=== PATIENT | female | born 1970 | race Caucasian/White ===

== ENCOUNTER 2017-10-23 16:30 | Observation (INO) | payer OTHER ==
[2017-10-23] MEDS ORDERED: IOHEXOL 350 MG/ML 10 ML VIAL (for RAD DIAG) IVCONTRAST ONE (16:31)
[2017-10-23 16:33] VITALS: BP 152/84; PULSE 75; RESP 16; TEMP 98.7; O2SAT 98
[2017-10-23 17:18] LABS: AUTOMATED NEUTROPHIL # 6.3 TH/MM3 (1.8-7.7); BASOPHIL # 0.1 TH/MM3 (0-0.2); BASOPHIL % 0.9 % (0.0-2.0); EOSINOPHIL # 0.2 TH/MM3 (0-0.4); EOSINOPHIL % 2.5 % (0.0-4.0); HEMATOCRIT 41.3 % (35.0-46.0); HEMOGLOBIN 14.5 GM/DL (11.6-15.3); LYMPH % 27.5 % (9.0-44.0); LYMPHOCYTE # 2.8 TH/MM3 (1.0-4.8); MEAN CELL VOLUME 90.4 FL (80.0-100.0); MEAN CORPUSCULAR HEMOGLOBIN 31.8 PG (27.0-34.0); MEAN CORPUSCULAR HGB CONC 35.2 % (32.0-36.0); MEAN PLATELET VOLUME 7.9 FL (7.0-11.0); MONO % 6.4 % (0.0-8.0); MONOCYTE # 0.6 TH/MM3 (0-0.9); NEUT % 62.7 % (16.0-70.0); PLATELET COUNT 308 TH/MM3 (150-450); RED BLOOD COUNT 4.57 MIL/MM3 (4.00-5.30); RED CELL DISTRIBUTION WIDTH 12.8 % (11.6-17.2); WHITE BLOOD COUNT 10.1 TH/MM3 (4.0-11.0)
[2017-10-23 17:25] LABS: PROTHROMBIN TIME - PATIENT 9.7 SEC (9.8-11.6)
[2017-10-23 17:30] LABS: ALBUMIN 4.2 GM/DL (3.4-5.0); ALT (GPT) 62 U/L (10-53); AST (GOT) 26 U/L (15-37); BICARBONATE 26.6 MEQ/L (21.0-32.0); BLOOD UREA NITROGEN 12 MG/DL (7-18); CALCIUM 9.7 MG/DL (8.5-10.1); CHLORIDE 105 MEQ/L (98-107); CREATININE 0.95 MG/DL (0.50-1.00); GLOMERULAR FILTRATION RATE 63 ML/MIN (>89); GLUCOSE,RANDOM 99 MG/DL (74-106); SODIUM (NA) 139 MEQ/L (136-145)
[2017-10-23 17:32] LABS: ALKALINE PHOSPHATASE 112 U/L (45-117); TOTAL BILIRUBIN ADULT 0.4 MG/DL (0.2-1.0); TOTAL PROTEIN 8.4 GM/DL (6.4-8.2)
[2017-10-23] MEDS ORDERED: IBUP200C PO (17:52)
[2017-10-23] MEDS ORDERED: VENTAER INH (17:52)
[2017-10-23] MEDS ORDERED: ALBU0.63 NEB (17:52)
[2017-10-23] MEDS ORDERED: ONDANSETRON HCL 4 MG/2 ML VIAL IV PUSH ONE (18:00)
[2017-10-23] MEDS ORDERED: SODIUM CHLOR 0.9% 1000 ML INJ 1,000 ML IV SCH (18:00)
[2017-10-23] MEDS ORDERED: MORPHINE SULFATE 2 MG/ML INJ IV PUSH ONE ×2 (18:00→19:30)
--- NOTE | 2017-10-23 18:02 | PD ---
HPI Chief Complaint: Bleeding Time Seen by Provider: 17:40 Travel History International Travel<30 days: No Contact w/Intl Traveler<30days: No Traveled to known affect area: No History of Present Illness HPI 46-year-old female complains of rectal pain and rectal bleeding. Patient states her symptoms started a month ago. Patient stated the pain is sharp pain and severe pressure pain localized rectal area. Patient denies any pain radiation. Patient denies any nausea vomiting diarrhea. Patient states that she noticed blood per stool for the past 2 weeks. Patient denies any dysuria frequency. Patient denies any vaginal discharge or bleeding. Patient has history of COPD. Patient denies any previous pneumonia abdominal surgery. Patient was seen by local physician this morning and advised to go to the ED for evaluation. Patient states that she never had colonoscopy done. On a scale of 1-10 the pain is a 10. PFSH Past Medical History Cancer: Yes (BREAST CANCER) COPD: Yes Respiratory: Yes (COPD) Tetanus Vaccination: Unknown Influenza Vaccination: No ?: Not Past Surgical History Other Surgery: Yes (IMGUINAL HERNIA REPAIR AND LEFT LUMPECTOMY) Social History Alcohol Use: No Tobacco Use: No Substance Use: No Allergies-Medications (Allergen,Severity, Reaction): Coded Allergies: No Known Allergies (Unverified , 10/23/17) Reported Meds & Prescriptions Reported Meds & Active Scripts Active Reported Albuterol Neb (Albuterol Sulfate) 0.63 Mg/3 Ml Neb 0.63 Mg NEB Q6HR NEB PRN Ventolin Hfa 18 GM Inh (Albuterol Sulfate) 90 Mcg/Act Aer 2 Puff INH Q4-6H PRN Ibuprofen 200 Mg Cap 200 Mg PO Q2HR Review of Systems General / Constitutional: No: Fever Eyes: No: Visual changes HENT: No: Headaches Cardiovascular: No: Chest Pain or Discomfort Respiratory: No: Shortness of Breath Gastrointestinal: Positive: Abdominal Pain, Hematochezia Genitourinary: No: Dysuria Musculoskeletal: No: Pain Skin: No Rash Neurologic: No: Weakness Psychiatric: No: Depression Endocrine: No: Polydipsia Hematologic/Lymphatic: No: Easy Bruising Physical Exam Narrative GENERAL: Well-nourished, well-developed patient. SKIN: Focused skin assessment warm/dry. HEAD: Normocephalic. EYES: No scleral icterus. No injection or drainage. NECK: Supple, trachea midline. No JVD or lymphadenopathy. CARDIOVASCULAR: Regular rate and rhythm without murmurs, gallops, or rubs. RESPIRATORY: Breath sounds equal bilaterally. No accessory muscle use. GASTROINTESTINAL: Abdomen soft, non-tender, nondistended. Unable to perform full rectal exam on the patient because of pain per rectum. Hemoccult at the entrance of the anus is trace positive for Hemoccult. MUSCULOSKELETAL: No cyanosis, or edema. BACK: Nontender without obvious deformity. No CVA tenderness. Neurologic exam normal. Data Data Last Documented VS Vital Signs Date Time Temp Pulse Resp B/P (MAP) Pulse Ox O2 Delivery O2 Flow Rate FiO2 10/23/17 19:13 77 18 138/70 (92) 97 Room Air 10/23/17 16:33 98.7 Orders Orders Complete Blood Count With Diff (10/23/17 16:35) Comprehensive Metabolic Panel (10/23/17 16:35) Coag Profile (10/23/17 16:35) Ct Abd/Pel W Iv Contrast(Rout) (10/23/17 17:48) Sodium Chlor 0.9% 1000 Ml Inj (Ns 1000 M (10/23/17 18:00) Morphine Inj (Morphine Inj) (10/23/17 18:00) Ondansetron Inj (Zofran Inj) (10/23/17 18:00) Iohexol 350 Inj (Omnipaque 350 Inj) (10/23/17 16:31) Morphine Inj (Morphine Inj) (10/23/17 19:30) Admit Order (Ed Use Only) (10/23/17 19:32) Labs Laboratory Tests Test 10/23/17 16:58 White Blood Count 10.1 TH/MM3 Red Blood Count 4.57 MIL/MM3 Hemoglobin 14.5 GM/DL Hematocrit 41.3 % Mean Corpuscular Volume 90.4 FL Mean Corpuscular Hemoglobin 31.8 PG Mean Corpuscular Hemoglobin Concent 35.2 % Red Cell Distribution Width 12.8 % Platelet Count 308 TH/MM3 Mean Platelet Volume 7.9 FL Neutrophils (%) (Auto) 62.7 % Lymphocytes (%) (Auto) 27.5 % Monocytes (%) (Auto) 6.4 % Eosinophils (%) (Auto) 2.5 % Basophils (%) (Auto) 0.9 % Neutrophils # (Auto) 6.3 TH/MM3 Lymphocytes # (Auto) 2.8 TH/MM3 Monocytes # (Auto) 0.6 TH/MM3 Eosinophils # (Auto) 0.2 TH/MM3 Basophils # (Auto) 0.1 TH/MM3 CBC Comment DIFF FINAL Differential Comment Prothrombin Time 9.7 SEC Prothromb Time International Ratio 1.0 RATIO Activated Partial Thromboplast Time 25.2 SEC Blood Urea Nitrogen 12 MG/DL Creatinine 0.95 MG/DL Random Glucose 99 MG/DL Total Protein 8.4 GM/DL Albumin 4.2 GM/DL Calcium Level 9.7 MG/DL Alkaline Phosphatase 112 U/L Aspartate Amino Transf (AST/SGOT) 26 U/L Alanine Aminotransferase (ALT/SGPT) 62 U/L Total Bilirubin 0.4 MG/DL Sodium Level 139 MEQ/L Potassium Level 4.0 MEQ/L Chloride Level 105 MEQ/L Carbon Dioxide Level 26.6 MEQ/L Anion Gap 7 MEQ/L Estimat Glomerular Filtration Rate 63 ML/MIN MDM Medical Decision Making Medical Screen Exam Complete: Yes Emergency Medical Condition: Yes Interpretation(s) 1816 p.m. CBC within normal limits. CMP within normal limits. ALT 62. 1924 PM. Last Impressions Abdomen/Pelvis CT 10/23/17 1748 Signed Impressions: Service Date/Time: Monday, October 23, 2017 18:31 - CONCLUSION: Abnormal appearance of the anorectal junction. Prieto Weeks MD Differential Diagnosis Differential diagnosis including rectal abscess, rectal mass, proctitis, GI bleed. Narrative Course 46-year-old female with severe rectal pain and blood per stool. Normal saline solution 1 25 cc an hour. Morphine 2 mg IV. Zofran 4 mg IV. Pepcid 20 mg IV. Spoke with colorectal surgeon Dr. Newberry. Advised medical admission and he will see her in consultation. Diagnosis Primary Impression: GI bleed Qualified Codes: K92.2 - Gastrointestinal hemorrhage, unspecified Additional Impression: Rectal mass Admitting Information Admitting Physician Requests: Admit Slim Trejo MD Oct 23, 2017 18:02
--- NOTE | 2017-10-23 19:10 | RADRPT ---
EXAM DATE/TIME: 10/23/2017 18:31 [facility] COMPARISON: No previous studies available for comparison. INDICATIONS : Rectal pain and blood in stool. IV CONTRAST: 97 cc Omnipaque 350 (iohexol) IV ORAL CONTRAST: No oral contrast ingested. RADIATION DOSE: 8.02 CTDIvol (mGy) MEDICAL HISTORY : Chronic obstructive pulmonary disease. Carcinoma, breast. SURGICAL HISTORY : Inguinal hernia repair. ENCOUNTER: Initial ACUITY: 1 month PAIN SCALE: 10/10 LOCATION: rectal pain TECHNIQUE: Volumetric scanning of the abdomen and pelvis was performed. Using automated exposure control and ad justment of the mA and/or kV according to patient size, radiation dose was kept as low as reasonably achievable to obtain optimal diagnostic quality images. DICOM format image data is available electro nically for review and comparison. FINDINGS: LOWER LUNGS: The visualized lower lungs are clear. LIVER: Diffusely diminished attenuation suggesting steatosis. No focal mass or biliary ductal dilatation. SPLEEN: Normal size without lesion. PANCREAS: Within normal limits. KIDNEYS: Normal in size and shape. There is no mass, stone or hydronephrosis. ADRENAL GLANDS: Within normal limits. VASCULAR: There is no aortic aneurysm. BOWEL/MESENTERY: The region of the anal rectal junction is abnormal with suggestion of wall thickening and a slightly greater than 1 cm low density focus which may be a small neural abscess or mass. Mild induration in t his region. The bowel is elsewhere are unremarkable with no abnormal dilatation. ABDOMINAL WALL: Within normal limits. RETROPERITONEUM: There is no lymphadenopathy. BLADDER: No wall thickening or mass. REPRODUCTIVE: Within normal limits. INGUINAL: There is no lymphadenopathy or hernia. MUSCULOSKELETAL: Within normal limits for patient age. CONCLUSION: Abnormal appearance of the anorectal junction. Prieto Weeks MD on October 23, 2017 at 19:05 Board Certified Radiologist. This report was verified electronically.
[2017-10-23 19:13] VITALS: BP 138/70; PULSE 77; RESP 18; O2SAT 97
[2017-10-23] MEDS ORDERED: MAGNESIUM HYDROXIDE SUSP 30 ML CUP PO PRN (21:45)
[2017-10-23] MEDS ORDERED: NALOXONE HCL 0.4 MG/ML AMP IV PUSH PRN (21:45)
[2017-10-23] MEDS ORDERED: LACTULOSE SYRUP 20 GM/30 ML CUP PO PRN (21:45)
[2017-10-23] MEDS ORDERED: SENNOSIDES 8.6 MG TAB PO PRN (21:45)
[2017-10-23] MEDS ORDERED: SODIUM CHLORIDE 0.9% FLUSH 10 ML FLUSH IV FLUSH PRN (21:45)
[2017-10-23] MEDS ORDERED: BISACODYL 10 MG SUPP RECTAL PRN (21:45)
[2017-10-23 22:22] VITALS: BP 124/61; PULSE 82; RESP 20; O2SAT 97
[2017-10-23] MEDS: HYDROmorphone HCL PF 2 MG/ML VIAL IV PUSH PRN (22:24)
[2017-10-23] MEDS: SODIUM CHLOR 0.9% 1000 ML INJ 1,000 ML IV SCH (22:24)
[2017-10-23 23:10] VITALS: BP 122/73; PULSE 67; RESP 16; TEMP 98.4; O2SAT 98
--- NOTE | 2017-10-24 00:21 | HHI.HP ---
HPI Service [facility] Primary Care Physician Edwina Jaimes MD Admission Diagnosis GI bleed. Rectal mass. Diagnoses: Travel History International Travel<30 Days: No Contact w/Intl Traveler <30 Da: No Traveled to Known Affected Are: No History of Present Illness 46-year-old female with a past medical history significant for COPD presents to the emergency for evaluation of rectal pain. The patient reports that her "butthole hurts" and has been doing so for approximately one month. She reports that initially she only had pain with defecation which was then relieved between episodes. She reports that she has had increasing pain/ pressure in her rectum and that now it is constant and very painful. She states she has bright red blood per rectum with her stool on a regular basis. She denies any weight loss. Denies fever/chills. No nausea/vomiting. No chest pain or shortness of breath. Review of Systems Except as stated in HPI: all other systems reviewed are Neg Past Family Social History Past Medical History COPD Past Surgical History Left breast lumpectomy 2 Hernia repair Reported Medications Reported Meds & Active Scripts Active Reported Albuterol Neb (Albuterol Sulfate) 0.63 Mg/3 Ml Neb 0.63 Mg NEB Q6HR NEB PRN Ventolin Hfa 18 GM Inh (Albuterol Sulfate) 90 Mcg/Act Aer 2 Puff INH Q4-6H PRN Ibuprofen 200 Mg Cap 200 Mg PO Q2HR Allergies: Coded Allergies: No Known Allergies (Unverified , 10/23/17) Family History Both parents with diabetes mellitus and coronary artery disease. Social History Quit tobacco in February 19502016. Now smokes an electronic cigarette. Denies alcohol and illicit drugs. Physical Exam Vital Signs Vital Signs Date Time Temp Pulse Resp B/P (MAP) Pulse Ox O2 Delivery O2 Flow Rate FiO2 10/23/17 23:10 98.4 67 16 122/73 (89) 98 10/23/17 22:45 10/23/17 22:22 82 20 124/61 (82) 97 Room Air 10/23/17 19:13 77 18 138/70 (92) 97 Room Air 10/23/17 16:33 98.7 75 16 152/84 (131) 98 Physical Exam GENERAL: female lying in bed SKIN: No rashes, ecchymoses or lesions. Cool and dry. HEAD: Atraumatic. Normocephalic. No temporal or scalp tenderness. EYES: Pupils equal round and reactive. Extraocular motions intact. No scleral icterus. No injection or drainage. ENT: Nose without bleeding, purulent drainage or septal hematoma. Throat without erythema, tonsillar hypertrophy or exudate. Uvula midline. Airway patent. NECK: Trachea midline. No JVD or lymphadenopathy. Supple, nontender, no meningeal signs. CARDIOVASCULAR: Regular rate and rhythm without murmurs, gallops, or rubs. RESPIRATORY: Clear to auscultation. Breath sounds equal bilaterally. No wheezes , rales, or rhonchi. GASTROINTESTINAL: Abdomen soft, non-tender, nondistended. No hepato-splenomegaly , or palpable masses. No guarding. : Rectal exam was not performed secondary to patient's pain. No obvious masses or malformations of the anus. MUSCULOSKELETAL: Extremities without clubbing, cyanosis, or edema. No joint tenderness, effusion, or edema noted. No calf tenderness. NEUROLOGICAL: Awake and alert. Cranial nerves II through XII intact. Motor and sensory grossly within normal limits. Normal speech. Laboratory Laboratory Tests Test 10/23/17 16:58 White Blood Count 10.1 Red Blood Count 4.57 Hemoglobin 14.5 Hematocrit 41.3 Mean Corpuscular Volume 90.4 Mean Corpuscular Hemoglobin 31.8 Mean Corpuscular Hemoglobin Concent 35.2 Red Cell Distribution Width 12.8 Platelet Count 308 Mean Platelet Volume 7.9 Neutrophils (%) (Auto) 62.7 Lymphocytes (%) (Auto) 27.5 Monocytes (%) (Auto) 6.4 Eosinophils (%) (Auto) 2.5 Basophils (%) (Auto) 0.9 Neutrophils # (Auto) 6.3 Lymphocytes # (Auto) 2.8 Monocytes # (Auto) 0.6 Eosinophils # (Auto) 0.2 Basophils # (Auto) 0.1 CBC Comment DIFF FINAL Differential Comment Prothrombin Time 9.7 Prothromb Time International Ratio 1.0 Activated Partial Thromboplast Time 25.2 Blood Urea Nitrogen 12 Creatinine 0.95 Random Glucose 99 Total Protein 8.4 Albumin 4.2 Calcium Level 9.7 Alkaline Phosphatase 112 Aspartate Amino Transf (AST/SGOT) 26 Alanine Aminotransferase (ALT/SGPT) 62 Total Bilirubin 0.4 Sodium Level 139 Potassium Level 4.0 Chloride Level 105 Carbon Dioxide Level 26.6 Anion Gap 7 Estimat Glomerular Filtration Rate 63 Result Diagram: 10/23/17165710/23/171657 Caprini VTE Risk Assessment Caprini VTE Risk Assessment: No/Low Risk (score <= 1) Caprini Risk Assessment Model Point Value = 1 Point Value = 2 Point Value = 3 Point Value = 5 Age 41-60 Minor surgery BMI > 25 kg/m2 Swollen legs Varicose veins or History of unexplained or recurrent spontaneous Oral contraceptives or hormone replacement Sepsis (< 1 month) Serious lung disease, including pneumonia (< 1 month) Abnormal pulmonary function Acute myocardial infarction Congestive heart failure (< 1 month) History of inflammatory bowel disease Medical patient at bed rest Age 61-74 Arthroscopic surgery Major open surgery (> 45 min) Laparoscopic surgery (> 45 min) Malignancy Confined to bed (> 72 hours) Immobilizing plaster cast Central venous access Age >= 75 History of VTE Family history of VTE Factor V Leiden Prothrombin [id number] Lupus anticoagulant Anticardiolipin antibodies Elevated serum homocysteine Heparin-induced thrombocytopenia Other congenital or acquired thrombophilia Stroke (< 1 month) Elective arthroplasty Hip, pelvis, or leg fracture Acute spinal cord injury (< 1 month) Prophylaxis Regimen Total Risk Factor Score Risk Level Prophylaxis Regimen 0-1 Low Early ambulation 2 Moderate Order ONE of the following: *Sequential Compression Device (SCD) *Heparin 5000 units SQ BID 3-4 Higher Order ONE of the following medications: *Heparin 5000 units SQ TID *Enoxaparin/Lovenox 40 mg SQ daily (WT < 150 kg, CrCl > 30 mL/min) *Enoxaparin/Lovenox 30 mg SQ daily (WT < 150 kg, CrCl > 10-29 mL/min) *Enoxaparin/Lovenox 30 mg SQ BID (WT < 150 kg, CrCl > 30 mL/min) AND/OR *Sequential Compression Device (SCD) 5 or more Highest Order ONE of the following medications: *Heparin 5000 units SQ TID (Preferred with Epidurals) *Enoxaparin/Lovenox 40 mg SQ daily (WT < 150 kg, CrCl > 30 mL/min) *Enoxaparin/Lovenox 30 mg SQ daily (WT < 150 kg, CrCl > 10-29 mL/min) *Enoxaparin/Lovenox 30 mg SQ BID (WT < 150 kg, CrCl > 30 mL/min) AND *Sequential Compression Device (SCD) Assessment and Plan Assessment and Plan Assessment/plan: 1. Rectal mass CT of the abdomen/pelvis significant for abnormal appearance of the anorectal junction Colorectal surgery consulted, appreciate recommendations. Patient will likely have rectal exam under anesthesia later today. Dilaudid for pain 2. COPD Duonebs prn FEN NPO NS at 100 cc/hr Electrolytes: Monitor and replete when necessary Ambulation Jackie Marcelino MD Oct 24, 2017 00:21
[2017-10-24 02:35] VITALS: BP 101/60; PULSE 72; RESP 18; TEMP 98; O2SAT 98
[2017-10-24] MEDS: ONDANSETRON HCL 4 MG/2 ML VIAL IVP PRN ×2 (04:24→16:30)
[2017-10-24] MEDS: HYDROmorphone HCL PF 2 MG/ML VIAL IV PUSH PRN ×4 (04:27→21:52)
[2017-10-24 06:36] LABS: AUTOMATED NEUTROPHIL # 5.6 TH/MM3 (1.8-7.7); BASOPHIL # 0.1 TH/MM3 (0-0.2); BASOPHIL % 1.2 % (0.0-2.0); EOSINOPHIL # 0.2 TH/MM3 (0-0.4); EOSINOPHIL % 2.6 % (0.0-4.0); HEMATOCRIT 36.2 % (35.0-46.0); HEMOGLOBIN 12.4 GM/DL (11.6-15.3); LYMPH % 23.1 % (9.0-44.0); LYMPHOCYTE # 1.9 TH/MM3 (1.0-4.8); MEAN CELL VOLUME 89.6 FL (80.0-100.0); MEAN CORPUSCULAR HEMOGLOBIN 30.8 PG (27.0-34.0); MEAN CORPUSCULAR HGB CONC 34.4 % (32.0-36.0); MEAN PLATELET VOLUME 7.9 FL (7.0-11.0); MONO % 7.1 % (0.0-8.0); MONOCYTE # 0.6 TH/MM3 (0-0.9); PLATELET COUNT 266 TH/MM3 (150-450); RED BLOOD COUNT 4.04 MIL/MM3 (4.00-5.30); RED CELL DISTRIBUTION WIDTH 12.7 % (11.6-17.2); WHITE BLOOD COUNT 8.4 TH/MM3 (4.0-11.0)
[2017-10-24 06:43] VITALS: BP 118/71; PULSE 66; RESP 18; TEMP 98; O2SAT 92
[2017-10-24 07:22] LABS: BICARBONATE 27.4 MEQ/L (21.0-32.0); CALCIUM 8.9 MG/DL (8.5-10.1); CREATININE 0.79 MG/DL (0.50-1.00)
[2017-10-24] MEDS: SODIUM CHLOR 0.9% 1000 ML INJ 1,000 ML IV SCH ×2 (07:33→17:33)
[2017-10-24] MEDS: DOCUSATE SODIUM 50 MG/SENNA 8.6 MG TAB PO SCH ×2 (07:40→21:00)
[2017-10-24] MEDS: ACETAMINOPHEN 325 MG TAB PO PRN (07:40)
[2017-10-24] MEDS: SODIUM CHLORIDE 0.9% FLUSH 10 ML FLUSH IV FLUSH SCH ×2 (07:41→21:49)
[2017-10-24 08:41] VITALS: BP 108/64; PULSE 71; RESP 18; TEMP 98.1; O2SAT 95
[2017-10-24] MEDS: PANTOPRAZOLE SODIUM 40 MG VIAL IV PUSH SCH (09:42)
[2017-10-24 12:02] VITALS: BP 129/75; PULSE 64; RESP 18; TEMP 98.3; O2SAT 94
--- NOTE | 2017-10-24 13:51 | HHI.PR ---
Subjective Remarks Follow up rectal mass. Patient reporting significant pain in the anorectal region. She feels lightheaded with ambulation. Objective Vitals Vital Signs Date Time Temp Pulse Resp B/P (MAP) Pulse Ox O2 Delivery O2 Flow Rate FiO2 10/24/17 12:02 98.3 64 18 129/75 (93) 94 10/24/17 08:41 98.1 71 18 108/64 (79) 95 10/24/17 06:43 98.0 66 18 118/71 (87) 92 10/24/17 02:35 98.0 72 18 101/60 (74) 98 10/23/17 23:10 98.4 67 16 122/73 (89) 98 10/23/17 22:45 10/23/17 22:22 82 20 124/61 (82) 97 Room Air 10/23/17 19:13 77 18 138/70 (92) 97 Room Air 10/23/17 16:33 98.7 75 16 152/84 (106) 98 I/O 10/23/17 10/23/17 10/23/17 10/24/17 10/24/17 10/24/17 07:00 15:00 23:00 07:00 15:00 23:00 Intake Total 1000 ml Balance 1000 ml Intake IV Total 1000 ml # Voids 1 Result Diagram: 10/24/17 0608 10/24/17 0608 Imaging Last Impressions Abdomen/Pelvis CT 10/23/17 1748 Signed Impressions: Service Date/Time: Monday, October 23, 2017 18:31 - CONCLUSION: Abnormal appearance of the anorectal junction. Prieto Weeks MD Objective Remarks Examined in presence of PA. General: No acute distress. Heart: Regular rate and rhythm. No murmur. Lungs: Clear to auscultation bilaterally. No wheezes, rales, or rhonchi. Breathing is nonlabored. Abdomen: Soft, nontender, nondistended. Extremities: No lower extremity edema. Psych: Alert and oriented. Procedures None Urinary Catheter: No Vascular Central Line Catheter: No A/P Assessment and Plan 1. Rectal mass: Colorectal surgery consult is pending. Patient will likely need exam under anesthesia. Continue pain control. 2. COPD: Duoneb, oxygen as needed. 3. DVT prophylaxis: Bernard Murray MD Oct 24, 2017 13:51
[2017-10-24 15:53] VITALS: BP 131/61; PULSE 71; RESP 18; TEMP 98.1; O2SAT 94
[2017-10-24] MEDS ORDERED: IBUPROFEN 600 MG TAB PO ONE (16:15)
[2017-10-24 20:15] VITALS: BP 107/59; PULSE 82; RESP 16; TEMP 98; O2SAT 90
[2017-10-24] MEDS ORDERED: SODIUM CHLORID 0.9% 500 ML IV PRN (21:00)
[2017-10-24] MEDS ORDERED: LACTATED RINGER'S 1000 ML IV PRN (21:00)
[2017-10-24] MEDS ORDERED: CHLORHEXIDINE GLUCONATE 2 % 1 PACK (2 CLOTHS) TOPICAL PRN (21:00)
[2017-10-24] MEDS ORDERED: POVIDONE IODINE 5% (ANTISEPSIS KIT) 4 APPLICATIONS EACH NARE PRN (21:00)
--- NOTE | 2017-10-24 21:08 | MB ---
cc: FRANCOIS TAVERAS M.D. DATE OF CONSULTATION 10/24/17 REASON FOR CONSULTATION Severe rectal pain and bleeding, abnormal CAT scan. HISTORY OF PRESENT ILLNESS Ms. Hatch is a 46-year-old female who complains of increasing rectal pain now over approximately 3-4 weeks. She initially had pain with bowel movements and some relief in-between stools. Lately, the pain has become more and more intense with some pressure and pain in the rectum all a time. She has also had some mucus discharge and bright red blood with bowel movements mostly on the paper and the stool but some of the toilet bowel. She denies any significant diarrhea. Control is good. She does strain quite a bit. She denies any prolapse, no nausea or vomiting, denies any fever. No abdominal distension or melena. Appetite has remained fairly good and she denies any significant weight loss. PAST MEDICAL AND SURGICAL HISTORY Reviewed and updated in the history and physical and the ER reports. No family history of colorectal cancer. PERTINENT PHYSICAL EXAMINATION GENERAL: A very pleasant female in some discomfort. HEENT: Remarkable for dry but pink membranes, nonicteric sclerae. NECK: Supple without gross adenopathy. CHEST: Relatively clear, symmetrical expanding. CARDIAC: Heart had a regular rhythm. ABDOMEN: Soft and benign, very minimal distension. No rebound or guarding or any masses. RECTAL: Anal inspection reveals good symmetry, no obvious cellulitis. No induration. No obvious fissures or fistula. Digital exam reveals quite a bit of tenderness and swollen internal hemorrhoids, possibly a mass or an abscess. EXTREMITIES: No cyanosis or clubbing and minimal pedal edema. LABORATORY FINDINGS All reviewed. IMAGING STUDIES CAT scan showing asymmetrical swelling of the rectum consistent with either a mass or possibly induration and abscess formation. IMPRESSION A 46-year-old female with increasing rectal pain and tenderness. CT scan does suggest either an abscess or possibly a mass. A rectal exam at the bedside was pretty indeterminate due to patient discomfort. Discussed at length with the patient. Recommended exam under anesthesia with sigmoidoscopy and possible biopsy of the mass. If one is found or drainage of an abscess if indeed she does have an internal submucosal abscess or possibly thrombosis. Risk, benefits and alternatives were discussed at great length with the patient. We will try to set up for first thing in the morning. MD ELYSSA Zamora /8:29 PM /8:50 PM
[2017-10-25] MEDS: HYDROmorphone HCL PF 2 MG/ML VIAL IV PUSH PRN ×4 (02:04→21:55)
[2017-10-25] MEDS: SODIUM CHLOR 0.9% 1000 ML INJ 1,000 ML IV SCH ×3 (02:44→23:33)
[2017-10-25 05:17] VITALS: BP 113/65; PULSE 82; RESP 16; TEMP 97.2; O2SAT 98
[2017-10-25 07:25] VITALS: BP 135/74; PULSE 75; RESP 18; TEMP 99.3; O2SAT 94
--- NOTE | 2017-10-25 07:43 | HHI.PR ---
Subjective Remarks Follow up rectal pain. Going for sigmoidoscopy this morning. Reports "migraine" headache. Objective Vitals Vital Signs Date Time Temp Pulse Resp B/P (MAP) Pulse Ox O2 Delivery O2 Flow Rate FiO2 10/25/17 07:25 99.3 75 18 135/74 (94) 94 10/25/17 05:17 97.2 82 16 113/65 (81) 98 10/24/17 20:15 98.0 82 16 107/59 (75) 90 10/24/17 15:53 98.1 71 18 131/61 (84) 94 10/24/17 12:02 98.3 64 18 129/75 (93) 94 10/24/17 08:41 98.1 71 18 108/64 (79) 95 I/O 10/24/17 10/24/17 10/24/17 10/25/17 10/25/17 10/25/17 07:00 15:00 23:00 07:00 15:00 23:00 Intake Total 480 ml Balance 480 ml Intake Oral 480 ml # Voids 1 3 Result Diagram: 10/24/17 0608 10/24/17 0608 Imaging Last Impressions Abdomen/Pelvis CT 10/23/17 1748 Signed Impressions: Service Date/Time: Monday, October 23, 2017 18:31 - CONCLUSION: Abnormal appearance of the anorectal junction. Prieto Weeks MD Objective Remarks Examined in presence of PA. General: No acute distress. Heart: Regular rate and rhythm. No murmur. Lungs: Clear to auscultation bilaterally. No wheezes, rales, or rhonchi. Breathing is nonlabored. Abdomen: Soft, nontender, nondistended. Extremities: No lower extremity edema. Psych: Alert and oriented. Procedures None Urinary Catheter: No Vascular Central Line Catheter: No A/P Assessment and Plan 1. Rectal mass: Appreciate colorectal surgery recommendations. Going for exam under anesthesia and sigmoidoscopy today. Continue pain control. 2. COPD: Duoneb, oxygen as needed. 3. DVT prophylaxis: SCDs. Discharge Planning Pending colorectal surgery recommendations post-procedure. Bernard Hester MD Oct 25, 2017 07:43
[2017-10-25] MEDS ORDERED: ACETAMINOPHEN 1000 MG/100 ML 100 ML IV ONE (08:04)
[2017-10-25] MEDS ORDERED: FAMOTIDINE 20 MG/2 ML VIAL ONE (08:04)
[2017-10-25] MEDS: DOCUSATE SODIUM 50 MG/SENNA 8.6 MG TAB PO SCH ×2 (09:00→20:34)
[2017-10-25] MEDS ORDERED: IOHEXOL 350 MG/ML 10 ML VIAL (for RAD DIAG) IVCONTRAST ONE (09:52)
--- NOTE | 2017-10-25 10:07 | RADRPT ---
EXAM DATE/TIME: 10/25/2017 09:44 [facility] COMPARISON: No previous studies available for comparison. INDICATIONS : Anal cancer IV CONTRAST: 70 cc Omnipaque 350 (iohexol) IV RADIATION DOSE: 9.70 CTDIvol (mGy) MEDICAL HISTORY : Carcinoma, anal. Metastatic, breast. SURGICAL HISTORY : None. ENCOUNTER: Initial ACUITY: 1 day PAIN SCALE: 0/10 LOCATION: chest TECHNIQUE: Volumetric scanning of the chest was performed. Using automated exposure control and adjustment of t he mA and/or kV according to patient size, radiation dose was kept as low as reasonably achievable to obtain optimal diagnostic quality images. DICOM format image data is available electronically for review and comparison. Follow-up recommendations for detected pulmonary nodules are based at a minimum on nodule size and pa tient risk factors according to Fleischner Society Guidelines. FINDINGS: LUNGS: Multiple tiny bilateral pulmonary parenchymal nodules are identified, none exceeding 4-5 mm in size. These are all labeled on lung window series 3, seen on images 22, 34, 35, 37, 40. There is no evidenc e of infiltrate. PLEURA: There is no pleural thickening or pleural effusion. MEDIASTINUM: The heart and great vessels demonstrate no acute abnormality. There is no mediastinal or hilar lymph adenopathy. AXILLAE: Within normal limits. No lymphadenopathy. SKELETAL: Within normal limits for patient age. MISCELLANEOUS: Hepatic steatosis noted in the upper abdomen. Adrenals appear benign. CONCLUSION: Multiple tiny bilateral pulmonary nodules which can be followed. Prieto Weeks MD on October 25, 2017 at 9:58 Board Certified Radiologist. This report was verified electronically.
[2017-10-25] MEDS: SODIUM CHLORIDE 0.9% FLUSH 10 ML FLUSH IV FLUSH SCH ×2 (10:40→20:34)
[2017-10-25] MEDS: PANTOPRAZOLE SODIUM 40 MG VIAL IV PUSH SCH (10:42)
[2017-10-25] MEDS ORDERED: LIDOCAINE HCL 1% PF 5 ML SYRINGE OTHER ONE (12:00)
[2017-10-25] MEDS ORDERED: PROPOFOL 200 MG/20 ML AMP IV ONE (12:00)
[2017-10-25 12:23] VITALS: BP 100/54; PULSE 72; RESP 18; TEMP 98; O2SAT 94
--- NOTE | 2017-10-25 13:08 | MB ---
cc: DOC KANG M.D. DATE OF CONSULTATION 10/25/[address] Newberry REASON FOR CONSULTATION Oncology consulted to render an opinion regarding patient with anorectal cancer. HISTORY OF PRESENT ILLNESS Patient is a 46-year-old female who presented to the emergency room with a complaint of rectal pain that started more than a month ago. Initially, she has pain with bowel movement. She also noted occasional bright red blood per rectum, however over last few weeks, the pain has progressively become constant and she has had bright red blood per rectum with every bowel movement over the last one to two weeks. She described the pain as very sharp pain. 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 She came into the emergency room. She had an examination under anesthesia by Dr. Newberry this morning. Biopsy was done. She has a firm mass in the anorectal area that looked more like anal cancer. She denies any fever, chills, night sweats or weight loss. She has no chest pains. She denies any shortness of breath or cough. Denies nausea, vomiting, diarrhea, or abdominal pain. No dysuria or hematuria. Denies any fecal material in the urine. PAST MEDICAL HISTORY 1. Chronic obstructive pulmonary disease. 2. Left breast cancer. PAST SURGICAL HISTORY 1. Left breast lumpectomy twice one about 12 years ago reportedly benign and another one in [address] Garrison reportedly showed cancer. 2. Umbilical hernia repair. She stated she had a ruptured hernia resulting in abscess requiring drainage. SOCIAL HISTORY She smokes at least a pack a day for 30 years and quit in February of 2017. She is now smoking E-cigarette. Denies alcohol use. 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 She lives with her . FAMILY HISTORY Positive for coronary artery disease and diabetes and one brother . One sisters alive. One daughter 31 years old. ALLERGIES No known drug allergy. CURRENT MEDICATIONS 1. Protonix 2. Henrietta-Colace REVIEW OF SYSTEMS CONSTITUTION: As above. EYES: Negative. ENT: Negative. CARDIOVASCULAR: Denies chest pressure, or palpitation. RESPIRATORY: Denies shortness of breath or cough. GI: As above. : Negative. MUSCULOSKELETAL: Negative. HEMATOLOGY: Negative. DERMATOLOGY: Negative. ENDOCRINE: Negative. PSYCHIATRIC: Negative. NEUROLOGIC: Negative. PHYSICAL EXAMINATION VITAL SIGNS: Temperature 99.3, blood pressure 120/79, O2 saturation 97% on room air. GENERAL: She is alert and oriented x3 in no acute distress. HEENT: Atraumatic, normocephalic. Pupils equal, round and reactive to light. Extraocular muscles are intact. No sclerae icterus. Oropharynx dry mucosa. No lesion or thrush. No mucositis. NECK: No thyromegaly. No palpable masses. LYMPHATICS: No palpable cervical, clavicular, axillary or inguinal lymph nodes. CARDIOVASCULAR: Regular S1, S2. No murmurs. LUNGS: Clear to auscultation bilaterally. No wheezing or rhonchi. ABDOMEN: Soft, nontender. I could not palpate the liver or spleen. EXTREMITIES: No cyanosis, clubbing or edema. No calf tenderness. BACK: No paravertebral tenderness. SKIN: No rash or petechiae. NEUROLOGIC: Exam nonfocal. BREASTS: Exam not done, I could not find a showplace manager. RECTAL: Deferred. LABORATORY DATA Dated October 24, 2017 was reviewed ASSESSMENT 1. Anorectal mass suspicious for anal cancer. She presented with rectal pain for more than a month which has progressively worsened. CT abdomen and pelvis showed abnormal soft tissue density in the anorectal junction with mild induration. CT of the chest showed multiple tiny pulmonology nodules which are nonspecific. She had an examination under anesthesia this morning which revealed a firm mass in the anorectal area suspicious for anal cancer. A biopsy was done. I have discussed the case with Dr. Newberry. I had an extensive discussion with the patient and her over the phone. I told her she likely has anal cancer, but cannot totally rule out rectal cancer at this time and we have to wait for the final pathology. Her disease appeared to be localized, I would suggest getting a PET scan as an outpatient. We discussed the treatment of anal cancer which would be concurrent radiation with mitomycin and 5-FU. This can be done as an outpatient. Dr. Mejia has been consulted to see the patient. I suggest getting a port placement for chemotherapy. If this turned out to be a rectal cancer, treatment will also be radiation, but with Xeloda and the patient would not need a port if that is the case. She and her would like to put off getting the port placed at this time. She wants to be discharged home once she is seen by Dr. Mejia. I told her to follow up at the oncology clinic after discharge. I also told her we will check her blood work including HIV screen and she agrees. They have some questions today which were answered. 2. Chronic obstructive pulmonary disease. She has more than a 30 pack-year smoking history. She quit February 2017. 3. Pulmonology nodules. She was noted to have tiny sub-centimeter nodules in the bilateral lungs. The largest was around 4-5 mm. These are nonspecific, but need to be monitored. 4. History of breast cancer. She had left breast surgery about 12 years ago reportedly was benign. In 2014, she had another lumpectomy by Dr. Garrison and it reportedly was cancer. She was seen by radiation oncologist, but was told she does not need radiation. She was offered tamoxifen which she declined. She has not had followup since then. Her last mammogram was more than two years ago. She stated she does self exam and has not felt any mass. We will need to get records and she will need further workup as and outpatient. RECOMMENDATIONS 1. Extensive discussion with the patient and her . Await evaluation with Dr. Mejia. 2. The patient can be discharged home from oncology standpoint after seen by Dr. Mejia and I told her to follow at oncology clinic in one week. 3. Check blood work as above. 4. She will need outpatient PET scan and likely a port placement if she indeed has anal canal cancer. 5. Discussed the case with Dr. Newberry. Thank you, Dr. Newberry, for asking me to see this patient. MD MARTHA Loera/GUSTAVO /12:25 PM /12:45 PM GILBERTO
[2017-10-25] MEDS: ACETAMINOPHEN 325 MG TAB PO PRN (13:19)
[2017-10-25] MEDS ORDERED: oxyCODONE/ACETAMINOPHEN 5 MG/325 MG TAB PO PRN (14:00)
[2017-10-25] MEDS ORDERED: PERC7.5T13 PO (14:01)
--- NOTE | 2017-10-25 14:03 | HHI.DCPOC ---
Discharge Care Plan Diagnosis: (1) Rectal or anal pain (2) Pulmonary nodules (3) Rectal mass Goals to Promote Your Health * To prevent worsening of your condition and complications * To maintain your health at the optimal level Directions to Meet Your Goals Take your medications as prescribed Follow your dietary instruction Follow activity as directed Keep your appointments as scheduled Take your immunizations and boosters as scheduled If your symptoms worsen call your PCP, if no PCP go to Urgent Care Center or Emergency Room Smoking is Dangerous to Your Health. Avoid second hand smoke Call the 24-hour hour crisis hotline for domestic abuse at Bernard Hester MD Oct 25, 2017 14:02
[2017-10-25] MEDS: oxyCODONE/ACETAMINOPHEN 10 MG/325 MG TAB PO PRN ×2 (14:56→20:37)
[2017-10-25 15:55] VITALS: BP 145/65; PULSE 63; RESP 18; TEMP 97.7; O2SAT 96
[2017-10-25 20:09] VITALS: BP 147/84; PULSE 71; RESP 16; TEMP 98; O2SAT 98
[2017-10-26 01:13] VITALS: BP 131/76; PULSE 59; RESP 16; TEMP 98; O2SAT 98
[2017-10-26] MEDS: oxyCODONE/ACETAMINOPHEN 10 MG/325 MG TAB PO PRN ×2 (02:08→08:08)
[2017-10-26] MEDS: PANTOPRAZOLE SODIUM 40 MG VIAL IV PUSH SCH (08:08)
[2017-10-26] MEDS: SODIUM CHLOR 0.9% 1000 ML INJ 1,000 ML IV SCH (08:09)
[2017-10-26] MEDS: SODIUM CHLORIDE 0.9% FLUSH 10 ML FLUSH IV FLUSH SCH (08:09)
[2017-10-26] MEDS: DOCUSATE SODIUM 50 MG/SENNA 8.6 MG TAB PO SCH (08:09)
--- NOTE | 2017-10-26 08:09 | PD.ONC.PN ---
Subjective Subjective Remarks Rectal pain controlled. Eager to go home. No CP/SOB. Objective Data Date Time Temp Pulse Resp B/P (MAP) Pulse Ox O2 Delivery O2 Flow Rate FiO2 10/26/17 01:13 98.0 59 16 131/76 (94) 98 10/25/17 20:09 98.0 71 16 147/84 (105) 98 10/25/17 17:20 20 10/25/17 16:02 20 10/25/17 15:55 97.7 63 18 145/65 (91) 96 10/25/17 14:34 22 10/25/17 12:23 98.0 72 18 100/54 (69) 94 10/25/17 11:14 20 10/25/17 08:50 79 18 120/79 (93) 97 Room Air 10/26/17 10/26/17 10/26/17 07:00 15:00 23:00 Intake Total 720 ml Balance 720 ml Result Diagram: 10/24/17 0608 10/24/17 06 Laboratory Results Laboratory Tests Test 10/25/17 13:52 Carcinoembryonic Antigen 3.0 NG/ML Administered Medications Medications (Trade) Dose Ordered Sig/David Route PRN Reason Start Time Stop Time Status Last Admin Dose Admin Sodium Chloride 1,000 ml @ 100 mls/hr Q10H IV 10/23/17 21:33 10/23/17 22:24 Sodium Chloride (NS Flush) 2 ml BID IV FLUSH 10/24/17 09:00 10/25/17 20:34 Acetaminophen (Tylenol) 650 mg Q4H PRN PO TEMP > 100.4 10/23/17 21:45 10/25/17 13:19 Ondansetron HCl (Zofran Inj) 4 mg Q6H PRN IVP NAUSEA OR VOMITING 10/23/17 21:45 10/24/17 16:30 Senna/Docusate Sodium (Henrietta-Colace) 1 tab BID PO 10/24/17 09:00 10/25/17 20:34 Pantoprazole Sodium (Protonix Inj) 40 mg Q24H IV PUSH 10/24/17 10:00 10/25/17 10:42 Lactated Ringer's 1,000 ml @ 30 mls/hr Q24H PRN IV SEE LABEL COMMENTS 10/24/17 21:00 10/27/17 20:59 10/25/17 08:01 Oxycodone/ Acetaminophen (Percocet 10-325 Mg) 1 tab Q4H PRN PO PAIN SCALE 6 TO 10 10/25/17 14:00 10/26/17 02:08 Hydromorphone HCl (Dilaudid Pf Inj) 1 mg Q4H PRN IV PUSH SEVERE BREAKTHRU PAIN 10/25/17 16:30 10/25/17 21:55 Objective Remarks GENERAL: Well-nourished, well-developed patient. Overweight. SKIN: Warm and dry. HEAD: Normocephalic. EYES: No scleral icterus. No injection or drainage. NECK: Supple, trachea midline. No JVD or lymphadenopathy. LYMPHATIC: No adenopathy. CARDIOVASCULAR: Regular rate and rhythm without murmurs. RESPIRATORY: Breath sounds equal bilaterally. No accessory muscle use. GASTROINTESTINAL: Abdomen soft, non-tender, nondistended. EXTREMITIES: No cyanosis, or edema. MUSCULOSKELETAL: Adequate muscle tone. NEUROLOGICAL: No obvious focal deficit. Awake, alert, and oriented x3. PSYCHIATRIC: Appropriate mood and affect; insight and judgment normal. Assessment/Plan Assessment 1. Anorectal mass suspicious for anal cancer. She presented with rectal pain for more than a month which has progressively worsened. CT abdomen and pelvis showed abnormal soft tissue density in the anorectal junction with mild induration. CT of the chest showed multiple tiny pulmonology nodules which are nonspecific. She had an examination under anesthesia this morning which revealed a firm mass in the anorectal area suspicious for anal cancer. A biopsy was done. I have discussed the case with Dr. Newberry. I had an extensive discussion with the patient and her over the phone. I told her she likely has anal cancer, but cannot totally rule out rectal cancer at this time and we have to wait for the final pathology. Her disease appeared to be localized, I would suggest getting a PET scan as an outpatient. We discussed the treatment of anal cancer which would be concurrent radiation with mitomycin and 5-FU. This can be done as an outpatient. 10/26 Dr. Mejia has been seen the patient. HIV pending. 2. Chronic obstructive pulmonary disease. She has more than a 30 pack-year smoking history. She quit February 2017. 3. Pulmonology nodules. She was noted to have tiny sub-centimeter nodules in the bilateral lungs. The largest was around 4-5 mm. These are nonspecific, but need to be monitored. 4. History of breast cancer. She had left breast surgery about 12 years ago reportedly was benign. In 2014, she had another lumpectomy by Dr. Garriosn and it reportedly was cancer. She was seen by radiation oncologist, but was told she does not need radiation. She was offered tamoxifen which she declined. She has not had followup since then. Her last mammogram was more than two years ago. She stated she does self exam and has not felt any mass. We will need to get records and she will need further workup as and outpatient. Plan RECOMMENDATIONS 1. F/u oncology clinic next for path result and treatment recommendation. 2. She has f/u with next Monday. 3. The patient can be discharged home from oncology standpoint. 4. Out pt PET Maicol Ordaz MD Oct 26, 2017 08:09
[2017-10-26] MEDS ORDERED: oxyCODONE/ACETAMINOPHEN 10 MG/325 MG TAB PO PRN ×2 (08:30)
[2017-10-26 10:02] VITALS: BP 94/67; PULSE 67; RESP 18; TEMP 97.9; O2SAT 95
[2017-10-26] MEDS ORDERED: OXYC1TAB36 PO (11:36)
--- NOTE | 2017-10-26 11:40 | HHI.DS ---
Discharge Summary Admission Date Oct 23, 2017 at 21:34 Discharge Date: Oct 26, 2017 Admitting Diagnosis GI bleed. Rectal mass. (1) GI bleed ICD Code: K92.2 - Gastrointestinal hemorrhage, unspecified Status: Acute (2) Rectal mass ICD Code: K62.9 - Disease of anus and rectum, unspecified Status: Acute (3) Pulmonary nodules ICD Code: R91.8 - Other nonspecific abnormal finding of lung field (4) Rectal or anal pain ICD Code: K62.89 - Other specified diseases of anus and rectum Procedures None Brief History - From Admission 46-year-old female with a past medical history significant for COPD presents to the emergency for evaluation of rectal pain. The patient reports that her "butthole hurts" and has been doing so for approximately one month. She reports that initially she only had pain with defecation which was then relieved between episodes. She reports that she has had increasing pain/ pressure in her rectum and that now it is constant and very painful. She states she has bright red blood per rectum with her stool on a regular basis. She denies any weight loss. Denies fever/chills. No nausea/vomiting. No chest pain or shortness of breath. CBC/BMP: 10/24/17 0608 10/24/17 0608 Significant Findings Laboratory Tests Test 10/23/17 16:58 10/24/17 06:08 10/25/17 13:52 Prothrombin Time 9.7 SEC (9.8-11.6) Total Protein 8.4 GM/DL (6.4-8.2) Alanine Aminotransferase (ALT/SGPT) 62 U/L (10-53) Estimat Glomerular Filtration Rate 63 ML/MIN (>89) 78 ML/MIN (>89) Random Glucose 124 MG/DL (74-106) Imaging Last Impressions Chest CT 10/25/17 0000 Signed Impressions: Service Date/Time: Wednesday, October 25, 2017 09:44 - CONCLUSION: Multiple tiny bilateral pulmonary nodules which can be followed. Prieto Weeks MD Abdomen/Pelvis CT 10/23/17 8258 Signed Impressions: Service Date/Time: Monday, October 23, 2017 18:31 - CONCLUSION: Abnormal appearance of the anorectal junction. Prieto Weeks MD PE at Discharge General: No acute distress. Heart: Regular rate and rhythm. No murmur. Lungs: Clear to auscultation bilaterally. No wheezes, rales, or rhonchi. Breathing is nonlabored. Abdomen: Soft, nontender, nondistended. Extremities: No lower extremity edema. Psych: Alert and oriented. Pt update on day of discharge The patient continued to have significant pain overnight. I spoke with Dr. Newberry, who recommended increasing pain medication to Percocet 10/325, 2 tablets q6 hours. After this increase, the patient reported better pain control. She felt that she could go home today with oral pain medication. Hospital Course Patient was admitted for further evaluation of rectal mass and pain. Colorectal surgery was consulted. Patient underwent sigmoidoscopy. She was found to have an anorectal mass concerning for malignancy. Biopsy was obtained. Medical oncology and radiation oncology were consulted. Pain medications were adjusted. Once adequate pain control was achieved, patient was felt to be stable for discharge home. Recommendations were made for follow- up as outpatient with radiation oncology on Monday. The patient was cautioned regarding proper use of pain medications, avoiding alcohol, and avoiding driving while taking pain medication. Pt Condition on Discharge: Stable Discharge Disposition: Discharge Home Discharge Time: > 30 minutes Discharge Instructions DIET: Follow Instructions for: As Tolerated, No Restrictions, Soft Diet Activities you can perform: Regular-No Restrictions Follow up Referrals: Appointment for Follow Up - 10/30/17 with Anatoliy Mejia MD Colorectal Surgery - 1 Week with Ashish Newberry MD Oncology - 1 Week with Maicol Ordaz MD New Medications: Oxycodone HCl/Acetaminophen (Oxycodone-Acetaminophen 10-325) 10 Mg-325 Mg Tablet 1-2 TAB PO Q6HR PRN for PAIN SCALE 7 TO 10, #40 TAB 0 Refills Continued Medications: Albuterol 18 GM Inh (Ventolin Hfa 18 GM Inh) 90 Mcg/Act Aer 2 PUFF INH Q4-6H PRN for SHORTNESS OF BREATH, #1 INHALER 0 Refills Albuterol Neb (Albuterol Neb) 0.63 Mg/3 Ml Neb 0.63 MG NEB Q6HR NEB PRN for SHORTNESS OF BREATH, #25 NEBULE 0 Refills Ibuprofen (Ibuprofen) 200 Mg Cap 200 MG PO Q2HR, CAP 0 Refills Bernard Hester MD Oct 26, 2017 11:40
[2017-10-26 11:46] VITALS: BP 120/69; PULSE 64; RESP 18; TEMP 98.2; O2SAT 93
[2017-10-26 12:10] VITALS: RESP 18
--- NOTE | 2017-10-28 20:55 | RC ---
cc: ANATOLIY MEJIA MD, ANDREW H. M.D. DATE OF SERVICE: 10/28/2017. Ms. Hatch is a 46-year-old female with a likely anal cancer. I was asked to see her by Dr. Newberry. I saw her in the emergency room at this time. We discussed treatment considerations. Will schedule outpatient visit within the next week pending final pathology. We discussed the potential role of chemotherapy and radiation. We spoke with her significant other on the telephone as well. We discussed potential diverting colostomy temporarily as well. She expressed interest in following up. She is seen by medical oncology as well. PLAN: Reevaluation early next week. Review final pathology at that time. Anatoliy Mejia MD Radiation Oncologist [facility] /6:38 PM /8:49 PM
--- NOTE | 2017-11-21 07:58 | MR ---
cc: Ashish Newberry MD DATE: 10/25/2017 PREOPERATIVE DIAGNOSIS: Severe rectal pain and bleeding. PROCEDURE: Flexible sigmoidoscopy to left colon, EUA and biopsy anal mass. POSTOPERATIVE DIAGNOSIS: Large anorectal mass of the rectovaginal septum. SURGEON: Ashish Newberry MD PROCEDURE: The patient was placed in the left lateral decubitus position. After adequate anesthesia sedation, rectal exam confirmed a very large, firm, fixed mass along the anterior part of the anal canal extending up along the rectovaginal septum. The vaginal mucosa appeared to be intact, although it was bulging. Quite a bit of bleeding was noted. The Olympus colonoscope was introduced into the rectum and advanced easily under direct vision through the partial colon until the left colon was reached. At this point, the prep appeared to be somewhat suboptimal, and quite a bit of stool was present. Scope was therefore gradually withdrawn visualizing mucosal surface of the distal colon. No inflammatory changes were seen. No polyps were noted in the rectal vault. There was a large hard irregular mass extending from the dentate line into the rectal vault. This also extended distal to the dentate line, as well. Several biopsies were obtained, although it was difficult due to the distal nature of the mass. Hemostasis appeared adequate. The patient tolerated the procedure quite well and was brought to the recovery room in stable condition. Ashish Newberry MD AHR/DL , 10:10 PM , 07:56 AM [facility]
== END 2017-10-26 14:00 | disposition home or self-care (01) ==
LOC: NEPD 16:30 → UNDOADMIN 19:34 → NEDA 19:34 → INTOOBSV 21:34 → NEPGCP 22:39
PROVIDERS: ADMIT Family Medicine; ATTEND Family Medicine
DX: C21.8 Malignant neoplasm of overlapping sites of rectum, anus and anal canal (principal); R42 Dizziness and giddiness; K92.2 Gastrointestinal hemorrhage, unspecified; G43.909 Migraine, unspecified, not intractable, without status migrainosus; J44.9 Chronic obstructive pulmonary disease, unspecified; K76.0 Fatty (change of) liver, not elsewhere classified; F17.290 Nicotine dependence, other tobacco product, uncomplicated; Z85.3 Personal history of malignant neoplasm of breast; K62.89 Other specified diseases of anus and rectum; Z79.899 Other long term (current) drug therapy
CPT/HCPCS: 00811; 45331; 71260; 74177; 80048; 80053; 82378; 82948; 85025; 85610; 85730; 86703; 88304; 96361; 96374; 96375; 96376; 99285; C9113; G0378; J0131; J1170; J2270; J2405; J7030; J7120; Q9967

== ENCOUNTER 2018-01-01 09:37 | Inpatient (IN) | payer OTHER ==
[~2018-01-01] VITALS: Ht 167.6 cm; Wt 76.6 kg
[~2018-01-01 09:37] MED LIST: ALBU0.63 NEB; IBUP200C PO; OXYC1TAB36 PO; VENTAER INH
[2018-01-01 09:43] VITALS: BP 113/67; PULSE 90; RESP 22; TEMP 99; O2SAT 97
[2018-01-01] MEDS ORDERED: METOCLOPRAMIDE HCL 10 MG/2 ML VIAL IV PUSH ONE (10:15)
[2018-01-01] MEDS ORDERED: HYDROmorphone HCL PF 2 MG/ML VIAL IVS ONE (10:15)
[2018-01-01 10:48] LABS: AUTOMATED NEUTROPHIL # 2.5 TH/MM3 (1.8-7.7); BASOPHIL % 0.8 % (0.0-2.0); EOSINOPHIL % 0.8 % (0.0-4.0); HEMATOCRIT 38.7 % (35.0-46.0); HEMOGLOBIN 13.3 GM/DL (11.6-15.3); LYMPH % 11.3 % (9.0-44.0); LYMPHOCYTE # 0.3 TH/MM3 (1.0-4.8); MEAN CELL VOLUME 92.8 FL (80.0-100.0); MEAN CORPUSCULAR HEMOGLOBIN 31.9 PG (27.0-34.0); MEAN CORPUSCULAR HGB CONC 34.4 % (32.0-36.0); MEAN PLATELET VOLUME 6.8 FL (7.0-11.0); MONO % 1.5 % (0.0-8.0); NEUT % 85.6 % (16.0-70.0); PLATELET COUNT 211 TH/MM3 (150-450); RED BLOOD COUNT 4.17 MIL/MM3 (4.00-5.30); RED CELL DISTRIBUTION WIDTH 16.2 % (11.6-17.2); WHITE BLOOD COUNT 2.9 TH/MM3 (4.0-11.0)
[2018-01-01 10:55] LABS: INTERNATIONAL NORMALIZED RATIO 0.9 RATIO
[2018-01-01 11:03] LABS: ALBUMIN 2.7 GM/DL (3.4-5.0); ALT (GPT) 108 U/L (10-53); AST (GOT) 38 U/L (15-37); BICARBONATE 27.3 MEQ/L (21.0-32.0); BLOOD UREA NITROGEN 17 MG/DL (7-18); CALCIUM 8.6 MG/DL (8.5-10.1); CHLORIDE 99 MEQ/L (98-107); CREATININE 0.91 MG/DL (0.50-1.00); GLOMERULAR FILTRATION RATE 66 ML/MIN (>89); GLUCOSE,RANDOM 120 MG/DL (74-106); SODIUM (NA) 135 MEQ/L (136-145)
--- NOTE | 2018-01-01 11:04 | PD ---
HPI Chief Complaint: Pain: Acute or Chronic Time Seen by Provider: 10:05 Travel History International Travel<30 days: No Contact w/Intl Traveler<30days: No Traveled to known affect area: No History of Present Illness HPI This is a 47-year-old female with a history of rectal cancer who is undergoing radiation and chemo treatment, who presented today with complaints of severe right buttock pain. Patient states that she noted a red area that started draining serosanguineous drainage. She denies any fevers, chills. She states that they just took her chemo pump off today as she is completed her treatment. She also states that she feels something under her left arm pit as well. She is unsure of her last white blood cell count. PFSH Past Medical History Cancer: Yes (BREAST CANCER) Cardiovascular Problems: No Chemotherapy: Yes COPD: Yes Endocrine: No Immune Disorder: No Psychiatric: No Respiratory: Yes (COPD) ?: Not Past Surgical History Other Surgery: Yes (IMGUINAL HERNIA REPAIR AND LEFT LUMPECTOMY) Social History Alcohol Use: No Tobacco Use: No Substance Use: No Allergies-Medications (Allergen,Severity, Reaction): Coded Allergies: No Known Allergies (Unverified , 01/01/18) Reported Meds & Prescriptions Reported Meds & Active Scripts Active Oxycodone-Acetaminophen 10-325 (Oxycodone HCl/Acetaminophen) 10 Mg-325 Mg Tablet 1-2 Tab PO Q6HR PRN Reported Oxycontin (Oxycodone HCl) 30 Mg Tab 30 Mg PO Q8HR Zofran (Ondansetron HCl) 4 Mg Tab 4 Mg PO Q6HR PRN Albuterol Neb (Albuterol Sulfate) 0.63 Mg/3 Ml Neb 0.63 Mg NEB Q6HR NEB PRN Ventolin Hfa 18 GM Inh (Albuterol Sulfate) 90 Mcg/Act Aer 2 Puff INH Q4-6H PRN Ibuprofen 200 Mg Cap 200 Mg PO Q2HR Review of Systems Except as stated in HPI: all other systems reviewed are Neg General / Constitutional: No: Fever, Chills HENT: No: Headaches, Neck Pain Cardiovascular: No: Chest Pain or Discomfort, Palpitations Respiratory: No: Cough Gastrointestinal: No: Nausea, Vomiting, Abdominal Pain Genitourinary: No: Frequency, Dysuria Musculoskeletal: Positive: Pain (Right buttocks), Other Skin: Positive Lesions, Positive Other (Patient has radiation lazo to her pelvis and buttock area bilaterally.) Neurologic: Positive: Weakness, No: Dizziness, Headache Physical Exam Narrative GENERAL: Well nourished female in obvious discomfort. SKIN: Focused skin assessment warm/dry. HEAD: Atraumatic. Normocephalic. EYES: Pupils equal and round. No scleral icterus. No injection or drainage. ENT: No nasal bleeding or discharge. Mucous membranes pink and moist. NECK: Trachea midline. Supple. CARDIOVASCULAR: Regular rate and rhythm. No murmur appreciated. RESPIRATORY: No accessory muscle use. Clear to auscultation. Breath sounds equal bilaterally. GASTROINTESTINAL: Abdomen soft, non-tender, nondistended. Patient has radiation lazo to her lower pelvic and buttock area. On examination patient's right buttock cheek, there is a 3 cm indurated fluctuant area that appears to track deep down. There was serous drainage noted. MUSCULOSKELETAL: No obvious deformities. No clubbing. No cyanosis. No edema. NEUROLOGICAL: Awake and alert. No obvious cranial nerve deficits. Motor grossly within normal limits. Normal speech. Data Data Last Documented VS Vital Signs Date Time Temp Pulse Resp B/P (MAP) Pulse Ox O2 Delivery O2 Flow Rate FiO2 01/01/18 12:48 74 18 113/61 (78) 99 Room Air 01/01/18 09:43 99.0 Orders Orders Complete Blood Count With Diff (01/01/18 10:05) Comprehensive Metabolic Panel (01/01/18 10:05) Prothrombin Time / Inr (Pt) (01/01/18 10:05) Act Partial Throm Time (Ptt) (01/01/18 10:05) Blood Culture (01/01/18 10:05) Wound Culture And Gram Stain (01/01/18 10:05) Iv Access Insert/Monitor (01/01/18 10:05) Ecg Monitoring (01/01/18 10:05) Oximetry (01/01/18 10:05) Hydromorphone Pf Inj (Dilaudid Pf Inj) (01/01/18 10:15) Metoclopramide Inj (Reglan Inj) (01/01/18 10:15) Ct Abd/Pel W Iv Contrast(Rout) (01/01/18 10:37) Iohexol 350 Inj (Omnipaque 350 Inj) (01/01/18 11:30) Vancomycin Inj (Vancomycin Inj) (01/01/18 12:30) Piperacil-Tazo 4.5 Gm Premix (Zosyn 4.5 (01/01/18 12:30) Admit Order (Ed Use Only) (01/01/18 13:15) Labs Laboratory Tests Test 01/01/18 10:30 White Blood Count 2.9 TH/MM3 Red Blood Count 4.17 MIL/MM3 Hemoglobin 13.3 GM/DL Hematocrit 38.7 % Mean Corpuscular Volume 92.8 FL Mean Corpuscular Hemoglobin 31.9 PG Mean Corpuscular Hemoglobin Concent 34.4 % Red Cell Distribution Width 16.2 % Platelet Count 211 TH/MM3 Mean Platelet Volume 6.8 FL Neutrophils (%) (Auto) 85.6 % Lymphocytes (%) (Auto) 11.3 % Monocytes (%) (Auto) 1.5 % Eosinophils (%) (Auto) 0.8 % Basophils (%) (Auto) 0.8 % Neutrophils # (Auto) 2.5 TH/MM3 Lymphocytes # (Auto) 0.3 TH/MM3 Monocytes # (Auto) 0.0 TH/MM3 Eosinophils # (Auto) 0.0 TH/MM3 Basophils # (Auto) 0.0 TH/MM3 CBC Comment DIFF FINAL Differential Comment Prothrombin Time 8.8 SEC Prothromb Time International Ratio 0.9 RATIO Activated Partial Thromboplast Time 22.2 SEC Blood Urea Nitrogen 17 MG/DL Creatinine 0.91 MG/DL Random Glucose 120 MG/DL Total Protein 6.4 GM/DL Albumin 2.7 GM/DL Calcium Level 8.6 MG/DL Alkaline Phosphatase 102 U/L Aspartate Amino Transf (AST/SGOT) 38 U/L Alanine Aminotransferase (ALT/SGPT) 108 U/L Total Bilirubin 0.3 MG/DL Sodium Level 135 MEQ/L Potassium Level 3.6 MEQ/L Chloride Level 99 MEQ/L Carbon Dioxide Level 27.3 MEQ/L Anion Gap 9 MEQ/L Estimat Glomerular Filtration Rate 66 ML/MIN [facility] Medical Decision Making Medical Screen Exam Complete: Yes Emergency Medical Condition: Yes Differential Diagnosis Abscess versus fistula versus cellulitis Narrative Course 39-year-old female with history of rectal cancer, presents today with complaints of pain redness and drainage from her right buttock cheek. Patient has an indurated fluctuant area on her right buttock cheek. White blood cell count is 2.9. Given her immunocompromised state secondary to chemotherapy, she will be admitted for IV antibiotics. She has been started on vancomycin and Zosyn. Blood cultures and wound cultures have been ordered. CT scan of the abdomen pelvis showed no evidence of deep abscess just a large amount of induration and inflammatory changes. She will be admitted to the medicine service. Diagnosis Primary Impression: Cellulitis of right buttock Additional Impressions: Immunocompromised secondary to chemotherapy Rectal cancer Admitting Information Admitting Physician Requests: Admit Alok Goss MD Jan 01, 2018 11:04
[2018-01-01 11:08] LABS: ALKALINE PHOSPHATASE 102 U/L (45-117); TOTAL BILIRUBIN ADULT 0.3 MG/DL (0.2-1.0); TOTAL PROTEIN 6.4 GM/DL (6.4-8.2)
[2018-01-01 11:23] LABS: PROTHROMBIN TIME - PATIENT 8.8 SEC (9.8-11.6)
[2018-01-01] MEDS ORDERED: IOHEXOL 350 MG/ML 10 ML VIAL (for RAD DIAG) IVCONTRAST ONE (11:30)
--- NOTE | 2018-01-01 12:02 | RADRPT ---
EXAM DATE/TIME: 01/01/2018 11:30 [place] COMPARISON: CT ABDOMEN & PELVIS W CONTRAST, October 23, 2017, 18:31. INDICATIONS : Right buttock pain. Evaluate for abscess. IV CONTRAST: 71 cc Omnipaque 350 (iohexol) IV ORAL CONTRAST: No oral contrast ingested. RADIATION DOSE: 6.91 CTDIvol (mGy) MEDICAL HISTORY : Carcinoma, breast. Chronic obstructive pulmonary disease. SURGICAL HISTORY : Inguinal hernia repair. ENCOUNTER: Initial ACUITY: 1 day PAIN SCALE: 6/10 LOCATION: Right buttock TECHNIQUE: Volumetric scanning of the abdomen and pelvis was performed. Using automated exposure control and ad justment of the mA and/or kV according to patient size, radiation dose was kept as low as reasonably achievable to obtain optimal diagnostic quality images. DICOM format image data is available electro nically for review and comparison. FINDINGS: LOWER LUNGS: Lung bases demonstrate no acute finding. LIVER: Liver density indicates steatosis. No focal liver lesion is seen. There is no dilation of the biliar y tree. No calcified gallstones. SPLEEN: Normal size without lesion. PANCREAS: Within normal limits. KIDNEYS: Normal in size and shape. There is no mass, stone or hydronephrosis. ADRENAL GLANDS: Within normal limits. VASCULAR: There is no aortic aneurysm. There is mild atherosclerotic disease. BOWEL/MESENTERY: The stomach, small bowel, and colon demonstrate no acute abnormality. No definite mass is appreciate d within the rectum or anal region. There is no free intraperitoneal air or fluid. No pelvis abscess is present. ABDOMINAL WALL: Within normal limits. RETROPERITONEUM: There is no lymphadenopathy. BLADDER: No wall thickening or mass. REPRODUCTIVE: Within normal limits. INGUINAL: There is no lymphadenopathy or hernia. MUSCULOSKELETAL: The bones demonstrate no acute finding. At the right posterior superior thigh there is focal skin thi ckening and subcutaneous edema which presumably represents the area of suspected abscess. However, no organized fluid collection is seen. CONCLUSION: 1. No drainable abscess is present. At the proximal right posterior thigh and inferior buttock region there is focal skin thickening and subcutaneous inflammatory change. However, no organized abscess o r fluid collection is present. 2. Within the abdomen and pelvis no acute abnormality is seen. Nonacute findings include hepatic stea tosis and mild atherosclerotic disease. Prieto Pina MD on January 01, 2018 at 11:53 Board Certified Radiologist. This report was verified electronically.
[2018-01-01] MEDS ORDERED: VANCOMYCIN INJ 1,000 MG in SODIUM CHLOR 0.9% 250 ML INJ 250 ML IV ONE (12:30)
[2018-01-01] MEDS ORDERED: PIPERACIL-TAZO 4.5 GM PREMIX 100 ML IV ONE (12:30)
[2018-01-01 12:48] VITALS: BP 113/61; PULSE 74; RESP 18; O2SAT 99
[2018-01-01] MEDS ORDERED: SODIUM CHLORIDE 0.9% FLUSH 10 ML FLUSH IV FLUSH PRN (13:30)
[2018-01-01 13:34] VITALS: O2SAT 99
[2018-01-01] MEDS ORDERED: Vancomycin Consult Pharmacy 1 EA OTHER SCH (13:45)
[2018-01-01] MEDS ORDERED: NALOXONE HCL 0.4 MG/ML AMP IV PUSH PRN (13:45)
--- NOTE | 2018-01-01 13:46 | HHI.HP ---
[facility]ician Edwina Jaimes MD Admission Diagnosis right buttock cellulitis, immunocompromised, rectal caner, Diagnoses: Chief Complaint: Right posterior thigh pain Travel History International Travel<30 Days: No Contact w/Intl Traveler <30 Da: No Traveled to Known Affected Are: No Sepsis Criteria SIRS Criteria (2 or more): Heart rate over 90, RR > 20 or PaCO2 < 32 Sepsis Criteria (SIRS+source): Infect source susp/known Criteria Outcome: Meets sepsis criteria History of Present Illness This is a 47-year-old female who presents to the emergency department complaining of right posterior thigh/buttock pain and swelling which started over the weekend. She noted muco-purulent/serosanguineous discharge. Pain is constant worse with activity. No fever, chills, nausea and vomiting. She has history of rectal cancer status post chemotherapy and finishing up radiation therapy this week. She also complains of left armpit tender swelling which on examination is small lymph node. Abdominal CTshowed no abscess but has skin thickening and inflammation of the subcutaneous tissue. She received IV vancomycin and Zosyn in the emergency room. All other systems reviewed negative Past Family Social History Past Medical History Patient also has breast cancer status post lumpectomy and COPD not on home oxygen Past Surgical History As previously mentioned. Inguinal hernia repair Reported Medications Reported Meds & Active Scripts Active Oxycodone-Acetaminophen 10-325 (Oxycodone HCl/Acetaminophen) 10 Mg-325 Mg Tablet 1-2 Tab PO Q6HR PRN Reported Albuterol Neb (Albuterol Sulfate) 0.63 Mg/3 Ml Neb 0.63 Mg NEB Q6HR NEB PRN Ventolin Hfa 18 GM Inh (Albuterol Sulfate) 90 Mcg/Act Aer 2 Puff INH Q4-6H PRN Ibuprofen 200 Mg Cap 200 Mg PO Q2HR Allergies: Coded Allergies: No Known Allergies (Unverified , 01/01/18) Family History Heart disease Social History Ex-smoker. Does not drink Physical Exam Vital Signs Vital Signs Date Time Temp Pulse Resp B/P (MAP) Pulse Ox O2 Delivery O2 Flow Rate FiO2 01/01/18 13:34 99 21 01/01/18 12:48 74 18 113/61 (78) 99 Room Air 01/01/18 10:50 82 18 01/01/18 09:43 99.0 90 22 113/67 (82) 97 Physical Exam GENERAL: This is a well-nourished, well-developed patient, in no apparent distress. SKIN: No rashes, ecchymoses or lesions. Cool and dry. Radiation lazo lower back HEAD: Atraumatic. Normocephalic. No temporal or scalp tenderness. EYES: Pupils equal round and reactive. Extraocular motions intact. No scleral icterus. No injection or drainage. ENT: Nose without bleeding, purulent drainage or septal hematoma. Throat without erythema, tonsillar hypertrophy or exudate. Uvula midline. Airway patent. NECK: Trachea midline. No JVD or lymphadenopathy. Supple, nontender, no meningeal signs. CARDIOVASCULAR: Regular rate and rhythm without murmurs, gallops, or rubs. RESPIRATORY: Clear to auscultation. Breath sounds equal bilaterally. No wheezes , rales, or rhonchi. GASTROINTESTINAL: Abdomen soft, non-tender, nondistended. No guarding. MUSCULOSKELETAL: Extremities without clubbing, cyanosis, or edema. No joint tenderness, effusion, or edema noted. No calf tenderness. Negative Homans sign bilaterally. 5 cm x 5 cm indurated fluctuant area with serosanguineous drainage in the right posterior upper thigh. NEUROLOGICAL: Awake and alert. Cranial nerves II through XII intact. Motor and sensory grossly within normal limits. Five out of 5 muscle strength in all muscle groups. Normal speech. Laboratory Laboratory Tests Test 01/01/18 10:30 White Blood Count 2.9 Red Blood Count 4.17 Hemoglobin 13.3 Hematocrit 38.7 Mean Corpuscular Volume 92.8 Mean Corpuscular Hemoglobin 31.9 Mean Corpuscular Hemoglobin Concent 34.4 Red Cell Distribution Width 16.2 Platelet Count 211 Mean Platelet Volume 6.8 Neutrophils (%) (Auto) 85.6 Lymphocytes (%) (Auto) 11.3 Monocytes (%) (Auto) 1.5 Eosinophils (%) (Auto) 0.8 Basophils (%) (Auto) 0.8 Neutrophils # (Auto) 2.5 Lymphocytes # (Auto) 0.3 Monocytes # (Auto) 0.0 Eosinophils # (Auto) 0.0 Basophils # (Auto) 0.0 CBC Comment DIFF FINAL Differential Comment Prothrombin Time 8.8 Prothromb Time International Ratio 0.9 Activated Partial Thromboplast Time 22.2 Blood Urea Nitrogen 17 Creatinine 0.91 Random Glucose 120 Total Protein 6.4 Albumin 2.7 Calcium Level 8.6 Alkaline Phosphatase 102 Aspartate Amino Transf (AST/SGOT) 38 Alanine Aminotransferase (ALT/SGPT) 108 Total Bilirubin 0.3 Sodium Level 135 Potassium Level 3.6 Chloride Level 99 Carbon Dioxide Level 27.3 Anion Gap 9 Estimat Glomerular Filtration Rate 66 Date/Time Source Procedure Growth Status 01/01/18 10:35 Blood Peripheral Aerobic Blood Culture Pending Received 01/01/18 10:35 Blood Peripheral Anaerobic Blood Culture Pending Received Result Diagram: 01/01/18 1030 01/01/18 1030 Imaging Last Impressions Abdomen/Pelvis CT 01/01/18 1037 Signed Impressions: Service Date/Time: Monday, January 01, 2018 11:30 - CONCLUSION: 1. No drainable abscess is present. At the proximal right posterior thigh and inferior buttock region there is focal skin thickening and subcutaneous inflammatory change. However, no organized abscess or fluid collection is present. 2. Within the abdomen and pelvis no acute abnormality is seen. Nonacute findings include hepatic steatosis and mild atherosclerotic disease. MD Liz Cancino VTE Risk Assessment Caprini VTE Risk Assessment: Mod/High Risk (score >= 2) Caprini Risk Assessment Model Point Value = 1 Point Value = 2 Point Value = 3 Point Value = 5 Age 41-60 Minor surgery BMI > 25 kg/m2 Swollen legs Varicose veins or History of unexplained or recurrent spontaneous Oral contraceptives or hormone replacement Sepsis (< 1 month) Serious lung disease, including pneumonia (< 1 month) Abnormal pulmonary function Acute myocardial infarction Congestive heart failure (< 1 month) History of inflammatory bowel disease Medical patient at bed rest Age 61-74 Arthroscopic surgery Major open surgery (> 45 min) Laparoscopic surgery (> 45 min) Malignancy Confined to bed (> 72 hours) Immobilizing plaster cast Central venous access Age >= 75 History of VTE Family history of VTE Factor V Leiden Prothrombin [id number] Lupus anticoagulant Anticardiolipin antibodies Elevated serum homocysteine Heparin-induced thrombocytopenia Other congenital or acquired thrombophilia Stroke (< 1 month) Elective arthroplasty Hip, pelvis, or leg fracture Acute spinal cord injury (< 1 month) Prophylaxis Regimen Total Risk Factor Score Risk Level Prophylaxis Regimen 0-1 Low Early ambulation 2 Moderate Order ONE of the following: *Sequential Compression Device (SCD) *Heparin 5000 units SQ BID 3-4 Higher Order ONE of the following medications: *Heparin 5000 units SQ TID *Enoxaparin/Lovenox 40 mg SQ daily (WT < 150 kg, CrCl > 30 mL/min) *Enoxaparin/Lovenox 30 mg SQ daily (WT < 150 kg, CrCl > 10-29 mL/min) *Enoxaparin/Lovenox 30 mg SQ BID (WT < 150 kg, CrCl > 30 mL/min) AND/OR *Sequential Compression Device (SCD) 5 or more Highest Order ONE of the following medications: *Heparin 5000 units SQ TID (Preferred with Epidurals) *Enoxaparin/Lovenox 40 mg SQ daily (WT < 150 kg, CrCl > 30 mL/min) *Enoxaparin/Lovenox 30 mg SQ daily (WT < 150 kg, CrCl > 10-29 mL/min) *Enoxaparin/Lovenox 30 mg SQ BID (WT < 150 kg, CrCl > 30 mL/min) AND *Sequential Compression Device (SCD) Assessment and Plan Problem List: (1) Rectal or anal pain ICD Code: K62.89 - Other specified diseases of anus and rectum Assessment and Plan This is a 47-year-old female who presents to the emergency department complaining of right posterior thigh/buttock pain and swelling x 2 days. Exam shows 5 cm x 5 cm indurated fluctuant area with serosanguineous drainage in the right posterior upper thigh. Abdominal CT showed no abscess but has skin thickening and inflammation of the subcutaneous tissue. Patient has cellulitis and sepsis. She is also immunocompromised just completed chemotherapy for rectal cancer. She received IV vancomycin and Zosyn in the emergency room which will be continued. Check lactic acid. Start IV hydration. Pain management with oxycodone and IV morphine. Patient counseled regarding narcotics. Wound care Hyperglycemia. Check fasting glucose in the morning Transaminitis. CT scan shows hepato-steatosis. Avoid hepatotoxins. Monitor COPD. Stable continue medications as needed. Oxygen as needed. DVT prophylaxis with SCD and subcu heparin. Discussed Condition With Dmitry Shultz MD Jan 01, 2018 13:46
[2018-01-01] MEDS ORDERED: ZOFR4TAB PO (14:56)
[2018-01-01] MEDS ORDERED: OXYC30TA62 PO (14:57)
[2018-01-01] MEDS ORDERED: SENNOSIDES 8.6 MG TAB PO PRN (15:00)
[2018-01-01] MEDS ORDERED: MAGNESIUM HYDROXIDE SUSP 30 ML CUP PO PRN (15:00)
[2018-01-01] MEDS ORDERED: BISACODYL 10 MG SUPP RECTAL PRN (15:00)
[2018-01-01] MEDS ORDERED: MORPHINE SULFATE 4 MG/ML INJ IV PUSH PRN (15:00)
[2018-01-01] MEDS ORDERED: LACTULOSE SYRUP 20 GM/30 ML CUP PO PRN (15:00)
[2018-01-01] MEDS ORDERED: RESP: ALBUTEROL 2.5 MG/3 ML NEB (PRN) NEB (15:00)
[2018-01-01] MEDS: NS + KCL 20 MEQ INJ 1,000 ML IV SCH (15:08)
[2018-01-01] MEDS ORDERED: MAGICADU2 SWISH-SWAL (15:17)
[2018-01-01 16:00] VITALS: BP 123/69; PULSE 79; RESP 20; TEMP 99.7; O2SAT 98
[2018-01-01] MEDS ORDERED: HYDROmorphone HCL PF 1 MG/ML VIAL IV PUSH PRN (17:00)
[2018-01-01] MEDS: HYDROmorphone HCL PF 2 MG/ML VIAL IV PRN ×2 (18:04→22:30)
[2018-01-01] MEDS: ONDANSETRON HCL 4 MG/2 ML VIAL IVP PRN ×2 (18:04→20:36)
[2018-01-01] MEDS: PIPERACIL-TAZO 3.375 GM PREMIX 50 ML IV SCH ×2 (18:04→23:11)
[2018-01-01 20:00] VITALS: BP 118/64; PULSE 68; RESP 19; TEMP 98.8; O2SAT 98
[2018-01-01] MEDS: SODIUM CHLORIDE 0.9% FLUSH 10 ML FLUSH IV FLUSH SCH (20:36)
[2018-01-01] MEDS: DOCUSATE SODIUM 50 MG/SENNA 8.6 MG TAB PO SCH (20:36)
[2018-01-01] MEDS ORDERED: ACETAMINOPHEN 650 MG SUPP RECTAL PRN (22:00)
[2018-01-01] MEDS ORDERED: PROCHLORPERAZINE INJ 10 MG/2 ML VIAL IV PUSH ONE (22:00)
[2018-01-01] MEDS ORDERED: diphenhydrAMINE HCL 50 MG/ML VIAL IV PUSH ONE (22:00)
[2018-01-02] VITALS (7 sets, daily range): BP systolic 110–140; BP diastolic 55–80; PULSE 67–100; RESP 18–20; TEMP 97.6–98.7; O2SAT 94–98
[2018-01-02] MEDS: VANCOMYCIN INJ 1,250 MG in SODIUM CHLOR 0.9% 250 ML INJ 250 ML IV SCH ×2 (02:55→13:57)
[2018-01-02] MEDS: HYDROmorphone HCL PF 2 MG/ML VIAL IV PRN ×6 (03:04→23:40)
[2018-01-02] MEDS ORDERED: PROCHLORPERAZINE INJ 10 MG/2 ML VIAL IV PUSH ONE (06:00)
[2018-01-02] MEDS ORDERED: ACETAMINOPHEN 325 MG TAB PO ONE (06:00)
[2018-01-02] MEDS: NS + KCL 20 MEQ INJ 1,000 ML IV SCH (06:21)
[2018-01-02] MEDS: PIPERACIL-TAZO 3.375 GM PREMIX 50 ML IV SCH ×4 (07:12→23:51)
[2018-01-02] MEDS: ONDANSETRON HCL 4 MG/2 ML VIAL IVP PRN ×2 (07:32→15:33)
[2018-01-02] MEDS: DOCUSATE SODIUM 50 MG/SENNA 8.6 MG TAB PO SCH ×2 (07:33→21:00)
[2018-01-02] MEDS: SODIUM CHLORIDE 0.9% FLUSH 10 ML FLUSH IV FLUSH SCH ×2 (07:37→21:19)
[2018-01-02 07:53] LABS: AUTOMATED NEUTROPHIL # 2.4 TH/MM3 (1.8-7.7); BASOPHIL % 0.6 % (0.0-2.0); EOSINOPHIL % 0.3 % (0.0-4.0); HEMATOCRIT 38.3 % (35.0-46.0); HEMOGLOBIN 13.2 GM/DL (11.6-15.3); LYMPH % 6.6 % (9.0-44.0); LYMPHOCYTE # 0.2 TH/MM3 (1.0-4.8); MEAN CELL VOLUME 92.7 FL (80.0-100.0); MEAN CORPUSCULAR HGB CONC 34.5 % (32.0-36.0); MEAN PLATELET VOLUME 6.8 FL (7.0-11.0); MONO % 2.6 % (0.0-8.0); MONOCYTE # 0.1 TH/MM3 (0-0.9); NEUT % 89.9 % (16.0-70.0); PLATELET COUNT 206 TH/MM3 (150-450); RED BLOOD COUNT 4.13 MIL/MM3 (4.00-5.30); RED CELL DISTRIBUTION WIDTH 16.1 % (11.6-17.2); WHITE BLOOD COUNT 2.7 TH/MM3 (4.0-11.0)
[2018-01-02 08:15] LABS: BICARBONATE 28.6 MEQ/L (21.0-32.0); CALCIUM 8.7 MG/DL (8.5-10.1); CREATININE 0.85 MG/DL (0.50-1.00)
[2018-01-02] MEDS: methylPREDNISolone SOD SUCC 40 MG/1 ML VIAL IV PUSH SCH ×3 (09:28→23:40)
[2018-01-02] MEDS: NYSTAT/DIPHENHY/LIDO MOUTHWASH (Adult) 120ML SWISH-SWAL SCH ×4 (10:06→21:19)
[2018-01-02] MEDS: NEOMYCIN/POLYMYXIN/BACITRACIN OINT 15 GM TUBE TOPICAL SCH (11:34)
--- NOTE | 2018-01-02 13:37 | HHI.PR ---
Subjective Remarks Patient is in a great deal of discomfort today. She has been undergoing radiation treatments for annual rectal cancer and just finished a course of p.o. chemotherapy which has caused denudation of mucous membranes, particularly in her mouth. In addition to this she has a painful cellulitis of her right buttock Objective Vitals Vital Signs Date Time Temp Pulse Resp B/P (MAP) Pulse Ox O2 Delivery O2 Flow Rate FiO2 01/02/18 11:52 97.6 71 18 111/70 (84) 98 01/02/18 09:00 95 21 01/02/18 07:55 95 18 112/55 (74) 94 01/02/18 05:30 98.0 100 20 140/67 (91) 96 01/02/18 00:30 97.6 67 19 120/67 (84) 98 01/01/18 20:00 98.8 68 19 118/64 (82) 98 01/01/18 16:20 01/01/18 16:00 99.7 79 20 123/69 (87) 98 01/01/18 13:34 99 21 I/O 01/01/18 01/01/18 01/01/18 01/02/18 01/02/18 01/02/18 07:00 15:00 23:00 07:00 15:00 23:00 Intake Total 350 ml 790 ml 725 ml 100 ml Balance 350 ml 790 ml 725 ml 100 ml Intake Oral 740 ml 725 ml IV Total 350 ml 50 ml 100 ml # Voids 0 2 # Bowel Movements 0 0 Result Diagram: 01/02/18 0715 01/02/18 0715 Objective Remarks GENERAL: Well-nourished, well-developed patient. SKIN: Erythematous and tender radiation lazo over her posterior and anterior groin and upper thigh HEAD: Normocephalic. EYES: No scleral icterus. No injection or drainage. NECK: Supple, trachea midline. No JVD or lymphadenopathy. CARDIOVASCULAR: Regular rate and rhythm without murmurs, gallops, or rubs. RESPIRATORY: Breath sounds equal bilaterally. No accessory muscle use. GASTROINTESTINAL: Abdomen soft, non-tender, nondistended. EXTREMITIES: No cyanosis, or edema. NEUROLOGICAL: Awake, alert, and oriented x 3. Non-focal. A/P Problem List: (1) Rectal or anal pain ICD Code: K62.89 - Other specified diseases of anus and rectum Assessment and Plan Cellulitis of right buttock CT showed no abscess, but was positive for soft tissue swelling Patient is immunocompromised due to chemotherapy and radiation for anorectal cancer Continue IV vancomycin and Zosyn Lactic acid within normal limits Leukopenia due to chemotherapy We will follow clinically, watch for fevers Continue oxycodone with IV morphine for pain management Appreciate wound care consult Stomatitis Tender lips and tongue, dry mouth She states Magic mouthwash helps her as an outpatient Continue home dose of Magic mouthwash Radiation lazo of groin and upper thigh Ongoing radiation treatments for rectal cancer Patient takes p.o. prednisone at home to help with inflammation Solu-Medrol added to help catch up on her level of inflammation and pain Hepatic steatosis Visible on CT. Combined with transaminitis. Consider patient just finished a round of p.o. chemotherapy We will monitor with periodic labs h/o COPD Currently stable, add treatment as necessary DVT prophylaxis Heparin, SCDs Reji Lara MD January 02, 2018 13:37
[2018-01-02] MEDS ORDERED: ACETAMINOPHEN 500 MG CPLT PO PRN (14:30)
[2018-01-02] MEDS ORDERED: PETROLEUM/SHARK LIVER OIL/PHENYLEPHRINE 60 GM TUBE TOPICAL PRN (23:00)
[2018-01-03 00:15] VITALS: BP 126/71; PULSE 71; RESP 17; TEMP 98; O2SAT 95
[2018-01-03] MEDS ORDERED: PHARMACY ORDERED LAB ONE ×2 (01:45→13:45)
[2018-01-03] MEDS: VANCOMYCIN INJ 1,250 MG in SODIUM CHLOR 0.9% 250 ML INJ 250 ML IV SCH (03:37)
[2018-01-03 04:00] VITALS: BP 130/64; PULSE 89; RESP 19; TEMP 98; O2SAT 97
[2018-01-03] MEDS: PIPERACIL-TAZO 3.375 GM PREMIX 50 ML IV SCH ×3 (05:19→20:11)
[2018-01-03] MEDS: HYDROmorphone HCL PF 2 MG/ML VIAL IV PRN ×3 (05:19→18:51)
[2018-01-03] MEDS: ONDANSETRON HCL 4 MG/2 ML VIAL IVP PRN (07:21)
[2018-01-03 07:34] VITALS: BP 126/82; PULSE 67; RESP 20; TEMP 97.7; O2SAT 96
[2018-01-03] MEDS: NYSTAT/DIPHENHY/LIDO MOUTHWASH (Adult) 120ML SWISH-SWAL SCH ×4 (08:11→20:13)
[2018-01-03] MEDS: methylPREDNISolone SOD SUCC 40 MG/1 ML VIAL IV PUSH SCH ×2 (08:18→17:10)
[2018-01-03] MEDS: DOCUSATE SODIUM 50 MG/SENNA 8.6 MG TAB PO SCH ×2 (08:48→20:13)
[2018-01-03] MEDS: NEOMYCIN/POLYMYXIN/BACITRACIN OINT 15 GM TUBE TOPICAL SCH (09:00)
[2018-01-03] MEDS: ACETAMIN 325 MG/BUTALBITAL 50 MG/CAFFEINE 40 MG TAB PO PRN ×3 (09:36→21:58)
[2018-01-03] MEDS: SODIUM CHLORIDE 0.9% FLUSH 10 ML FLUSH IV FLUSH SCH ×2 (09:39→20:13)
[2018-01-03 10:23] LABS: CREATININE 0.72 MG/DL (0.50-1.00)
[2018-01-03 11:46] VITALS: BP 128/73; PULSE 72; RESP 20; TEMP 97.4; O2SAT 98
--- NOTE | 2018-01-03 14:07 | HHI.PR ---
Subjective Remarks Patient states that the areas of radiation burn in her groin and thighs have improved following Solu-Medrol doses. Her chief complaint today is a headache located on bilateral temples. She admits she drinks 1 or 2 cups of coffee in the morning followed by at least 2 large glasses of iced tea throughout the day every day. Objective Vitals Vital Signs Date Time Temp Pulse Resp B/P (MAP) Pulse Ox O2 Delivery O2 Flow Rate FiO2 01/03/18 11:46 97.4 72 20 128/73 (91) 98 01/03/18 07:34 97.7 67 20 126/82 (97) 96 01/03/18 04:00 98.0 89 19 130/64 (86) 97 01/03/18 00:15 98.0 71 17 126/71 (89) 95 01/02/18 21:00 98.7 80 18 128/80 (96) 98 01/02/18 15:59 97.9 68 18 110/63 (79) 95 I/O 01/02/18 01/02/18 01/02/18 01/03/18 01/03/18 01/03/18 07:00 15:00 23:00 07:00 15:00 23:00 Intake Total 725 ml 100 ml 1100 ml 975 ml 100 ml Balance 725 ml 100 ml 1100 ml 975 ml 100 ml Intake Oral 725 ml 500 ml 975 ml IV Total 100 ml 600 ml 100 ml # Voids 2 0 2 # Bowel Movements 0 0 0 Result Diagram: 01/02/18 0715 01/03/18 0955 Objective Remarks GENERAL: Well-nourished, well-developed patient. SKIN: Erythematous and tender radiation lazo over her posterior and anterior groin and upper thigh HEAD: Normocephalic. EYES: No scleral icterus. No injection or drainage. NECK: Supple, trachea midline. No JVD or lymphadenopathy. CARDIOVASCULAR: Regular rate and rhythm without murmurs, gallops, or rubs. RESPIRATORY: Breath sounds equal bilaterally. No accessory muscle use. GASTROINTESTINAL: Abdomen soft, non-tender, nondistended. EXTREMITIES: No cyanosis, or edema. NEUROLOGICAL: Awake, alert, and oriented x 3. Non-focal. A/P Problem List: (1) Rectal or anal pain ICD Code: K62.89 - Other specified diseases of anus and rectum Assessment and Plan Cellulitis of right buttock CT showed no abscess, but was positive for soft tissue swelling Patient is immunocompromised due to chemotherapy and radiation for anorectal cancer Leukopenia due to chemotherapy Continue IV vancomycin and Zosyn Continue oxycodone with IV morphine for pain management Appreciate wound care consult Headache, recurrent Possibly caffeine withdrawal headache Begin Fioricet as needed Obtain CT of the brain given history of cancer and chemo with radiation Will follow clinically Stomatitis Tender lips and tongue, dry mouth She states Magic mouthwash helps her as an outpatient Continue home dose of Magic mouthwash Ensure added for dietary supplementation Radiation lazo of groin and upper thigh Ongoing radiation treatments for rectal cancer Patient takes p.o. prednisone at home to help with inflammation Solu-Medrol added to help catch up on her level of inflammation and pain Vaginal discharge Patient describes mild itching, nurse noted discharge on the pad Lots of radiation to the area for treatment of rectal cancer, recent chemotherapy, immunocompromised Unable to undergo a speculum exam at this time due to radiation lazo Low likelihood of STD, consider yeast source versus bacterial vaginosis We will treat empirically with Diflucan and monitor for change If no improvement consider single dose of Flagyl to cover for BV Hepatic steatosis Visible on CT. Combined with transaminitis. Consider patient just finished a round of p.o. chemotherapy We will monitor with periodic labs h/o COPD Currently stable, add treatment as necessary DVT prophylaxis Heparin, SCDs Reji Lara MD January 03, 2018 14:07
[2018-01-03] MEDS ORDERED: FLUCONAZOLE 100 MG TAB PO ONE (14:15)
--- NOTE | 2018-01-03 15:53 | RADRPT ---
EXAM DATE/TIME: 01/03/2018 15:22 [facility] COMPARISON: CT ABDOMEN & PELVIS W CONTRAST, January 01, 2018, 11:30. INDICATIONS : Severe headache RADIATION DOSE: 36.21 CTDIvol (mGy) MEDICAL HISTORY : Chronic obstructive pulmonary disease. Carcinoma, breast. Carcinoma, rectal. SURGICAL HISTORY : Inguinal hernia repair. Lumpectomy ENCOUNTER: Initial ACUITY: 1 day PAIN SCALE: 8/10 LOCATION: cranial TECHNIQUE: Multiple contiguous axial images were obtained of the head. Using automated exposure control and adj ustment of the mA and/or kV according to patient size, radiation dose was kept as low as reasonably a chievable to obtain optimal diagnostic quality images. DICOM format image data is available electro nically for review and comparison. FINDINGS: CEREBRUM: The ventricles are normal for age. No evidence of midline shift, mass lesion, hemorrhage or acute in farction. No extra-axial fluid collections are seen. POSTERIOR FOSSA: The cerebellum and brainstem are intact. The 4th ventricle is midline. The cerebellopontine angle i s unremarkable. EXTRACRANIAL: The visualized portion of the orbits is intact. SKULL: The calvaria is intact. No evidence of skull fracture. CONCLUSION: 1. No acute intracranial abnormality identified. Ventura Jaramillo MD on January 03, 2018 at 15:50 Board Certified Radiologist. This report was verified electronically.
[2018-01-03 15:56] VITALS: BP 107/66; PULSE 67; RESP 20; TEMP 97.8; O2SAT 95
[2018-01-03] MEDS: VANCOMYCIN INJ 1,500 MG in SODIUM CHLORID 0.9% 500 ML INJ 500 ML IV SCH (17:23)
[2018-01-03 20:17] VITALS: BP 113/62; PULSE 70; RESP 18; TEMP 97.8; O2SAT 97
[2018-01-03] MEDS: HYDROCORTISONE 2.5% CREAM 30 GM TOPICAL SCH (21:58)
[2018-01-04] VITALS: BP 101/61; PULSE 67; RESP 18; TEMP 97.6; O2SAT 97
[2018-01-04] MEDS: PIPERACIL-TAZO 3.375 GM PREMIX 50 ML IV SCH ×4 (01:23→18:21)
[2018-01-04] MEDS: methylPREDNISolone SOD SUCC 40 MG/1 ML VIAL IV PUSH SCH ×3 (01:23→15:38)
[2018-01-04] MEDS: HYDROmorphone HCL PF 2 MG/ML VIAL IV PRN ×6 (03:16→23:30)
[2018-01-04 05:39] VITALS: BP 108/56; PULSE 69; RESP 18; TEMP 98; O2SAT 94
[2018-01-04] MEDS: VANCOMYCIN INJ 1,500 MG in SODIUM CHLORID 0.9% 500 ML INJ 500 ML IV SCH ×2 (05:42→15:36)
[2018-01-04 07:27] VITALS: BP 123/77; PULSE 64; RESP 20; TEMP 97.4; O2SAT 98
[2018-01-04] MEDS: SODIUM CHLORIDE 0.9% FLUSH 10 ML FLUSH IV FLUSH SCH ×2 (08:01→21:00)
[2018-01-04] MEDS: NYSTAT/DIPHENHY/LIDO MOUTHWASH (Adult) 120ML SWISH-SWAL SCH ×4 (08:04→21:00)
[2018-01-04] MEDS: NEOMYCIN/POLYMYXIN/BACITRACIN OINT 15 GM TUBE TOPICAL SCH (08:04)
[2018-01-04] MEDS: DOCUSATE SODIUM 50 MG/SENNA 8.6 MG TAB PO SCH ×2 (08:04→21:00)
[2018-01-04] MEDS: HYDROCORTISONE 2.5% CREAM 30 GM TOPICAL SCH ×2 (08:04→21:00)
[2018-01-04 10:12] LABS: CREATININE 0.7 MG/DL (0.50-1.00)
[2018-01-04] MEDS: ONDANSETRON HCL 4 MG/2 ML VIAL IVP PRN ×2 (11:30→19:22)
[2018-01-04 11:31] VITALS: BP 120/73; PULSE 68; RESP 20; TEMP 98; O2SAT 97
[2018-01-04 15:29] VITALS: BP 111/65; PULSE 67; RESP 20; TEMP 97.5; O2SAT 98
--- NOTE | 2018-01-04 16:03 | HHI.PR ---
Subjective Remarks 47-year-old female with rectal cancer undergoing radiation status post chemotherapy. She is pleased with how her cellulitis of her right buttock has improved on the IV antibiotics, she asked me today when she might be going home. She is hoping to go home tomorrow. Objective Vitals Vital Signs Date Time Temp Pulse Resp B/P (MAP) Pulse Ox O2 Delivery O2 Flow Rate FiO2 01/04/18 15:29 97.5 67 20 111/65 (80) 98 01/04/18 11:31 98.0 68 20 120/73 (89) 97 01/04/18 07:27 97.4 64 20 123/77 (92) 98 01/04/18 05:39 98.0 69 18 108/56 (73) 94 01/04/18 00:00 97.6 67 18 101/61 (74) 97 01/03/18 20:17 97.8 70 18 113/62 (79) 97 01/03/18 15:56 97.8 67 20 107/66 (80) 95 I/O 01/03/18 01/03/18 01/03/18 01/04/18 01/04/18 01/04/18 07:00 15:00 23:00 07:00 15:00 23:00 Intake Total 975 ml 100 ml 100 ml 600 ml 565 ml Balance 975 ml 100 ml 100 ml 600 ml 565 ml Intake Oral 975 ml IV Total 100 ml 100 ml 600 ml 565 ml # Voids 2 2 # Bowel Movements 0 1 Result Diagram: 01/02/18 0715 01/04/18 0615 Objective Remarks GENERAL: Well-nourished, well-developed patient. SKIN: Erythematous and tender radiation lazo over her posterior and anterior groin and upper thigh, 1 x 2 cm area of shallow induration at lateral aspect of right gluteal cleft HEAD: Normocephalic. EYES: No scleral icterus. No injection or drainage. NECK: Supple, trachea midline. No JVD or lymphadenopathy. CARDIOVASCULAR: Regular rate and rhythm without murmurs, gallops, or rubs. RESPIRATORY: Breath sounds equal bilaterally. No accessory muscle use. GASTROINTESTINAL: Abdomen soft, non-tender, nondistended. EXTREMITIES: No cyanosis, or edema. NEUROLOGICAL: Awake, alert, and oriented x 3. Non-focal. A/P Problem List: (1) Rectal or anal pain ICD Code: K62.89 - Other specified diseases of anus and rectum Assessment and Plan Cellulitis of right buttock CT showed no abscess, but was positive for soft tissue swelling Patient is immunocompromised due to chemotherapy and radiation for anorectal cancer Leukopenia due to chemotherapy Continue IV vancomycin and Zosyn Continue oxycodone with IV morphine for pain management We will plan for discharge on IV vancomycin Appreciate wound care consult Rectal cancer Ongoing therapy with radiation, Dr. lind Chemotherapy finished recently, Dr. stuaffer Patient inquires about using her port access for IV antibiotics at home Oncology consult to assist with these questions Headache, recurrent Possibly caffeine withdrawal headache CT of brain was negative for any mass or acute events Fioricet eliminated headache Stomatitis Tender lips and tongue, dry mouth Continue home dose of Magic mouthwash Ensure added for dietary supplementation Her p.o. intake is improving Radiation lazo of groin and upper thigh Ongoing radiation treatments for rectal cancer Patient takes p.o. prednisone at home to help with inflammation Solu-Medrol added to help catch up on her level of inflammation and pain Vaginal discharge Patient describes mild itching, nurse noted discharge on the pad Lots of radiation to the area for treatment of rectal cancer, recent chemotherapy, immunocompromised Unable to undergo a speculum exam at this time due to radiation lazo, raw vaginal tissue Low likelihood of STD, consider yeast source versus bacterial vaginosis We will treat empirically with Diflucan and monitor for change If no improvement consider single dose of Flagyl to cover for BV Hepatic steatosis Visible on CT. Combined with transaminitis. Consider patient just finished a round of p.o. chemotherapy We will monitor with periodic labs h/o COPD Currently stable, add treatment as necessary DVT prophylaxis Heparin, SCDs Discharge planning Patient is beginning to feel better, stronger, antibiotic therapy can be switched to home IV dosing for the next week. Reji Lara MD January 04, 2018 16:03
[2018-01-04 21:23] VITALS: BP 118/71; PULSE 70; RESP 20; TEMP 97.8; O2SAT 97
[2018-01-05] MEDS: methylPREDNISolone SOD SUCC 40 MG/1 ML VIAL IV PUSH SCH ×2 (00:06→07:50)
[2018-01-05] MEDS: PIPERACIL-TAZO 3.375 GM PREMIX 50 ML IV SCH ×2 (00:06→05:36)
[2018-01-05 00:50] VITALS: BP 134/68; PULSE 65; RESP 20; TEMP 97.2; O2SAT 97
[2018-01-05] MEDS: HYDROmorphone HCL PF 2 MG/ML VIAL IV PRN ×2 (03:50→07:50)
[2018-01-05] MEDS ORDERED: PHARMACY ORDERED LAB ONE (04:45)
[2018-01-05 04:47] VITALS: BP 120/64; PULSE 55; RESP 20; TEMP 98.4; O2SAT 97
[2018-01-05] MEDS: DOCUSATE SODIUM 50 MG/SENNA 8.6 MG TAB PO SCH (07:45)
[2018-01-05] MEDS: NYSTAT/DIPHENHY/LIDO MOUTHWASH (Adult) 120ML SWISH-SWAL SCH (07:46)
[2018-01-05] MEDS: SODIUM CHLORIDE 0.9% FLUSH 10 ML FLUSH IV FLUSH SCH (07:46)
[2018-01-05] MEDS: ONDANSETRON HCL 4 MG/2 ML VIAL IVP PRN (07:48)
[2018-01-05] MEDS: NEOMYCIN/POLYMYXIN/BACITRACIN OINT 15 GM TUBE TOPICAL SCH (07:53)
[2018-01-05] MEDS: HYDROCORTISONE 2.5% CREAM 30 GM TOPICAL SCH (07:53)
[2018-01-05 08:17] VITALS: BP 111/68; PULSE 55; RESP 20; TEMP 97.9; O2SAT 95
[2018-01-05] MEDS ORDERED: OXYC-392 PO (09:01)
[2018-01-05] MEDS ORDERED: Acet-Butal-Caff 325-50-40 Mg PO (09:01)
[2018-01-05] MEDS ORDERED: MUPI2%T TOPICAL (09:01)
[2018-01-05] MEDS ORDERED: MEDR4PAK PO (09:01)
[2018-01-05] MEDS ORDERED: DIFL150T PO (09:03)
[2018-01-05] MEDS ORDERED: LEVA500T33 PO (09:06)
--- NOTE | 2018-01-05 09:06 | HHI.DS ---
Discharge Summary Admission Date January 02, 2018 at 10:31 Discharge Date: January 05, 2018 Admitting Diagnosis right buttock cellulitis, immunocompromised, rectal caner, (1) Rectal or anal pain ICD Code: K62.89 - Other specified diseases of anus and rectum Procedures none Brief History - From Admission This is a 47-year-old female who presents to the emergency department complaining of right posterior thigh/buttock pain and swelling which started over the weekend. She noted muco-purulent/serosanguineous discharge. Pain is constant worse with activity. No fever, chills, nausea and vomiting. She has history of rectal cancer status post chemotherapy and finishing up radiation therapy this week. She also complains of left armpit tender swelling which on examination is small lymph node. Abdominal CTshowed no abscess but has skin thickening and inflammation of the subcutaneous tissue. She received IV vancomycin and Zosyn in the emergency room. All other systems reviewed negative CBC/BMP: 01/02/18 0715 01/04/18 0615 Significant Findings Laboratory Tests Test 01/03/18 03:36 01/03/18 09:55 01/03/18 14:21 01/04/18 06:15 Estimat Glomerular Filtration Rate 86 ML/MIN (>89) PE at Discharge GENERAL: Well-nourished, well-developed patient. SKIN: Erythematous and tender radiation lazo over her posterior and anterior groin and upper thigh, 1 x 2 cm area of shallow induration at lateral aspect of right gluteal cleft HEAD: Normocephalic. EYES: No scleral icterus. No injection or drainage. NECK: Supple, trachea midline. No JVD or lymphadenopathy. CARDIOVASCULAR: Regular rate and rhythm without murmurs, gallops, or rubs. RESPIRATORY: Breath sounds equal bilaterally. No accessory muscle use. GASTROINTESTINAL: Abdomen soft, non-tender, nondistended. EXTREMITIES: No cyanosis, or edema. NEUROLOGICAL: Awake, alert, and oriented x 3. Non-focal. Hospital Course 47-year-old female with history of rectal cancer undergoing radiation treatments status post chemotherapy. She presented to the ER on May 1 with a right posterior upper thigh cellulitis. She was placed on a combination of vancomycin and Zosyn empirically. Cultures grew out MSSA which was sensitive to most treatment options including Levaquin. She has been asking when she might go home and I feel at this point the erythema, induration, drainage is much less reduced and safe to switch to p.o. antibiotics. She has placed her radiation treatment on hold but I suggested that she follow-up with oncology within the week to resume treatments at their discretion in her own tolerance. She is stable for discharge today. Pt Condition on Discharge: Fair Discharge Disposition: Discharge Home Discharge Time: <= 30 minutes Discharge Instructions DIET: Follow Instructions for: As Tolerated, No Restrictions Activities you can perform: Weight Bearing as Reji Chapman MD January 05, 2018 09:06
== END 2018-01-05 10:47 | disposition home or self-care (01) | DRG 603 ==
LOC: NEPC 09:37 → NEDA 13:18 → N05A 16:29 → OBSVTOIN 01-02 10:31
PROVIDERS: ADMIT Family Medicine; ATTEND Family Medicine
DX: L03.317 Cellulitis of buttock (principal); C20 Malignant neoplasm of rectum; K76.0 Fatty (change of) liver, not elsewhere classified; J44.9 Chronic obstructive pulmonary disease, unspecified; B95.61 Methicillin susceptible Staphylococcus aureus infection as the cause of diseases classified elsewhere; R51 Headache; N89.8 Other specified noninflammatory disorders of vagina; R73.9 Hyperglycemia, unspecified; K12.1 Other forms of stomatitis; T24.019A Burn of unspecified degree of unspecified thigh, initial encounter; Z92.3 Personal history of irradiation; Z92.21 Personal history of antineoplastic chemotherapy; Z85.3 Personal history of malignant neoplasm of breast
CPT/HCPCS: 70450; 74177; 80048; 80053; 80202; 82565; 83605; 84702; 85025; 85610; 85730; 86403; 87040; 87070; 87147; 87186; 87205; 96361; 96365; 96367; 96375; 96376; G0378; J0780; J1170; J1200; J2405; J2543; J2765; J2920; J3370; J3480; J7040; J7050; Q9967

== ENCOUNTER 2018-01-06 10:41 | Inpatient (IN) | payer OTHER ==
[~2018-01-06] VITALS: Ht 167.6 cm; Wt 75.5 kg
[~2018-01-06 10:41] MED LIST changes: +Acet-Butal-Caff 325-50-40 Mg PO; +DIFL150T PO; +LEVA500T33 PO; +MAGICADU2 SWISH-SWAL; +MEDR4PAK PO; +MUPI2%T TOPICAL; +OXYC-392 PO; -OXYC1TAB36 PO; +OXYC30TA62 PO; +ZOFR4TAB PO
[2018-01-06 10:56] VITALS: BP 105/70; PULSE 80; RESP 22; TEMP 97.8; O2SAT 99
[2018-01-06] MEDS ORDERED: SODIUM CHLOR 0.9% 1000 ML INJ 1,000 ML IV SCH (11:26)
[2018-01-06] MEDS ORDERED: SODIUM CHLORIDE 0.9% FLUSH 10 ML FLUSH IV FLUSH PRN (11:30)
[2018-01-06] MEDS ORDERED: HYDROmorphone HCL PF 1 MG/ML VIAL IVS ONE (11:30)
[2018-01-06] MEDS ORDERED: ONDANSETRON HCL 4 MG/2 ML VIAL IVP ONE (11:30)
--- NOTE | 2018-01-06 11:31 | PD ---
HPI Chief Complaint: GI Complaint Time Seen by Provider: 11:21 Travel History International Travel<30 days: No Contact w/Intl Traveler<30days: No Traveled to known affect area: No History of Present Illness HPI 47-year-old female with history of COPD and stage II anal mass, presents emergency department today for evaluation of stool coming out of her vagina. Patient states she had her second chemo treatment and the pump removed Monday. She is still undergoing radiation treatment. Her oncologist is Dr. Ordaz. Patient states that she has not been able to eat or drink anything for the last 5 days. She has stomatitis from her chemo and she feels weak and tired. She denies any fever but has felt chilled. She tells me when she got up this morning to have a bowel movement, she stood up and stool came out of her vagina. This is not happened before. She tells me that her vagina is burning and it hurts to urinate. She has no other symptoms to report at this time. PFSH Past Medical History Cancer: Yes (breast and rectal mass) Cardiovascular Problems: No Chemotherapy: Yes (01/01/18) COPD: Yes Diabetes: No Endocrine: No Genitourinary: No Immune Disorder: No Implanted Vascular Access Dvce: Yes Musculoskeletal: No Neurologic: No Psychiatric: No Reproductive: No Respiratory: Yes Radiation Therapy: Yes (12/29/17) ?: Not Past Surgical History Abdominal Surgery: Yes (INGUINAL HERNIA REPAIR) Cardiac Surgery: No Ear Surgery: No Endocrine Surgery: No Eye Surgery: No Gynecologic Surgery: No Oral Surgery: No Thoracic Surgery: No Other Surgery: Yes (IMGUINAL HERNIA REPAIR AND LEFT LUMPECTOMY) Social History Alcohol Use: No Tobacco Use: No Substance Use: No Allergies-Medications (Allergen,Severity, Reaction): Coded Allergies: No Known Allergies (Unverified , 01/06/18) Reported Meds & Prescriptions Reported Meds & Active Scripts Active Levaquin (Levofloxacin) 500 Mg Tablet 500 Mg PO DAILY 10 Days Diflucan (Fluconazole) 150 Mg Tab 150 Mg PO ONCE PRN Bactroban Topical (Mupirocin) 22 Gm Cream 1 Applic TOPICAL BID 7 Days Medrol Dosepak (Methylprednisolone) 4 Mg Dspk 4 Mg PO DIRECTED Per Pharmacist direction [Dcte-Iprcw-Gwgg 325-50-40 Mg] 1 TAB Tab 1 Tab PO Q6H PRN 5 Days Oxycodone (Oxycodone HCl) 5 Mg Tab 10 Mg PO Q6HR PRN 7 Days Reported Magic Mouthwash Adult Liq (Multi-Ingredient Mouthwash/Gargle) 120 Ml Susp 10 Ml SWISH-SWAL ACHS Each 5mL contains: Nystatin 200,000units, Diphenhydramine 4.25mg, Viscous Lidocaine 10mg, Bello syrup 0.8 mL Oxycontin (Oxycodone HCl) 30 Mg Tab 30 Mg PO Q8HR Zofran (Ondansetron HCl) 4 Mg Tab 4 Mg PO Q6HR PRN Albuterol Neb (Albuterol Sulfate) 0.63 Mg/3 Ml Neb 0.63 Mg NEB Q6HR NEB PRN Ventolin Hfa 18 GM Inh (Albuterol Sulfate) 90 Mcg/Act Aer 2 Puff INH Q4-6H PRN Ibuprofen 200 Mg Cap 200 Mg PO Q2HR Review of Systems Except as stated in HPI: all other systems reviewed are Neg Physical Exam Narrative GENERAL: Well-nourished but ill-appearing female patient, lying in bed in no acute distress SKIN: Focused skin assessment warm/dry. Right ulcerative lesions on the lips and within the mucosa. Blanchable erythema, partial thickness lazo from radiation into the vaginal area and buttocks. HEAD: Atraumatic. Normocephalic. EYES: Pupils equal and round. No scleral icterus. No injection or drainage. ENT: No nasal bleeding or discharge. Mucous membranes pink and moist. NECK: Trachea midline. No JVD. CARDIOVASCULAR: Regular rate and rhythm. No murmur appreciated. RESPIRATORY: No accessory muscle use. Clear to auscultation. Breath sounds equal bilaterally. GASTROINTESTINAL: Abdomen soft, non-tender, nondistended. Hepatic and splenic margins not palpable. GENITOURINARY: The entire external genitalia, buttocks are erythematous with partial thickness lazo. There is stool noted coming out of the vagina. Speculum exam is not done at this time. MUSCULOSKELETAL: No obvious deformities. No clubbing. No cyanosis. No edema. NEUROLOGICAL: Awake and alert. No obvious cranial nerve deficits. Motor grossly within normal limits. Normal speech. Data Data Last Documented VS Vital Signs Date Time Temp Pulse Resp B/P (MAP) Pulse Ox O2 Delivery O2 Flow Rate FiO2 01/06/18 10:56 97.8 80 22 105/70 (82) 99 Orders Orders Complete Blood Count With Diff (01/06/18 11:26) Comprehensive Metabolic Panel (01/06/18 11:) Lipase (01/06/18 11:) Prothrombin Time / Inr (Pt) (01/06/18 11:) Act Partial Throm Time (Ptt) (01/06/18 11:) Urinalysis - C+S If Indicated (01/06/18 11:) Ct Abd/Pel W Iv Contrast(Rout) (01/06/18 11:26) Iv Access Insert/Monitor (01/06/18 11:) Ecg Monitoring (01/06/18 11:) Oximetry (01/06/18 11:) Ondansetron Inj (Zofran Inj) (01/06/18 11:30) Sodium Chlor 0.9% 1000 Ml Inj (Ns 1000 M (01/06/18 11:26) Sodium Chloride 0.9% Flush (Ns Flush) (01/06/18 11:30) Electrocardiogram (01/06/18 11:26) Chest, Single Ap (01/06/18 11:26) Hydromorphone Pf Inj (Dilaudid Pf Inj) (01/06/18 11:30) Lactic Acid Sepsis Protocol (01/06/18 11:) Blood Culture (01/06/18 11:26) Hydromorphone Pf Inj (Dilaudid Pf Inj) (01/06/18 11:45) Iohexol 350 Inj (Omnipaque 350 Inj) (01/06/18 14:00) Labs Laboratory Tests Test 01/06/18 11:43 01/06/18 15:44 White Blood Count 2.4 TH/MM3 Red Blood Count 4.26 MIL/MM3 Hemoglobin 13.6 GM/DL Hematocrit 38.7 % Mean Corpuscular Volume 90.9 FL Mean Corpuscular Hemoglobin 31.9 PG Mean Corpuscular Hemoglobin Concent 35.1 % Red Cell Distribution Width 16.2 % Platelet Count 281 TH/MM3 Mean Platelet Volume 6.8 FL Neutrophils (%) (Auto) 80.4 % Lymphocytes (%) (Auto) 7.8 % Monocytes (%) (Auto) 11.1 % Eosinophils (%) (Auto) 0.5 % Basophils (%) (Auto) 0.2 % Neutrophils # (Auto) 1.9 TH/MM3 Lymphocytes # (Auto) 0.2 TH/MM3 Monocytes # (Auto) 0.3 TH/MM3 Eosinophils # (Auto) 0.0 TH/MM3 Basophils # (Auto) 0.0 TH/MM3 CBC Comment AUTO DIFF Differential Total Cells Counted 100 Neutrophils % (Manual) 79 % Band Neutrophils % 4 % Lymphocytes % 10 % Monocytes % 5 % Neutrophils # (Manual) 2.0 TH/MM3 Myelocytes 2 % Differential Comment FINAL DIFF MANUAL Toxic Granulation 2+ Platelet Estimate NORMAL Platelet Morphology Comment NORMAL Prothrombin Time 9.7 SEC Prothromb Time International Ratio 1.0 RATIO Activated Partial Thromboplast Time 21.2 SEC Blood Urea Nitrogen 20 MG/DL Creatinine 0.92 MG/DL Random Glucose 150 MG/DL Total Protein 6.7 GM/DL Albumin 3.0 GM/DL Calcium Level 8.8 MG/DL Alkaline Phosphatase 92 U/L Aspartate Amino Transf (AST/SGOT) 31 U/L Alanine Aminotransferase (ALT/SGPT) 78 U/L Total Bilirubin 0.4 MG/DL Sodium Level 138 MEQ/L Potassium Level 3.4 MEQ/L Chloride Level 99 MEQ/L Carbon Dioxide Level 27.6 MEQ/L Anion Gap 11 MEQ/L Estimat Glomerular Filtration Rate 65 ML/MIN Lactic Acid Level 1.8 mmol/L Lipase 145 U/L Urine Color LIGHT-YELLOW Urine Turbidity CLEAR Urine pH 6.0 Urine Specific [place] 1.046 Urine Protein NEG mg/dL Urine Glucose (UA) NEG mg/dL Urine Ketones NEG mg/dL Urine Occult Blood NEG Urine Nitrite NEG Urine Bilirubin NEG Urine Urobilinogen LESS THAN 2.0 MG/DL Urine Leukocyte Esterase SMALL Urine RBC 1 /hpf Urine WBC 8 /hpf Urine Mucus FEW /lpf Microscopic Urinalysis Comment CULT NOT INDICATED MDM Medical Decision Making Medical Screen Exam Complete: Yes Emergency Medical Condition: Yes Medical Record Reviewed: Yes Differential Diagnosis Fistula versus metastatic disease versus UTI Narrative Course 47-year-old female presents emergency department for evaluation of stool coming out of her vagina. Patient has stage II anal cancer and has recently finished chemotherapy. She is currently undergoing radiation. Patient appears ill but nontoxic. She does have stool coming out of her vagina. Speculum exam is not complete. I discussed the patient my attending physician, lab work is started and the patient is treated for pain. Laboratory Tests Test 01/06/18 11:43 01/06/18 15:44 White Blood Count 2.4 TH/MM3 Red Blood Count 4.26 MIL/MM3 Hemoglobin 13.6 GM/DL Hematocrit 38.7 % Mean Corpuscular Volume 90.9 FL Mean Corpuscular Hemoglobin 31.9 PG Mean Corpuscular Hemoglobin Concent 35.1 % Red Cell Distribution Width 16.2 % Platelet Count 281 TH/MM3 Mean Platelet Volume 6.8 FL Neutrophils (%) (Auto) 80.4 % Lymphocytes (%) (Auto) 7.8 % Monocytes (%) (Auto) 11.1 % Eosinophils (%) (Auto) 0.5 % Basophils (%) (Auto) 0.2 % Neutrophils # (Auto) 1.9 TH/MM3 Lymphocytes # (Auto) 0.2 TH/MM3 Monocytes # (Auto) 0.3 TH/MM3 Eosinophils # (Auto) 0.0 TH/MM3 Basophils # (Auto) 0.0 TH/MM3 CBC Comment AUTO DIFF Differential Total Cells Counted 100 Neutrophils % (Manual) 79 % Band Neutrophils % 4 % Lymphocytes % 10 % Monocytes % 5 % Neutrophils # (Manual) 2.0 TH/MM3 Myelocytes 2 % Differential Comment FINAL DIFF MANUAL Toxic Granulation 2+ Platelet Estimate NORMAL Platelet Morphology Comment NORMAL Prothrombin Time 9.7 SEC Prothromb Time International Ratio 1.0 RATIO Activated Partial Thromboplast Time 21.2 SEC Blood Urea Nitrogen 20 MG/DL Creatinine 0.92 MG/DL Random Glucose 150 MG/DL Total Protein 6.7 GM/DL Albumin 3.0 GM/DL Calcium Level 8.8 MG/DL Alkaline Phosphatase 92 U/L Aspartate Amino Transf (AST/SGOT) 31 U/L Alanine Aminotransferase (ALT/SGPT) 78 U/L Total Bilirubin 0.4 MG/DL Sodium Level 138 MEQ/L Potassium Level 3.4 MEQ/L Chloride Level 99 MEQ/L Carbon Dioxide Level 27.6 MEQ/L Anion Gap 11 MEQ/L Estimat Glomerular Filtration Rate 65 ML/MIN Lactic Acid Level 1.8 mmol/L Lipase 145 U/L Urine Color LIGHT-YELLOW Urine Turbidity CLEAR Urine pH 6.0 Urine Specific [place] 1.046 Urine Protein NEG mg/dL Urine Glucose (UA) NEG mg/dL Urine Ketones NEG mg/dL Urine Occult Blood NEG Urine Nitrite NEG Urine Bilirubin NEG Urine Urobilinogen LESS THAN 2.0 MG/DL Urine Leukocyte Esterase SMALL Urine RBC 1 /hpf Urine WBC 8 /hpf Urine Mucus FEW /lpf Microscopic Urinalysis Comment CULT NOT INDICATED Last Impressions Chest X-Ray 01/06/18 1126 Signed Impressions: Service Date/Time: Saturday, January 06, 2018 11:41 - CONCLUSION: No acute cardiopulmonary abnormality is identified. Prieto Pina MD Abdomen/Pelvis CT 01/06/18 1126 Signed Impressions: Service Date/Time: Saturday, January 06, 2018 13:54 - CONCLUSION: Hepatic steatosis. No acute findings in the abdomen and pelvis. Tomas Ross MD My attending has discussed the patient with Dr. Ordaz, patient's oncologist. Please refer to her documentation. Patient will be admitted observation Diagnosis Primary Impression: Fistula of vagina Additional Impressions: Weakness Rectal or anal pain Admitting Information Admitting Physician Requests: Observation Condition: Stable SinghFelisa saunders HERO January 06, 2018 11:31
[2018-01-06] MEDS ORDERED: HYDROmorphone HCL PF 0.5 MG/0.5 ML SYRINGE IV ONE (11:45)
[2018-01-06 11:55] LABS: AUTOMATED NEUTROPHIL # 1.9 TH/MM3 (1.8-7.7); BASOPHIL % 0.2 % (0.0-2.0); EOSINOPHIL % 0.5 % (0.0-4.0); HEMATOCRIT 38.7 % (35.0-46.0); HEMOGLOBIN 13.6 GM/DL (11.6-15.3); LYMPH % 7.8 % (9.0-44.0); LYMPHOCYTE # 0.2 TH/MM3 (1.0-4.8); MEAN CELL VOLUME 90.9 FL (80.0-100.0); MEAN CORPUSCULAR HEMOGLOBIN 31.9 PG (27.0-34.0); MEAN CORPUSCULAR HGB CONC 35.1 % (32.0-36.0); MEAN PLATELET VOLUME 6.8 FL (7.0-11.0); MONO % 11.1 % (0.0-8.0); MONOCYTE # 0.3 TH/MM3 (0-0.9); NEUT % 80.4 % (16.0-70.0); PLATELET COUNT 281 TH/MM3 (150-450); RED BLOOD COUNT 4.26 MIL/MM3 (4.00-5.30); RED CELL DISTRIBUTION WIDTH 16.2 % (11.6-17.2); WHITE BLOOD COUNT 2.4 TH/MM3 (4.0-11.0)
[2018-01-06 12:04] LABS: PROTHROMBIN TIME - PATIENT 9.7 SEC (9.8-11.6)
[2018-01-06 12:23] LABS: ALT (GPT) 78 U/L (10-53); AST (GOT) 31 U/L (15-37); BICARBONATE 27.6 MEQ/L (21.0-32.0); BLOOD UREA NITROGEN 20 MG/DL (7-18); CALCIUM 8.8 MG/DL (8.5-10.1); CHLORIDE 99 MEQ/L (98-107); CREATININE 0.92 MG/DL (0.50-1.00); GLOMERULAR FILTRATION RATE 65 ML/MIN (>89); GLUCOSE,RANDOM 150 MG/DL (74-106); SODIUM (NA) 138 MEQ/L (136-145)
[2018-01-06 12:25] LABS: ALKALINE PHOSPHATASE 92 U/L (45-117); TOTAL BILIRUBIN ADULT 0.4 MG/DL (0.2-1.0); TOTAL PROTEIN 6.7 GM/DL (6.4-8.2)
--- NOTE | 2018-01-06 12:29 | RADRPT ---
EXAM DATE/TIME: 01/06/2018 11:41 [facility] COMPARISON: CT THORAX W CONTRAST, October 25, 2017, 9:44. INDICATIONS : Shortness of breath. MEDICAL HISTORY : Carcinoma, rectum. SURGICAL HISTORY : Port placement. Lumpectomy, left breast. ENCOUNTER: Initial ACUITY: 1 day PAIN SCORE: 0/10 LOCATION: Bilateral chest FINDINGS: Portable AP views of the chest demonstrate a normal-sized cardiac silhouette. Right chest wall Infuse -a-Port is present with distal tip in the SVC. No pneumothorax, effusion, or consolidation is visuali zed. No pulmonary nodule is seen. The bones demonstrate no acute finding. Clips overlie the left demetria st. CONCLUSION: No acute cardiopulmonary abnormality is identified. Prieto Pina MD on January 06, 2018 at 12:26 Board Certified Radiologist. This report was verified electronically.
[2018-01-06 12:41] LABS: BANDS 4 % (0-6); LYMPHOCYTES 10 % (9-44); MONOCYTES 5 % (0-8); MYELOCYTES 2 % (0-0); POLYS (SEG NEUTROPHILS) 79 % (16-70); TOXIC GRANULATION 2+ (NORMAL)
[2018-01-06 13:00] VITALS: BP 121/74; PULSE 69; RESP 17; O2SAT 98
[2018-01-06] MEDS ORDERED: IOHEXOL 350 MG/ML 10 ML VIAL (for RAD DIAG) IVCONTRAST ONE (14:00)
--- NOTE | 2018-01-06 14:32 | RADRPT ---
EXAM DATE/TIME: 01/06/2018 13:54 [facility] COMPARISON: CT ABDOMEN & PELVIS W CONTRAST, January 01, 2018, 11:30. INDICATIONS : Diffuse abdomen pain. IV CONTRAST: 71 cc Omnipaque 350 (iohexol) IV ORAL CONTRAST: No oral contrast ingested. RADIATION DOSE: 7.44 CTDIvol (mGy) MEDICAL HISTORY : Carcinoma, rectal. SURGICAL HISTORY : Inguinal hernia repair. ENCOUNTER: Initial ACUITY: 1 day PAIN SCALE: 6/10 LOCATION: Bilateral abdomen TECHNIQUE: Volumetric scanning of the abdomen and pelvis was performed. Using automated exposure control and ad justment of the mA and/or kV according to patient size, radiation dose was kept as low as reasonably achievable to obtain optimal diagnostic quality images. DICOM format image data is available electro nically for review and comparison. FINDINGS: LOWER LUNGS: The visualized lower lungs are clear. LIVER: Diffuse hypodensity of the liver indicating hepatic steatosis. No focal mass identified. Gallbladder within normal limits. SPLEEN: Normal size without lesion. PANCREAS: Within normal limits. KIDNEYS: Normal in size and shape. There is no mass, stone or hydronephrosis. ADRENAL GLANDS: Within normal limits. VASCULAR: There is no aortic aneurysm. BOWEL/MESENTERY: Scattered colonic diverticula. No evidence of bowel dilatation. No free air or free fluid. Appendix w ithin normal limits. ABDOMINAL WALL: Within normal limits. RETROPERITONEUM: There is no lymphadenopathy. BLADDER: No wall thickening or mass. REPRODUCTIVE: Within normal limits. INGUINAL: There is no lymphadenopathy or hernia. MUSCULOSKELETAL: Within normal limits for patient age. CONCLUSION: Hepatic steatosis. No acute findings in the abdomen and pelvis. Tomas Ross MD on January 06, 2018 at 14:25 Board Certified Radiologist. This report was verified electronically.
[2018-01-06 16:01] LABS: BILIRUBIN, URINE NEG (NEG); BLOOD, URINE NEG (NEG); GLUCOSE,URINE NEG (NEG); KETONE, URINE NEG (NEG); MUCUS URINE FEW /lpf (OCC); NITRITE,URINE NEG (NEG); URINE COLOR LIGHT-YELLOW (YELLW/STRAW); URINE LEUKOCYTE ESTERASE SMALL (NEG)
--- NOTE | 2018-01-06 16:54 | PD ---
Physical Exam Narrative GENERAL: 47 y/o female who appears ill appearing SKIN: Focused skin assessment warm/dry. HEAD: Atraumatic. EYES: Pupils equal and round. ENT: No nasal bleeding or discharge. Mucous membranes pink and moist. NECK: Trachea midline. CARDIOVASCULAR: Regular rate and rhythm. RESPIRATORY: No accessory muscle use. no increased effort MUSCULOSKELETAL: No obvious deformities. No clubbing. No cyanosis NEUROLOGICAL: Awake and alert. moves all extremities. Normal speech. Data Data Last Documented VS Vital Signs Date Time Temp Pulse Resp B/P (MAP) Pulse Ox O2 Delivery O2 Flow Rate FiO2 01/06/18 13:00 69 17 121/74 (90) 98 Room Air 01/06/18 10:56 97.8 Orders Orders Complete Blood Count With Diff (01/06/18 11:) Comprehensive Metabolic Panel (01/06/18 11:26) Lipase (01/06/18 11:26) Prothrombin Time / Inr (Pt) (01/06/18 11:) Act Partial Throm Time (Ptt) (01/06/18 11:26) Urinalysis - C+S If Indicated (01/06/18 11:26) Ct Abd/Pel W Iv Contrast(Rout) (01/06/18 11:26) Iv Access Insert/Monitor (01/06/18 11:26) Ecg Monitoring (01/06/18 11:26) Oximetry (01/06/18 11:26) Ondansetron Inj (Zofran Inj) (01/06/18 11:30) Sodium Chlor 0.9% 1000 Ml Inj (Ns 1000 M (01/06/18 11:26) Sodium Chloride 0.9% Flush (Ns Flush) (01/06/18 11:30) Electrocardiogram (01/06/18 11:26) Chest, Single Ap (01/06/18 11:26) Hydromorphone Pf Inj (Dilaudid Pf Inj) (01/06/18 11:30) Lactic Acid Sepsis Protocol (01/06/18 11:26) Blood Culture (01/06/18 11:26) Hydromorphone Pf Inj (Dilaudid Pf Inj) (01/06/18 11:45) Iohexol 350 Inj (Omnipaque 350 Inj) (01/06/18 14:00) Admit Order (Ed Use Only) (01/06/18 16:59) Labs Laboratory Tests Test 01/06/18 11:43 01/06/18 15:44 White Blood Count 2.4 TH/MM3 Red Blood Count 4.26 MIL/MM3 Hemoglobin 13.6 GM/DL Hematocrit 38.7 % Mean Corpuscular Volume 90.9 FL Mean Corpuscular Hemoglobin 31.9 PG Mean Corpuscular Hemoglobin Concent 35.1 % Red Cell Distribution Width 16.2 % Platelet Count 281 TH/MM3 Mean Platelet Volume 6.8 FL Neutrophils (%) (Auto) 80.4 % Lymphocytes (%) (Auto) 7.8 % Monocytes (%) (Auto) 11.1 % Eosinophils (%) (Auto) 0.5 % Basophils (%) (Auto) 0.2 % Neutrophils # (Auto) 1.9 TH/MM3 Lymphocytes # (Auto) 0.2 TH/MM3 Monocytes # (Auto) 0.3 TH/MM3 Eosinophils # (Auto) 0.0 TH/MM3 Basophils # (Auto) 0.0 TH/MM3 CBC Comment AUTO DIFF Differential Total Cells Counted 100 Neutrophils % (Manual) 79 % Band Neutrophils % 4 % Lymphocytes % 10 % Monocytes % 5 % Neutrophils # (Manual) 2.0 TH/MM3 Myelocytes 2 % Differential Comment FINAL DIFF MANUAL Toxic Granulation 2+ Platelet Estimate NORMAL Platelet Morphology Comment NORMAL Prothrombin Time 9.7 SEC Prothromb Time International Ratio 1.0 RATIO Activated Partial Thromboplast Time 21.2 SEC Blood Urea Nitrogen 20 MG/DL Creatinine 0.92 MG/DL Random Glucose 150 MG/DL Total Protein 6.7 GM/DL Albumin 3.0 GM/DL Calcium Level 8.8 MG/DL Alkaline Phosphatase 92 U/L Aspartate Amino Transf (AST/SGOT) 31 U/L Alanine Aminotransferase (ALT/SGPT) 78 U/L Total Bilirubin 0.4 MG/DL Sodium Level 138 MEQ/L Potassium Level 3.4 MEQ/L Chloride Level 99 MEQ/L Carbon Dioxide Level 27.6 MEQ/L Anion Gap 11 MEQ/L Estimat Glomerular Filtration Rate 65 ML/MIN Lactic Acid Level 1.8 mmol/L Lipase 145 U/L Urine Color LIGHT-YELLOW Urine Turbidity CLEAR Urine pH 6.0 Urine Specific [place] 1.046 Urine Protein NEG mg/dL Urine Glucose (UA) NEG mg/dL Urine Ketones NEG mg/dL Urine Occult Blood NEG Urine Nitrite NEG Urine Bilirubin NEG Urine Urobilinogen LESS THAN 2.0 MG/DL Urine Leukocyte Esterase SMALL Urine RBC 1 /hpf Urine WBC 8 /hpf Urine Mucus FEW /lpf Microscopic Urinalysis Comment CULT NOT INDICATED MDM Supervised Visit with JOSÉ MIGUEL: Yes Interpretation(s) CBC & BMP Diagram 01/06/18 11:43 Total Protein 6.7, Albumin 3.0 L, Calcium Level 8.8, Alkaline Phosphatase 92, Aspartate Amino Transf (AST/SGOT) 31, Alanine Aminotransferase (ALT/SGPT) 78 H, Total Bilirubin 0.4 Last 24 hours Impressions Chest X-Ray 01/06/18 1126 Signed Impressions: Service Date/Time: Saturday, January 06, 2018 11:41 - CONCLUSION: No acute cardiopulmonary abnormality is identified. Prieto Pina MD Abdomen/Pelvis CT 01/06/18 1126 Signed Impressions: Service Date/Time: Saturday, January 06, 2018 13:54 - CONCLUSION: Hepatic steatosis. No acute findings in the abdomen and pelvis. Tomas Ross MD Narrative Course I, Dr. anderson, have reviewed the advance practice practitioner's documentation and am in agreement, met with the patient face to face, made the diagnosis, and the medical decision making was done by me. *My assessment and Findings: 47 y/o female with history of anal cancer getting chemo and radiation presents with colovaginal fistula, discussed with her oncologist and colorectal surgeon. She will be admitted for further care. Physician Communication Physician Communication dr bautista states to discuss with dr lai likely needs diverting colostomy dr lai states keep npo after midnight and admit to medicine dr leal agrees to admit Diagnosis Primary Impression: Fistula of vagina Additional Impressions: Weakness Rectal or anal pain Admitting Information Admitting Physician Requests: Admit Condition: Stable Zuleika Anderson MD January 06, 2018 16:54
[2018-01-06 17:03] VITALS: BP 143/77; PULSE 78; RESP 19; O2SAT 97
--- NOTE | 2018-01-06 17:04 | HHI.HP ---
HPI Service [facility] Primary Care Physician Edwina Jaimes MD Admission Diagnosis Colovaginal fistula, anal cancer Diagnoses: (1) Rectal or anal pain (2) Fistula of vagina (3) Anal cancer Chief Complaint: Stool coming out of my vagina Travel History International Travel<30 Days: No Contact w/Intl Traveler <30 Da: No Traveled to Known Affected Are: No History of Present Illness 47-year-old female with past medical history significant for COPD, breast cancer , and rectal cancer who presents to the emergency department with complaints of stool coming out of her vagina. 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 Ordaz for medical oncology and Dr. Mejia for radiation oncology. Patient states that she has recently finished chemotherapy but has several more sessions left of radiation. She tells me that she was just discharged yesterday after she came in with complaints of a spot on her right buttocks. She reports that today she got up to use the bathroom and noticed that there was stool coming out of her vagina. She denies any fevers, chills, nausea, vomiting, abdominal pain, dysuria, hematuria, shortness of breath, cough, dizziness, lightheadedness, or chest pain. She states that she has been unable to eat due to the fact that her mouth is extremely sore, has been eating pudding as well as drinking ensure shakes. She tells me that she is scared that she may get a urinary tract infection as she knows that the chemotherapy decreases her immune system. Patient was recently admitted on 01/01 with complaints of right posterior thigh/ buttocks pain and swelling as well as drainage. Initially patient was treated with IV antibiotics, culture of wound was positive for Staphylococcus aureus with campa sensitivity. Patient was discharged on 01/05 with 10 day course of oral Levaquin, Medrol Dosepak, and mupirocin ointment. Review of Systems Except as stated in HPI: all other systems reviewed are Neg Past Family Social History Past Medical History Breast cancer Rectal cancer COPD Past Surgical History Breast cancer status post lumpectomy Inguinal hernia repair Right upper chest port placement Reported Medications Reported Meds & Active Scripts Active Levaquin (Levofloxacin) 500 Mg Tablet 500 Mg PO DAILY 10 Days Diflucan (Fluconazole) 150 Mg Tab 150 Mg PO ONCE PRN Bactroban Topical (Mupirocin) 22 Gm Cream 1 Applic TOPICAL BID 7 Days Medrol Dosepak (Methylprednisolone) 4 Mg Dspk 4 Mg PO DIRECTED Per Pharmacist direction [Hcqc-Xinvb-Hsgy 325-50-40 Mg] 1 TAB Tab 1 Tab PO Q6H PRN 5 Days Oxycodone (Oxycodone HCl) 5 Mg Tab 10 Mg PO Q6HR PRN 7 Days Reported Magic Mouthwash Adult Liq (Multi-Ingredient Mouthwash/Gargle) 120 Ml Susp 10 Ml SWISH-SWAL ACHS Each 5mL contains: Nystatin 200,000units, Diphenhydramine 4.25mg, Viscous Lidocaine 10mg, Bello syrup 0.8 mL Oxycontin (Oxycodone HCl) 30 Mg Tab 30 Mg PO Q8HR Zofran (Ondansetron HCl) 4 Mg Tab 4 Mg PO Q6HR PRN Albuterol Neb (Albuterol Sulfate) 0.63 Mg/3 Ml Neb 0.63 Mg NEB Q6HR NEB PRN Ventolin Hfa 18 GM Inh (Albuterol Sulfate) 90 Mcg/Act Aer 2 Puff INH Q4-6H PRN Ibuprofen 200 Mg Cap 200 Mg PO Q2HR Allergies: Coded Allergies: No Known Allergies (Unverified , 01/06/18) Family History Cardiac history Social History Tobacco: Reports that she has quit Denies any alcohol use Used to smoke marijuana, none recently Physical Exam Vital Signs Vital Signs Date Time Temp Pulse Resp B/P (MAP) Pulse Ox O2 Delivery O2 Flow Rate FiO2 01/06/18 10:56 97.8 80 22 105/70 (82) 99 Physical Exam GENERAL: This is a well-nourished, well-developed patient, in visible discomfort due to pain. SKIN: Cool and dry. Right buttocks area with erythema, no warmth, or central head. HEAD: Atraumatic. Normocephalic. EYES: Pupils equal round and reactive. No scleral icterus. No injection or drainage. ENT: Nose without bleeding, purulent drainage. Dry cracked lips. Uvula midline. Airway patent. NECK: Trachea midline. No JVD. Supple, nontender. CARDIOVASCULAR: Regular rate and rhythm without murmurs, gallops, or rubs. RESPIRATORY: Clear to auscultation. Breath sounds equal bilaterally. No wheezes , rales, or rhonchi. GASTROINTESTINAL: Abdomen soft, non-tender, nondistended. No palpable masses. No guarding. Normal active bowel sounds MUSCULOSKELETAL: Extremities without clubbing, cyanosis, or edema. No joint tenderness, effusion, or edema noted. No calf tenderness. NEUROLOGICAL: Awake and alert. Cranial nerves II through XII grossly intact. Motor and sensory grossly within normal limits. 5/5 muscle strength in all muscle groups. Normal speech. Laboratory Laboratory Tests Test 01/06/18 11:43 01/06/18 15:44 White Blood Count 2.4 Red Blood Count 4.26 Hemoglobin 13.6 Hematocrit 38.7 Mean Corpuscular Volume 90.9 Mean Corpuscular Hemoglobin 31.9 Mean Corpuscular Hemoglobin Concent 35.1 Red Cell Distribution Width 16.2 Platelet Count 281 Mean Platelet Volume 6.8 Neutrophils (%) (Auto) 80.4 Lymphocytes (%) (Auto) 7.8 Monocytes (%) (Auto) 11.1 Eosinophils (%) (Auto) 0.5 Basophils (%) (Auto) 0.2 Neutrophils # (Auto) 1.9 Lymphocytes # (Auto) 0.2 Monocytes # (Auto) 0.3 Eosinophils # (Auto) 0.0 Basophils # (Auto) 0.0 CBC Comment AUTO DIFF Differential Total Cells Counted 100 Neutrophils % (Manual) 79 Band Neutrophils % 4 Lymphocytes % 10 Monocytes % 5 Neutrophils # (Manual) 2.0 Myelocytes 2 Differential Comment FINAL DIFF MANUAL Toxic Granulation 2+ Platelet Estimate NORMAL Platelet Morphology Comment NORMAL Prothrombin Time 9.7 Prothromb Time International Ratio 1.0 Activated Partial Thromboplast Time 21.2 Blood Urea Nitrogen 20 Creatinine 0.92 Random Glucose 150 Total Protein 6.7 Albumin 3.0 Calcium Level 8.8 Alkaline Phosphatase 92 Aspartate Amino Transf (AST/SGOT) 31 Alanine Aminotransferase (ALT/SGPT) 78 Total Bilirubin 0.4 Sodium Level 138 Potassium Level 3.4 Chloride Level 99 Carbon Dioxide Level 27.6 Anion Gap 11 Estimat Glomerular Filtration Rate 65 Lactic Acid Level 1.8 Lipase 145 Urine Color LIGHT-YELLOW Urine Turbidity CLEAR Urine pH 6.0 Urine Specific [place] 1.046 Urine Protein NEG Urine Glucose (UA) NEG Urine Ketones NEG Urine Occult Blood NEG Urine Nitrite NEG Urine Bilirubin NEG Urine Urobilinogen LESS THAN 2.0 Urine Leukocyte Esterase SMALL Urine RBC 1 Urine WBC 8 Urine Mucus FEW Microscopic Urinalysis Comment CULT NOT INDICATED Date/Time Source Procedure Growth Status 01/06/18 11:48 Blood Peripheral Aerobic Blood Culture Pending Received 01/06/18 11:48 Blood Peripheral Anaerobic Blood Culture Pending Received Result Diagram: 01/06/18 1143 01/06/18 1143 Imaging Last Impressions Chest X-Ray 01/06/18 1126 Signed Impressions: Service Date/Time: Saturday, January 06, 2018 11:41 - CONCLUSION: No acute cardiopulmonary abnormality is identified. Prieto Pina MD Abdomen/Pelvis CT 01/06/18 1126 Signed Impressions: Service Date/Time: Saturday, January 06, 2018 13:54 - CONCLUSION: Hepatic steatosis. No acute findings in the abdomen and pelvis. MD Reinaldo Sharmai VTE Risk Assessment Caprini VTE Risk Assessment: No/Low Risk (score <= 1) Caprini Risk Assessment Model Point Value = 1 Point Value = 2 Point Value = 3 Point Value = 5 Age 41-60 Minor surgery BMI > 25 kg/m2 Swollen legs Varicose veins or History of unexplained or recurrent spontaneous Oral contraceptives or hormone replacement Sepsis (< 1 month) Serious lung disease, including pneumonia (< 1 month) Abnormal pulmonary function Acute myocardial infarction Congestive heart failure (< 1 month) History of inflammatory bowel disease Medical patient at bed rest Age 61-74 Arthroscopic surgery Major open surgery (> 45 min) Laparoscopic surgery (> 45 min) Malignancy Confined to bed (> 72 hours) Immobilizing plaster cast Central venous access Age >= 75 History of VTE Family history of VTE Factor V Leiden Prothrombin [id number] Lupus anticoagulant Anticardiolipin antibodies Elevated serum homocysteine Heparin-induced thrombocytopenia Other congenital or acquired thrombophilia Stroke (< 1 month) Elective arthroplasty Hip, pelvis, or leg fracture Acute spinal cord injury (< 1 month) Prophylaxis Regimen Total Risk Factor Score Risk Level Prophylaxis Regimen 0-1 Low Early ambulation 2 Moderate Order ONE of the following: *Sequential Compression Device (SCD) *Heparin 5000 units SQ BID 3-4 Higher Order ONE of the following medications: *Heparin 5000 units SQ TID *Enoxaparin/Lovenox 40 mg SQ daily (WT < 150 kg, CrCl > 30 mL/min) *Enoxaparin/Lovenox 30 mg SQ daily (WT < 150 kg, CrCl > 10-29 mL/min) *Enoxaparin/Lovenox 30 mg SQ BID (WT < 150 kg, CrCl > 30 mL/min) AND/OR *Sequential Compression Device (SCD) 5 or more Highest Order ONE of the following medications: *Heparin 5000 units SQ TID (Preferred with Epidurals) *Enoxaparin/Lovenox 40 mg SQ daily (WT < 150 kg, CrCl > 30 mL/min) *Enoxaparin/Lovenox 30 mg SQ daily (WT < 150 kg, CrCl > 10-29 mL/min) *Enoxaparin/Lovenox 30 mg SQ BID (WT < 150 kg, CrCl > 30 mL/min) AND *Sequential Compression Device (SCD) Assessment and Plan Assessment and Plan 47-year-old female with past medical history significant for COPD, breast cancer , and rectal cancer who presents to the emergency department with complaints of stool coming out of her vagina. 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 Ordaz for medical oncology and Dr. Mejia for radiation oncology. 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 - + Stool from the vagina while evaluated in the ER -Patient afebrile, no tachycardia, stable blood pressure and O2 saturation. -Leukopenia, WBCs 2.4, neutrophil count 80.4. BC x2 pending, lactic acid 1.8 , UA with small amount of leukocyte esterase, culture not indicated. -Consult colorectal surgery, patient known to Dr. Newberry, greatly appreciate assistance and recommendations. -Briefly discussed the possibility of diverting colostomy with patient in partner at bedside, she is reluctant to this. Reiterated that specialist will need to further evaluate her for definitive options, voiced understanding. Stage II anal cancer Rectal pain -Patient recently finished chemotherapy, still pending several treatments of radiation. -Consult medical oncology, Dr. Ordaz for followup while patient is here, appreciate further recommendations. -P.o. Roxicodone for pain, IV Dilaudid for breakthrough -As needed medications for constipation, currently having loose stools. Cellulitis right posterior thigh -Patient was recently discharged on 01/05 after being treated for cellulitis. Initially treated with IV antibiotics and then transitioned to p.o. -Culture at that time was positive for MSSA with campa sensitivity -Continue Levaquin 500 mg daily 10 days -Prednisone taper, for the moment continue prednisone 20mg daily, mupirocin ointment application to site Hypokalemia-K3.4, replaced with 20 meq's p.o. DVT prophylaxis-SCDs Discussed with patient and partner at bedside. Discussed Condition With Patient, partner, and Physician Certification 2 Midnight Certification Type: Admission for Inpatient Services Order for Inpatient Services The services are ordered in accordance with Medicare regulations or non- Medicare payer requirements, as applicable. In the case of services not specified as inpatient-only, they are appropriately provided as inpatient services in accordance with the 2-midnight benchmark. Estimated LOS (days): 4 days is the estimated time the patient will need to remain in the hospital, assuming treatment plan goals are met and no additional complications. Post-Hospital Plan: Kimberton Antionette Godinez January 06, 2018 17:04
[2018-01-06] MEDS ORDERED: SENNOSIDES 8.6 MG TAB PO PRN (17:30)
[2018-01-06] MEDS ORDERED: ONDANSETRON HCL 4 MG/2 ML VIAL IVP PRN (17:30)
[2018-01-06] MEDS ORDERED: NALOXONE HCL 0.4 MG/ML AMP IV PUSH PRN (17:30)
[2018-01-06] MEDS ORDERED: ACETAMINOPHEN 325 MG TAB PO PRN ×2 (17:30)
[2018-01-06] MEDS ORDERED: MAGNESIUM HYDROXIDE SUSP 30 ML CUP PO PRN (17:30)
[2018-01-06] MEDS ORDERED: LACTULOSE SYRUP 20 GM/30 ML CUP PO PRN (17:30)
[2018-01-06] MEDS ORDERED: BISACODYL 10 MG SUPP RECTAL PRN (17:30)
[2018-01-06] MEDS ORDERED: HYDROmorphone HCL PF 1 MG/ML VIAL IV PUSH PRN (17:30)
[2018-01-06] MEDS ORDERED: RESP: ALBUTEROL 2.5 MG/3 ML NEB (PRN) NEB (17:45)
[2018-01-06] MEDS ORDERED: POTASSIUM CHLORIDE 20 MEQ CONTROLLED RELEASE TAB PO ONE (17:45)
[2018-01-06] MEDS ORDERED: HYDROmorphone HCL PF 2 MG/ML VIAL IV PRN (18:00)
[2018-01-06] MEDS: HYDROmorphone HCL PF 2 MG/ML VIAL IV PRN ×2 (18:40→21:28)
[2018-01-06] MEDS: NYSTAT/DIPHENHY/LIDO MOUTHWASH (Adult) 120ML SWISH-SWAL SCH ×2 (18:40→21:28)
[2018-01-06 20:15] VITALS: BP 119/74; PULSE 76; RESP 18; TEMP 98.2; O2SAT 97
[2018-01-06] MEDS ORDERED: metroNIDAZOLE 500 MG INJ 100 ML IV ONE (21:15)
[2018-01-06] MEDS: SODIUM CHLORIDE 0.9% FLUSH 10 ML FLUSH IV FLUSH SCH (21:27)
[2018-01-06] MEDS ORDERED: PANTOPRAZOLE SODIUM 40 MG VIAL IV PUSH SCH (22:00)
--- NOTE | 2018-01-06 22:06 | MB ---
cc: Ashish Newberry MD, Andrew H MD Chew,Maicol Bautista MD DATE: 01/06/2018 REASON FOR CONSULTATION: History of anal cancer with new colovaginal fistula. HISTORY OF PRESENT ILLNESS: Ms. Hatch is a 47-year-old female with a history of breast cancer, most recently found to have an anal cancer undergoing radiation and chemotherapy treatment. Patient was admitted about a week ago for some cellulitis of the buttock area, which was treated with IV antibiotics and apparently responded. She has been having a fair amount of mouth sores and ulcerations preventing her from eating well. After discharge yesterday, she noted onset of flatus and quite a bit of vaginal stool. She has had no control over the discharge. No significant bleeding. Bowel movements have been very painful during treatment, but she has continued to pass rectal stool as well. Denies any shaking chills or fever. No rectal bleeding. The patient was evaluated in the emergency department and, after confirming a rectovaginal fistula, was admitted for additional workup and probably diverting colostomy. PAST MEDICAL/SURGICAL HISTORY: Please see her history and physical for more complete past medical and surgical history. PERTINENT PHYSICAL EXAMINATION: GENERAL: A very pleasant, anxious female in no acute distress. HEENT: Remarkable for dry, pink membranes. Nonicteric sclerae. NECK: Supple without gross adenopathy. CHEST: Diminished in the bases, clear anteriorly. HEART: Had a slight tachycardia. ABDOMEN: Very soft and doughy, nondistended. No rebound or guarding and no masses noted. Anal inspection revealed quite a bit of redness and irritation to the perianal tissues. Stool coming through the vaginal introitus. EXTREMITIES: Show no cyanosis or clubbing and minimal trace pedal edema. LABORATORY DATA: White count was 2.1, hemoglobin 13.6, platelet count 281,000. Coagulation studies were normal. Chemistries were pretty unremarkable. Urinalysis was pretty clear, except for concentration of the urine. ASSESSMENT AND PLAN: This is a 47-year-old female being treated for a cancer of the anal canal with radiation and chemotherapy who has developed a rectovaginal fistula, probably along the distal rectovaginal septum due to tumor destruction. The patient is very uncomfortable and passing large amounts of stool. We recommended that we proceed with laparoscopic diverting colostomy and distal washout to stop the fecal incontinence and allow the area to heal after finishing her radiation and chemotherapy treatments and then will need to be reevaluated for possible reconstructive possibilities. MD MATTIE Aguirre/SA , 09:22 PM , 10:05 PM
[2018-01-06] MEDS: MUPIROCIN 2% OINT 22 GM TUBE TOPICAL SCH (23:16)
[2018-01-07] VITALS (11 sets, daily range): BP systolic 103–133; BP diastolic 54–91; PULSE 68–96; RESP 16–20; TEMP 97.5–99; O2SAT 92–99
[2018-01-07] MEDS ORDERED: CHLORHEXIDINE GLUCONATE 2 % 1 PACK (2 CLOTHS) TOPICAL PRN (01:45)
[2018-01-07] MEDS ORDERED: LACTATED RINGER'S 1000 ML IV PRN (01:45)
[2018-01-07] MEDS ORDERED: POVIDONE IODINE 5% (ANTISEPSIS KIT) 4 APPLICATIONS EACH NARE PRN (01:45)
[2018-01-07] MEDS: HYDROmorphone HCL PF 2 MG/ML VIAL IV PRN ×2 (01:58→06:23)
[2018-01-07 06:25] LABS: AUTOMATED NEUTROPHIL # 1.3 TH/MM3 (1.8-7.7); BASOPHIL % 0.2 % (0.0-2.0); EOSINOPHIL % 1.2 % (0.0-4.0); HEMATOCRIT 36.3 % (35.0-46.0); HEMOGLOBIN 12.5 GM/DL (11.6-15.3); LYMPH % 16.6 % (9.0-44.0); LYMPHOCYTE # 0.3 TH/MM3 (1.0-4.8); MEAN CELL VOLUME 92.2 FL (80.0-100.0); MEAN CORPUSCULAR HEMOGLOBIN 31.9 PG (27.0-34.0); MEAN CORPUSCULAR HGB CONC 34.6 % (32.0-36.0); MEAN PLATELET VOLUME 6.7 FL (7.0-11.0); MONO % 11.5 % (0.0-8.0); MONOCYTE # 0.2 TH/MM3 (0-0.9); NEUT % 70.5 % (16.0-70.0); PLATELET COUNT 239 TH/MM3 (150-450); RED BLOOD COUNT 3.93 MIL/MM3 (4.00-5.30); RED CELL DISTRIBUTION WIDTH 16.2 % (11.6-17.2); WHITE BLOOD COUNT 1.8 TH/MM3 (4.0-11.0)
[2018-01-07 06:42] LABS: BICARBONATE 30.3 MEQ/L (21.0-32.0); CALCIUM 8.4 MG/DL (8.5-10.1); CREATININE 0.75 MG/DL (0.50-1.00)
--- NOTE | 2018-01-07 08:23 | HHI.PR ---
Subjective Remarks Patient went for a cardiac stress test and also plan to do 2D echo. Seen thereafter. Says he feels much better no chest pain or shortness of breath. No palpitations. Denies fever or chills. No nausea or vomiting. Objective Vitals Vital Signs Date Time Temp Pulse Resp B/P (MAP) Pulse Ox O2 Delivery O2 Flow Rate FiO2 01/07/18 07:37 98.7 84 18 113/55 (74) 96 01/07/18 06:53 20 01/07/18 05:49 20 01/07/18 04:00 Room Air 01/07/18 04:00 98.1 72 18 111/62 (78) 94 01/07/18 04:00 76 01/07/18 00:00 68 01/07/18 00:00 98.0 72 18 103/54 (70) 95 01/07/18 00:00 Room Air 01/06/18 20:15 98.2 76 18 119/74 (89) 97 01/06/18 20:15 Room Air 01/06/18 20:12 01/06/18 17:03 78 19 143/77 (99) 97 Room Air 01/06/18 13:00 69 17 121/74 (90) 98 Room Air 01/06/18 10:56 97.8 80 22 105/70 (82) 99 I/O 01/06/18 01/06/18 01/06/18 01/07/18 01/07/18 01/07/18 07:00 15:00 23:00 07:00 15:00 23:00 # Voids 1 Result Diagram: 01/07/18 0455 01/07/18 0455 Imaging Last Impressions Chest X-Ray 01/06/181125 Signed Impressions: Service Date/Time: Saturday, January 06, 2018 11:41 - CONCLUSION: No acute cardiopulmonary abnormality is identified. Prieto Pina MD Abdomen/Pelvis CT 01/06/181125 Signed Impressions: Service Date/Time: Saturday, January 06, 2018 13:54 - CONCLUSION: Hepatic steatosis. No acute findings in the abdomen and pelvis. Tomas Ross MD Objective Remarks GENERAL: This is a well-nourished, well-developed patient, in visible discomfort due to pain. CARDIOVASCULAR: Regular rate and rhythm without murmurs, gallops, or rubs. RESPIRATORY: Clear to auscultation. Breath sounds equal bilaterally. No wheezes , rales, or rhonchi. GASTROINTESTINAL: Abdomen soft, non-tender, nondistended. No palpable masses. No guarding. Normal active bowel sounds MUSCULOSKELETAL: Extremities without clubbing, cyanosis, or edema. No joint tenderness, effusion, or edema noted. No calf tenderness. NEUROLOGICAL: Awake and alert. Cranial nerves II through XII grossly intact. Motor and sensory grossly within normal limits. 5/5 muscle strength in all muscle groups. Normal speech. A/P Problem List: (1) Rectal or anal pain ICD Code: K62.89 - Other specified diseases of anus and rectum (2) Fistula of vagina ICD Code: N82.8 - Other female genital tract fistulae Status: Acute (3) Anal cancer ICD Code: C21.0 - Malignant neoplasm of anus, unspecified Assessment and Plan 47-year-old female with past medical history significant for COPD, breast cancer , and rectal cancer who presents to the emergency department with complaints of stool coming out of her vagina. 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 Ordaz for medical oncology and Dr. Mejia for radiation oncology. Rectovaginal fistula Fecal incontinence CT of the abdomen and pelvis reviewed, hepatic stenosis with no acute findings in the abdomen or pelvis. + Stool from the vagina Patient afebrile, no tachycardia, stable blood pressure and O2 saturation. Leukopenia, WBCs 2.4, neutrophil count 80.4. BC x2 pending, lactic acid 1.8, UA with small amount of leukocyte esterase, culture not indicated. Consult colorectal surgery, patient known to Dr. Newberry, greatly appreciate assistance and recommendations. Plan for diverting colostomy. Stage II anal cancer Rectal pain Patient recently finished chemotherapy, still pending several treatments of radiation. Consult medical oncology, Dr. Ordaz for followup while patient is here, appreciate further recommendations. P.o. Roxicodone for pain, IV Dilaudid for breakthrough As needed medications for constipation, currently having loose stools. Cellulitis right posterior thigh Patient was recently discharged on 01/05 after being treated for cellulitis. Initially treated with IV antibiotics and then transitioned to p.o. Culture at that time was positive for MSSA with campa sensitivity Continue Levaquin 500 mg daily 10 days Prednisone taper, for the moment continue prednisone 20mg daily, mupirocin ointment application to site Hypokalemia-K3.4, replaced with 20 meq's p.o. Monitor and replace as need. DVT prophylaxis-SCDs Discussed Condition With Patient, nurse Indiana Harrington MD January 07, 2018 08:23
[2018-01-07 08:40] LABS: BANDS 9 % (0-6); LYMPHOCYTES 10 % (9-44); METAMYELOCYTES 1 % (0-1); MONOCYTES 8 % (0-8); NEUTROPHIL # MANUAL DIFF 1.5 TH/MM3 (1.8-7.7); POLYS (SEG NEUTROPHILS) 70 % (16-70); PROMYELOCYTES 1 % (0-0)
[2018-01-07] MEDS: predniSONE 20 MG TAB PO SCH (09:00)
[2018-01-07] MEDS: SODIUM CHLORIDE 0.9% FLUSH 10 ML FLUSH IV FLUSH SCH ×2 (09:00→22:26)
[2018-01-07] MEDS ORDERED: LEVOFLOXACIN 500 MG TAB PO SCH (09:00)
[2018-01-07] MEDS: NYSTAT/DIPHENHY/LIDO MOUTHWASH (Adult) 120ML SWISH-SWAL SCH ×4 (09:00→22:14)
[2018-01-07] MEDS ORDERED: ACETAMINOPHEN 1000 MG/100 ML 100 ML IV ONE (10:23)
[2018-01-07] MEDS ORDERED: metroNIDAZOLE 500 MG INJ 100 ML IV ONE (10:32)
[2018-01-07] MEDS ORDERED: ARTIFICIAL TEARS OPTH OINT 3.5 APPLIC/3.5 GM TUBO ONE (10:39)
[2018-01-07] MEDS ORDERED: SUGAMMADEX SODIUM 200 MG/2 ML VIAL IV PUSH ONE (11:27)
[2018-01-07] MEDS ORDERED: GLYCOPYRROLATE 1 MG/5 ML SYRINGE IV PUSH ONE (11:54)
[2018-01-07] MEDS ORDERED: DEXAMETHASONE SOD PHOS 4 MG/ML VIAL IV ONE (11:54)
[2018-01-07] MEDS ORDERED: ONDANSETRON HCL 4 MG/2 ML VIAL IV ONE (11:54)
[2018-01-07] MEDS ORDERED: ROCURONIUM INJ 50 MG/5 ML SYRINGE IV PUSH ONE (11:54)
[2018-01-07] MEDS ORDERED: LIDOCAINE HCL 1% PF 5 ML SYRINGE OTHER ONE (11:54)
[2018-01-07] MEDS ORDERED: PROPOFOL 200 MG/20 ML AMP IV ONE (11:54)
[2018-01-07] MEDS ORDERED: NEOSTIGMINE 5 MG/5 ML SYRINGE IV PUSH ONE (11:54)
[2018-01-07] MEDS ORDERED: ACETAMINOPHEN/HYDROcodone 325 MG/5 MG TAB PO PRN ×2 (12:00)
[2018-01-07] MEDS ORDERED: BENZOCAINE 6 MG/MENTHOL 10 MG LOZENGE BUCCAL PRN (12:00)
[2018-01-07] MEDS ORDERED: NALOXONE HCL 0.4 MG/ML AMP IV PUSH PRN ×3 (12:00→18:45)
[2018-01-07] MEDS ORDERED: POTASSIUM CHLOR 20 MEQ PREMIX 100 ML IV PRN (12:00)
[2018-01-07] MEDS ORDERED: POTASSIUM CHLOR 40 MEQ PREMIX 100 ML IV PRN (12:00)
[2018-01-07] MEDS ORDERED: ENALAPRILAT 2.5 MG/2 ML VIAL IV PUSH PRN (12:00)
[2018-01-07] MEDS ORDERED: KETOROLAC TROMETHAMINE 30 MG/ML (IVP) VIAL IVP PRN (12:00)
[2018-01-07] MEDS ORDERED: ENALAPRILAT 1.25 MG/ML VIAL IV PUSH PRN (12:00)
[2018-01-07] MEDS ORDERED: MORPHINE SULFATE 30 MG/30 ML PCA IV SCH (12:00)
[2018-01-07] MEDS ORDERED: Post-op Orders (for Pharmacy) XX ONE (12:00)
[2018-01-07] MEDS ORDERED: MIDAZOLAM HCL 2 MG/2 ML VIAL ONE (12:01)
--- NOTE | 2018-01-07 12:06 | EKG ---
Date Performed: 01/06/2018 Time Performed: 11:35:17 PTAGE: 47 years EKG: Sinus rhythm WITH SHORT IN INTERVAL BORDERLINE ECG NO PREVIOUS TRACING DOCTOR: Eugene Knox Interpretating Date/Time 01/07/2018 12:04:59
[2018-01-07] MEDS ORDERED: *HYDROmorphone PF 0.5 MG/0.5 ML PERIprocedure ONLY ONE ×2 (12:11→12:57)
[2018-01-07] MEDS: D5-NS + KCL 20 MEQ INJ 1,000 ML IV SCH ×2 (12:15→22:15)
[2018-01-07] MEDS ORDERED: *morphine SULFATE 4 MG/ML PERIprocedure ONLY ONE ×2 (12:18→12:33)
[2018-01-07] MEDS ORDERED: DO NOT ADM ANY ANTICOAGULANT DRUGS PRN (12:45)
[2018-01-07] MEDS ORDERED: *ONDANSETRON 4 MG VIAL PERIprocedural Use ONLY ONE (13:23)
[2018-01-07] MEDS ORDERED: PCA - TOTAL MG MORPHINE DELIVERED PER SHIFT SCH (14:00)
[2018-01-07] MEDS: MUPIROCIN 2% OINT 22 GM TUBE TOPICAL SCH ×2 (16:24→22:27)
[2018-01-07] MEDS: metroNIDAZOLE 500 MG INJ 100 ML IV SCH (16:47)
[2018-01-07] MEDS ORDERED: NS IV SCH ×2 (18:00)
[2018-01-07] MEDS ORDERED: [UNRECOGNIZED DRUG - REMARK] PRN (18:00)
[2018-01-07] MEDS ORDERED: HYDROMORPHONE IV SCH ×2 (18:00)
[2018-01-07] MEDS: HYDROmorphone HCL PCA 6 MG/30 ML IV SCH (19:08)
--- NOTE | 2018-01-07 19:52 | MB ---
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 PATIENT PROFILE: The patient is a 47-year-old female. She is . She has a child age 31. She was born in [facility]. She has lived in [place] for 5 years. 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 She stopped smoking in 02/2017. She does not drink alcohol. HISTORY OF PRESENT ILLNESS: The patient is a 47-year-old female whose history dates back to early 2017 when she developed rectal pain and blood per rectum. She was found to have a large squamous cell carcinoma of the anorectal area. She has been undergoing standard treatment. She has completed all but 3 radiation treatments. She received her last chemotherapy with mitomycin and 5-FU approximately a week ago. During the past 2 days, she has developed severe mucositis. Yesterday, she noted stool per vagina. She went to the emergency room and was found to have a rectovaginal fistula. CAT scan of the abdomen and pelvis on 01/01/2018, showed hepatic steatosis and no acute findings. This afternoon, she underwent a diverting colostomy performed by Dr. Newberry because of the rectovaginal fistula. She is now being seen postop. She had no complications from the procedure. LABORATORY STUDIES: Hemoglobin 12.5, white count 1800, and platelets of 239,000. Electrolytes, BUN and creatinine are unremarkable, except for a slightly low potassium of 3.4. PAST SURGICAL HISTORY: 1. Approximately 12 years ago, had a left breast lumpectomy for a benign process and then in 2014, again had a lumpectomy. She indicates that this contained cancer. 2. Umbilical hernia repair. 3. Recent diagnosis of anal cell cancer requiring biopsy performed on 10/25/2017. 4. Right Infusaport placement. PAST MEDICAL HISTORY: 1. Localized squamous cell carcinoma of the anal canal. 2. COPD. MEDICATIONS PRIOR TO ADMISSION: 1. Albuterol. 2. Fluconazole. 3. Levaquin. 4. Oxycodone. ALLERGIES: NO KNOWN ALLERGIES. FAMILY HISTORY: Unremarkable. REVIEW OF SYSTEMS: HEENT: No change in vision or hearing. CARDIOVASCULAR: No chest pain, palpitations. No shortness of breath. GASTROINTESTINAL: The patient has abdominal pain, primarily lower abdomen, and discomfort following the surgery. GENITOURINARY: With some discomfort with urination. MUSCULOSKELETAL: No bone pain. NEUROLOGIC: No focal weakness. PHYSICAL EXAMINATION: GENERAL: Reveals an anxious female. VITAL SIGNS: Blood pressure 130/90, respiratory rate 20, pulse 70, afebrile, 99% saturation. HEENT: Head is normocephalic. Sclerae and conjunctivae are normal. Oropharynx significant mucositis. No adenopathy. HEART: Regular rhythm. LUNGS: Clear. ABDOMEN: The patient is an ostomy in place. Mild tenderness around ostomy site and slight tenderness suprapubic area. EXTREMITIES: No edema. MUSCULOSKELETAL: No bone pain. NEUROLOGIC: No focal weakness. ASSESSMENT: 1. Squamous cell cancer of the anal canal. The patient has completed all therapy except 3 remaining radiations, which should be due this Monday, Monday and Monday. I am not sure that she will be able to proceed. Plan: I left a message with her radiation oncologist, Dr. Mejia. 2. The white count is falling. This would be a bad that time to have an infection given recent surgery. Plan: Neupogen. CBC, platelet count daily. 3. Mucositis. This should resolve quickly. She had the mucositis before. The patient will be seen by Dr. Ordaz, her medical oncologist, tomorrow. I have spoken with Dr. Newberry twice today. Pain has been an issue for her, and she will be switched from morphine to Dilaudid. I told her that I was hopeful that the squamous cell cancer would resolve and the ostomy would be reversed a number of months from now. MD CANDELARIO Laboy/JENNIFER , 05:53 PM , 07:51 PM GILBERTO
[2018-01-07] MEDS ORDERED: PCA - TOTAL MG DILAUDID DELIVERED PER SHIFT IV SCH (22:00)
[2018-01-07] MEDS: PCA - TOTAL MG DILAUDID DELIVERED PER SHIFT SCH (22:00)
[2018-01-07] MEDS: METOCLOPRAMIDE HCL 10 MG/2 ML VIAL IVS SCH (22:26)
[2018-01-08] VITALS (12 sets, daily range): BP systolic 100–138; BP diastolic 67–86; PULSE 74–92; RESP 16–21; TEMP 98.2–99.5; O2SAT 94–97
[2018-01-08] MEDS: metroNIDAZOLE 500 MG INJ 100 ML IV SCH ×2 (00:29→08:49)
[2018-01-08] MEDS: D5-NS + KCL 20 MEQ INJ 1,000 ML IV SCH ×3 (04:54→17:25)
[2018-01-08] MEDS: HYDROmorphone HCL PCA 6 MG/30 ML IV SCH ×3 (05:07→22:45)
[2018-01-08] MEDS: PCA - TOTAL MG DILAUDID DELIVERED PER SHIFT SCH ×3 (06:00→22:00)
[2018-01-08 06:13] LABS: AUTOMATED NEUTROPHIL # 1.5 TH/MM3 (1.8-7.7); BASOPHIL % 0.2 % (0.0-2.0); EOSINOPHIL % 0.5 % (0.0-4.0); HEMATOCRIT 35.1 % (35.0-46.0); HEMOGLOBIN 12.3 GM/DL (11.6-15.3); LYMPHOCYTE # 0.2 TH/MM3 (1.0-4.8); MEAN CORPUSCULAR HEMOGLOBIN 32.1 PG (27.0-34.0); MEAN CORPUSCULAR HGB CONC 34.9 % (32.0-36.0); MEAN PLATELET VOLUME 6.7 FL (7.0-11.0); MONOCYTE # 0.1 TH/MM3 (0-0.9); NEUT % 80.3 % (16.0-70.0); PLATELET COUNT 236 TH/MM3 (150-450); RED BLOOD COUNT 3.82 MIL/MM3 (4.00-5.30); WHITE BLOOD COUNT 1.8 TH/MM3 (4.0-11.0)
[2018-01-08 06:30] LABS: BICARBONATE 26.3 MEQ/L (21.0-32.0); CALCIUM 8.3 MG/DL (8.5-10.1); CREATININE 0.66 MG/DL (0.50-1.00)
[2018-01-08 07:26] LABS: BANDS 9 % (0-6); LYMPHOCYTES 10 % (9-44); MONOCYTES 4 % (0-8); NEUTROPHIL # MANUAL DIFF 1.5 TH/MM3 (1.8-7.7); POLYS (SEG NEUTROPHILS) 77 % (16-70); TOXIC GRANULATION 1+ (NORMAL)
--- NOTE | 2018-01-08 08:34 | HHI.PR ---
Subjective Remarks The patient is in bed. Says she still has significant pain at the colostomy site. There is no nausea or vomiting. 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 No fever or chills. Objective Vitals Vital Signs Date Time Temp Pulse Resp B/P (MAP) Pulse Ox O2 Delivery O2 Flow Rate FiO2 01/08/18 06:00 17 01/08/18 05:07 18 01/08/18 04:54 98.2 84 16 138/77 (97) 97 01/08/18 04:15 77 01/08/18 00:26 98.3 82 16 119/78 (92) 94 01/08/18 00:00 77 01/07/18 22:11 99.0 72 16 123/79 (94) 98 01/07/18 22:11 68 01/07/18 22:11 98 Nasal Cannula 2.00 01/07/18 22:00 16 01/07/18 19:14 71 18 133/87 (102) 99 01/07/18 19:08 16 01/07/18 18:28 74 01/07/18 16:51 20 01/07/18 16:26 97.5 73 20 132/91 (105) 99 01/07/18 15:05 97 Nasal Cannula 1.00 01/07/18 14:06 Nasal Cannula 2.00 01/07/18 13:43 98.6 69 20 132/77 (95) 97 01/07/18 13:29 14 01/07/18 13:00 97.6 68 16 113/72 (86) 100 Nasal Cannula 2 01/07/18 12:45 67 16 122/73 (89) 100 Nasal Cannula 2 01/07/18 12:30 70 16 115/69 (84) 100 Nasal Cannula 2 01/07/18 12:15 65 16 111/67 (82) 100 Nasal Cannula 2 01/07/18 12:00 66 16 107/65 (79) 100 Nasal Cannula 2 01/07/18 11:54 97.7 67 16 106/64 (78) 97 Nasal Cannula 2 01/07/18 08:59 92 21 I/O 01/07/18 01/07/18 01/07/18 01/08/18 01/08/18 01/08/18 07:00 15:00 23:00 07:00 15:00 23:00 Intake Total 400 ml 200 ml 1510 ml Output Total 255 ml 650 ml 1800 ml Balance 145 ml -450 ml -290 ml Intake Oral 420 ml IV Total 200 ml 1090 ml Other 400 ml Output Urine Total 650 ml 1800 ml Estimated Blood Loss 5 ml Other 250 ml # Voids 1 Result Diagram: 01/08/18 0500 01/08/18 0500 Imaging Last Impressions Chest X-Ray 01/06/18 1126 Signed Impressions: Service Date/Time: Saturday, January 06, 2018 11:41 - CONCLUSION: No acute cardiopulmonary abnormality is identified. Prieto Pina MD Abdomen/Pelvis CT 01/06/18 1126 Signed Impressions: Service Date/Time: Saturday, January 06, 2018 13:54 - CONCLUSION: Hepatic steatosis. No acute findings in the abdomen and pelvis. Tomas Ross MD Objective Remarks GENERAL: This is a well-nourished, well-developed patient, in visible discomfort due to pain. CARDIOVASCULAR: Regular rate and rhythm without murmurs, gallops, or rubs. RESPIRATORY: Clear to auscultation. Breath sounds equal bilaterally. No wheezes , rales, or rhonchi. GASTROINTESTINAL: Abdomen soft,severe tenderness at the surgical site, colostomy in place, no signs of infection. No palpable masses. No guarding. Normal active bowel sounds MUSCULOSKELETAL: Extremities without clubbing, cyanosis, or edema. No joint tenderness, effusion, or edema noted. No calf tenderness. NEUROLOGICAL: Awake and alert. Cranial nerves II through XII grossly intact. Motor and sensory grossly within normal limits. 5/5 muscle strength in all muscle groups. Normal speech. A/P Problem List: (1) Rectal or anal pain ICD Code: K62.89 - Other specified diseases of anus and rectum (2) Fistula of vagina ICD Code: N82.8 - Other female genital tract fistulae Status: Acute (3) Anal cancer ICD Code: C21.0 - Malignant neoplasm of anus, unspecified Assessment and Plan 47-year-old female with past medical history significant for COPD, breast cancer , and rectal cancer who presents to the emergency department with complaints of stool coming out of her vagina. 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 Ordaz for medical oncology and Dr. Mejia for radiation oncology. Rectovaginal fistula Fecal incontinence CT of the abdomen and pelvis reviewed, hepatic stenosis with no acute findings in the abdomen or pelvis. + Stool from the vagina Patient afebrile, no tachycardia, stable blood pressure and O2 saturation. Leukopenia, WBCs 2.4, neutrophil count 80.4. BC x2 pending, lactic acid 1.8, UA with small amount of leukocyte esterase, culture not indicated. Consult colorectal surgery, patient known to Dr. Newberry, greatly appreciate assistance and recommendations. S/P diverting colostomy by Dr Newberry on 01/07/18 On SUPERVISING [employer]OR TRAILER pump patient says she is still with significant pain. Stage II anal cancer Rectal pain Patient recently finished chemotherapy, still pending several treatments of radiation. Consult medical oncology, Dr. Ordaz for followup while patient is here, appreciate further recommendations. P.o. Roxicodone for pain, IV Dilaudid for breakthrough. Now on SUPER[employer]ING [employer]OR TRAILER pump wean off per surgeon As needed medications for constipation, currently having loose stools. Cellulitis right posterior thigh Patient was recently discharged on 01/05 after being treated for cellulitis. Initially treated with IV antibiotics and then transitioned to p.o. Culture at that time was positive for MSSA with campa sensitivity Continue Levaquin 500 mg daily 10 days Prednisone taper, for the moment continue prednisone 20mg daily, mupirocin ointment application to site Hypokalemia- replaced. Monitor and replace as need. DVT prophylaxis-SCDs Discussed Condition With Patient, nurse Indiana Harrington MD January 08, 2018 08:34
[2018-01-08] MEDS ORDERED: GLUCAGON 1 MG/ML VIAL OTHER PRN (08:45)
[2018-01-08] MEDS ORDERED: DEXTROSE 50% IN WATER 50 ML VIAL(D50) IV PUSH PRN (08:45)
[2018-01-08] MEDS: NYSTAT/DIPHENHY/LIDO MOUTHWASH (Adult) 120ML SWISH-SWAL SCH ×4 (08:49→21:00)
[2018-01-08] MEDS: SODIUM CHLORIDE 0.9% FLUSH 10 ML FLUSH IV FLUSH SCH ×2 (08:50→21:56)
[2018-01-08] MEDS: predniSONE 20 MG TAB PO SCH (08:50)
[2018-01-08] MEDS: PANTOPRAZOLE SOD 40 MG DELAYED RELEASE TAB PO SCH (08:50)
[2018-01-08] MEDS: PANTOPRAZOLE SODIUM 40 MG VIAL IVP SCH (08:50)
[2018-01-08] MEDS: METOCLOPRAMIDE HCL 10 MG/2 ML VIAL IVS SCH ×2 (08:50→21:55)
[2018-01-08] MEDS: MUPIROCIN 2% OINT 22 GM TUBE TOPICAL SCH ×2 (08:51→21:00)
--- NOTE | 2018-01-08 10:17 | PD.ONC.PN ---
Subjective Subjective Remarks Afebrile overnight. Patient resting in bed, complaining of pain at her ostomy site. she wants me to increase her pain medications. Objective Data Date Time Temp Pulse Resp B/P (MAP) Pulse Ox O2 Delivery O2 Flow Rate FiO2 01/08/18 09:05 98 Room Air 01/08/18 09:01 99.0 74 18 121/86 (98) 97 01/08/18 08:43 74 01/08/18 06:00 17 01/08/18 05:07 18 01/08/18 04:54 98.2 84 16 138/77 (97) 97 01/08/18 04:15 77 01/08/18 00:26 98.3 82 16 119/78 (92) 94 01/08/18 00:00 77 01/07/18 22:11 99.0 72 16 123/79 (94) 98 01/07/18 22:11 68 01/07/18 22:11 98 Nasal Cannula 2.00 01/07/18 22:00 16 01/07/18 19:14 71 18 133/87 (102) 99 01/07/18 19:08 16 01/07/18 18:28 74 01/07/18 16:51 20 01/07/18 16:26 97.5 73 20 132/91 (105) 99 01/07/18 15:05 97 Nasal Cannula 1.00 01/07/18 14:06 Nasal Cannula 2.00 01/07/18 13:43 98.6 69 20 132/77 (95) 97 01/07/18 13:29 14 01/07/18 13:00 97.6 68 16 113/72 (86) 100 Nasal Cannula 2 01/07/18 12:45 67 16 122/73 (89) 100 Nasal Cannula 2 01/07/18 12:30 70 16 115/69 (84) 100 Nasal Cannula 2 01/07/18 12:15 65 16 111/67 (82) 100 Nasal Cannula 2 01/07/18 12:00 66 16 107/65 (79) 100 Nasal Cannula 2 01/07/18 11:54 97.7 67 16 106/64 (78) 97 Nasal Cannula 2 01/08/18 01/08/18 01/08/18 07:00 15:00 23:00 Intake Total 1510 ml Output Total 1800 ml Balance -290 ml Result Diagram: 01/08/18 0500 01/08/18 0500 Laboratory Results Laboratory Tests Test 01/08/18 05:00 White Blood Count 1.8 TH/MM3 Red Blood Count 3.82 MIL/MM3 Hemoglobin 12.3 GM/DL Hematocrit 35.1 % Mean Corpuscular Volume 92.0 FL Mean Corpuscular Hemoglobin 32.1 PG Mean Corpuscular Hemoglobin Concent 34.9 % Red Cell Distribution Width 16.0 % Platelet Count 236 TH/MM3 Mean Platelet Volume 6.7 FL Neutrophils (%) (Auto) 80.3 % Lymphocytes (%) (Auto) 11.0 % Monocytes (%) (Auto) 8.0 % Eosinophils (%) (Auto) 0.5 % Basophils (%) (Auto) 0.2 % Neutrophils # (Auto) 1.5 TH/MM3 Lymphocytes # (Auto) 0.2 TH/MM3 Monocytes # (Auto) 0.1 TH/MM3 Eosinophils # (Auto) 0.0 TH/MM3 Basophils # (Auto) 0.0 TH/MM3 CBC Comment AUTO DIFF Differential Total Cells Counted 100 Neutrophils % (Manual) 77 % Band Neutrophils % 9 % Lymphocytes % 10 % Monocytes % 4 % Neutrophils # (Manual) 1.5 TH/MM3 Differential Comment FINAL DIFF MANUAL Toxic Granulation 1+ Platelet Estimate NORMAL Platelet Morphology Comment NORMAL Blood Urea Nitrogen 5 MG/DL Creatinine 0.66 MG/DL Random Glucose 207 MG/DL Calcium Level 8.3 MG/DL Sodium Level 138 MEQ/L Potassium Level 3.8 MEQ/L Chloride Level 102 MEQ/L Carbon Dioxide Level 26.3 MEQ/L Anion Gap 10 MEQ/L Estimat Glomerular Filtration Rate 96 ML/MIN Culture Results Microbiology Date/Time Source Procedure Growth Status 01/06/18 11:48 Blood Peripheral Aerobic Blood Culture - Preliminary NO GROWTH IN 1 DAY Resulted 01/06/18 11:48 Blood Peripheral Anaerobic Blood Culture - Preliminary NO GROWTH IN 1 DAY Resulted 01/06/18 11:43 Blood Peripheral Aerobic Blood Culture - Preliminary NO GROWTH IN 1 DAY Resulted 01/06/18 11:43 Blood Peripheral Anaerobic Blood Culture - Preliminary NO GROWTH IN 1 DAY Resulted Administered Medications Medications (Trade) Dose Ordered Sig/David Route PRN Reason Start Time Stop Time Status Last Admin Dose Admin Sodium Chloride (NS Flush) 2 ml UNSCH PRN IV FLUSH FLUSH AFTER USING IV ACCESS 01/06/18 11:30 01/06/18 12:10 Sodium Chloride (NS Flush) 2 ml BID IV FLUSH 01/06/18 21:00 01/07/18 22:26 Mupirocin (Bactroban 2% Oint) 1 applic Q12HR TOPICAL 01/06/18 21:00 01/07/18 22:27 Multi-Ingredient Mouthwash/Gargle (Magic Mouthwash Adult Liq) 10 ml QID SWISH-SWAL 01/06/18 18:00 01/08/18 08:49 Cefazolin Sodium 1000 mg/Sodium Chloride 100 ml @ 200 mls/hr CLOTH FRAMER IV 01/06/18 21:15 01/09/18 21:14 01/07/18 10:36 Potassium Chloride/Dextrose/ Sod Cl 1,000 ml @ 125 mls/hr Q8H IV 01/07/18 11:48 01/08/18 04:54 Pantoprazole Sodium (Protonix Inj) 40 mg DAILY IVP 01/08/18 09:00 01/08/18 08:50 Metoclopramide HCl (Reglan Inj) 10 mg Q12HR IVS 01/07/18 21:00 01/08/18 08:50 Hydromorphone HCl (Dilaudid PRODUCTION STAGE MANAGER Inj) 6 mg UNSCH IV 01/07/18 19:00 01/08/18 05:07 PRODUCTION STAGE MANAGER Dosage Infused (Pha) 1 Q8HR .XX 01/07/18 22:00 01/08/18 06:00 Objective Remarks GENERAL: Middle aged female, lying supine in bed, complaining of abdominal pain. SKIN: Warm and dry. HEAD: Normocephalic. EYES: No injection or drainage. NECK: Supple, trachea midline. CARDIOVASCULAR: Regular rate and rhythm RESPIRATORY: Breath sounds equal bilaterally. No accessory muscle use. GASTROINTESTINAL: Abdomen soft, tender around surgical site; ostomy bag in place. EXTREMITIES: No cyanosis MUSCULOSKELETAL: Adequate muscle tone. NEUROLOGICAL: No obvious focal deficit. 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 Plan 1. Squamous cell cancer of the anal canal. hold remaining radiation while recovering from colostomy. 2. Pain: continue pain pump. will change settings to increase interval amounts of pain medication. 3. Leukopenia: continue Neupogen. Attending Statement The exam, history, and the medical decision-making described in the above note were completed with the assistance of the mid-level provider. I reviewed and agree with the findings presented. I attest that I had a [id number] encounter with the patient on the same day, and personally performed and documented my assessment and findings in the medical record. S/p diverting colostomy for rectovaginal fistula. Tender around the surgical site. On PRODUCTION STAGE MANAGER dilaudid. + mucositis. +leukopenia. Continue neupogen. XRT on hold at this time. Continue supportive care. Chela Greer January 08, 2018 10:17 Maicol Ordaz MD January 08, 2018 15:00
[2018-01-08] MEDS ORDERED: HYDROmorphone HCL PCA 6 MG/30 ML IV SCH ×2 (10:30)
--- NOTE | 2018-01-08 11:44 | PD.WCN.NOT ---
Wound Consult Description: Consult for NEW OSTOMY TEACHING of stoma per Dr Newberry Communicated with: CHAZ Sheikh Patient Recommendation: Monitor stoma for red color and moisture. Monitor stoma for output and empty pouch as needed. Additional Information: Patient seen on [facility] for ostomy assessment and teaching. Ostomy Type: Colostomy Surgeon: Ashish Newberry MD Date of Surgery: January 07, 2018 Educated patient on: Color of stoma Appliance changes once a week Emptying pouch when needed Plan for teaching session with tomorrow Additional information Patient seen on [facility] for ostomy assessment and teaching. Patient became tearful and expressed many concerns in the beginning stating that she had not yet looked at "it". After speaking with patient at great length, patient looked at her stoma and agreed that it was red and moist which was good. Patient had many questions that were answered at this time, taking care not to overwhelm patient, it was explained that she would be seen every day she was here Monday through Monday and prior to discharge with educational materials for reinforcement of teaching in preparation for when she goes home. Stoma is located on her left mid abdomen. Jose R is present with red, round, moist with condensation noted on inside of pouch and mucus noted on the stoma itself. Stoma is moderately protruding. There is no evidence of output at this time. There is a scant amount of sanguinous drainage noted in pouch that was not emptied by conventional underwriter. Betty Rodriguez [facility] January 08, 2018 11:44
[2018-01-08] MEDS: ONDANSETRON HCL 4 MG/2 ML VIAL IV PUSH PRN ×2 (12:50→17:50)
[2018-01-08] MEDS: FILGRASTIM 300 MCG/ML VIAL SQ SCH (12:56)
[2018-01-08] MEDS: INSULIN ASPART SUPPLEMENTAL SCALE SQ SCH ×3 (13:10→22:23)
[2018-01-08] MEDS ORDERED: ALVIMOPAN 12 MG CAPSULE PO SCH (21:00)
--- NOTE | 2018-01-08 22:30 | HHI.PR ---
Subjective Remarks C/R Surg POD #1 afebrile, VSS UO good darryl PO Objective - Vital Signs Date Time Temp Pulse Resp B/P (MAP) Pulse Ox O2 Delivery O2 Flow Rate FiO2 01/08/18 22:00 20 01/08/18 21:52 99.2 92 100/75 (83) 95 01/08/18 13:11 Nasal Cannula 1.00 01/07/18 08:59 21 Result Diagram: 01/08/18 0500 01/08/18 0500 Objective Remarks PE alert Abd - soft, min tympany, stoma dark red, pouched well, min output A/P Assessment and Plan Imp: stable post-op liq diet stoma dark but appears viable, cont to monitor, may need revision Ashish Newberry MD January 08, 2018 22:30
--- NOTE | 2018-01-08 23:24 | MP ---
cc: Ashish Newberry MD DATE OF OPERATION: 01/07/2018 PREOPERATIVE DIAGNOSIS: History of anal cancer with new rectovaginal fistula. PROCEDURE PERFORMED: 1. EUA. 2. Laparoscopic assisted loop sigmoid colostomy. POSTOPERATIVE DIAGNOSIS: History of anal cancer with new rectovaginal fistula. SURGEON: Ashish Newberry MD DESCRIPTION OF PROCEDURE: The patient was placed in the supine position. After adequate general anesthesia, her legs were placed in universal stirrups and supported appropriately. Initially anal inspection was performed, identifying a residual tumor and quite a bit of radiation proctitis. Anteriorly, the tumor did appear to penetrate through to the vaginal opening with a rectovaginal fistula fairly obvious. It did appear to be in the base of the cancer. No active bleeding was seen. No obvious inflammatory change except from the radiation was noted. Next, the abdomen was prepped with Betadine solution and draped in the usual sterile fashion. Initially, a Veress needle was inserted through an infraumbilical incision, establishing a pneumoperitoneum. A second trocar was then placed in the midline in the suprapubic area. Laparoscopic inspection revealed abdomen to be pretty unremarkable, without signs of any metastatic disease. The sigmoid and colon were tethered to the left pelvic sidewall. A third trocar was placed in the left mid abdomen under direct vision and the rectosigmoid and left colon were mobilized medially by dividing along the line of Toldt. The left ureter was identified and carefully preserved. After adequate mobilization, there appeared to be sufficient mobilization to permit a diverting loop colostomy. Therefore, the apex of the loop was marked with a locking grasper. The previous trocar site was enlarged with a transverse incision, dividing some of the rectus muscle entering the peritoneal cavity and releasing the pneumoperitoneum. With additional mobilization, the sigmoid colon was able to be mobilized up to the wound, at which point, avascular plane in the mesentery was created and a colostomy bar placed. Next, the trocars were removed and the 2 other trocar sites closed with interrupted subcutaneous Vicryl sutures. A colotomy was then made, suturing the distal end of the bowel to the skin with interrupted chromic catgut sutures. The proximal limb was able to be everted in the usual [place] fashion and sutured in place with a row of interrupted chromic catgut sutures around the circumference. At completion, both limbs of the colostomy were patent through the fascia level and the stoma did appear to be viable. Sterile colostomy appliance fitted over the stoma. The patient tolerated the procedure quite well and was brought to the recovery room in stable condition. Sponge and needle counts were correct at the end of the procedure. Ashish Newberry MD [facility]/ , 10:48 PM , 11:23 PM
[2018-01-09] VITALS (10 sets, daily range): BP systolic 118–149; BP diastolic 75–89; PULSE 69–90; RESP 16–18; TEMP 98.4–99.9; O2SAT 93–97
[2018-01-09] MEDS: D5-NS + KCL 20 MEQ INJ 1,000 ML IV SCH ×2 (01:04→13:19)
[2018-01-09] MEDS: ONDANSETRON HCL 4 MG/2 ML VIAL IV PUSH PRN (01:04)
[2018-01-09] MEDS: PCA - TOTAL MG DILAUDID DELIVERED PER SHIFT SCH ×3 (05:40→22:17)
[2018-01-09] MEDS: HYDROmorphone HCL PCA 6 MG/30 ML IV SCH ×4 (06:04→17:21)
[2018-01-09 06:14] LABS: AUTOMATED NEUTROPHIL # 3.8 TH/MM3 (1.8-7.7); BASOPHIL % 0.4 % (0.0-2.0); EOSINOPHIL % 0.6 % (0.0-4.0); HEMOGLOBIN 12.4 GM/DL (11.6-15.3); LYMPH % 7.1 % (9.0-44.0); LYMPHOCYTE # 0.3 TH/MM3 (1.0-4.8); MEAN CELL VOLUME 92.6 FL (80.0-100.0); MEAN CORPUSCULAR HEMOGLOBIN 31.8 PG (27.0-34.0); MEAN CORPUSCULAR HGB CONC 34.3 % (32.0-36.0); MEAN PLATELET VOLUME 6.7 FL (7.0-11.0); MONO % 4.5 % (0.0-8.0); MONOCYTE # 0.2 TH/MM3 (0-0.9); NEUT % 87.4 % (16.0-70.0); PLATELET COUNT 224 TH/MM3 (150-450); RED BLOOD COUNT 3.89 MIL/MM3 (4.00-5.30); RED CELL DISTRIBUTION WIDTH 16.6 % (11.6-17.2); WHITE BLOOD COUNT 4.4 TH/MM3 (4.0-11.0)
[2018-01-09 06:36] LABS: CALCIUM 8.3 MG/DL (8.5-10.1); CREATININE 0.65 MG/DL (0.50-1.00)
--- NOTE | 2018-01-09 07:42 | HHI.PR ---
Subjective Remarks Follow-up abdominal pain/rectovaginal history of status post colostomy by Dr. 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 Reports gas. Will give simethicone. KUB ordered possible ileus. Patient also with elevated blood sugar n.p.o. at this time and she is not able to take anything by mouth. Only insulin. Discussed with the nurse. Objective Vitals Vital Signs Date Time Temp Pulse Resp B/P (MAP) Pulse Ox O2 Delivery O2 Flow Rate FiO2 01/09/18 06:50 97 Room Air 01/09/18 06:04 18 01/09/18 05:40 16 01/09/18 05:25 99.0 89 18 126/75 (92) 93 01/09/18 04:02 86 01/09/18 00:55 99.9 90 18 149/89 (109) 97 01/09/18 00:02 90 01/08/18 22:45 16 01/08/18 22:00 20 01/08/18 21:52 99.2 92 20 100/75 (83) 95 01/08/18 20:08 87 01/08/18 18:58 18 01/08/18 16:35 99.4 84 21 126/80 (95) 96 01/08/18 16:00 81 01/08/18 13:12 99.5 82 18 118/67 (84) 96 01/08/18 13:11 Nasal Cannula 1.00 01/08/18 12:51 16 01/08/18 12:41 20 01/08/18 12:00 81 01/08/18 09:05 98 Room Air 01/08/18 09:01 99.0 74 18 121/86 (98) 97 01/08/18 08:43 74 I/O 01/08/18 01/08/18 01/08/18 01/09/18 01/09/18 01/09/18 07:00 15:00 23:00 07:00 15:00 23:00 Intake Total 1510 ml 100 ml 1000 ml Output Total 1800 ml 950 ml 950 ml Balance -290 ml 100 ml 50 ml -950 ml Intake Oral 420 ml IV Total 1090 ml 100 ml 1000 ml Output Urine Total 1800 ml 950 ml 950 ml Result Diagram: 5/8/18 0524 5/8/18 0524 Imaging Last Impressions Abdomen X-Ray 01/09/18 0000 Signed Impressions: Service Date/Time: Tuesday, January 09, 2018 15:09 - CONCLUSION: 1. Gaseous distention of bowel, probable ileus. Right colon distended up to 11 cm. Asad Mccann MD Chest X-Ray 01/06/18 1126 Signed Impressions: Service Date/Time: Saturday, January 06, 2018 11:41 - CONCLUSION: No acute cardiopulmonary abnormality is identified. Prieto Pina MD Abdomen/Pelvis CT 01/06/18 1126 Signed Impressions: Service Date/Time: Saturday, January 06, 2018 13:54 - CONCLUSION: Hepatic steatosis. No acute findings in the abdomen and pelvis. Tomas Ross MD Objective Remarks GENERAL: This is a well-nourished, well-developed patient, in visible discomfort due to pain. CARDIOVASCULAR: Regular rate and rhythm without murmurs, gallops, or rubs. RESPIRATORY: Clear to auscultation. Breath sounds equal bilaterally. No wheezes , rales, or rhonchi. GASTROINTESTINAL: Abdomen soft,severe tenderness at the surgical site, colostomy in place, no signs of infection. No palpable masses. No guarding. Normal active bowel sounds MUSCULOSKELETAL: Extremities without clubbing, cyanosis, or edema. No joint tenderness, effusion, or edema noted. No calf tenderness. NEUROLOGICAL: Awake and alert. Cranial nerves II through XII grossly intact. Motor and sensory grossly within normal limits. 5/5 muscle strength in all muscle groups. Normal speech. A/P Problem List: (1) Rectal or anal pain ICD Code: K62.89 - Other specified diseases of anus and rectum (2) Fistula of vagina ICD Code: N82.8 - Other female genital tract fistulae Status: Acute (3) Anal cancer ICD Code: C21.0 - Malignant neoplasm of anus, unspecified Assessment and Plan 47-year-old female with past medical history significant for COPD, breast cancer , and rectal cancer who presents to the emergency department with complaints of stool coming out of her vagina. 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 Ordaz for medical oncology and Dr. Mejia for radiation oncology. Rectovaginal fistula Fecal incontinence Ileus postsurgical CT of the abdomen and pelvis reviewed, hepatic stenosis with no acute findings in the abdomen or pelvis. + Stool from the vagina Patient afebrile, no tachycardia, stable blood pressure and O2 saturation. Leukopenia, WBCs 2.4, neutrophil count 80.4. BC x2 pending, lactic acid 1.8, UA with small amount of leukocyte esterase, culture not indicated. Consult colorectal surgery, patient known to Dr. Newberry, greatly appreciate assistance and recommendations. S/P diverting colostomy by Dr Newberry on 01/07/18 On ASSOCIATE DOCTOR pump patient says she is still with significant pain. KUB reviewed with poss ileus postsurgical Simethicone Stage II anal cancer Rectal pain Patient recently finished chemotherapy, still pending several treatments of radiation. Consult medical oncology, Dr. Ordaz for followup while patient is here, appreciate further recommendations. P.o. Roxicodone for pain, IV Dilaudid for breakthrough. Now on ASSOCIATE DOCTOR pump wean off per surgeon As needed medications for constipation, currently having loose stools. Cellulitis right posterior thigh Patient was recently discharged on 01/05 after being treated for cellulitis. Initially treated with IV antibiotics and then transitioned to p.o. Culture at that time was positive for MSSA with campa sensitivity Continue Levaquin 500 mg daily 10 days Prednisone taper, DC steroids Hypokalemia- replaced. Monitor and replace as need. Hyperglycemia related to stress and prednisone use. No history of diabetes A1c. Patient with elevated blood sugar hold he is feeling this time as patient is not able to have p.o. DVT prophylaxis-SCDs Discussed Condition With Patient, nurse Discharge when improved and cleared by consultants. Indiana Harrington MD January 09, 2018 07:42
[2018-01-09] MEDS: INSULIN ASPART SUPPLEMENTAL SCALE SQ SCH ×4 (08:00→21:00)
[2018-01-09 08:37] LABS: BANDS 51 % (0-6); LYMPHOCYTES 7 % (9-44); MONOCYTES 6 % (0-8); NEUTROPHIL # MANUAL DIFF 3.8 TH/MM3 (1.8-7.7); POLYS (SEG NEUTROPHILS) 35 % (16-70)
[2018-01-09] MEDS: PANTOPRAZOLE SOD 40 MG DELAYED RELEASE TAB PO SCH (09:00)
[2018-01-09] MEDS: MUPIROCIN 2% OINT 22 GM TUBE TOPICAL SCH (09:00)
[2018-01-09] MEDS: predniSONE 20 MG TAB PO SCH (09:00)
[2018-01-09] MEDS: AQUAPHOR OINT 50 GM TUBE TOPICAL SCH ×2 (09:00→21:00)
[2018-01-09] MEDS: SODIUM CHLORIDE 0.9% FLUSH 10 ML FLUSH IV FLUSH SCH ×2 (09:00→20:54)
[2018-01-09] MEDS: PANTOPRAZOLE SODIUM 40 MG VIAL IVP SCH (09:20)
[2018-01-09] MEDS: NYSTAT/DIPHENHY/LIDO MOUTHWASH (Adult) 120ML SWISH-SWAL SCH ×4 (09:21→20:59)
[2018-01-09] MEDS: METOCLOPRAMIDE HCL 10 MG/2 ML VIAL IVS SCH ×2 (09:21→20:59)
--- NOTE | 2018-01-09 10:43 | PD.ONC.PN ---
Subjective Subjective Remarks Afebrile overnight. patient resting in bed in nad. Has pain in abdomen intermittently when she gets a gas bubble. Otherwise she is okay. She feels very bloated today. Objective Data Date Time Temp Pulse Resp B/P (MAP) Pulse Ox O2 Delivery O2 Flow Rate FiO2 01/09/18 09:40 18 01/09/18 06:50 97 Room Air 01/09/18 06:04 18 01/09/18 05:40 16 01/09/18 05:25 99.0 89 18 126/75 (92) 93 01/09/18 04:02 86 01/09/18 00:55 99.9 90 18 149/89 (109) 97 01/09/18 00:02 90 01/08/18 22:45 16 01/08/18 22:00 20 01/08/18 21:52 99.2 92 20 100/75 (83) 95 01/08/18 20:08 87 01/08/18 18:58 18 01/08/18 16:35 99.4 84 21 126/80 (95) 96 01/08/18 16:00 81 01/08/18 13:12 99.5 82 18 118/67 (84) 96 01/08/18 13:11 Nasal Cannula 1.00 01/08/18 12:51 16 01/08/18 12:41 20 01/08/18 12:00 81 01/09/18 01/09/18 01/09/18 07:00 15:00 23:00 Output Total 950 ml Balance -950 ml Result Diagram: 01/09/1852301/09/1824 Laboratory Results Laboratory Tests Test 01/09/18 05:24 White Blood Count 4.4 TH/MM3 Red Blood Count 3.89 MIL/MM3 Hemoglobin 12.4 GM/DL Hematocrit 36.0 % Mean Corpuscular Volume 92.6 FL Mean Corpuscular Hemoglobin 31.8 PG Mean Corpuscular Hemoglobin Concent 34.3 % Red Cell Distribution Width 16.6 % Platelet Count 224 TH/MM3 Mean Platelet Volume 6.7 FL Neutrophils (%) (Auto) 87.4 % Lymphocytes (%) (Auto) 7.1 % Monocytes (%) (Auto) 4.5 % Eosinophils (%) (Auto) 0.6 % Basophils (%) (Auto) 0.4 % Neutrophils # (Auto) 3.8 TH/MM3 Lymphocytes # (Auto) 0.3 TH/MM3 Monocytes # (Auto) 0.2 TH/MM3 Eosinophils # (Auto) 0.0 TH/MM3 Basophils # (Auto) 0.0 TH/MM3 CBC Comment AUTO DIFF Differential Total Cells Counted 100 Neutrophils % (Manual) 35 % Band Neutrophils % 51 % Lymphocytes % 7 % Monocytes % 6 % Eosinophils % 1 % Neutrophils # (Manual) 3.8 TH/MM3 Differential Comment FINAL DIFF MANUAL Platelet Estimate NORMAL Platelet Morphology Comment NORMAL Red Cell Morphology Comment NORMAL Blood Urea Nitrogen 3 MG/DL Creatinine 0.65 MG/DL Random Glucose 142 MG/DL Calcium Level 8.3 MG/DL Sodium Level 137 MEQ/L Potassium Level 3.6 MEQ/L Chloride Level 103 MEQ/L Carbon Dioxide Level 26.0 MEQ/L Anion Gap 8 MEQ/L Estimat Glomerular Filtration Rate 97 ML/MIN Culture Results Microbiology Date/Time Source Procedure Growth Status 01/06/18 11:48 Blood Peripheral Aerobic Blood Culture - Preliminary NO GROWTH IN 2 DAYS Resulted 01/06/18 11:48 Blood Peripheral Anaerobic Blood Culture - Preliminary NO GROWTH IN 2 DAYS Resulted 01/06/18 11:43 Blood Peripheral Aerobic Blood Culture - Preliminary NO GROWTH IN 2 DAYS Resulted 01/06/18 11:43 Blood Peripheral Anaerobic Blood Culture - Preliminary NO GROWTH IN 2 DAYS Resulted Administered Medications Medications (Trade) Dose Ordered Sig/David Route PRN Reason Start Time Stop Time Status Last Admin Dose Admin Sodium Chloride (NS Flush) 2 ml UNSCH PRN IV FLUSH FLUSH AFTER USING IV ACCESS 01/06/18 11:30 01/06/18 12:10 Sodium Chloride (NS Flush) 2 ml BID IV FLUSH 01/06/18 21:00 01/08/18 21:56 Mupirocin (Bactroban 2% Oint) 1 applic Q12HR TOPICAL 01/06/18 21:00 01/07/18 22:27 Multi-Ingredient Mouthwash/Gargle (Magic Mouthwash Adult Liq) 10 ml QID SWISH-SWAL 01/06/18 18:00 01/09/18 09:21 Cefazolin Sodium 1000 mg/Sodium Chloride 100 ml @ 200 mls/hr EMERGENCY SERVICES DIRECTOR IV 01/06/18 21:15 01/09/18 21:14 01/07/18 10:36 Potassium Chloride/Dextrose/ Sod Cl 1,000 ml @ 80 mls/hr [id number] IV 01/07/18 11:48 01/09/18 01:04 Pantoprazole Sodium (Protonix Inj) 40 mg DAILY IVP 01/08/18 09:00 01/09/18 09:20 Metoclopramide HCl (Reglan Inj) 10 mg Q12HR IVS 01/07/18 21:00 01/09/18 09:21 Ondansetron HCl (Zofran Inj) 4 mg Q6H PRN IV PUSH NAUSEA 01/07/18 12:00 01/09/18 01:04 Filgrastim (Neupogen Inj) 300 mcg DAILY@14 SQ 01/08/18 14:00 01/08/18 12:56 BIOINFORMATICS SPECIALIST Dosage Infused (Pha) 1 Q8HR .XX 01/07/18 22:00 01/09/18 05:40 Insulin Aspart (NovoLOG SUPPLEMENTAL SCALE) 1 ACHS SLIDING SCALE SQ 01/08/18 12:00 01/08/18 22:23 Hydromorphone HCl (Dilaudid BIOINFORMATICS SPECIALIST Inj) 6 mg UNSCH IV 01/08/18 14:30 01/09/18 09:40 Objective Remarks GENERAL: Middle aged female, supine in bed, resting. SKIN: Warm and dry. HEAD: Normocephalic. EYES: No injection or drainage. NECK: Supple, trachea midline. CARDIOVASCULAR: Regular rate and rhythm RESPIRATORY: Breath sounds equal bilaterally. No accessory muscle use. GASTROINTESTINAL: Abdomen distended, + BS. Ostomy bag in place EXTREMITIES: No cyanosis NEUROLOGICAL: No obvious focal deficit. 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 Plan 1. continue pain management with pain pump per Dr. Newberry 2. give one more day of Neupogen 3. continue supportive care. Attending Statement The exam, history, and the medical decision-making described in the above note were completed with the assistance of the mid-level provider. I reviewed and agree with the findings presented. I attest that I had a [id number] encounter with the patient on the same day, and personally performed and documented my assessment and findings in the medical record. Abdominal pain slightly better. +bloating. Mucositis improved. Neutropenia resolved. Will give one more neupogen today. Continue supportive care. Chela Greer January 09, 2018 10:43 Maicol Ordaz MD January 09, 2018 11:47
[2018-01-09] MEDS: SIMETHICONE 125 MG CHEWABLE TAB PO PRN (12:32)
[2018-01-09] MEDS: FILGRASTIM 300 MCG/ML VIAL SQ SCH (14:45)
--- NOTE | 2018-01-09 15:46 | RADRPT ---
EXAM DATE/TIME: 01/09/2018 15:09 [place] COMPARISON: No previous studies available for comparison. INDICATIONS : Ileus. MEDICAL HISTORY : Carcinoma, rectal. SURGICAL HISTORY : Inguinal hernia repair. ENCOUNTER: Subsequent ACUITY: 3 days PAIN SCORE: 0/10 LOCATION: Bilateral abdomen FINDINGS: There is a diffuse ileus with right colon distended up to 11 cm in diameter. Left-sided ostomy presen t. No free air identified. No acute bony abnormality. CONCLUSION: 1. Gaseous distention of bowel, probable ileus. Right colon distended up to 11 cm. Asad Mccann MD on January 09, 2018 at 15:40 Board Certified Radiologist. This report was verified electronically.
--- NOTE | 2018-01-09 17:57 | PD.WCN.NOT ---
Wound Consult Description: Consult for NEW OSTOMY TEACHING of stoma per Dr Newberry Communicated with: Patient Patient Dr Ritter Manuel, RN Recommendation: Monitor stoma for red color and moisture. Monitor stoma for output and empty pouch as needed. Additional Information: Patient seen on [facility] for teaching session @1600 with patient and at bedside with stoma assessment. Ostomy Type: Colostomy Surgeon: Ashish Newberry MD Date of Surgery: January 07, 2018 Complete: Starter kit (Verbal consent obtained), Education materials Educated patient on: Stoma appearance Appliances How to empty pouch How to burp pouch Showering Sleeping Changing appliance Where to obtain supplies Peristomal skin care Foods and drinks that may cause gas Additional information Stoma located on the left mid abdomen is dark red and harder than when assessed previously. Dr Newberry notified. Patient states pain with a distended abdomen. Dr Newberry came to bedside and decompressed the abdomen slightly by inserting a lubricated 16in leong catheter. Stoma is not functioning at this time. There is ~100ml of serosang post surgical drainage noted in pouch that was not emptied by writer technical publications at this time. 2 piece pouching system is intact and noted without leaks. Jose R is present through stoma. Stoma is moderately protruding, mildly moist, edematous, dark red/maroon, round, measuring ~1 1/2". [facility] January 09, 2018 17:57
[2018-01-09] MEDS: ACETAMIN 325 MG/BUTALBITAL 50 MG/CAFFEINE 40 MG TAB PO PRN (19:47)
--- NOTE | 2018-01-09 21:57 | HHI.PR ---
Subjective Remarks C/R Surg POD #2 afebrile, VSS UO good darryl PO Objective - Vital Signs Date Time Temp Pulse Resp B/P (MAP) Pulse Ox O2 Delivery O2 Flow Rate FiO2 01/09/18 21:09 98.4 73 16 118/77 (91) 95 01/09/18 07:30 Room Air 01/08/18 13:11 1.00 01/07/18 08:59 21 Result Diagram: 01/09/18 0524 01/09/18 05 Objective Remarks PE alert Abd - soft, min tympany, stoma dark red, pouched well, min output -+flatus A/P Assessment and Plan Imp: stable post-op liq diet stoma dark but appears viable, cont to monitor, may need revision KUB reviewed Ashish Newberry MD January 09, 2018 21:57
[2018-01-10] VITALS (10 sets, daily range): BP systolic 118–149; BP diastolic 70–87; PULSE 65–90; RESP 15–20; TEMP 97.3–99.8; O2SAT 93–95
[2018-01-10] MEDS: SIMETHICONE 125 MG CHEWABLE TAB PO PRN ×3 (01:37→20:48)
[2018-01-10] MEDS: D5-NS + KCL 20 MEQ INJ 1,000 ML IV SCH ×2 (02:55→16:04)
[2018-01-10] MEDS: HYDROmorphone HCL PCA 6 MG/30 ML IV SCH ×5 (03:02→22:52)
[2018-01-10 05:19] LABS: AUTOMATED NEUTROPHIL # 4.1 TH/MM3 (1.8-7.7); BASOPHIL % 0.4 % (0.0-2.0); EOSINOPHIL % 0.5 % (0.0-4.0); HEMATOCRIT 34.7 % (35.0-46.0); LYMPH % 5.1 % (9.0-44.0); LYMPHOCYTE # 0.2 TH/MM3 (1.0-4.8); MEAN CELL VOLUME 91.6 FL (80.0-100.0); MEAN CORPUSCULAR HEMOGLOBIN 31.7 PG (27.0-34.0); MEAN CORPUSCULAR HGB CONC 34.6 % (32.0-36.0); MEAN PLATELET VOLUME 6.6 FL (7.0-11.0); MONO % 5.4 % (0.0-8.0); MONOCYTE # 0.3 TH/MM3 (0-0.9); NEUT % 88.6 % (16.0-70.0); PLATELET COUNT 208 TH/MM3 (150-450); RED BLOOD COUNT 3.79 MIL/MM3 (4.00-5.30); RED CELL DISTRIBUTION WIDTH 16.3 % (11.6-17.2); WHITE BLOOD COUNT 4.7 TH/MM3 (4.0-11.0)
[2018-01-10] MEDS: PCA - TOTAL MG DILAUDID DELIVERED PER SHIFT SCH ×3 (05:44→22:21)
[2018-01-10 06:58] LABS: BANDS 34 % (0-6); LYMPHOCYTES 2 % (9-44); METAMYELOCYTES 2 % (0-1); MONOCYTES 1 % (0-8); MYELOCYTES 1 % (0-0); NEUTROPHIL # MANUAL DIFF 4.5 TH/MM3 (1.8-7.7); POLYS (SEG NEUTROPHILS) 59 % (16-70)
--- NOTE | 2018-01-10 07:33 | HHI.PR ---
Subjective Remarks Follow-up abdominal pain/rectovaginal history of status post colostomy by Dr. Newberry colorectal surgeon. Poss Ileus Abdominal pain improved, still complaints of gas. Add tums Says she was able to ambulate today. + Flatus Objective Vitals Vital Signs Date Time Temp Pulse Resp B/P (MAP) Pulse Ox O2 Delivery O2 Flow Rate FiO2 01/10/18 05:44 16 01/10/18 04:36 98.4 89 16 149/87 (107) 93 01/10/18 03:30 16 01/10/18 03:02 18 01/10/18 00:25 98.7 90 16 141/84 (103) 93 01/09/18 23:07 81 01/09/18 22:17 16 01/09/18 21:10 Room Air 01/09/18 21:09 98.4 73 16 118/77 (91) 95 01/09/18 20:45 16 01/09/18 20:06 75 01/09/18 17:21 18 01/09/18 16:00 69 01/09/18 14:00 18 01/09/18 13:30 18 01/09/18 12:00 79 01/09/18 09:40 18 I/O 01/09/18 01/09/18 01/09/18 01/10/18 01/10/18 01/10/18 07:00 15:00 23:00 07:00 15:00 23:00 Intake Total 1000 ml 0 ml Output Total 950 ml 900 ml 1550 ml Balance -950 ml 1000 ml -900 ml -1550 ml Intake Oral 0 ml IV Total 1000 ml Output Urine Total 950 ml 900 ml 1450 ml Stool Total 100 ml Result Diagram: 01/10/18 0443 01/09/18 0524 Imaging Last Impressions Abdomen X-Ray 01/09/18 0000 Signed Impressions: Service Date/Time: Tuesday, January 09, 2018 15:09 - CONCLUSION: 1. Gaseous distention of bowel, probable ileus. Right colon distended up to 11 cm. Asad Mccann MD Chest X-Ray 01/06/18 1126 Signed Impressions: Service Date/Time: Saturday, January 06, 2018 11:41 - CONCLUSION: No acute cardiopulmonary abnormality is identified. Prieto Pina MD Abdomen/Pelvis CT 01/06/18 1126 Signed Impressions: Service Date/Time: Saturday, January 06, 2018 13:54 - CONCLUSION: Hepatic steatosis. No acute findings in the abdomen and pelvis. Tomas Ross MD Objective Remarks GENERAL: This is a well-nourished, well-developed patient, in visible discomfort due to pain. CARDIOVASCULAR: Regular rate and rhythm without murmurs, gallops, or rubs. RESPIRATORY: Clear to auscultation. Breath sounds equal bilaterally. No wheezes , rales, or rhonchi. GASTROINTESTINAL: Abdomen soft,severe tenderness at the surgical site, colostomy in place, stoma dark no signs of infection. No palpable masses. No guarding. Normal active bowel sounds MUSCULOSKELETAL: Extremities without clubbing, cyanosis, or edema. No joint tenderness, effusion, or edema noted. No calf tenderness. NEUROLOGICAL: Awake and alert. Cranial nerves II through XII grossly intact. Motor and sensory grossly within normal limits. 5/5 muscle strength in all muscle groups. Normal speech. A/P Problem List: (1) Rectal or anal pain ICD Code: K62.89 - Other specified diseases of anus and rectum (2) Fistula of vagina ICD Code: N82.8 - Other female genital tract fistulae Status: Acute (3) Anal cancer ICD Code: C21.0 - Malignant neoplasm of anus, unspecified Assessment and Plan 47-year-old female with past medical history significant for COPD, breast cancer , and rectal cancer who presents to the emergency department with complaints of stool coming out of her vagina. 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 Ordaz for medical oncology and Dr. Mejia for radiation oncology. Rectovaginal fistula Fecal incontinence Ileus postsurgical CT of the abdomen and pelvis reviewed, hepatic stenosis with no acute findings in the abdomen or pelvis. + Stool from the vagina Patient afebrile, no tachycardia, stable blood pressure and O2 saturation. Leukopenia, WBCs 2.4, neutrophil count 80.4. BC x2 pending, lactic acid 1.8, UA with small amount of leukocyte esterase, culture not indicated. Consult colorectal surgery, patient known to Dr. Newberry, greatly appreciate assistance and recommendations. S/P diverting colostomy by Dr Newberry on 01/07/18. On HAND TIER pump patient says she is still with significant pain. KUB reviewed with poss ileus postsurgical Simethicone Add tums Stoma might need revision per Dr Newberry. Stage II anal cancer Rectal pain Patient recently finished chemotherapy, still pending several treatments of radiation. Consult medical oncology, Dr. Ordaz for followup while patient is here, appreciate further recommendations. P.o. Roxicodone for pain, IV Dilaudid for breakthrough. Now on HAND TIER pump wean off per surgeon As needed medications for constipation, currently having loose stools. Cellulitis right posterior thigh Patient was recently discharged on 01/05 after being treated for cellulitis. Initially treated with IV antibiotics and then transitioned to p.o. Culture at that time was positive for MSSA with campa sensitivity Continue Levaquin 500 mg daily 10 days Prednisone taper, DC steroids Hypokalemia- replaced. Monitor and replace as need. Hyperglycemia related to stress and prednisone use. No history of diabetes A1c. Patient with elevated blood sugar hold he is feeling this time as patient is not able to have p.o. DVT prophylaxis-SCDs Discussed Condition With Patient, nurse Discharge when improved and cleared by consultants. Indiana Harrington MD January 10, 2018 07:33
[2018-01-10] MEDS: INSULIN ASPART SUPPLEMENTAL SCALE SQ SCH ×4 (08:00→20:39)
[2018-01-10] MEDS: AQUAPHOR OINT 50 GM TUBE TOPICAL SCH ×2 (08:27→20:40)
[2018-01-10] MEDS: METOCLOPRAMIDE HCL 10 MG/2 ML VIAL IVS SCH ×2 (08:27→20:39)
[2018-01-10] MEDS: predniSONE 20 MG TAB PO SCH (08:27)
[2018-01-10] MEDS: PANTOPRAZOLE SOD 40 MG DELAYED RELEASE TAB PO SCH (08:27)
[2018-01-10] MEDS: SODIUM CHLORIDE 0.9% FLUSH 10 ML FLUSH IV FLUSH SCH ×2 (08:28→20:35)
[2018-01-10] MEDS: PANTOPRAZOLE SODIUM 40 MG VIAL IVP SCH (08:34)
[2018-01-10] MEDS: NYSTAT/DIPHENHY/LIDO MOUTHWASH (Adult) 120ML SWISH-SWAL SCH ×4 (08:35→20:40)
--- NOTE | 2018-01-10 11:32 | PD.ONC.PN ---
Subjective Subjective Remarks Afebrile overnight She reports she has gas type pain States her pain is now gone from her rectovaginal area where she was receiving radiation Objective Data Date Time Temp Pulse Resp B/P (MAP) Pulse Ox O2 Delivery O2 Flow Rate FiO2 01/10/18 08:15 97.3 65 18 121/77 (92) 93 01/10/18 08:15 75 01/10/18 08:15 Room Air 01/10/18 07:58 20 01/10/18 07:56 20 01/10/18 05:44 16 01/10/18 04:36 98.4 89 16 149/87 (107) 93 01/10/18 03:30 16 01/10/18 03:02 18 01/10/18 00:25 98.7 90 16 141/84 (103) 93 01/09/18 23:07 81 01/09/18 22:17 16 01/09/18 21:10 Room Air 01/09/18 21:09 98.4 73 16 118/77 (91) 95 01/09/18 20:45 16 01/09/18 20:06 75 01/09/18 17:21 18 01/09/18 16:00 69 01/09/18 14:00 18 01/09/18 13:30 18 01/09/18 12:00 79 01/10/18 01/10/18 01/10/18 07:00 15:00 23:00 Output Total 1550 ml Balance -1550 ml Result Diagram: 01/10/18 0443 01/09/18 0524 Laboratory Results Laboratory Tests Test 01/10/18 04:43 White Blood Count 4.7 TH/MM3 Red Blood Count 3.79 MIL/MM3 Hemoglobin 12.0 GM/DL Hematocrit 34.7 % Mean Corpuscular Volume 91.6 FL Mean Corpuscular Hemoglobin 31.7 PG Mean Corpuscular Hemoglobin Concent 34.6 % Red Cell Distribution Width 16.3 % Platelet Count 208 TH/MM3 Mean Platelet Volume 6.6 FL Neutrophils (%) (Auto) 88.6 % Lymphocytes (%) (Auto) 5.1 % Monocytes (%) (Auto) 5.4 % Eosinophils (%) (Auto) 0.5 % Basophils (%) (Auto) 0.4 % Neutrophils # (Auto) 4.1 TH/MM3 Lymphocytes # (Auto) 0.2 TH/MM3 Monocytes # (Auto) 0.3 TH/MM3 Eosinophils # (Auto) 0.0 TH/MM3 Basophils # (Auto) 0.0 TH/MM3 CBC Comment AUTO DIFF Differential Total Cells Counted 100 Neutrophils % (Manual) 59 % Band Neutrophils % 34 % Lymphocytes % 2 % Monocytes % 1 % Eosinophils % 1 % Neutrophils # (Manual) 4.5 TH/MM3 Metamyelocytes 2 % Myelocytes 1 % Differential Comment FINAL DIFF MANUAL Platelet Estimate NORMAL Platelet Morphology Comment NORMAL Red Cell Morphology Comment NORMAL Administered Medications Medications (Trade) Dose Ordered Sig/David Route PRN Reason Start Time Stop Time Status Last Admin Dose Admin Sodium Chloride (NS Flush) 2 ml UNSCH PRN IV FLUSH FLUSH AFTER USING IV ACCESS 01/06/18 11:30 01/06/18 12:10 Sodium Chloride (NS Flush) 2 ml BID IV FLUSH 01/06/18 21:00 01/08/18 21:56 Multi-Ingredient Mouthwash/Gargle (Magic Mouthwash Adult Liq) 10 ml QID SWISH-SWAL 01/06/18 18:00 01/10/18 08:35 Acetaminophen/ Butalbital/ Caffeine (Fioricet 325-50-40) 1 tab Q6H PRN PO HEADACHE 01/06/18 17:45 01/09/18 19:47 Potassium Chloride/Dextrose/ Sod Cl 1,000 ml @ 80 mls/hr [id number] IV 01/07/18 11:48 01/10/18 02:55 Ketorolac Tromethamine (Toradol Inj) 30 mg Q6H PRN IVP PAIN SCALE 1 TO 10 01/07/18 12:00 01/10/18 11:59 01/10/18 06:56 Pantoprazole Sodium (Protonix Inj) 40 mg DAILY IVP 01/08/18 09:00 01/10/18 08:34 Metoclopramide HCl (Reglan Inj) 10 mg Q12HR IVS 01/07/18 21:00 01/10/18 08:27 Ondansetron HCl (Zofran Inj) 4 mg Q6H PRN IV PUSH NAUSEA 01/07/18 12:00 01/09/18 01:04 Filgrastim (Neupogen Inj) 300 mcg DAILY@14 SQ 01/08/18 14:00 01/09/18 14:45 POLICE GUARD Dosage Infused (Pha) 1 Q8HR .XX 01/07/18 22:00 01/10/18 05:44 Insulin Aspart (NovoLOG SUPPLEMENTAL SCALE) 1 ACHS SLIDING SCALE SQ 01/08/18 12:00 01/08/18 22:23 Hydromorphone HCl (Dilaudid POLICE GUARD Inj) 6 mg UNSCH IV 01/08/18 14:30 01/10/18 07:58 Simethicone (Phazyme Chew) 125 mg Q8HR PRN PO gas 01/09/18 12:15 01/10/18 11:25 Objective Remarks GENERAL: Middle aged female asleep in bed on approach. She wakens easily to verbal stimuli SKIN: Warm and dry. HEAD: Normocephalic. EYES: No injection or drainage. NECK: Supple, trachea midline. CARDIOVASCULAR: Regular rate and rhythm RESPIRATORY: Breath sounds equal bilaterally. No accessory muscle use. GASTROINTESTINAL: Abdomen distended, hypoactive bowel sounds. Ostomy maroon. EXTREMITIES: No cyanosis. No edema NEUROLOGICAL: Awake and alert. Moving all extremities. No obvious focal deficit. 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 Plan 1. Monitor CBC 2. Ostomy care per Dr. Newberry 3. Stop Neupogen Attending Statement The exam, history, and the medical decision-making described in the above note were completed with the assistance of the mid-level provider. I reviewed and agree with the findings presented. I attest that I had a [id number] encounter with the patient on the same day, and personally performed and documented my assessment and findings in the medical record. + abdominal bloating but simethicone is helping. Mucositis improving. Neutropenia resolved. Stop the neupogen. Continue supportive care. Mona Saba January 10, 2018 11:32 Maicol Ordaz MD January 10, 2018 13:32
--- NOTE | 2018-01-10 12:49 | PD.WCN.NOT ---
Wound Consult Description: Consult for NEW OSTOMY TEACHING of stoma per Dr Newberry Communicated with: Patient Recommendation: Monitor stoma for red color and moisture. Monitor stoma for output and empty pouch as needed. Additional Information: Patient seen on [facility] for ostomy assessment and teaching. Ostomy Type: Colostomy Surgeon: Ashish Newberry MD Date of Surgery: January 07, 2018 Complete: Starter kit (Verbal consent obtained), Education materials Educated patient on: Stoma color Stoma size Appliances available Changing the pouching system on Monday Measuring the stoma Cleansing the peristomal skin Emptying the pouch when 1/3-1/2 full Ambulating to help with flatus How to obtain supplies Additional information Stoma is dark red, moist, moderately protruding with patent lumen noted at 7 o' clock, yusuf in place, mucocutaneous junction and peristomal skin not visualized. There is no stool nor air noted in pouch that is intact to left mid abdomen. Betty Rodriguez [facility] January 10, 2018 12:49
[2018-01-10] MEDS: ACETAMIN 325 MG/BUTALBITAL 50 MG/CAFFEINE 40 MG TAB PO PRN (15:58)
[2018-01-10 21:47] LABS: HEMOGLOBIN A1C 7.6 % (4.3-6.0)
--- NOTE | 2018-01-10 23:00 | HHI.PR ---
Subjective Remarks C/R Surg POD #3 afebrile, VSS UO good darryl PO +flatus Objective - Vital Signs Date Time Temp Pulse Resp B/P (MAP) Pulse Ox O2 Delivery O2 Flow Rate FiO2 01/10/18 22:52 20 01/10/18 20:36 98.4 82 132/87 (102) 95 01/10/18 08:15 Room Air 01/08/18 13:11 1.00 01/07/18 08:59 21 Result Diagram: 01/10/18 0443 01/09/18 0524 Objective Remarks PE alert Abd - soft, min tympany, stoma dark red, pouched well, min output but, +flatus A/P Assessment and Plan Imp: liq diet stoma dark but appears viable, cont to monitor, may need revision KUB reviewed WBC higher Ashish Newberry MD January 10, 2018 23:00
[2018-01-11] VITALS (7 sets, daily range): BP systolic 119–127; BP diastolic 70–81; PULSE 74–92; RESP 18–20; TEMP 98.6–100.3; O2SAT 93–97
[2018-01-11] MEDS: D5-NS + KCL 20 MEQ INJ 1,000 ML IV SCH (03:33)
[2018-01-11] MEDS: HYDROmorphone HCL PCA 6 MG/30 ML IV SCH ×4 (03:35→19:05)
[2018-01-11] MEDS: CALCIUM CARBONATE 500 MG CHEWABLE TAB CHEW PRN (03:56)
[2018-01-11] MEDS: SIMETHICONE 125 MG CHEWABLE TAB PO PRN (04:27)
[2018-01-11] MEDS ORDERED: PANTOPRAZOLE SODIUM 40 MG VIAL IV PUSH ONE (04:30)
[2018-01-11] MEDS: PCA - TOTAL MG DILAUDID DELIVERED PER SHIFT SCH ×3 (06:33→22:00)
[2018-01-11] MEDS: INSULIN ASPART SUPPLEMENTAL SCALE SQ SCH ×4 (08:00→20:38)
--- NOTE | 2018-01-11 08:23 | HHI.PR ---
Subjective Remarks Patient in bed seen after she returned from OR colostomy revision by Dr Newberry Patient with pain overnight and abd distention. Feels better after surgery today. Pain imprpved significantly, back on DIRECTOR BIOMEDICAL ENGINEERING pump for pain No n/v. No fever or chills. Objective Vitals Vital Signs Date Time Temp Pulse Resp B/P (MAP) Pulse Ox O2 Delivery O2 Flow Rate FiO2 01/11/18 07:28 18 01/11/18 06:33 16 01/11/18 04:05 20 01/11/18 03:52 98.6 82 20 124/81 (95) 94 01/11/18 03:35 22 01/10/18 23:56 88 01/10/18 23:41 99.8 85 15 130/84 (99) 95 01/10/18 22:52 20 01/10/18 22:21 16 01/10/18 20:40 95 Nasal Cannula 2.00 01/10/18 20:36 98.4 82 20 132/87 (102) 95 01/10/18 20:05 81 01/10/18 18:40 18 01/10/18 16:36 98.4 79 18 118/74 (89) 93 01/10/18 15:42 84 01/10/18 14:00 18 01/10/18 13:03 16 01/10/18 12:00 72 01/10/18 12:00 97.7 72 19 122/70 (87) 94 I/O 01/10/18 01/10/18 01/10/18 01/11/18 01/11/18 01/11/18 07:00 15:00 23:00 07:00 15:00 23:00 Intake Total 30 ml 0 ml Output Total 1550 ml 1350 ml 650 ml Balance -1550 ml 30 ml -1350 ml -650 ml Intake Oral 0 ml IV Total 30 ml Output Urine Total 1450 ml 1350 ml 650 ml Stool Total 100 ml Result Diagram: 01/10/18 0443 01/09/18 0524 Imaging Last Impressions Abdomen X-Ray 01/09/18 0000 Signed Impressions: Service Date/Time: Tuesday, January 09, 2018 15:09 - CONCLUSION: 1. Gaseous distention of bowel, probable ileus. Right colon distended up to 11 cm. Asad Mccann MD Chest X-Ray 01/06/181125 Signed Impressions: Service Date/Time: Saturday, January 06, 2018 11:41 - CONCLUSION: No acute cardiopulmonary abnormality is identified. Prieto Pina MD Abdomen/Pelvis CT 01/06/186 Signed Impressions: Service Date/Time: Saturday, January 06, 2018 13:54 - CONCLUSION: Hepatic steatosis. No acute findings in the abdomen and pelvis. Tomas Ross MD Objective Remarks GENERAL: This is a well-nourished, well-developed patient, in visible discomfort due to pain. CARDIOVASCULAR: Regular rate and rhythm without murmurs, gallops, or rubs. RESPIRATORY: Clear to auscultation. Breath sounds equal bilaterally. No wheezes , rales, or rhonchi. GASTROINTESTINAL: Abdomen soft,severe tenderness at the surgical site, colostomy in place, stoma dark no signs of infection. No palpable masses. No guarding. Normal active bowel sounds MUSCULOSKELETAL: Extremities without clubbing, cyanosis, or edema. No joint tenderness, effusion, or edema noted. No calf tenderness. NEUROLOGICAL: Awake and alert. Cranial nerves II through XII grossly intact. Motor and sensory grossly within normal limits. 5/5 muscle strength in all muscle groups. Normal speech. Procedures By Dr Newberry colorectal surgery : EUA / Laparoscopic assisted loop sigmoid colostomy 01/08/18 Colostomy revision 01/11 A/P Problem List: (1) Rectal or anal pain ICD Code: K62.89 - Other specified diseases of anus and rectum (2) Fistula of vagina ICD Code: N82.8 - Other female genital tract fistulae Status: Acute (3) Anal cancer ICD Code: C21.0 - Malignant neoplasm of anus, unspecified Assessment and Plan 47-year-old female with past medical history significant for COPD, breast cancer , and rectal cancer who presents to the emergency department with complaints of stool coming out of her vagina. 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 Ordaz for medical oncology and Dr. Mejia for radiation oncology. Rectovaginal fistula Fecal incontinence Ileus postsurgical CT of the abdomen and pelvis reviewed, hepatic stenosis with no acute findings in the abdomen or pelvis. + Stool from the vagina Patient afebrile, no tachycardia, stable blood pressure and O2 saturation. Leukopenia, WBCs 2.4, neutrophil count 80.4. BC x2 pending, lactic acid 1.8, UA with small amount of leukocyte esterase, culture not indicated. Consult colorectal surgery, patient known to Dr. Newberry, greatly appreciate assistance and recommendations. S/P diverting colostomy by Dr Newberry on 01/07/18. On [employer] ENGINEERING pump patient says she is still with significant pain. KUB reviewed with poss ileus postsurgical Simethicone Add tums S/P colostomy revision by Dr Newberry 01/11 Stage II anal cancer Rectal pain Patient recently finished chemotherapy, still pending several treatments of radiation. Consult medical oncology, Dr. Ordaz for followup while patient is here, appreciate further recommendations. P.o. Roxicodone for pain, IV Dilaudid for breakthrough. Now on [employer]INEERING pump wean off per surgeon As needed medications for constipation, currently having loose stools. Cellulitis right posterior thigh Patient was recently discharged on 01/05 after being treated for cellulitis. Initially treated with IV antibiotics and then transitioned to p.o. Culture at that time was positive for MSSA with campa sensitivity Continue Levaquin 500 mg daily 10 days Prednisone taper, DC steroids Hypokalemia- replaced. Monitor and replace as need. Hyperglycemia related to stress and prednisone use. No history of diabetes A1c. Patient with elevated blood sugar hold he is feeling this time as patient is not able to have p.o. DVT prophylaxis-SCDs Discussed Condition With Patient, nurse Discharge when improved and cleared by consultants. Indiana Harrington MD January 11, 2018 08:23
[2018-01-11] MEDS: NYSTAT/DIPHENHY/LIDO MOUTHWASH (Adult) 120ML SWISH-SWAL SCH ×4 (09:00→21:00)
[2018-01-11] MEDS: PANTOPRAZOLE SOD 40 MG DELAYED RELEASE TAB PO SCH (09:00)
[2018-01-11] MEDS: PANTOPRAZOLE SODIUM 40 MG VIAL IVP SCH (09:00)
[2018-01-11] MEDS: predniSONE 20 MG TAB PO SCH (09:00)
[2018-01-11] MEDS: AQUAPHOR OINT 50 GM TUBE TOPICAL SCH ×2 (09:00→21:00)
[2018-01-11] MEDS: METOCLOPRAMIDE HCL 10 MG/2 ML VIAL IVS SCH ×2 (09:00→20:38)
[2018-01-11] MEDS: SODIUM CHLORIDE 0.9% FLUSH 10 ML FLUSH IV FLUSH SCH ×2 (09:00→20:38)
--- NOTE | 2018-01-11 11:21 | PD.ONC.PN ---
Subjective Subjective Remarks Afebrile overnight. Patient resting in bed in nad. She feels much better after her colostomy revision this AM. She states her stomach feels much more decompressed and her pain is improved. Objective Data Date Time Temp Pulse Resp B/P (MAP) Pulse Ox O2 Delivery O2 Flow Rate FiO2 01/11/18 09:09 81 18 118/79 (92) 94 01/11/18 08:58 98.9 84 20 117/72 (87) 97 01/11/18 07:28 18 01/11/18 06:33 16 01/11/18 04:05 20 01/11/18 03:52 98.6 82 20 124/81 (95) 94 01/11/18 03:35 22 01/10/18 23:56 88 01/10/18 23:41 99.8 85 15 130/84 (99) 95 01/10/18 22:52 20 01/10/18 22:21 16 01/10/18 20:40 95 Nasal Cannula 2.00 01/10/18 20:36 98.4 82 20 132/87 (102) 95 01/10/18 20:05 81 01/10/18 18:40 18 01/10/18 16:36 98.4 79 18 118/74 (89) 93 01/10/18 15:42 84 01/10/18 14:00 18 01/10/18 13:03 16 01/10/18 12:00 72 01/10/18 12:00 97.7 72 19 122/70 (87) 94 01/11/18 01/11/18 01/11/18 07:00 15:00 23:00 Output Total 650 ml Balance -650 ml Result Diagram: 01/10/18 0443 01/09/18 0524 Administered Medications Medications (Trade) Dose Ordered Sig/David Route PRN Reason Start Time Stop Time Status Last Admin Dose Admin Sodium Chloride (NS Flush) 2 ml UNSCH PRN IV FLUSH FLUSH AFTER USING IV ACCESS 01/06/18 11:30 01/06/18 12:10 Sodium Chloride (NS Flush) 2 ml BID IV FLUSH 01/06/18 21:00 01/08/18 21:56 Multi-Ingredient Mouthwash/Gargle (Magic Mouthwash Adult Liq) 10 ml QID SWISH-SWAL 01/06/18 18:00 01/10/18 18:00 Acetaminophen/ Butalbital/ Caffeine (Fioricet 325-50-40) 1 tab Q6H PRN PO HEADACHE 01/06/18 17:45 01/10/18 15:58 Potassium Chloride/Dextrose/ Sod Cl 1,000 ml @ 80 mls/hr [id number] IV 01/07/18 11:48 01/11/18 03:33 Pantoprazole Sodium (Protonix Inj) 40 mg DAILY IVP 01/08/18 09:00 01/10/18 08:34 Metoclopramide HCl (Reglan Inj) 10 mg Q12HR IVS 01/07/18 21:00 01/10/18 20:39 Ondansetron HCl (Zofran Inj) 4 mg Q6H PRN IV PUSH NAUSEA 01/07/18 12:00 01/09/18 01:04 LARRIMAN HELPER Dosage Infused (Pha) 1 Q8HR .XX 01/07/18 22:00 01/11/18 06:33 Insulin Aspart (NovoLOG SUPPLEMENTAL SCALE) 1 ACHS SLIDING SCALE SQ 01/08/18 12:00 01/08/18 22:23 Hydromorphone HCl (Dilaudid LARRIMAN HELPER Inj) 6 mg UNSCH IV 01/08/18 14:30 01/11/18 07:28 Simethicone (Phazyme Chew) 125 mg Q8HR PRN PO gas 01/09/18 12:15 01/11/18 04:27 Calcium Carbonate (Tums Chew) 500 mg Q2H PRN CHEW dyspepsia 01/10/18 15:45 01/11/18 03:56 Objective Remarks GENERAL: Middle aged female, sitting up in bed. SKIN: Warm and dry. HEAD: Normocephalic. EYES: No injection or drainage. NECK: Supple, trachea midline. CARDIOVASCULAR: Regular rate and rhythm RESPIRATORY: Breath sounds equal bilaterally. No accessory muscle use. GASTROINTESTINAL: Abdomen with mild distension. +colostomy EXTREMITIES: No cyanosis NEUROLOGICAL: awake and alert. normal speech. 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 Plan 1. monitor CBC 2. continue pain management. 3. continue supportive care Attending Statement The exam, history, and the medical decision-making described in the above note were completed with the assistance of the mid-level provider. I reviewed and agree with the findings presented. I attest that I had a [id number] encounter with the patient on the same day, and personally performed and documented my assessment and findings in the medical record. C/o abdominal pain this am. Discussed with , pt not adequately decompressed and she is going to have revision of colostomy. CBC stable. Mucositis resolving. Continue supportive care. Chela Greer January 11, 2018 11:21 Maicol Ordaz MD January 11, 2018 15:26
[2018-01-11] MEDS ORDERED: LIDOCAINE HCL 1% PF 5 ML SYRINGE OTHER ONE (12:00)
[2018-01-11] MEDS ORDERED: PROPOFOL 200 MG/20 ML AMP IV ONE (12:00)
[2018-01-11] MEDS ORDERED: SODIUM CHLORID 0.9% 500 ML INJ 500 ML IV ONE (12:00)
[2018-01-11] MEDS: ONDANSETRON HCL 4 MG/2 ML VIAL IV PUSH PRN (14:31)
[2018-01-11] MEDS: ACETAMIN 325 MG/BUTALBITAL 50 MG/CAFFEINE 40 MG TAB PO PRN ×2 (14:32→20:37)
--- NOTE | 2018-01-11 15:18 | PD.WCN.NOT ---
Wound Consult Description: Consult for NEW OSTOMY TEACHING of stoma per Dr Newberry Communicated with: Received a vocera call from Dr Newberry this morning requesting that the jose r be removed from patient stoma. Recommendation: Monitor stoma for red color and moisture. Monitor stoma for output and empty pouch as needed. Additional Information: Patient seen earlier this morning for jose r removal, evaluation of stoma and output. Ostomy Type: Colostomy Surgeon: Ashish Newberry MD Date of Surgery: January 07, 2018 Complete: Starter kit (Verbal consent obtained), Education materials, Rx ( script will be left on chart after appliance change with measurements), Other ( appliance to be changed tomorrow) Educated patient on: Color of stoma Jose R removal Type of output to expect Rest and then ambulate later today Additional information Patient seen this morning for jose r removal per Dr Newberry request. Stoma was dark red, moist, edematous, moderately protruding, with leong catheter in lumen. There was no output from stoma as of yet but should begin now that jose r has been removed and patient had colonoscopy through stoma with colonic decompression in OR earlier this morning. Betty Rodriguez [facility] January 11, 2018 15:18
--- NOTE | 2018-01-11 23:18 | MR ---
cc: Ashish Newberry MD, Andrew H MD DATE: 01/11/2018 PREOPERATIVE DIAGNOSIS: Colonic distention. History of anal cancer. PROCEDURE: Colonoscopy through colostomy with good colonic decompression. POSTOPERATIVE DIAGNOSIS: 1. Normal cecum ileocecal valve. 2. Minor inflammatory changes of the mucosa. 3. Probable colonic obstruction at the colostomy. SURGEON: Dr. Ashish Newberry. DESCRIPTION OR PROCEDURE: The patient was placed in the supine position. After adequate anesthesia sedation, examination of the stoma did reveal some mucosal edema and congestion. The colostomy valve was in place and the lumen of the bowel did appear to be somewhat instructed due to the bar. Olympus colonoscope was then introduced into the lumen and, with some difficulty, passed into the proximal colon and appeared much more viable and of good color, probably above the fascial level. A fair amount of liquid and stool with decompressed from the colon. The scope was then passed up to the proximal colon and around toward the right colon and cecum. Additional decompression of the colon was obtained easily with the gastroscope. After adequate decompression, the belly was visibly softer. The scope was gradually withdrawn, noting no other mechanical obstructions, minor granularity and mucosal ecchymosis was noted throughout the colon. However, upon withdrawal the proximal stoma did appear to be somewhat compressed due to the colostomy bar. A red rubber catheter was placed through the stoma into the proximal colon releasing additional air. Colostomy appliance fitted back over the stoma. The patient tolerated the procedure quite well and was brought to the recovery room in stable condition. Ashish Newberry MD [facility] , 10:58 PM , 11:16 PM
[2018-01-12] VITALS (11 sets, daily range): BP systolic 113–133; BP diastolic 63–81; PULSE 77–100; RESP 18–22; TEMP 97.3–102.3; O2SAT 91–96
[2018-01-12] MEDS: D5-NS + KCL 20 MEQ INJ 1,000 ML IV SCH ×2 (01:18→21:30)
[2018-01-12] MEDS: ONDANSETRON HCL 4 MG/2 ML VIAL IV PUSH PRN ×3 (05:03→21:29)
[2018-01-12] MEDS: ACETAMIN 325 MG/BUTALBITAL 50 MG/CAFFEINE 40 MG TAB PO PRN ×2 (05:04→12:48)
[2018-01-12] MEDS: PCA - TOTAL MG DILAUDID DELIVERED PER SHIFT SCH ×3 (06:00→21:31)
[2018-01-12] MEDS: HYDROmorphone HCL PCA 6 MG/30 ML IV SCH ×3 (06:37→23:02)
[2018-01-12] MEDS: INSULIN ASPART SUPPLEMENTAL SCALE SQ SCH ×4 (08:00→21:00)
[2018-01-12] MEDS: NYSTAT/DIPHENHY/LIDO MOUTHWASH (Adult) 120ML SWISH-SWAL SCH ×4 (08:35→21:30)
[2018-01-12] MEDS: METOCLOPRAMIDE HCL 10 MG/2 ML VIAL IVS SCH ×2 (08:36→21:30)
[2018-01-12] MEDS: SODIUM CHLORIDE 0.9% FLUSH 10 ML FLUSH IV FLUSH SCH ×2 (08:41→21:00)
[2018-01-12] MEDS: PANTOPRAZOLE SODIUM 40 MG VIAL IVP SCH (08:41)
[2018-01-12] MEDS: predniSONE 20 MG TAB PO SCH (09:00)
[2018-01-12] MEDS: AQUAPHOR OINT 50 GM TUBE TOPICAL SCH ×2 (09:00→21:31)
[2018-01-12] MEDS: PANTOPRAZOLE SOD 40 MG DELAYED RELEASE TAB PO SCH (09:00)
--- NOTE | 2018-01-12 09:09 | PD.ONC.PN ---
Subjective Subjective Remarks Feels better since the colonic decompression. No N/V. Pain improved. Objective Data Date Time Temp Pulse Resp B/P (MAP) Pulse Ox O2 Delivery O2 Flow Rate FiO2 01/12/18 08:00 97.3 78 21 118/76 (90) 91 01/12/18 06:37 16 01/12/18 06:00 16 01/12/18 05:02 98.9 85 18 116/63 (80) 91 01/12/18 04:11 Room Air 01/12/18 01:51 92 21 01/12/18 01:11 100.8 96 18 113/78 (90) 92 01/11/18 22:00 16 01/11/18 20:19 100.3 92 18 127/73 (91) 93 01/11/18 19:05 18 01/11/18 16:20 78 01/11/18 16:00 98.6 82 18 126/80 (95) 93 01/11/18 14:00 18 01/11/18 13:00 Room Air 01/11/18 12:20 88 01/11/18 11:26 18 01/11/18 10:55 98.6 74 18 119/70 (86) 97 01/11/18 09:09 81 18 118/79 (92) 94 Result Diagram: 01/10/18 0443 01/09/18 0524 Administered Medications Medications (Trade) Dose Ordered Sig/David Route PRN Reason Start Time Stop Time Status Last Admin Dose Admin Sodium Chloride (NS Flush) 2 ml UNSCH PRN IV FLUSH FLUSH AFTER USING IV ACCESS 01/06/18 11:30 01/06/18 12:10 Sodium Chloride (NS Flush) 2 ml BID IV FLUSH 01/06/18 21:00 01/12/18 08:41 Multi-Ingredient Mouthwash/Gargle (Magic Mouthwash Adult Liq) 10 ml QID SWISH-SWAL 01/06/18 18:00 01/12/18 08:35 Acetaminophen/ Butalbital/ Caffeine (Fioricet 325-50-40) 1 tab Q6H PRN PO HEADACHE 01/06/18 17:45 01/12/18 05:04 Potassium Chloride/Dextrose/ Sod Cl 1,000 ml @ 80 mls/hr [id number] IV 01/07/18 11:48 01/12/18 01:18 Pantoprazole Sodium (Protonix Inj) 40 mg DAILY IVP 01/08/18 09:00 01/12/18 08:41 Pantoprazole Sodium (Protonix) 40 mg DAILY PO 01/08/18 09:00 01/12/18 09:00 Metoclopramide HCl (Reglan Inj) 10 mg Q12HR IVS 01/07/18 21:00 01/12/18 08:36 Ondansetron HCl (Zofran Inj) 4 mg Q6H PRN IV PUSH NAUSEA 01/07/18 12:00 01/12/18 05:03 LAB SCIENTIST Dosage Infused (Pha) 1 Q8HR .XX 01/07/18 22:00 01/12/18 06:00 Insulin Aspart (NovoLOG SUPPLEMENTAL SCALE) 1 ACHS SLIDING SCALE SQ 01/08/18 12:00 01/08/18 22:23 Hydromorphone HCl (Dilaudid LAB SCIENTIST Inj) 6 mg UNSCH IV 01/08/18 14:30 01/12/18 06:37 Emollient Ointment (Aquaphor Oint) 1 applic Q12HR TOPICAL 01/09/18 09:00 01/12/18 09:00 Simethicone (Phazyme Chew) 125 mg Q8HR PRN PO gas 01/09/18 12:15 01/11/18 04:27 Calcium Carbonate (Tums Chew) 500 mg Q2H PRN CHEW dyspepsia 01/10/18 15:45 01/11/18 03:56 Objective Remarks GENERAL: Well-nourished, well-developed patient. SKIN: Warm and dry. HEAD: Normocephalic. EYES: No scleral icterus. No injection or drainage. NECK: Supple, trachea midline. No JVD or lymphadenopathy. LYMPHATIC: No adenopathy. CARDIOVASCULAR: Regular rate and rhythm without murmurs. RESPIRATORY: Breath sounds equal bilaterally. No accessory muscle use. GASTROINTESTINAL: Abdomen soft, less tender, nondistended. Colostomy with catheter noted EXTREMITIES: No cyanosis, or edema. MUSCULOSKELETAL: Adequate muscle tone. NEUROLOGICAL: No obvious focal deficit. Awake, alert, and oriented x3. PSYCHIATRIC: Appropriate mood and affect; insight and judgment normal. 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 Plan 1. monitor CBC 2. continue pain management. 3. continue supportive care 4. Can be d/c once clear by colorectal surgery 5. F/u with to consider completing the XRT . Maicol Ordaz MD January 12, 2018 09:08
--- NOTE | 2018-01-12 09:42 | RADRPT ---
EXAM DATE/TIME: 01/12/2018 09:17 [place] COMPARISON: CT ABDOMEN & PELVIS W CONTRAST, January 06, 2018, 13:54. ABDOMEN FLAT & UPRIGHT, January 09, 2018, 15:09. C HEST SINGLE AP, January 06, 2018, 11:41. INDICATIONS : Fever. MEDICAL HISTORY : Carcinoma, rectum. SURGICAL HISTORY : Port placement. Lumpectomy, left breast. ENCOUNTER: Subsequent ACUITY: 2 weeks PAIN SCORE: 0/10 LOCATION: Bilateral chest FINDINGS: Right chest port is stable in good position. There is subsegmental atelectasis in the left lower lobe . Lungs otherwise grossly clear. No evidence of effusion. Cardiomediastinal contours are stable and s atisfactory. CONCLUSION: Mild left base atelectasis Prieto Weeks MD on January 12, 2018 at 9:38 Board Certified Radiologist. This report was verified electronically.
--- NOTE | 2018-01-12 15:22 | HHI.PR ---
Subjective Remarks Patient says she is feeling better after surgery yesterday. Denies any chest pain shortness of breath. Denies nausea or vomiting. Objective Vital Signs Date Time Temp Pulse Resp B/P (MAP) Pulse Ox O2 Delivery O2 Flow Rate FiO2 01/12/18 14:49 16 01/12/18 12:46 99.2 100 22 133/81 (98) 92 01/12/18 08:00 97.3 78 21 118/76 (90) 91 01/12/18 06:37 16 01/12/18 06:00 16 01/12/18 05:02 98.9 85 18 116/63 (80) 91 01/12/18 04:11 Room Air 01/12/18 01:51 92 21 01/12/18 01:11 100.8 96 18 113/78 (90) 92 01/11/18 22:00 16 01/11/18 20:19 100.3 92 18 127/73 (91) 93 01/11/18 19:05 18 01/11/18 16:20 78 01/11/18 16:00 98.6 82 18 126/80 (95) 93 I/O 01/11/18 01/11/18 01/11/18 01/12/18 01/12/18 01/12/18 06:59 14:59 22:59 06:59 14:59 22:59 Intake Total 100 ml Output Total 650 ml 700 ml Balance -650 ml 100 ml -700 ml Other 100 ml Output Urine Total 650 ml 700 ml Result Diagram: 01/10/18 0443 01/09/18 0524 Objective Remarks GENERAL: She is sitting up in bed. Appears comfortable. SKIN: Warm and dry. HEAD: Normocephalic. EYES: No scleral icterus. No injection or drainage. NECK: Supple, trachea midline. No JVD. CARDIOVASCULAR: Regular rate and rhythm without murmurs, gallops, or rubs. RESPIRATORY: Breath sounds equal bilaterally. No accessory muscle use. GASTROINTESTINAL: Abdomen soft, non-tender, nondistended. Colostomy without surrounding erythema or leakage per MUSCULOSKELETAL: No cyanosis, or edema. BACK: Nontender without obvious deformity. No CVA tenderness. A/P Assessment and Plan ====01/12/18 //Postop day 1 colostomy revision. Patient says she is doing well. Postsurgical care as per surgical service. //Electrolytes pending for today. 47-year-old female with past medical history significant for COPD, breast cancer , and rectal cancer who presents to the emergency department with complaints of stool coming out of her vagina. 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 Ordaz for medical oncology and Dr. Mejia for radiation oncology. //Rectovaginal fistula //Fecal incontinence //Ileus postsurgical CT of the abdomen and pelvis reviewed, hepatic stenosis with no acute findings in the abdomen or pelvis. + Stool from the vagina Patient afebrile, no tachycardia, stable blood pressure and O2 saturation. Leukopenia, WBCs 2.4, neutrophil count 80.4. BC x2 pending, lactic acid 1.8, UA with small amount of leukocyte esterase, culture not indicated. Consult colorectal surgery, patient known to Dr. Newberry, greatly appreciate assistance and recommendations. S/P diverting colostomy by Dr Newberry on 01/07/18. On [employer]IP[employer] SALES REPRESENTATIVE pump patient says she is still with significant pain. KUB reviewed with poss ileus postsurgical Simethicone Add tums S/P colostomy revision by Dr Newberry 01/11 //Stage II anal cancer //Rectal pain Patient recently finished chemotherapy, still pending several treatments of radiation. Consult medical oncology, Dr. Ordaz for followup while patient is here, appreciate further recommendations. P.o. Roxicodone for pain, IV Dilaudid for breakthrough. Now on SHIPPING SERVICES SALES REPRESENTATIVE pump wean off per surgeon As needed medications for constipation, currently having loose stools. //Cellulitis right posterior thigh Patient was recently discharged on 01/05 after being treated for cellulitis. Initially treated with IV antibiotics and then transitioned to p.o. Culture at that time was positive for MSSA with campa sensitivity Continue Levaquin 500 mg daily 10 days Prednisone taper, DC steroids //Hypokalemia- replaced. Monitor and replace as need. //Hyperglycemia related to stress and prednisone use. No history of diabetes A1c. Patient with elevated blood sugar hold he is feeling this time as patient is not able to have p.o. //DVT prophylaxis-SCDs Discharge Planning Discharge when cleared by colorectal surgery PT evaluation pending. Sonny Prakash MD January 12, 2018 15:22
--- NOTE | 2018-01-12 15:26 | HHI.FF ---
Face to Face Verification Diagnosis: (1) Cancer of anal canal (2) Rectal or anal pain Physical Therapy Order: Evaluate and Treat Home Health Nursing Order: Wound care and dressing changes Nursing assessment with vital signs Instructions: Colostomy care. Recent surgery. Please see surgical instructions Home Health Aide Order: To Assist In: Bathing and personal care Dining Car Conductor Order: To Evaluate: Support services Order: To Provide: Community services I have seen patient Kasey Hatch on 01/12/18. My clinical findings support the need for the requested home health care services because: Limited ability to care for self I certify that my clinical findings support that this patient is homebound because: Unsafe to leave home unassisted Sonny Prakash MD January 12, 2018 15:26
[2018-01-12 16:05] LABS: AUTOMATED NEUTROPHIL # 2.9 TH/MM3 (1.8-7.7); BASOPHIL % 0.8 % (0.0-2.0); EOSINOPHIL % 0.3 % (0.0-4.0); HEMATOCRIT 32.3 % (35.0-46.0); HEMOGLOBIN 11.1 GM/DL (11.6-15.3); LYMPH % 6.2 % (9.0-44.0); LYMPHOCYTE # 0.2 TH/MM3 (1.0-4.8); MEAN CELL VOLUME 92.2 FL (80.0-100.0); MEAN CORPUSCULAR HEMOGLOBIN 31.7 PG (27.0-34.0); MEAN CORPUSCULAR HGB CONC 34.4 % (32.0-36.0); MONO % 10.7 % (0.0-8.0); MONOCYTE # 0.4 TH/MM3 (0-0.9); PLATELET COUNT 194 TH/MM3 (150-450); RED CELL DISTRIBUTION WIDTH 16.9 % (11.6-17.2); WHITE BLOOD COUNT 3.6 TH/MM3 (4.0-11.0)
--- NOTE | 2018-01-12 16:39 | PD.WCN.NOT ---
Wound Consult Description: Consult for NEW OSTOMY TEACHING of stoma per Dr Newberry Communicated with: Kimi, CHAZ Patient Recommendation: Monitor stoma for color and moisture. Monitor stoma for output and empty pouch as needed. Additional Information: Patient seen on [facility] for ostomy assessment and teaching with appliance change using cut to fit wafer and open ended pouching system. Ostomy Type: Colostomy Surgeon: Ashish Newberry MD Date of Surgery: January 07, 2018 Complete: Starter kit (Verbal consent obtained), Education materials, Rx ( patient requests moldable wafer size 2 1/4" with closed ended pouches ), Other ( appliance to be changed tomorrow) Educated patient on: Changing appliance Color of stoma is concerning with black tissue noted (physician was Percy cevallos PA notified as well as Kimi, CHAZ) Stoma is functioning with ~300ml brown liquid effluent noted in pouch that was discarded with appliance change. Peristomal skin is unremarkable. Mucocutaneous junction is intact and noted with circumferential sutures. Stoma measures 1 1/4" by 1 1/2" oval. [employer] or [employer] will be able to provide her with moldable colostomy wafers and closed ended pouches. Additional information Appliance changed today. Stoma is ~80% black dry tissue and ~20% red tissue noted at base of stoma near the sutures/mucocutaneous junction that is noted with mucus covering it. Stoma is oval shaped. Cut to fit appliance was used today and demonstrated to patient. Patient gave verbal consent for starter kit to be sent. Patient was given 6 colostomy wafer and pouches to go home with until starter kit is delivered with her requested items. Betty Rodriguez [facility] January 12, 2018 16:39
[2018-01-12 16:45] LABS: ALKALINE PHOSPHATASE 101 U/L (45-117); ALT (GPT) 53 U/L (10-53); AST (GOT) 52 U/L (15-37); BLOOD UREA NITROGEN 6 MG/DL (7-18); CALCIUM 7.7 MG/DL (8.5-10.1); CREATININE 0.63 MG/DL (0.50-1.00); GLOMERULAR FILTRATION RATE 101 ML/MIN (>89); GLUCOSE,RANDOM 214 MG/DL (74-106); TOTAL PROTEIN 5.4 GM/DL (6.4-8.2)
[2018-01-12 16:46] LABS: BICARBONATE 28.1 MEQ/L (21.0-32.0); CHLORIDE 98 MEQ/L (98-107); SODIUM (NA) 134 MEQ/L (136-145); TOTAL BILIRUBIN ADULT 0.3 MG/DL (0.2-1.0)
[2018-01-12 16:59] LABS: BASOPHILS 1 % (0-2); LYMPHOCYTES 1 % (9-44); METAMYELOCYTES 2 % (0-1); MONOCYTES 2 % (0-8); NEUTROPHIL # MANUAL DIFF 3.5 TH/MM3 (1.8-7.7); POLYS (SEG NEUTROPHILS) 93 % (16-70); PROMYELOCYTES 1 % (0-0); TOXIC GRANULATION 1+ (NORMAL)
--- NOTE | 2018-01-12 21:10 | HHI.PR ---
Subjective Remarks C/R Surg POD #5 Temp 100, VSS UO good darryl PO +flatus/stool Objective - Vital Signs Date Time Temp Pulse Resp B/P (MAP) Pulse Ox O2 Delivery O2 Flow Rate FiO2 01/12/18 21:02 102.3 100 20 128/72 (90) 91 01/12/18 09:00 2.00 01/12/18 04:11 Room Air 01/12/18 01:51 21 Result Diagram: 01/12/18 1540 01/12/18 1540 Objective Remarks PE alert Abd - soft, min tympany, stoma dark, output good A/P Assessment and Plan Imp: liq diet darryl decompressed well with colostomy bar removed Ashish Meléndez MD January 12, 2018 21:10
[2018-01-12] MEDS: METRONIDAZOLE 500 MG/100 ML ISONTONIC SOLN IV SCH (22:54)
[2018-01-13] VITALS (15 sets, daily range): BP systolic 100–132; BP diastolic 50–72; PULSE 78–100; RESP 18; TEMP 98.2–100.2; O2SAT 90–98
[2018-01-13] MEDS: LEVOFLOXACIN 500 MG PREMIX INJ 100 ML IV SCH ×2 (00:37→23:00)
[2018-01-13] MEDS: RESP: ALBUTEROL 2.5 MG/3 ML NEB (SCH) INH ×5 (01:03→20:52)
[2018-01-13] MEDS: ACETAMIN 325 MG/BUTALBITAL 50 MG/CAFFEINE 40 MG TAB PO PRN ×2 (03:18→11:50)
[2018-01-13] MEDS: HYDROmorphone HCL PCA 6 MG/30 ML IV SCH ×4 (04:18→20:33)
[2018-01-13 05:57] LABS: BASOPHIL % 0.5 % (0.0-2.0); EOSINOPHIL % 0.4 % (0.0-4.0); HEMATOCRIT 29.7 % (35.0-46.0); HEMOGLOBIN 10.4 GM/DL (11.6-15.3); LYMPH % 7.2 % (9.0-44.0); LYMPHOCYTE # 0.3 TH/MM3 (1.0-4.8); MEAN CELL VOLUME 92.3 FL (80.0-100.0); MEAN CORPUSCULAR HEMOGLOBIN 32.3 PG (27.0-34.0); MEAN PLATELET VOLUME 7.5 FL (7.0-11.0); MONO % 11.5 % (0.0-8.0); MONOCYTE # 0.4 TH/MM3 (0-0.9); NEUT % 80.4 % (16.0-70.0); PLATELET COUNT 181 TH/MM3 (150-450); RED BLOOD COUNT 3.21 MIL/MM3 (4.00-5.30); WHITE BLOOD COUNT 3.8 TH/MM3 (4.0-11.0)
[2018-01-13] MEDS: METRONIDAZOLE 500 MG/100 ML ISONTONIC SOLN IV SCH ×3 (06:00→21:19)
[2018-01-13] MEDS: PCA - TOTAL MG DILAUDID DELIVERED PER SHIFT SCH ×3 (06:00→21:58)
[2018-01-13 06:41] LABS: ALBUMIN 1.8 GM/DL (3.4-5.0); ALKALINE PHOSPHATASE 80 U/L (45-117); ALT (GPT) 42 U/L (10-53); AST (GOT) 29 U/L (15-37); BICARBONATE 27.5 MEQ/L (21.0-32.0); BLOOD UREA NITROGEN 4 MG/DL (7-18); CALCIUM 7.5 MG/DL (8.5-10.1); CHLORIDE 101 MEQ/L (98-107); CREATININE 0.55 MG/DL (0.50-1.00); GLOMERULAR FILTRATION RATE 118 ML/MIN (>89); GLUCOSE,RANDOM 151 MG/DL (74-106); SODIUM (NA) 137 MEQ/L (136-145); TOTAL BILIRUBIN ADULT 0.2 MG/DL (0.2-1.0); TOTAL PROTEIN 5.1 GM/DL (6.4-8.2)
[2018-01-13] MEDS: ONDANSETRON HCL 4 MG/2 ML VIAL IV PUSH PRN ×2 (07:49→15:31)
[2018-01-13 08:31] LABS: BANDS 22 % (0-6); CORRECTED NUCLEATED RBC 2 /100 WBC (0-0); LYMPHOCYTES 5 % (9-44); METAMYELOCYTES 2 % (0-1); MONOCYTES 3 % (0-8); MYELOCYTES 2 % (0-0); NEUTROPHIL # MANUAL DIFF 3.5 TH/MM3 (1.8-7.7); NUCLEATED RED BLOOD CELL 2 (0-0); POLYS (SEG NEUTROPHILS) 65 % (16-70)
[2018-01-13 08:33] LABS: TOXIC GRANULATION 2+ (NORMAL)
[2018-01-13] MEDS: INSULIN ASPART SUPPLEMENTAL SCALE SQ SCH ×4 (08:42→20:35)
[2018-01-13] MEDS: PANTOPRAZOLE SODIUM 40 MG VIAL IVP SCH (08:55)
[2018-01-13] MEDS: AQUAPHOR OINT 50 GM TUBE TOPICAL SCH ×2 (08:56→20:35)
[2018-01-13] MEDS: NYSTAT/DIPHENHY/LIDO MOUTHWASH (Adult) 120ML SWISH-SWAL SCH ×4 (08:56→20:35)
[2018-01-13] MEDS: METOCLOPRAMIDE HCL 10 MG/2 ML VIAL IVS SCH ×2 (08:56→21:12)
[2018-01-13] MEDS: SODIUM CHLORIDE 0.9% FLUSH 10 ML FLUSH IV FLUSH SCH ×2 (08:56→21:00)
[2018-01-13] MEDS: predniSONE 20 MG TAB PO SCH (08:56)
[2018-01-13] MEDS: PANTOPRAZOLE SOD 40 MG DELAYED RELEASE TAB PO SCH (08:56)
[2018-01-13] MEDS ORDERED: POTASSIUM CHLORIDE 10 MEQ CONTROLLED RELEASE TAB PO ONE (10:00)
--- NOTE | 2018-01-13 10:02 | HHI.PR ---
Subjective Remarks No complaints except mouth pain. Wants mashed potatoes and gravy. No SOB. Receiving breathing treatments for atelectasis. Objective Vital Signs Date Time Temp Pulse Resp B/P (MAP) Pulse Ox O2 Delivery O2 Flow Rate FiO2 01/13/18 09:01 90 Room Air 01/13/18 08:53 18 01/13/18 08:45 99.4 100 18 103/56 (72) 91 01/13/18 08:13 96 21 01/13/18 07:00 85 01/13/18 06:00 16 01/13/18 04:28 98.2 85 109/64 (79) 94 01/13/18 04:18 16 01/13/18 03:15 98.2 92 18 123/72 (89) 93 01/13/18 01:12 98 Nasal Cannula 2.00 01/13/18 00:00 98.9 78 18 102/50 (67) 97 01/12/18 23:14 98.2 01/12/18 23:02 16 01/12/18 21:31 16 01/12/18 21:02 102.3 100 20 128/72 (90) 91 01/12/18 17:55 98.7 88 21 117/72 (87) 96 01/12/18 16:00 88 01/12/18 14:49 16 01/12/18 12:46 99.2 100 22 133/81 (98) 92 01/12/18 12:00 96 I/O 01/12/18 01/12/18 01/12/18 01/13/18 01/13/18 01/13/18 07:00 15:00 23:00 07:00 15:00 23:00 Intake Total 1000 ml 200 ml Output Total 300 ml 650 ml 1925 ml Balance -300 ml 350 ml -1725 ml IV Total 1000 ml 200 ml Output Urine Total 500 ml 1800 ml Stool Total 300 ml 150 ml 125 ml Result Diagram: 01/13/1841901/13/18419 Objective Remarks VS-S Temps down. Abd: obese,soft, stoma mucosa ischemic, stoma working I&O and labs-OK K+ 2.8 CxR shows atelectasis Assessment and Plan Assessment and Plan Stable-Stoma mucosa ischemic. Atelectasis likely cause of fever yesterday Plan: Advance diet and watch fevers. Continue respiratory therapy. Replete K+ Prieto Cantu MD January 13, 2018 10:02
[2018-01-13] MEDS: D5-NS + KCL 20 MEQ INJ 1,000 ML IV SCH (11:47)
[2018-01-13] MEDS ORDERED: POTASSIUM CHLORIDE 25 MEQ EFFERVESCENT TAB PO ONE (12:00)
[2018-01-13] MEDS: POTASSIUM CHLOR 10 MEQ PREMIX 100 ML IV SCH ×3 (12:39→16:35)
[2018-01-13] MEDS ORDERED: LIDOCAINE-PRILOCAIN 2.5% CREAM 5 GM TUBE TOPICAL PRN (13:00)
[2018-01-13] MEDS: CALCIUM CARBONATE 500 MG CHEWABLE TAB CHEW PRN (15:31)
--- NOTE | 2018-01-13 16:28 | HHI.PR ---
Subjective Remarks Patient says she is feeling all right. Denies any chest pain or shortness of breath. Denies nausea or vomiting. Reports abdominal pain under control. Objective Vital Signs Date Time Temp Pulse Resp B/P (MAP) Pulse Ox O2 Delivery O2 Flow Rate FiO2 01/13/18 15:25 99.5 81 18 100/65 (77) 91 01/13/18 14:13 18 01/13/18 12:43 98.4 01/13/18 11:51 90 Room Air 01/13/18 11:43 98.9 92 18 112/67 (82) 90 01/13/18 09:01 90 Room Air 01/13/18 08:53 18 01/13/18 08:45 99.4 100 18 103/56 (72) 91 01/13/18 08:13 96 21 01/13/18 07:00 85 01/13/18 06:00 16 01/13/18 04:28 98.2 85 109/64 (79) 94 01/13/18 04:18 16 01/13/18 03:15 98.2 92 18 123/72 (89) 93 01/13/18 01:12 98 Nasal Cannula 2.00 01/13/18 00:00 98.9 78 18 102/50 (67) 97 01/12/18 23:14 98.2 01/12/18 23:02 16 01/12/18 21:31 16 01/12/18 21:02 102.3 100 20 128/72 (90) 91 01/12/18 17:55 98.7 88 21 117/72 (87) 96 I/O 01/12/18 01/12/18 01/12/18 01/13/18 01/13/18 01/13/18 06:59 14:59 22:59 06:59 14:59 22:59 Intake Total 1000 ml 200 ml 100 ml Output Total 300 ml 650 ml 1925 ml Balance -300 ml 350 ml -1725 ml 100 ml IV Total 1000 ml 200 ml 100 ml Output Urine Total 500 ml 1800 ml Stool Total 300 ml 150 ml 125 ml Result Diagram: 01/13/18 0420 01/13/18 0420 Objective Remarks GENERAL: She is sitting up in bed. Appears comfortable. SKIN: Warm and dry. HEAD: Normocephalic. EYES: No scleral icterus. No injection or drainage. NECK: Supple, trachea midline. No JVD. CARDIOVASCULAR: Regular rate and rhythm without murmurs, gallops, or rubs. RESPIRATORY: Breath sounds equal bilaterally. No accessory muscle use. Stomatitis as before. Perioral ulcers with scabs. No surrounding erythema GASTROINTESTINAL: Abdomen soft, non-tender, nondistended. Colostomy without surrounding erythema or leakage per MUSCULOSKELETAL: No cyanosis, or edema. BACK: Nontender without obvious deformity. No CVA tenderness. A/P Assessment and Plan ====01/13/18 //Postop day 2 colostomy revision. Postsurgical management as per surgical service. Continue antibiotics as per surgical service. //Stomatitis. Likely secondary to chemotherapy, however may be herpes. Will check viral swab/culture. //Hypokalemia 2.8. Replace. Magnesium 1.7. Repeat labs tomorrow. //Fever 102 overnight. Chest x-ray with atelectasis. Incentive spirometry and Acapella ordered. Check urinalysis. No further fevers. Continue to monitor. 47-year-old female with past medical history significant for COPD, breast cancer , and rectal cancer who presents to the emergency department with complaints of stool coming out of her vagina. 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 Ordaz for medical oncology and Dr. Mejia for radiation oncology. //Rectovaginal fistula //Fecal incontinence //Ileus postsurgical CT of the abdomen and pelvis reviewed, hepatic stenosis with no acute findings in the abdomen or pelvis. + Stool from the vagina Patient afebrile, no tachycardia, stable blood pressure and O2 saturation. Leukopenia, WBCs 2.4, neutrophil count 80.4. BC x2 pending, lactic acid 1.8, UA with small amount of leukocyte esterase, culture not indicated. Consult colorectal surgery, patient known to Dr. Newberry, greatly appreciate assistance and recommendations. S/P diverting colostomy by Dr Newberry on 01/07/18. On [employer] pump patient says she is still with significant pain. KUB reviewed with poss ileus postsurgical Simethicone Add tums S/P colostomy revision by Dr Newberry 5/10 //Stage II anal cancer //Rectal pain Patient recently finished chemotherapy, still pending several treatments of radiation. Consult medical oncology, Dr. Ordaz for followup while patient is here, appreciate further recommendations. P.o. Roxicodone for pain, IV Dilaudid for breakthrough. Now on SHEET [employer] WORK[employer] pump wean off per surgeon As needed medications for constipation, currently having loose stools. //Cellulitis right posterior thigh Patient was recently discharged on 01/05 after being treated for cellulitis. Initially treated with IV antibiotics and then transitioned to p.o. Culture at that time was positive for MSSA with campa sensitivity Continue Levaquin 500 mg daily 10 days Prednisone taper, DC steroids = Continue with Levaquin at least until 01/17 or until required by surgical service. //Hypokalemia- replaced. Monitor and replace as need. //Hyperglycemia related to stress and prednisone use. No history of diabetes A1c. Patient with elevated blood sugar hold he is feeling this time as patient is not able to have p.o. //DVT prophylaxis-SCDs Discharge Planning Home with HH when cleared by colorectal surgery PT recommends home with hh. Sonny Prakash MD January 13, 2018 16:28
[2018-01-14] VITALS (16 sets, daily range): BP systolic 108–122; BP diastolic 62–79; PULSE 79–103; RESP 16–18; TEMP 98.1–102; O2SAT 88–95
[2018-01-14] MEDS: HYDROmorphone HCL PCA 6 MG/30 ML IV SCH ×3 (01:18→15:59)
[2018-01-14] MEDS: ACETAMIN 325 MG/BUTALBITAL 50 MG/CAFFEINE 40 MG TAB PO PRN (01:20)
[2018-01-14] MEDS: RESP: ALBUTEROL 2.5 MG/3 ML NEB (SCH) INH ×4 (03:52→21:56)
[2018-01-14] MEDS: PCA - TOTAL MG DILAUDID DELIVERED PER SHIFT SCH ×3 (05:47→21:40)
[2018-01-14] MEDS: METRONIDAZOLE 500 MG/100 ML ISONTONIC SOLN IV SCH ×3 (05:50→21:41)
[2018-01-14] MEDS: METOCLOPRAMIDE HCL 10 MG/2 ML VIAL IVS SCH ×2 (07:44→21:31)
[2018-01-14] MEDS: PANTOPRAZOLE SODIUM 40 MG VIAL IVP SCH (07:44)
[2018-01-14] MEDS: SODIUM CHLORIDE 0.9% FLUSH 10 ML FLUSH IV FLUSH SCH ×2 (07:45→21:30)
[2018-01-14 07:47] LABS: AUTOMATED NEUTROPHIL # 3.7 TH/MM3 (1.8-7.7); BASOPHIL % 0.7 % (0.0-2.0); EOSINOPHIL % 0.6 % (0.0-4.0); HEMATOCRIT 31.4 % (35.0-46.0); HEMOGLOBIN 10.8 GM/DL (11.6-15.3); LYMPH % 6.4 % (9.0-44.0); LYMPHOCYTE # 0.3 TH/MM3 (1.0-4.8); MEAN CELL VOLUME 92.1 FL (80.0-100.0); MEAN CORPUSCULAR HEMOGLOBIN 31.8 PG (27.0-34.0); MEAN CORPUSCULAR HGB CONC 34.5 % (32.0-36.0); MEAN PLATELET VOLUME 7.7 FL (7.0-11.0); MONO % 8.2 % (0.0-8.0); MONOCYTE # 0.4 TH/MM3 (0-0.9); NEUT % 84.1 % (16.0-70.0); PLATELET COUNT 229 TH/MM3 (150-450); RED BLOOD COUNT 3.41 MIL/MM3 (4.00-5.30); RED CELL DISTRIBUTION WIDTH 17.4 % (11.6-17.2); WHITE BLOOD COUNT 4.4 TH/MM3 (4.0-11.0)
[2018-01-14] MEDS: INSULIN ASPART SUPPLEMENTAL SCALE SQ SCH ×4 (08:00→21:40)
--- NOTE | 2018-01-14 08:07 | HHI.PR ---
Subjective Remarks Tolerating diet. C/O severe burning pain around stoma. Passing gas. Not much stool Objective Vital Signs Date Time Temp Pulse Resp B/P (MAP) Pulse Ox O2 Delivery O2 Flow Rate FiO2 01/14/18 07:42 18 01/14/18 07:41 98.5 98 18 122/62 (82) 88 01/14/18 07:19 94 21 01/14/18 05:47 16 01/14/18 05:30 98.1 79 16 116/65 (82) 92 01/14/18 04:33 Room Air 21 01/14/18 04:00 85 01/14/18 02:44 16 01/14/18 02:43 16 01/14/18 01:37 100.9 94 18 108/63 (78) 94 01/14/18 01:18 16 01/14/18 00:00 96 01/13/18 21:58 16 01/13/18 20:53 97 21 01/13/18 20:33 16 01/13/18 20:21 100.2 98 18 132/71 (91) 95 01/13/18 20:00 96 01/13/18 16:22 18 01/13/18 15:25 99.5 81 18 100/65 (77) 91 01/13/18 15:00 85 01/13/18 14:13 18 01/13/18 12:43 98.4 01/13/18 11:51 90 Room Air 01/13/18 11:43 98.9 92 18 112/67 (82) 90 01/13/18 11:00 93 01/13/18 09:01 90 Room Air 01/13/18 08:53 18 01/13/18 08:45 99.4 100 18 103/56 (72) 91 01/13/18 08:13 96 21 I/O 01/13/18 01/13/18 01/13/18 01/14/18 01/14/18 01/14/18 07:00 15:00 23:00 07:00 15:00 23:00 Intake Total 200 ml 100 ml 2180 ml 2020 ml Output Total 1925 ml 925 ml 1850 ml Balance -1725 ml 100 ml 1255 ml 170 ml Intake Oral 2180 ml 720 ml IV Total 200 ml 100 ml 1300 ml Output Urine Total 1800 ml 825 ml 1800 ml Stool Total 125 ml 100 ml 50 ml Result Diagram: 01/14/18 0540 01/13/18 0420 Objective Remarks VS-S Temps down. Abd: obese,soft, stoma mucosa ischemic especially superiorly. Red rubber removed. Digital exam done. Bowel wall intact I&O-OK CxR shows atelectasis Assessment and Plan Assessment and Plan Stable-Stoma mucosa ischemic. Red rubber removed Plan: Continue respiratory therapy. Stma care. May need revision.Replete K+ Prieto Cantu MD January 14, 2018 08:07
[2018-01-14] MEDS: NYSTAT/DIPHENHY/LIDO MOUTHWASH (Adult) 120ML SWISH-SWAL SCH ×4 (08:25→21:00)
[2018-01-14] MEDS: PANTOPRAZOLE SOD 40 MG DELAYED RELEASE TAB PO SCH (08:25)
[2018-01-14] MEDS: AQUAPHOR OINT 50 GM TUBE TOPICAL SCH ×2 (08:25→21:30)
[2018-01-14 08:39] LABS: ALBUMIN 1.9 GM/DL (3.4-5.0); BICARBONATE 24.7 MEQ/L (21.0-32.0); CREATININE 0.54 MG/DL (0.50-1.00); MAGNESIUM 1.6 MG/DL (1.5-2.5); PHOSPHORUS 2.4 MG/DL (2.5-4.9)
[2018-01-14 09:49] LABS: BILIRUBIN, URINE NEG (NEG); BLOOD, URINE NEG (NEG); GLUCOSE,URINE NEG (NEG); KETONE, URINE NEG (NEG); MUCUS URINE FEW /lpf (OCC); NITRITE,URINE NEG (NEG); SQUAMOUS EPITHELIAL CELL URINE 1 /hpf (0-5); URINE COLOR YELLOW (YELLW/STRAW); URINE LEUKOCYTE ESTERASE NEG (NEG)
[2018-01-14 11:11] LABS: BANDS 10 % (0-6); BASOPHILS 1 % (0-2); CORRECTED NUCLEATED RBC 1 /100 WBC (0-0); KERATOCYTES 1+ (NORMAL); LYMPHOCYTES 3 % (9-44); MONOCYTES 3 % (0-8); MYELOCYTES 1 % (0-0); NUCLEATED RED BLOOD CELL 1 (0-0); POLYS (SEG NEUTROPHILS) 81 % (16-70); TOXIC GRANULATION 2+ (NORMAL)
[2018-01-14] MEDS: SODIUM CHLOR 0.9% 1000 ML INJ 1,000 ML IV SCH (12:04)
--- NOTE | 2018-01-14 15:46 | HHI.PR ---
Subjective Remarks Patient says she is feeling all right. Denies any chest pain shortness of breath. Denies any nausea or vomiting. Objective Vital Signs Date Time Temp Pulse Resp B/P (MAP) Pulse Ox O2 Delivery O2 Flow Rate FiO2 01/14/18 15:00 98 01/14/18 13:42 18 01/14/18 11:38 98.6 89 18 111/70 (84) 92 01/14/18 11:00 100 01/14/18 08:25 92 Nasal Cannula 2.00 01/14/18 07:42 18 01/14/18 07:41 98.5 98 18 122/62 (82) 88 01/14/18 07:19 94 21 01/14/18 07:00 88 01/14/18 05:47 16 01/14/18 05:30 98.1 79 16 116/65 (82) 92 01/14/18 04:33 Room Air 21 01/14/18 04:00 85 01/14/18 02:44 16 01/14/18 02:43 16 01/14/18 01:37 100.9 94 18 108/63 (78) 94 01/14/18 01:18 16 01/14/18 00:00 96 01/13/18 21:58 16 01/13/18 20:53 97 21 01/13/18 20:33 16 01/13/18 20:21 100.2 98 18 132/71 (91) 95 01/13/18 20:00 96 01/13/18 16:22 18 I/O 01/13/18 01/13/18 01/13/18 01/14/18 01/14/18 01/14/18 07:00 15:00 23:00 07:00 15:00 23:00 Intake Total 200 ml 100 ml 2480 ml 2120 ml 800 ml Output Total 1925 ml 925 ml 1850 ml Balance -1725 ml 100 ml 1555 ml 270 ml 800 ml Intake Oral 2180 ml 720 ml IV Total 200 ml 100 ml 300 ml 1400 ml 800 ml Output Urine Total 1800 ml 825 ml 1800 ml Stool Total 125 ml 100 ml 50 ml Result Diagram: 01/14/18 0540 01/14/18 0540 Objective Remarks GENERAL: She is sitting up in bed. Appears comfortable. SKIN: Warm and dry. HEAD: Normocephalic. EYES: No scleral icterus. No injection or drainage. NECK: Supple, trachea midline. No JVD. CARDIOVASCULAR: Regular rate and rhythm without murmurs, gallops, or rubs. RESPIRATORY: Breath sounds equal bilaterally. No accessory muscle use. Stomatitis as before. Perioral ulcers with scabs. Appear to be improving. No surrounding erythema GASTROINTESTINAL: Abdomen soft, non-tender, nondistended. Colostomy without surrounding erythema or leakage per MUSCULOSKELETAL: No cyanosis, or edema. BACK: Nontender without obvious deformity. No CVA tenderness. A/P Assessment and Plan ====01/14/18 //Postop day3 colostomy revision. Postsurgical management as per surgical service. Continue antibiotics as per surgical service. //Perioral stomatitis. Likely secondary to chemotherapy, however may be herpes. Will check viral swab/culture. //Hypokalemia 3.3. Replace. Magnesium 1.6. Repeat labs tomorrow. //Fever 100.9 overnight. Continue incentive spirometry and Acapella ordered. Urinalysis does not appear infectious. Continue to monitor. 47-year-old female with past medical history significant for COPD, breast cancer , and rectal cancer who presents to the emergency department with complaints of stool coming out of her vagina. 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 Ordaz for medical oncology and Dr. Mejia for radiation oncology. //Rectovaginal fistula //Fecal incontinence //Ileus postsurgical CT of the abdomen and pelvis reviewed, hepatic stenosis with no acute findings in the abdomen or pelvis. + Stool from the vagina Patient afebrile, no tachycardia, stable blood pressure and O2 saturation. Leukopenia, WBCs 2.4, neutrophil count 80.4. BC x2 pending, lactic acid 1.8, UA with small amount of leukocyte esterase, culture not indicated. Consult colorectal surgery, patient known to Dr. Newberry, greatly appreciate assistance and recommendations. S/P diverting colostomy by Dr Newberry on 01/07/18. On STEAM GIGGER pump patient says she is still with significant pain. KUB reviewed with poss ileus postsurgical Simethicone Add tums S/P colostomy revision by Dr Newberry 01/11 //Stage II anal cancer //Rectal pain Patient recently finished chemotherapy, still pending several treatments of radiation. Consult medical oncology, Dr. Ordaz for followup while patient is here, appreciate further recommendations. P.o. Roxicodone for pain, IV Dilaudid for breakthrough. Now on STEAM GIGGER pump wean off per surgeon As needed medications for constipation, currently having loose stools. //Cellulitis right posterior thigh Patient was recently discharged on 01/05 after being treated for cellulitis. Initially treated with IV antibiotics and then transitioned to p.o. Culture at that time was positive for MSSA with campa sensitivity Continue Levaquin 500 mg daily 10 days Prednisone taper, DC steroids = Continue with Levaquin at least until 01/17 or until required by surgical service. //Hypokalemia- replaced. Monitor and replace as need. //Hyperglycemia related to stress and prednisone use. No history of diabetes A1c. Patient with elevated blood sugar hold he is feeling this time as patient is not able to have p.o. //DVT prophylaxis-SCDs Discharge Planning Home with HH when cleared by colorectal surgery PT recommends home with hh. Sonny Prakash MD January 14, 2018 15:46
[2018-01-14] MEDS ORDERED: POTASSIUM PHOSPHATE INJ 15 MMOL in SODIUM CHLORIDE 0.9% INJ 150 ML IV ONE (16:00)
[2018-01-14] MEDS: ONDANSETRON HCL 4 MG/2 ML VIAL IV PUSH PRN (16:07)
[2018-01-14] MEDS: ACETAMINOPHEN 325 MG TAB PO PRN ×2 (16:07→23:20)
[2018-01-14] MEDS: LEVOFLOXACIN 500 MG PREMIX INJ 100 ML IV SCH (23:11)
[2018-01-15] VITALS (14 sets, daily range): BP systolic 100–115; BP diastolic 64–72; PULSE 79–98; RESP 16–20; TEMP 98.1–99.6; O2SAT 92–95
[2018-01-15] MEDS: HYDROmorphone HCL PCA 6 MG/30 ML IV SCH ×3 (00:04→18:33)
[2018-01-15 01:43] LABS: AUTOMATED NEUTROPHIL # 3.2 TH/MM3 (1.8-7.7); BASOPHIL % 0.6 % (0.0-2.0); EOSINOPHIL % 0.6 % (0.0-4.0); HEMATOCRIT 29.8 % (35.0-46.0); HEMOGLOBIN 10.2 GM/DL (11.6-15.3); LYMPH % 5.8 % (9.0-44.0); LYMPHOCYTE # 0.2 TH/MM3 (1.0-4.8); MEAN CELL VOLUME 91.8 FL (80.0-100.0); MEAN CORPUSCULAR HEMOGLOBIN 31.5 PG (27.0-34.0); MEAN CORPUSCULAR HGB CONC 34.3 % (32.0-36.0); MEAN PLATELET VOLUME 7.4 FL (7.0-11.0); MONO % 6.7 % (0.0-8.0); MONOCYTE # 0.3 TH/MM3 (0-0.9); NEUT % 86.3 % (16.0-70.0); PLATELET COUNT 220 TH/MM3 (150-450); RED BLOOD COUNT 3.25 MIL/MM3 (4.00-5.30); RED CELL DISTRIBUTION WIDTH 17.4 % (11.6-17.2); WHITE BLOOD COUNT 3.7 TH/MM3 (4.0-11.0)
[2018-01-15 02:09] LABS: ALBUMIN 1.7 GM/DL (3.4-5.0); BICARBONATE 27.2 MEQ/L (21.0-32.0); CALCIUM 7.5 MG/DL (8.5-10.1); CREATININE 0.49 MG/DL (0.50-1.00); MAGNESIUM 1.5 MG/DL (1.5-2.5); PHOSPHORUS 2.5 MG/DL (2.5-4.9)
[2018-01-15] MEDS: RESP: ALBUTEROL 2.5 MG/3 ML NEB (SCH) INH ×4 (02:52→21:13)
[2018-01-15 04:20] LABS: BANDS 10 % (0-6); BASOPHILS 1 % (0-2); LYMPHOCYTES 7 % (9-44); METAMYELOCYTES 1 % (0-1); MONOCYTES 6 % (0-8); MYELOCYTES 1 % (0-0); NEUTROPHIL # MANUAL DIFF 3.2 TH/MM3 (1.8-7.7); POLYS (SEG NEUTROPHILS) 73 % (16-70); PROMYELOCYTES 1 % (0-0)
[2018-01-15 04:21] LABS: TOXIC GRANULATION 1+ (NORMAL)
[2018-01-15 04:22] LABS: POLYCHROMASIA 2.2 % (0.0-1.9)
[2018-01-15] MEDS: METRONIDAZOLE 500 MG/100 ML ISONTONIC SOLN IV SCH ×3 (05:50→22:38)
[2018-01-15] MEDS: PCA - TOTAL MG DILAUDID DELIVERED PER SHIFT SCH ×3 (05:50→22:52)
[2018-01-15] MEDS: INSULIN ASPART SUPPLEMENTAL SCALE SQ SCH ×4 (08:00→21:50)
[2018-01-15] MEDS: PANTOPRAZOLE SODIUM 40 MG VIAL IVP SCH (08:39)
[2018-01-15] MEDS: METOCLOPRAMIDE HCL 10 MG/2 ML VIAL IVS SCH ×2 (08:40→21:44)
[2018-01-15] MEDS: ACETAMIN 325 MG/BUTALBITAL 50 MG/CAFFEINE 40 MG TAB PO PRN (08:40)
[2018-01-15] MEDS: SODIUM CHLORIDE 0.9% FLUSH 10 ML FLUSH IV FLUSH SCH ×2 (08:41→21:44)
[2018-01-15] MEDS: AQUAPHOR OINT 50 GM TUBE TOPICAL SCH ×2 (09:00→21:00)
[2018-01-15] MEDS: NYSTAT/DIPHENHY/LIDO MOUTHWASH (Adult) 120ML SWISH-SWAL SCH ×4 (09:00→21:00)
[2018-01-15] MEDS: PANTOPRAZOLE SOD 40 MG DELAYED RELEASE TAB PO SCH (09:00)
[2018-01-15] MEDS: LORazepam 0.5 MG TAB PO PRN (10:31)
[2018-01-15] MEDS: SODIUM CHLOR 0.9% 1000 ML INJ 1,000 ML IV SCH ×2 (10:49→21:44)
--- NOTE | 2018-01-15 11:24 | PD.ONC.PN ---
Subjective Subjective Remarks T-max 102 last night Patient extremely anxious- reports she wants to either go home or Looking forward to see what Dr. Newberry has to say today about the stoma Has some diffuse pain across her lower back Objective Data Date Time Temp Pulse Resp B/P (MAP) Pulse Ox O2 Delivery O2 Flow Rate FiO2 01/15/18 10:00 94 01/15/18 09:51 98.3 89 18 111/64 (80) 94 01/15/18 05:50 16 01/15/18 04:10 99.6 86 18 113/70 (84) 92 01/15/18 04:01 86 01/15/18 00:08 90 01/15/18 00:04 18 01/14/18 23:13 102.0 97 18 115/68 (84) 92 01/14/18 21:56 95 21 01/14/18 21:40 16 01/14/18 21:29 99.1 01/14/18 20:11 81 01/14/18 20:00 Room Air 01/14/18 19:53 99.3 83 18 116/79 (91) 94 01/14/18 16:02 100.8 103 18 112/64 (80) 92 01/14/18 15:59 18 01/14/18 15:00 98 01/14/18 13:42 18 01/14/18 11:38 98.6 89 18 111/70 (84) 92 01/15/18 01/15/18 01/15/18 07:00 15:00 23:00 Intake Total 440 ml Output Total 1200 ml Balance -760 ml Result Diagram: 01/15/18 01301/15/18 013 Laboratory Results Laboratory Tests Test 01/15/18 01:30 01/15/18 10:05 White Blood Count 3.7 TH/MM3 Red Blood Count 3.25 MIL/MM3 Hemoglobin 10.2 GM/DL Hematocrit 29.8 % Mean Corpuscular Volume 91.8 FL Mean Corpuscular Hemoglobin 31.5 PG Mean Corpuscular Hemoglobin Concent 34.3 % Red Cell Distribution Width 17.4 % Platelet Count 220 TH/MM3 Mean Platelet Volume 7.4 FL Neutrophils (%) (Auto) 86.3 % Lymphocytes (%) (Auto) 5.8 % Monocytes (%) (Auto) 6.7 % Eosinophils (%) (Auto) 0.6 % Basophils (%) (Auto) 0.6 % Neutrophils # (Auto) 3.2 TH/MM3 Lymphocytes # (Auto) 0.2 TH/MM3 Monocytes # (Auto) 0.3 TH/MM3 Eosinophils # (Auto) 0.0 TH/MM3 Basophils # (Auto) 0.0 TH/MM3 CBC Comment AUTO DIFF Differential Total Cells Counted 100 Neutrophils % (Manual) 73 % Band Neutrophils % 10 % Lymphocytes % 7 % Monocytes % 6 % Basophils % 1 % Neutrophils # (Manual) 3.2 TH/MM3 Metamyelocytes 1 % Myelocytes 1 % Promyelocytes 1 % Differential Comment FINAL DIFF MANUAL Toxic Granulation 1+ Platelet Estimate NORMAL Platelet Morphology Comment NORMAL Polychromasia 2.2 % Blood Urea Nitrogen 3 MG/DL Creatinine 0.49 MG/DL Random Glucose 137 MG/DL Albumin 1.7 GM/DL Calcium Level 7.5 MG/DL Phosphorus Level 2.5 MG/DL Magnesium Level 1.5 MG/DL Sodium Level 139 MEQ/L Potassium Level 3.1 MEQ/L Chloride Level 103 MEQ/L Carbon Dioxide Level 27.2 MEQ/L Anion Gap 9 MEQ/L Estimat Glomerular Filtration Rate 135 ML/MIN Lactic Acid Level 1.4 mmol/L Culture Results Microbiology Date/Time Source Procedure Growth Status 01/15/18 01:30 Blood Other Aerobic Blood Culture Pending Received 01/15/18 01:30 Blood Other Anaerobic Blood Culture Pending Received 01/15/18 01:20 Blood Peripheral Aerobic Blood Culture Pending Received 01/15/18 01:20 Blood Peripheral Anaerobic Blood Culture Pending Received 01/13/18 16:45 Other Herpes Simplex Virus Culture Pending Received Administered Medications Medications (Trade) Dose Ordered Sig/David Route PRN Reason Start Time Stop Time Status Last Admin Dose Admin Sodium Chloride (NS Flush) 2 ml UNSCH PRN IV FLUSH FLUSH AFTER USING IV ACCESS 01/06/18 11:30 01/06/18 12:10 Sodium Chloride (NS Flush) 2 ml BID IV FLUSH 01/06/18 21:00 01/15/18 08:41 Multi-Ingredient Mouthwash/Gargle (Magic Mouthwash Adult Liq) 10 ml QID SWISH-SWAL 01/06/18 18:00 01/12/18 21:30 Acetaminophen/ Butalbital/ Caffeine (Fioricet 325-50-40) 1 tab Q6H PRN PO HEADACHE 01/06/18 17:45 01/15/18 08:40 Acetaminophen (Tylenol) 650 mg Q4H PRN PO TEMPERATURE > 100F 01/07/18 12:00 01/14/18 23:20 Pantoprazole Sodium (Protonix Inj) 40 mg DAILY IVP 01/08/18 09:00 01/15/18 08:39 Pantoprazole Sodium (Protonix) 40 mg DAILY PO 01/08/18 09:00 01/12/18 09:00 Metoclopramide HCl (Reglan Inj) 10 mg Q12HR IVS 01/07/18 21:00 01/15/18 08:40 Ondansetron HCl (Zofran Inj) 4 mg Q6H PRN IV PUSH NAUSEA 01/07/18 12:00 01/14/18 16:07 NEUROSCIENTIST Dosage Infused (Pha) 1 Q8HR .XX 01/07/18 22:00 01/15/18 05:50 Insulin Aspart (NovoLOG SUPPLEMENTAL SCALE) 1 ACHS SLIDING SCALE SQ 01/08/18 12:00 01/14/18 17:10 Hydromorphone HCl (Dilaudid NEUROSCIENTIST Inj) 6 mg UNSCH IV 01/08/18 14:30 01/15/18 08:58 Emollient Ointment (Aquaphor Oint) 1 applic Q12HR TOPICAL 01/09/18 09:00 01/15/18 09:00 Simethicone (Phazyme Chew) 125 mg Q8HR PRN PO gas 01/09/18 12:15 01/11/18 04:27 Calcium Carbonate (Tums Chew) 500 mg Q2H PRN CHEW dyspepsia 01/10/18 15:45 01/13/18 15:31 Levofloxacin/ Dextrose 100 ml @ 100 mls/hr Q24H IV 01/12/18 23:00 01/14/18 23:11 Metronidazole 100 ml @ 100 mls/hr Q8H IV 01/12/18 22:00 01/15/18 05:50 Albuterol Sulfate (Albuterol Neb) 2.5 mg Q6HR NEB INH 01/12/18 23:45 01/15/18 09:56 Sodium Chloride 1,000 ml @ 42 mls/hr [id number] IV 01/14/18 11:00 01/14/18 12:04 Lorazepam (Ativan) 0.5 mg Q12H PRN PO anxiety 01/15/18 09:45 01/15/18 10:31 Objective Remarks GENERAL: Middle aged female awake in bed. She appears anxious and uncomfortable SKIN: Warm and dry. Diffuse dry rash to trunk HEAD: Normocephalic. EYES: No injection or drainage. NECK: Supple, trachea midline. CARDIOVASCULAR: Regular rate and rhythm RESPIRATORY: Clear anteriorly. Patient unable to sit forward to listen posteriorly. GASTROINTESTINAL: Abdomen distended, hypoactive bowel sounds. Ostomy appears necrotic. EXTREMITIES: No cyanosis. No edema NEUROLOGICAL: Awake and alert. Moving all extremities. No obvious focal deficit. 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 Plan 1. Discussed with patient that she would need to be cleared from colorectal surgery prior to resuming radiation 2. Will trial patient on small dose Ativan for anxiety 3. Monitor blood cultures 4. Supportive care Attending Statement The exam, history, and the medical decision-making described in the above note were completed with the assistance of the mid-level provider. I reviewed and agree with the findings presented. I attest that I had a [id number] encounter with the patient on the same day, and personally performed and documented my assessment and findings in the medical record. Still has fever. Abdominal pain improved. Culture negative to date. Continue abx. Continue supportive care. Mona Saba January 15, 2018 11:24 Maicol Ordaz MD January 15, 2018 16:39
--- NOTE | 2018-01-15 12:54 | HHI.PR ---
Subjective Remarks Tolerating diet. Much less pain. Passing gas. Stooling Objective Vital Signs Date Time Temp Pulse Resp B/P (MAP) Pulse Ox O2 Delivery O2 Flow Rate FiO2 01/15/18 10:00 94 01/15/18 09:51 98.3 89 18 111/64 (80) 94 01/15/18 05:50 16 01/15/18 04:10 99.6 86 18 113/70 (84) 92 01/15/18 04:01 86 01/15/18 00:08 90 01/15/18 00:04 18 01/14/18 23:13 102.0 97 18 115/68 (84) 92 01/14/18 21:56 95 21 01/14/18 21:40 16 01/14/18 21:29 99.1 01/14/18 20:11 81 01/14/18 20:00 Room Air 01/14/18 19:53 99.3 83 18 116/79 (91) 94 01/14/18 16:02 100.8 103 18 112/64 (80) 92 01/14/18 15:59 18 01/14/18 15:00 98 01/14/18 13:42 18 I/O 01/14/18 01/14/18 01/14/18 01/15/18 01/15/18 01/15/18 07:00 15:00 23:00 07:00 15:00 23:00 Intake Total 2120 ml 800 ml 2855 ml 440 ml Output Total 1850 ml 2675 ml 1200 ml Balance 270 ml 800 ml 180 ml -760 ml Intake Oral 720 ml 2700 ml 240 ml IV Total 1400 ml 800 ml 155 ml 200 ml Output Urine Total 1800 ml 2550 ml 1200 ml Stool Total 50 ml 125 ml 0 ml Result Diagram: 01/15/18 01301/15/18 0130 Objective Remarks VS-S Temps down. Abd: obese,soft, stoma mucosa ischemic especially superiorly. Red rubber removed. Digital exam done. Bowel wall intact I&O-OK Assessment and Plan Assessment and Plan Stable-Stoma mucosa ischemic. Red rubber removed Plan: Stoma care. Discussed D/C with pt. She does not want to go home today. D/C anytime OK with me. F/U Dr Newberry 1 week. Will need [facility] for stoma teaching, care and supplies. Prieto Cantu MD January 15, 2018 12:54
--- NOTE | 2018-01-15 15:12 | HHI.PR ---
Subjective Remarks Patient again says she is feeling all right. Denies any chest pain or shortness of breath. Denies nausea vomiting. Objective Vital Signs Date Time Temp Pulse Resp B/P (MAP) Pulse Ox O2 Delivery O2 Flow Rate FiO2 01/15/18 14:00 16 01/15/18 12:53 98.1 80 17 100/67 (78) 92 01/15/18 10:00 94 01/15/18 09:51 98.3 89 18 111/64 (80) 94 01/15/18 05:50 16 01/15/18 04:10 99.6 86 18 113/70 (84) 92 01/15/18 04:01 86 01/15/18 00:08 90 01/15/18 00:04 18 01/14/18 23:13 102.0 97 18 115/68 (84) 92 01/14/18 21:56 95 21 01/14/18 21:40 16 01/14/18 21:29 99.1 01/14/18 20:11 81 01/14/18 20:00 Room Air 01/14/18 19:53 99.3 83 18 116/79 (91) 94 01/14/18 16:02 100.8 103 18 112/64 (80) 92 01/14/18 15:59 18 I/O 01/14/18 01/14/18 01/14/18 01/15/18 01/15/18 01/15/18 06:59 14:59 22:59 06:59 14:59 22:59 Intake Total 2020 ml 900 ml 2855 ml 440 ml Output Total 1850 ml 2675 ml 1200 ml Balance 170 ml 900 ml 180 ml -760 ml Intake Oral 720 ml 2700 ml 240 ml IV Total 1300 ml 900 ml 155 ml 200 ml Output Urine Total 1800 ml 2550 ml 1200 ml Stool Total 50 ml 125 ml 0 ml Result Diagram: 01/15/18 01301/15/18 013 Objective Remarks GENERAL: She is sitting up in bed. Appears comfortable. SKIN: Warm and dry. HEAD: Normocephalic. EYES: No scleral icterus. No injection or drainage. NECK: Supple, trachea midline. No JVD. CARDIOVASCULAR: Regular rate and rhythm without murmurs, gallops, or rubs. RESPIRATORY: Breath sounds equal bilaterally. No accessory muscle use. Stomatitis as before. Perioral ulcers with scabs. Much improved from several days ago. No surrounding erythema GASTROINTESTINAL: Abdomen soft, non-tender, nondistended. Colostomy without surrounding erythema or leakage. MUSCULOSKELETAL: No cyanosis, or edema. BACK: Nontender without obvious deformity. No CVA tenderness. A/P Assessment and Plan ====01/15/18 //Postop colostomy revision. Postsurgical management as per surgical service. Continue antibiotics as per surgical service. //Perioral stomatitis. Likely secondary to chemotherapy, however may be herpes. Herpes viral swab/culture pending. //Hypokalemia 3.1. Replace. Magnesium 1.5. Replace both. Repeat labs tomorrow //Fever 102 overnight. Blood cultures pending. Consult infectious disease. Lactate negative 47-year-old female with past medical history significant for COPD, breast cancer , and rectal cancer who presents to the emergency department with complaints of stool coming out of her vagina. 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 Ordaz for medical oncology and Dr. Mejia for radiation oncology. //Rectovaginal fistula //Fecal incontinence //Ileus postsurgical CT of the abdomen and pelvis reviewed, hepatic stenosis with no acute findings in the abdomen or pelvis. + Stool from the vagina Patient afebrile, no tachycardia, stable blood pressure and O2 saturation. Leukopenia, WBCs 2.4, neutrophil count 80.4. BC x2 pending, lactic acid 1.8, UA with small amount of leukocyte esterase, culture not indicated. Consult colorectal surgery, patient known to Dr. Newberry, greatly appreciate assistance and recommendations. S/P diverting colostomy by Dr Newberry on 01/07/18. On PHYSICS TUTOR pump patient says she is still with significant pain. KUB reviewed with poss ileus postsurgical Simethicone Add tums S/P colostomy revision by Dr Newberry 01/11 //Stage II anal cancer //Rectal pain Patient recently finished chemotherapy, still pending several treatments of radiation. Consult medical oncology, Dr. Ordaz for followup while patient is here, appreciate further recommendations. P.o. Roxicodone for pain, IV Dilaudid for breakthrough. Now on PHYSICS TUTOR pump wean off per surgeon As needed medications for constipation, currently having loose stools. //Cellulitis right posterior thigh Patient was recently discharged on 01/05 after being treated for cellulitis. Initially treated with IV antibiotics and then transitioned to p.o. Culture at that time was positive for MSSA with campa sensitivity Continue Levaquin 500 mg daily 10 days Prednisone taper, DC steroids = Continue with Levaquin at least until 01/17 or until required by surgical service. //Hypokalemia- replaced. Monitor and replace as need. //Hyperglycemia related to stress and prednisone use. No history of diabetes A1c. Patient with elevated blood sugar hold he is feeling this time as patient is not able to have p.o. //DVT prophylaxis-SCDs Discharge Planning Home with HH when cleared by colorectal surgery PT recommends home with hh. Sonny Prakash MD January 15, 2018 15:12
[2018-01-15] MEDS ORDERED: MAGNESIUM SULFATE 1 GM PREMIX 100 ML IV ONE (15:15)
[2018-01-15] MEDS ORDERED: POTASSIUM CHLORIDE 10 MEQ CONTROLLED RELEASE TAB PO ONE (15:15)
[2018-01-15] MEDS ORDERED: POTASSIUM CHLORIDE 25 MEQ EFFERVESCENT TAB PO ONE (15:45)
[2018-01-15] MEDS: POTASSIUM CHLOR 10 MEQ PREMIX 100 ML IV SCH ×4 (18:30→23:44)
[2018-01-15] MEDS ORDERED: Vancomycin Consult Pharmacy 1 EA OTHER SCH (19:45)
--- NOTE | 2018-01-15 20:08 | PD.ID.CON ---
History of Present Illness Service ID Consult Requested By Dr Prakash Reason for Consult fever Primary Care Physician Edwina Jaimes MD Diagnoses: History of Present Illness 47 F with recurrent anal ca sp colostomy on 01/08 after she presented with rectovaginal fistula and wsas diagnosed with tumor recurrence she developped fever 3 days ago up t 102 and was statrrted on flagyl+ levaquine She is afebrile today. WBC is dropping to 3700, but ANC is still good over 3200 Lymphs dropped really low into 200 (nl in Oct) HIV neg as of Oct 2017 This is pt's 2nd malignancy in 2 yrs ( L breast ca in 2014) Pt is co LLQ abd tenderness, pain Review of Systems Except as stated in HPI: all other systems reviewed are Neg Past Family Social History Allergies: Coded Allergies: No Known Allergies (Unverified , 01/06/18) Past Medical History Breast cancer Rectal cancer COPD Past Surgical History L Breast cancer status post lumpectomy Inguinal hernia repair Right upper chest port placement Active Ordered Medications Medications where reviewed in EMR Antibiotics Include: levaquine flagyl Family History Cardiac history Social History Tobacco: Reports that she has quit 1 yr ago Denies any alcohol use Used to smoke marijuana, none recently Physical Exam Vital Signs Vital Signs Date Time Temp Pulse Resp B/P (MAP) Pulse Ox O2 Delivery O2 Flow Rate FiO2 01/15/18 19:17 98.3 93 16 109/72 (84) 95 01/15/18 19:14 Room Air 01/15/18 18:33 16 01/15/18 16:00 88 01/15/18 14:00 16 01/15/18 12:53 98.1 80 17 100/67 (78) 92 01/15/18 12:00 98.4 79 20 100/67 (78) 92 01/15/18 12:00 98 01/15/18 10:00 94 01/15/18 09:51 98.3 89 18 111/64 (80) 94 01/15/18 08:00 90 01/15/18 05:50 16 01/15/18 04:10 99.6 86 18 113/70 (84) 92 01/15/18 04:01 86 01/15/18 00:08 90 01/15/18 00:04 18 01/14/18 23:13 102.0 97 18 115/68 (84) 92 01/14/18 21:56 95 21 01/14/18 21:40 16 01/14/18 21:29 99.1 01/14/18 20:11 81 Physical Exam CONSTITUTIONAL/GENERAL: This is an overweight female patient, in no apparent distress. TUBES/LINES/DRAINS: PORT in place R chest - site OK SKIN: No jaundice, rashes, or lesions. Skin temperature appropriate. Not diaphoretic. HEAD: Atraumatic. Normocephalic. EYES: Pupils equal and round and reactive. Extraocular motions intact. No scleral icterus. No injection or drainage. Fundi not examined. ENT: Hearing grossly normal. Nose without bleeding or purulent drainage. Throat without visible erythema, exudates, masses, Multiple clusteres crustered lesions lower lip L aspect and L nostril. NECK: Trachea midline. Supple, nontender. CARDIOVASCULAR: Regular rate and rhythm without murmurs, gallops, or rubs. No JVD. Peripheral pulses symmetric. RESPIRATORY/CHEST: Symmetric, unlabored respirations. Clear to auscultation. Breath sounds equal bilaterally. No wheezes, rales, or rhonchi. GASTROINTESTINAL: Abdomen soft, quite tender in LLQ , + moderatelyy distended. Colostomy in place with brown semi formed stool No hepato-splenomegaly, or palpable masses. No guarding. Bowel sounds present. GENITOURINARY: Without palpable bladder distension. Man catheter in place. Skin changes in perineal area, buttocks cw XRT MUSCULOSKELETAL: Extremities without clubbing, cyanosis, or edema. No joint tenderness or effusion noted. No calf tenderness. No mottling or clubbing. LYMPHATICS: No palpable cervical or supraclavicular adenopathy. NEUROLOGICAL: Awake and alert. Motor and sensory grossly within normal limits. Follows commands. Cognitively sharp. Moves all extremities. PSYCHIATRIC: No obvious anxiety/depression. no apparent hallucinations or other psychotic thought process. Frustrated Laboratory Laboratory Tests Test 01/15/18 01:30 01/15/18 10:05 White Blood Count 3.7 Red Blood Count 3.25 Hemoglobin 10.2 Hematocrit 29.8 Mean Corpuscular Volume 91.8 Mean Corpuscular Hemoglobin 31.5 Mean Corpuscular Hemoglobin Concent 34.3 Red Cell Distribution Width 17.4 Platelet Count 220 Mean Platelet Volume 7.4 Neutrophils (%) (Auto) 86.3 Lymphocytes (%) (Auto) 5.8 Monocytes (%) (Auto) 6.7 Eosinophils (%) (Auto) 0.6 Basophils (%) (Auto) 0.6 Neutrophils # (Auto) 3.2 Lymphocytes # (Auto) 0.2 Monocytes # (Auto) 0.3 Eosinophils # (Auto) 0.0 Basophils # (Auto) 0.0 CBC Comment AUTO DIFF Differential Total Cells Counted 100 Neutrophils % (Manual) 73 Band Neutrophils % 10 Lymphocytes % 7 Monocytes % 6 Basophils % 1 Neutrophils # (Manual) 3.2 Metamyelocytes 1 Myelocytes 1 Promyelocytes 1 Differential Comment FINAL DIFF MANUAL Toxic Granulation 1+ Platelet Estimate NORMAL Platelet Morphology Comment NORMAL Polychromasia 2.2 Blood Urea Nitrogen 3 Creatinine 0.49 Random Glucose 137 Albumin 1.7 Calcium Level 7.5 Phosphorus Level 2.5 Magnesium Level 1.5 Sodium Level 139 Potassium Level 3.1 Chloride Level 103 Carbon Dioxide Level 27.2 Anion Gap 9 Estimat Glomerular Filtration Rate 135 Lactic Acid Level 1.4 Date/Time Source Procedure Growth Status 01/15/18 01:30 Blood Other Aerobic Blood Culture Pending Received 01/15/18 01:30 Blood Other Anaerobic Blood Culture Pending Received 01/13/18 16:45 Other Herpes Simplex Virus Culture Pending Received Result Diagram: 01/15/18 0130 01/15/18 0130 Imaging Last Impressions Chest X-Ray 01/12/18 0000 Signed Impressions: Service Date/Time: Friday, January 12, 2018 09:17 - CONCLUSION: Mild left base atelectasis Prieto Weeks MD Abdomen X-Ray 01/09/18 0000 Signed Impressions: Service Date/Time: Tuesday, January 09, 2018 15:09 - CONCLUSION: 1. Gaseous distention of bowel, probable ileus. Right colon distended up to 11 cm. Asad Mccann MD Abdomen/Pelvis CT 01/06/18 1126 Signed Impressions: Service Date/Time: Saturday, January 06, 2018 13:54 - CONCLUSION: Hepatic steatosis. No acute findings in the abdomen and pelvis. Tomas Ross MD Assessment and Plan Assessment and Plan Fever - intraabd vs PORT Immunosuppressed Anal ca with rectovag fistula Sp colostomy 1 week ago Herpes labialis - per pt ist improving zosyn vanco micafungin acyclovir if new lesions sill consider CT A/P if persistemnt/worsenong pain and/ore ow unexplained fever Meenakshi Wellington MD January 15, 2018 20:08
--- NOTE | 2018-01-15 20:10 | HHI.PR ---
Addendum to Inpatient Note Additional Information pt seen around 1900 today full note to follow Meenakshi Wellington MD January 15, 2018 20:10
[2018-01-15] MEDS: MICAFUNGIN INJ 150 MG in SODIUM CHLORIDE 0.9% INJ 100 ML IV SCH (20:49)
[2018-01-15] MEDS: PIPERACIL-TAZO 4.5 GM PREMIX 100 ML IV SCH (21:44)
[2018-01-15] MEDS: SIMETHICONE 125 MG CHEWABLE TAB PO PRN (21:51)
[2018-01-15] MEDS: VANCOMYCIN INJ 1,250 MG in SODIUM CHLOR 0.9% 250 ML INJ 250 ML IV SCH (23:31)
[2018-01-16] VITALS (12 sets, daily range): BP systolic 100–119; BP diastolic 64–76; PULSE 84–105; RESP 16–22; TEMP 98.2–99.5; O2SAT 89–95
[2018-01-16] MEDS: POTASSIUM CHLOR 10 MEQ PREMIX 100 ML IV SCH ×2 (00:53→02:17)
[2018-01-16] MEDS: RESP: ALBUTEROL 2.5 MG/3 ML NEB (SCH) INH ×4 (03:16→19:48)
[2018-01-16] MEDS: PIPERACIL-TAZO 4.5 GM PREMIX 100 ML IV SCH ×4 (03:35→19:48)
[2018-01-16] MEDS: HYDROmorphone HCL PCA 6 MG/30 ML IV SCH ×3 (04:14→19:42)
[2018-01-16] MEDS: METRONIDAZOLE 500 MG/100 ML ISONTONIC SOLN IV SCH ×3 (05:42→21:58)
[2018-01-16] MEDS: VANCOMYCIN INJ 1,250 MG in SODIUM CHLOR 0.9% 250 ML INJ 250 ML IV SCH ×3 (05:43→21:58)
[2018-01-16] MEDS: ONDANSETRON HCL 4 MG/2 ML VIAL IV PUSH PRN (05:50)
[2018-01-16] MEDS: PCA - TOTAL MG DILAUDID DELIVERED PER SHIFT SCH ×3 (06:00→22:00)
[2018-01-16 06:28] LABS: AUTOMATED NEUTROPHIL # 4.2 TH/MM3 (1.8-7.7); BASOPHIL % 0.8 % (0.0-2.0); EOSINOPHIL % 0.6 % (0.0-4.0); HEMATOCRIT 30.7 % (35.0-46.0); HEMOGLOBIN 10.5 GM/DL (11.6-15.3); LYMPH % 5.3 % (9.0-44.0); LYMPHOCYTE # 0.3 TH/MM3 (1.0-4.8); MEAN CELL VOLUME 92.8 FL (80.0-100.0); MEAN CORPUSCULAR HEMOGLOBIN 31.6 PG (27.0-34.0); MEAN CORPUSCULAR HGB CONC 34.1 % (32.0-36.0); MEAN PLATELET VOLUME 7.6 FL (7.0-11.0); MONO % 6.1 % (0.0-8.0); MONOCYTE # 0.3 TH/MM3 (0-0.9); NEUT % 87.2 % (16.0-70.0); PLATELET COUNT 260 TH/MM3 (150-450); RED BLOOD COUNT 3.31 MIL/MM3 (4.00-5.30); RED CELL DISTRIBUTION WIDTH 17.6 % (11.6-17.2); WHITE BLOOD COUNT 4.9 TH/MM3 (4.0-11.0)
[2018-01-16 07:42] LABS: ALBUMIN 1.8 GM/DL (3.4-5.0); CALCIUM 7.9 MG/DL (8.5-10.1); CREATININE 0.49 MG/DL (0.50-1.00); MAGNESIUM 1.9 MG/DL (1.5-2.5); PHOSPHORUS 3.3 MG/DL (2.5-4.9)
[2018-01-16] MEDS: INSULIN ASPART SUPPLEMENTAL SCALE SQ SCH ×4 (08:00→19:51)
[2018-01-16] MEDS: PANTOPRAZOLE SODIUM 40 MG VIAL IVP SCH (08:15)
[2018-01-16] MEDS: METOCLOPRAMIDE HCL 10 MG/2 ML VIAL IVS SCH ×2 (08:17→19:48)
[2018-01-16] MEDS: MAGNESIUM OXIDE 400 MG TAB PO SCH (08:20)
[2018-01-16] MEDS: SODIUM CHLORIDE 0.9% FLUSH 10 ML FLUSH IV FLUSH SCH ×2 (08:21→19:51)
[2018-01-16] MEDS: PANTOPRAZOLE SOD 40 MG DELAYED RELEASE TAB PO SCH (09:00)
[2018-01-16] MEDS: NYSTAT/DIPHENHY/LIDO MOUTHWASH (Adult) 120ML SWISH-SWAL SCH ×4 (09:00→19:51)
[2018-01-16 09:10] LABS: BANDS 17 % (0-6); CORRECTED NUCLEATED RBC 1 /100 WBC (0-0); LYMPHOCYTES 1 % (9-44); METAMYELOCYTES 2 % (0-1); MONOCYTES 2 % (0-8); MYELOCYTES 4 % (0-0); NEUTROPHIL # MANUAL DIFF 4.8 TH/MM3 (1.8-7.7); NUCLEATED RED BLOOD CELL 1 (0-0); POLYS (SEG NEUTROPHILS) 74 % (16-70)
[2018-01-16 09:11] LABS: TOXIC GRANULATION 1+ (NORMAL)
[2018-01-16] MEDS: AQUAPHOR OINT 50 GM TUBE TOPICAL SCH ×2 (09:23→19:49)
--- NOTE | 2018-01-16 10:37 | PD.ONC.PN ---
Subjective Subjective Remarks Afebrile overnight. Patient states she continues to have gas pains, which improve when she passes gas through her stoma. She is otherwise comfortable and without complaints. Objective Data Date Time Temp Pulse Resp B/P (MAP) Pulse Ox O2 Delivery O2 Flow Rate FiO2 01/16/18 09:48 16 01/16/18 09:13 95 Nasal Cannula 3.00 01/16/18 08:08 99.1 84 18 100/64 (76) 94 01/16/18 06:00 18 01/16/18 04:52 16 01/16/18 04:15 84 01/16/18 04:14 20 01/16/18 03:58 98.2 88 110/69 (83) 95 01/16/18 00:03 90 01/15/18 23:45 98.8 89 18 115/71 (86) 93 01/15/18 22:52 18 01/15/18 21:13 92 Nasal Cannula 3.00 01/15/18 20:12 96 01/15/18 19:17 98.3 93 16 109/72 (84) 95 01/15/18 19:14 Room Air 01/15/18 18:33 16 01/15/18 16:00 88 01/15/18 14:00 16 01/15/18 12:53 98.1 80 17 100/67 (78) 92 01/15/18 12:00 98.4 79 20 100/67 (78) 92 01/15/18 12:00 98 01/16/18 01/16/18 01/16/18 07:00 15:00 23:00 Intake Total 240 ml Output Total 1200 ml Balance -960 ml Result Diagram: 01/16/18 0600 01/16/18 0600 Laboratory Results Laboratory Tests Test 01/16/18 06:00 White Blood Count 4.9 TH/MM3 Red Blood Count 3.31 MIL/MM3 Hemoglobin 10.5 GM/DL Hematocrit 30.7 % Mean Corpuscular Volume 92.8 FL Mean Corpuscular Hemoglobin 31.6 PG Mean Corpuscular Hemoglobin Concent 34.1 % Red Cell Distribution Width 17.6 % Platelet Count 260 TH/MM3 Mean Platelet Volume 7.6 FL Neutrophils (%) (Auto) 87.2 % Lymphocytes (%) (Auto) 5.3 % Monocytes (%) (Auto) 6.1 % Eosinophils (%) (Auto) 0.6 % Basophils (%) (Auto) 0.8 % Neutrophils # (Auto) 4.2 TH/MM3 Lymphocytes # (Auto) 0.3 TH/MM3 Monocytes # (Auto) 0.3 TH/MM3 Eosinophils # (Auto) 0.0 TH/MM3 Basophils # (Auto) 0.0 TH/MM3 CBC Comment AUTO DIFF Differential Total Cells Counted 100 Neutrophils % (Manual) 74 % Band Neutrophils % 17 % Lymphocytes % 1 % Monocytes % 2 % Neutrophils # (Manual) 4.8 TH/MM3 Metamyelocytes 2 % Myelocytes 4 % Nucleated Red Blood Cells 1 /100 WBC Differential Comment FINAL DIFF MANUAL Toxic Granulation 1+ Platelet Estimate NORMAL Platelet Morphology Comment NORMAL Blood Urea Nitrogen 4 MG/DL Creatinine 0.49 MG/DL Random Glucose 106 MG/DL Albumin 1.8 GM/DL Calcium Level 7.9 MG/DL Phosphorus Level 3.3 MG/DL Magnesium Level 1.9 MG/DL Sodium Level 139 MEQ/L Potassium Level 3.8 MEQ/L Chloride Level 103 MEQ/L Carbon Dioxide Level 27.0 MEQ/L Anion Gap 9 MEQ/L Estimat Glomerular Filtration Rate 135 ML/MIN Culture Results Microbiology Date/Time Source Procedure Growth Status 01/15/18 01:30 Blood Other Aerobic Blood Culture Pending Received 01/15/18 01:30 Blood Other Anaerobic Blood Culture Pending Received 01/15/18 01:20 Blood Peripheral Aerobic Blood Culture Pending Received 01/15/18 01:20 Blood Peripheral Anaerobic Blood Culture Pending Received 01/13/18 16:45 Other Herpes Simplex Virus Culture Pending Received Administered Medications Medications (Trade) Dose Ordered Sig/David Route PRN Reason Start Time Stop Time Status Last Admin Dose Admin Sodium Chloride (NS Flush) 2 ml UNSCH PRN IV FLUSH FLUSH AFTER USING IV ACCESS 01/06/18 11:30 01/06/18 12:10 Sodium Chloride (NS Flush) 2 ml BID IV FLUSH 01/06/18 21:00 01/16/18 08:21 Multi-Ingredient Mouthwash/Gargle (Magic Mouthwash Adult Liq) 10 ml QID SWISH-SWAL 01/06/18 18:00 01/12/18 21:30 Acetaminophen/ Butalbital/ Caffeine (Fioricet 325-50-40) 1 tab Q6H PRN PO HEADACHE 01/06/18 17:45 01/15/18 08:40 Acetaminophen (Tylenol) 650 mg Q4H PRN PO TEMPERATURE > 100F 01/07/18 12:00 01/14/18 23:20 Pantoprazole Sodium (Protonix Inj) 40 mg DAILY IVP 01/08/18 09:00 01/16/18 08:15 Pantoprazole Sodium (Protonix) 40 mg DAILY PO 01/08/18 09:00 01/12/18 09:00 Metoclopramide HCl (Reglan Inj) 10 mg Q12HR IVS 01/07/18 21:00 01/16/18 08:17 Ondansetron HCl (Zofran Inj) 4 mg Q6H PRN IV PUSH NAUSEA 01/07/18 12:00 01/16/18 05:50 CASING TRIMMER Dosage Infused (Pha) 1 Q8HR .XX 01/07/18 22:00 01/16/18 06:00 Insulin Aspart (NovoLOG SUPPLEMENTAL SCALE) 1 ACHS SLIDING SCALE SQ 01/08/18 12:00 01/15/18 21:50 Hydromorphone HCl (Dilaudid CASING TRIMMER Inj) 6 mg UNSCH IV 01/08/18 14:30 01/16/18 09:48 Emollient Ointment (Aquaphor Oint) 1 applic Q12HR TOPICAL 01/09/18 09:00 01/16/18 09:23 Simethicone (Phazyme Chew) 125 mg Q8HR PRN PO gas 01/09/18 12:15 01/15/18 21:51 Calcium Carbonate (Tums Chew) 500 mg Q2H PRN CHEW dyspepsia 01/10/18 15:45 01/13/18 15:31 Metronidazole 100 ml @ 100 mls/hr Q8H IV 01/12/18 22:00 01/16/18 05:42 Albuterol Sulfate (Albuterol Neb) 2.5 mg Q6HR NEB INH 01/12/18 23:45 01/16/18 09:10 Sodium Chloride 1,000 ml @ 42 mls/hr [id number] IV 01/14/18 11:00 01/15/18 21:44 Lorazepam (Ativan) 0.5 mg Q12H PRN PO anxiety 01/15/18 09:45 01/15/18 10:31 Magnesium Oxide (Mag-Ox) 400 mg DAILY PO 01/16/18 09:00 01/16/18 08:20 Piperacillin Sod/ Tazobactam Sod 100 ml @ 200 mls/hr Q6H IV 01/15/18 21:00 01/16/18 08:22 Micafungin Sodium 150 mg/Sodium Chloride 100 ml @ 100 mls/hr Q24H IV 01/15/18 20:00 01/15/18 20:49 Vancomycin HCl 1250 mg/Sodium Chloride 262.5 ml @ 250 mls/hr Q8H IV 01/15/18 22:00 01/16/18 05:43 Objective Remarks GENERAL: Middle aged female, upright in bed in nad. SKIN: Warm and dry. HEAD: Normocephalic. EYES: No injection or drainage. NECK: Supple, trachea midline. CARDIOVASCULAR: Regular rate and rhythm RESPIRATORY: Breath sounds equal bilaterally. No accessory muscle use. GASTROINTESTINAL: Abdomen soft, mildly tender. +colostomy with soft brown stool. EXTREMITIES: No cyanosis NEUROLOGICAL: awake and alert. normal speech. 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 Plan 1. continue radiation today 2. continue pain management. 3. continue antibiotics per ID 4. follow up in clinic once cleared by all specialties. Attending Statement The exam, history, and the medical decision-making described in the above note were completed with the assistance of the mid-level provider. I reviewed and agree with the findings presented. I attest that I had a [id number] encounter with the patient on the same day, and personally performed and documented my assessment and findings in the medical record. Patient restarted XRT yesterday. She passed small amount of mucus thru her vagina this am. Abdominal pain has improved. Continue supportive care. Chela Greer January 16, 2018 10:37 Maicol Ordaz MD January 16, 2018 12:00
[2018-01-16] MEDS: LORazepam 0.5 MG TAB PO PRN ×2 (10:44→21:51)
--- NOTE | 2018-01-16 12:18 | PD.WCN.NOT ---
Wound Consult Description: Consult for NEW OSTOMY TEACHING of stoma per Dr Newberry Communicated with: CHAZ Bolden Patient Recommendation: Monitor stoma for color and moisture. Monitor stoma for output and empty pouch as needed. Additional Information: Patient seen on [facility] for ostomy assessment, teaching, and pouching system change. Ostomy Type: Colostomy Surgeon: Ashish Newberry MD Date of Surgery: January 07, 2018 Complete: Starter kit (Starter kit sent out ), Education materials (in patient room), Rx (patient requests moldable wafer size 2 1/4" with closed ended pouches ), Other (appliance changed today) Educated patient on: Peristomal skin care Changing wafer and pouch every 5-7 days and PRN when leaking Measuring stoma When to empty pouch How to fill in gaps of abdominal creases Color of stoma Sutures will dissolve How to obtain supplies after discharge Additional information Stoma is located on the left abdomen with a leaking wafer. Colostomy is oval, moderately protruding, moist with mucus, functioning with brown stool from lumen noted at 7 o'clock, and ~80% salguero sloughing tissue and ~20% pink moist tissue near the base and mucocutaneous junction is intact with circumferential sutures. Peristomal skin is unremarkable however there is an indention noted that may be the source of leaking wafer @3o'clock. Peristomal skin was cleansed with water and soft cloths, pat dry, measured 1 1/4" tall and 1 3/4" wide. Cavilon skin barrier film sprayed on peristomal skin and allowed to air dry. An Hudson seal was cut and placed in the groove @ 3o'clock on the peristomal skin. 2 1/4" wafer cut to fit stoma and placed by patient with low pressure adaptor for easy attachment of pouch. Patient had questions that were answered at that time. Patient has 5 ostomy appliances in room with more ordered today for patient to go home with at discharge. Betty Rodriguez [facility] January 16, 2018 12:18
--- NOTE | 2018-01-16 15:22 | HHI.PR ---
Subjective Remarks Tolerating diet. Much less pain. Passing gas. Stooling. Had fever again. Down now. Objective Vital Signs Date Time Temp Pulse Resp B/P (MAP) Pulse Ox O2 Delivery O2 Flow Rate FiO2 01/16/18 12:00 97 01/16/18 11:54 99.5 105 22 112/72 (85) 90 01/16/18 09:48 16 01/16/18 09:13 95 Nasal Cannula 3.00 01/16/18 08:08 99.1 84 18 100/64 (76) 94 01/16/18 08:00 84 01/16/18 06:00 18 01/16/18 04:52 16 01/16/18 04:15 84 01/16/18 04:14 20 01/16/18 03:58 98.2 88 110/69 (83) 95 01/16/18 00:03 90 01/15/18 23:45 98.8 89 18 115/71 (86) 93 01/15/18 22:52 18 01/15/18 21:13 92 Nasal Cannula 3.00 01/15/18 20:12 96 01/15/18 19:17 98.3 93 16 109/72 (84) 95 01/15/18 19:14 Room Air 01/15/18 18:33 16 01/15/18 16:00 88 I/O 01/15/18 01/15/18 01/15/18 01/16/18 01/16/18 01/16/18 07:00 15:00 23:00 07:00 15:00 23:00 Intake Total 440 ml 240 ml Output Total 1200 ml 750 ml 1200 ml Balance -760 ml -750 ml -960 ml Intake Oral 240 ml 240 ml IV Total 200 ml Output Urine Total 1200 ml 700 ml 1200 ml Stool Total 0 ml 50 ml # Voids 5 Result Diagram: 01/16/18 0600 01/16/18 0600 Objective Remarks VS-S Temps down. Abd: obese,soft, stoma mucosa ischemic especially superiorly. I&O-OK Assessment and Plan Assessment and Plan Stable-Stoma mucosa ischemic.Fevers likely due to rectovaginal fistula as well as atelestasis Plan: Stoma care.OK to stop antibiotics from CRS standpoint. D/C anytime OK with me. F/U Dr Newberry 1 week. Will need [facility] for stoma teaching,care and supplies. Prieto Cantu MD January 16, 2018 15:22
--- NOTE | 2018-01-16 15:23 | HHI.PR ---
Subjective Remarks Patient says she is feeling well. Denies any chest pain or shortness of breath. Denies nausea or vomiting. Feels like going home maybe tomorrow. Objective Vital Signs Date Time Temp Pulse Resp B/P (MAP) Pulse Ox O2 Delivery O2 Flow Rate FiO2 01/16/18 12:00 97 01/16/18 11:54 99.5 105 22 112/72 (85) 90 01/16/18 09:48 16 01/16/18 09:13 95 Nasal Cannula 3.00 01/16/18 08:08 99.1 84 18 100/64 (76) 94 01/16/18 08:00 84 01/16/18 06:00 18 01/16/18 04:52 16 01/16/18 04:15 84 01/16/18 04:14 20 01/16/18 03:58 98.2 88 110/69 (83) 95 01/16/18 00:03 90 01/15/18 23:45 98.8 89 18 115/71 (86) 93 01/15/18 22:52 18 01/15/18 21:13 92 Nasal Cannula 3.00 01/15/18 20:12 96 01/15/18 19:17 98.3 93 16 109/72 (84) 95 01/15/18 19:14 Room Air 01/15/18 18:33 16 01/15/18 16:00 88 I/O 01/15/18 01/15/18 01/15/18 01/16/18 01/16/18 01/16/18 06:59 14:59 22:59 06:59 14:59 22:59 Intake Total 440 ml 240 ml Output Total 1200 ml 750 ml 1200 ml Balance -760 ml -750 ml -960 ml Intake Oral 240 ml 240 ml IV Total 200 ml Output Urine Total 1200 ml 700 ml 1200 ml Stool Total 0 ml 50 ml # Voids 5 Result Diagram: 01/16/18 0600 01/16/18 0600 Objective Remarks GENERAL: She is sitting up in bed. Appears comfortable. SKIN: Warm and dry. HEAD: Normocephalic. EYES: No scleral icterus. No injection or drainage. NECK: Supple, trachea midline. No JVD. CARDIOVASCULAR: Regular rate and rhythm without murmurs, gallops, or rubs. RESPIRATORY: Breath sounds equal bilaterally. No accessory muscle use. Stomatitis as before. Perioral ulcers with scabs. continues improving. No surrounding erythema GASTROINTESTINAL: Abdomen soft, non-tender, nondistended. Colostomy without surrounding erythema or leakage. MUSCULOSKELETAL: No cyanosis, or edema. BACK: Nontender without obvious deformity. No CVA tenderness. A/P Assessment and Plan ====01/16/18 //Postop colostomy revision. Postsurgical management as per surgical service. Patient cleared by colorectal surgery for discharge.. //Perioral stomatitis. Likely secondary to chemotherapy, however may be herpes. Herpes viral swab/culture pending. //Hypokalemia 3.1. Replace. Magnesium 1.5. Replace both. Repeat labs tomorrow //Fevers. No fevers in the past 24 hours. Continue on antibiotics and antifungals as per infectious disease. Blood cultures continue negative. Appreciate infectious disease assistance. 47-year-old female with past medical history significant for COPD, breast cancer , and rectal cancer who presents to the emergency department with complaints of stool coming out of her vagina. 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 Ordaz for medical oncology and Dr. Mejia for radiation oncology. //Rectovaginal fistula //Fecal incontinence //Ileus postsurgical CT of the abdomen and pelvis reviewed, hepatic stenosis with no acute findings in the abdomen or pelvis. + Stool from the vagina Patient afebrile, no tachycardia, stable blood pressure and O2 saturation. Leukopenia, WBCs 2.4, neutrophil count 80.4. BC x2 pending, lactic acid 1.8, UA with small amount of leukocyte esterase, culture not indicated. Consult colorectal surgery, patient known to Dr. Newberry, greatly appreciate assistance and recommendations. S/P diverting colostomy by Dr Newberry on 01/07/18. On WEB OPERATIONS SPECIALIST pump patient says she is still with significant pain. KUB reviewed with poss ileus postsurgical Simethicone Add tums S/P colostomy revision by Dr Newberry 01/11 //Stage II anal cancer //Rectal pain Patient recently finished chemotherapy, still pending several treatments of radiation. Consult medical oncology, Dr. Ordaz for followup while patient is here, appreciate further recommendations. P.o. Roxicodone for pain, IV Dilaudid for breakthrough. Now on WEB OPERATIONS SPECIALIST pump wean off per surgeon As needed medications for constipation, currently having loose stools. //Cellulitis right posterior thigh Patient was recently discharged on 01/05 after being treated for cellulitis. Initially treated with IV antibiotics and then transitioned to p.o. Culture at that time was positive for MSSA with campa sensitivity Continue Levaquin 500 mg daily 10 days Prednisone taper, DC steroids = Continue with Levaquin at least until 01/17 or until required by surgical service. //Hypokalemia- replaced. Monitor and replace as need. //Hyperglycemia related to stress and prednisone use. No history of diabetes A1c. Patient with elevated blood sugar hold he is feeling this time as patient is not able to have p.o. //DVT prophylaxis-SCDs Discharge Planning Patient has been cleared by colorectal surgery Will need clearance from infectious disease PT recommends home with . Sonny Prakash MD January 16, 2018 15:23
[2018-01-16] MEDS: MICAFUNGIN INJ 150 MG in SODIUM CHLORIDE 0.9% INJ 100 ML IV SCH (19:46)
[2018-01-16] MEDS ORDERED: PHARMACY ORDERED LAB ONE (21:45)
[2018-01-17] VITALS (9 sets, daily range): BP systolic 111–140; BP diastolic 65–92; PULSE 82–95; RESP 14–22; TEMP 97.5–98.3; O2SAT 90–95
[2018-01-17] MEDS: HYDROmorphone HCL PCA 6 MG/30 ML IV SCH (02:28)
[2018-01-17] MEDS: PIPERACIL-TAZO 4.5 GM PREMIX 100 ML IV SCH ×4 (02:30→19:40)
[2018-01-17] MEDS: PCA - TOTAL MG DILAUDID DELIVERED PER SHIFT SCH (06:00)
[2018-01-17] MEDS: ACETAMIN 325 MG/BUTALBITAL 50 MG/CAFFEINE 40 MG TAB PO PRN (06:13)
[2018-01-17] MEDS: VANCOMYCIN INJ 1,250 MG in SODIUM CHLOR 0.9% 250 ML INJ 250 ML IV SCH (06:17)
[2018-01-17] MEDS: METRONIDAZOLE 500 MG/100 ML ISONTONIC SOLN IV SCH (06:17)
[2018-01-17 06:42] LABS: AUTOMATED NEUTROPHIL # 3.6 TH/MM3 (1.8-7.7); BASOPHIL % 0.4 % (0.0-2.0); EOSINOPHIL % 0.6 % (0.0-4.0); HEMOGLOBIN 10.6 GM/DL (11.6-15.3); LYMPH % 7.4 % (9.0-44.0); LYMPHOCYTE # 0.3 TH/MM3 (1.0-4.8); MEAN CELL VOLUME 93.6 FL (80.0-100.0); MEAN CORPUSCULAR HEMOGLOBIN 32.1 PG (27.0-34.0); MEAN CORPUSCULAR HGB CONC 34.3 % (32.0-36.0); MEAN PLATELET VOLUME 7.6 FL (7.0-11.0); MONO % 6.9 % (0.0-8.0); MONOCYTE # 0.3 TH/MM3 (0-0.9); NEUT % 84.7 % (16.0-70.0); PLATELET COUNT 286 TH/MM3 (150-450); RED BLOOD COUNT 3.31 MIL/MM3 (4.00-5.30); WHITE BLOOD COUNT 4.3 TH/MM3 (4.0-11.0)
[2018-01-17 07:09] LABS: ALBUMIN 1.8 GM/DL (3.4-5.0); BICARBONATE 26.5 MEQ/L (21.0-32.0); CALCIUM 8.2 MG/DL (8.5-10.1); CREATININE 0.54 MG/DL (0.50-1.00); PHOSPHORUS 3.7 MG/DL (2.5-4.9)
[2018-01-17] MEDS: INSULIN ASPART SUPPLEMENTAL SCALE SQ SCH ×4 (08:00→19:47)
[2018-01-17 08:56] LABS: BANDS 9 % (0-6); LYMPHOCYTES 3 % (9-44); METAMYELOCYTES 1 % (0-1); MONOCYTES 2 % (0-8); MYELOCYTES 1 % (0-0); NEUTROPHIL # MANUAL DIFF 4.1 TH/MM3 (1.8-7.7); POLYS (SEG NEUTROPHILS) 84 % (16-70)
[2018-01-17 08:58] LABS: TOXIC GRANULATION 1+ (NORMAL)
[2018-01-17] MEDS: PANTOPRAZOLE SOD 40 MG DELAYED RELEASE TAB PO SCH (09:00)
[2018-01-17] MEDS: NYSTAT/DIPHENHY/LIDO MOUTHWASH (Adult) 120ML SWISH-SWAL SCH ×4 (09:00→19:47)
[2018-01-17] MEDS: AQUAPHOR OINT 50 GM TUBE TOPICAL SCH ×2 (09:00→19:50)
[2018-01-17] MEDS: MAGNESIUM OXIDE 400 MG TAB PO SCH (09:03)
[2018-01-17] MEDS: PANTOPRAZOLE SODIUM 40 MG VIAL IVP SCH (09:04)
[2018-01-17] MEDS: SODIUM CHLORIDE 0.9% FLUSH 10 ML FLUSH IV FLUSH SCH ×2 (09:05→19:44)
[2018-01-17] MEDS: METOCLOPRAMIDE HCL 10 MG/2 ML VIAL IVS SCH ×2 (09:05→19:47)
--- NOTE | 2018-01-17 09:07 | PD.ONC.PN ---
Subjective Subjective Remarks Afebrile overnight. Patient resting in bed. she is tired and frustrated with being in the hospital. she is frustrated that she has a colostomy bag. Objective Data Date Time Temp Pulse Resp B/P (MAP) Pulse Ox O2 Delivery O2 Flow Rate FiO2 01/17/18 08:02 97.8 82 16 111/75 (87) 95 01/17/18 08:00 16 01/17/18 06:00 15 01/17/18 04:00 85 01/17/18 04:00 98.3 87 15 116/77 (90) 95 01/17/18 02:28 16 01/17/18 00:00 98.1 93 16 115/65 (82) 93 01/17/18 00:00 92 01/16/18 22:00 14 01/16/18 20:00 98.3 88 16 119/76 (90) 94 01/16/18 20:00 97 01/16/18 20:00 Nasal Cannula 2.00 21 01/16/18 19:48 94 Nasal Cannula 2.00 01/16/18 19:42 16 01/16/18 16:55 98.7 93 18 113/74 (87) 89 01/16/18 15:56 97 01/16/18 12:00 97 01/16/18 11:54 99.5 105 22 112/72 (85) 90 01/16/18 09:48 16 01/16/18 09:13 95 Nasal Cannula 3.00 01/17/18 01/17/18 01/17/18 07:00 15:00 23:00 Intake Total 390 ml Output Total 2025 ml Balance -1635 ml Result Diagram: 01/17/18 0600 01/17/18 0600 Laboratory Results Laboratory Tests Test 01/16/18 21:50 01/17/18 06:00 Vancomycin Level Trough 15.3 MCG/ML White Blood Count 4.3 TH/MM3 Red Blood Count 3.31 MIL/MM3 Hemoglobin 10.6 GM/DL Hematocrit 31.0 % Mean Corpuscular Volume 93.6 FL Mean Corpuscular Hemoglobin 32.1 PG Mean Corpuscular Hemoglobin Concent 34.3 % Red Cell Distribution Width 18.0 % Platelet Count 286 TH/MM3 Mean Platelet Volume 7.6 FL Neutrophils (%) (Auto) 84.7 % Lymphocytes (%) (Auto) 7.4 % Monocytes (%) (Auto) 6.9 % Eosinophils (%) (Auto) 0.6 % Basophils (%) (Auto) 0.4 % Neutrophils # (Auto) 3.6 TH/MM3 Lymphocytes # (Auto) 0.3 TH/MM3 Monocytes # (Auto) 0.3 TH/MM3 Eosinophils # (Auto) 0.0 TH/MM3 Basophils # (Auto) 0.0 TH/MM3 CBC Comment AUTO DIFF Blood Urea Nitrogen 3 MG/DL Creatinine 0.54 MG/DL Random Glucose 98 MG/DL Albumin 1.8 GM/DL Calcium Level 8.2 MG/DL Phosphorus Level 3.7 MG/DL Magnesium Level 2.0 MG/DL Sodium Level 138 MEQ/L Potassium Level 3.8 MEQ/L Chloride Level 103 MEQ/L Carbon Dioxide Level 26.5 MEQ/L Anion Gap 9 MEQ/L Estimat Glomerular Filtration Rate 120 ML/MIN Culture Results Microbiology Date/Time Source Procedure Growth Status 01/15/18 01:30 Blood Other Aerobic Blood Culture - Preliminary NO GROWTH IN 1 DAY Resulted 01/15/18 01:30 Blood Other Anaerobic Blood Culture - Preliminary NO GROWTH IN 1 DAY Resulted 01/15/18 01:20 Blood Peripheral Aerobic Blood Culture - Preliminary NO GROWTH IN 1 DAY Resulted 01/15/18 01:20 Blood Peripheral Anaerobic Blood Culture - Preliminary NO GROWTH IN 1 DAY Resulted Administered Medications Medications (Trade) Dose Ordered Sig/David Route PRN Reason Start Time Stop Time Status Last Admin Dose Admin Sodium Chloride (NS Flush) 2 ml UNSCH PRN IV FLUSH FLUSH AFTER USING IV ACCESS 01/06/18 11:30 01/06/18 12:10 Sodium Chloride (NS Flush) 2 ml BID IV FLUSH 01/06/18 21:00 01/16/18 19:51 Multi-Ingredient Mouthwash/Gargle (Magic Mouthwash Adult Liq) 10 ml QID SWISH-SWAL 01/06/18 18:00 01/12/18 21:30 Acetaminophen/ Butalbital/ Caffeine (Fioricet 325-50-40) 1 tab Q6H PRN PO HEADACHE 01/06/18 17:45 01/17/18 06:13 Acetaminophen (Tylenol) 650 mg Q4H PRN PO TEMPERATURE > 100F 01/07/18 12:00 01/14/18 23:20 Pantoprazole Sodium (Protonix Inj) 40 mg DAILY IVP 01/08/18 09:00 01/16/18 08:15 Pantoprazole Sodium (Protonix) 40 mg DAILY PO 01/08/18 09:00 01/12/18 09:00 Metoclopramide HCl (Reglan Inj) 10 mg Q12HR IVS 01/07/18 21:00 01/16/18 19:48 Ondansetron HCl (Zofran Inj) 4 mg Q6H PRN IV PUSH NAUSEA 01/07/18 12:00 01/16/18 05:50 Insulin Aspart (NovoLOG SUPPLEMENTAL SCALE) 1 ACHS SLIDING SCALE SQ 01/08/18 12:00 01/16/18 17:05 Emollient Ointment (Aquaphor Oint) 1 applic Q12HR TOPICAL 01/09/18 09:00 01/16/18 19:49 Simethicone (Phazyme Chew) 125 mg Q8HR PRN PO gas 01/09/18 12:15 01/15/18 21:51 Calcium Carbonate (Tums Chew) 500 mg Q2H PRN CHEW dyspepsia 01/10/18 15:45 01/13/18 15:31 Metronidazole 100 ml @ 100 mls/hr Q8H IV 01/12/18 22:00 01/17/18 06:17 Sodium Chloride 1,000 ml @ 42 mls/hr [id number] IV 01/14/18 11:00 01/15/18 21:44 Lorazepam (Ativan) 0.5 mg Q12H PRN PO anxiety 01/15/18 09:45 01/16/18 21:51 Magnesium Oxide (Mag-Ox) 400 mg DAILY PO 01/16/18 09:00 01/16/18 08:20 Piperacillin Sod/ Tazobactam Sod 100 ml @ 200 mls/hr Q6H IV 01/15/18 21:00 01/17/18 02:30 Micafungin Sodium 150 mg/Sodium Chloride 100 ml @ 100 mls/hr Q24H IV 01/15/18 20:00 01/16/18 19:46 Vancomycin HCl 1250 mg/Sodium Chloride 262.5 ml @ 250 mls/hr Q8H IV 01/15/18 22:00 01/17/18 06:17 Objective Remarks GENERAL: Middle aged female, sitting up in bed in nad. SKIN: Warm and dry. HEAD: Normocephalic. EYES: no injection or drainage. NECK: Supple, trachea midline. CARDIOVASCULAR: Regular rate and rhythm RESPIRATORY: Breath sounds equal bilaterally. No accessory muscle use. GASTROINTESTINAL: Abdomen soft, non-tender, nondistended. EXTREMITIES: No cyanosis NEUROLOGICAL: awake and alert. normal speech. 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 Plan 1. continue radiation today 2. start Oxycodone PRN pain. 3. ok to d/c when pain controlled with oral medications and cleared by all specialities. Attending Statement The exam, history, and the medical decision-making described in the above note were completed with the assistance of the mid-level provider. I reviewed and agree with the findings presented. I attest that I had a [id number] encounter with the patient on the same day, and personally performed and documented my assessment and findings in the medical record. Feeling better. Tolerating XRT. Abdominal pain improved. Now afebrile. Culture negative to date. Can be d/c when clear by ID. Chela Greer January 17, 2018 09:07 Maicol Ordaz MD January 17, 2018 13:01
--- NOTE | 2018-01-17 09:09 | HHI.PR ---
Subjective Remarks Tolerating diet. Much less pain. Passing gas. Stooling. No fevers. 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 Objective Vital Signs Date Time Temp Pulse Resp B/P (MAP) Pulse Ox O2 Delivery O2 Flow Rate FiO2 01/17/18 08:02 97.8 82 16 111/75 (87) 95 01/17/18 08:00 16 01/17/18 06:00 15 01/17/18 04:00 85 01/17/18 04:00 98.3 87 15 116/77 (90) 95 01/17/18 02:28 16 01/17/18 00:00 98.1 93 16 115/65 (82) 93 01/17/18 00:00 92 01/16/18 22:00 14 01/16/18 20:00 98.3 88 16 119/76 (90) 94 01/16/18 20:00 97 01/16/18 20:00 Nasal Cannula 2.00 21 01/16/18 19:48 94 Nasal Cannula 2.00 01/16/18 19:42 16 01/16/18 16:55 98.7 93 18 113/74 (87) 89 01/16/18 15:56 97 01/16/18 12:00 97 01/16/18 11:54 99.5 105 22 112/72 (85) 90 01/16/18 09:48 16 01/16/18 09:13 95 Nasal Cannula 3.00 I/O 01/16/18 01/16/18 01/16/18 01/17/18 01/17/18 01/17/18 07:00 15:00 23:00 07:00 15:00 23:00 Intake Total 240 ml 3040 ml 390 ml Output Total 1200 ml 1650 ml 2025 ml Balance -960 ml 1390 ml -1635 ml Intake Oral 240 ml 3040 ml 390 ml Output Urine Total 1200 ml 1250 ml 1900 ml Stool Total 400 ml 125 ml Result Diagram: 01/17/18 0601/17/18 0600 Objective Remarks VS-S Temps down. Abd: obese,soft, large soft brown stool. 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 Taper off narcotics with oral meds.OK to stop antibiotics from CRS standpoint. D/C anytime OK with me. F/U Dr Newberry 1 week. Will need [facility] for stoma teaching,care and supplies. Prieto Cantu MD January 17, 2018 09:09
[2018-01-17] MEDS: SODIUM CHLOR 0.9% 1000 ML INJ 1,000 ML IV SCH (10:27)
[2018-01-17] MEDS: LORazepam 0.5 MG TAB PO PRN ×2 (11:55→19:44)
--- NOTE | 2018-01-17 12:54 | HHI.IDPN ---
Subjective Subjective Remarks co abdominal pain LLQ no fever taking po stooling improving mouth sores Antibiotics zosyn vanco micafungin flagy Allergies: Coded Allergies: No Known Allergies (Unverified , 01/06/18) Objective . Vital Signs Date Time Temp Pulse Resp B/P (MAP) Pulse Ox O2 Delivery O2 Flow Rate FiO2 01/17/18 12:04 97.5 85 22 123/65 (84) 94 01/17/18 12:00 90 01/17/18 08:45 98 Nasal Cannula 2.00 01/17/18 08:02 97.8 82 16 111/75 (87) 95 01/17/18 08:00 84 01/17/18 08:00 16 01/17/18 06:00 15 01/17/18 04:00 85 01/17/18 04:00 98.3 87 15 116/77 (90) 95 01/17/18 02:28 16 01/17/18 00:00 98.1 93 16 115/65 (82) 93 01/17/18 00:00 92 01/16/18 22:00 14 01/16/18 20:00 98.3 88 16 119/76 (90) 94 01/16/18 20:00 97 01/16/18 20:00 Nasal Cannula 2.00 21 01/16/18 19:48 94 Nasal Cannula 2.00 01/16/18 19:42 16 01/16/18 16:55 98.7 93 18 113/74 (87) 89 01/16/18 15:56 97 01/17/18 01/17/18 01/18/18 15:00 23:00 07:00 Intake Total 100 ml Balance 100 ml IV Total 100 ml . Laboratory Tests Test 01/16/18 06:00 01/17/18 06:00 White Blood Count 4.9 TH/MM3 4.3 TH/MM3 Red Blood Count 3.31 MIL/MM3 3.31 MIL/MM3 Hemoglobin 10.5 GM/DL 10.6 GM/DL Hematocrit 30.7 % 31.0 % Mean Corpuscular Volume 92.8 FL 93.6 FL Mean Corpuscular Hemoglobin 31.6 PG 32.1 PG Mean Corpuscular Hemoglobin Concent 34.1 % 34.3 % Red Cell Distribution Width 17.6 % 18.0 % Platelet Count 260 TH/MM3 286 TH/MM3 Mean Platelet Volume 7.6 FL 7.6 FL Neutrophils (%) (Auto) 87.2 % 84.7 % Lymphocytes (%) (Auto) 5.3 % 7.4 % Monocytes (%) (Auto) 6.1 % 6.9 % Eosinophils (%) (Auto) 0.6 % 0.6 % Basophils (%) (Auto) 0.8 % 0.4 % Neutrophils # (Auto) 4.2 TH/MM3 3.6 TH/MM3 Lymphocytes # (Auto) 0.3 TH/MM3 0.3 TH/MM3 Monocytes # (Auto) 0.3 TH/MM3 0.3 TH/MM3 Eosinophils # (Auto) 0.0 TH/MM3 0.0 TH/MM3 Basophils # (Auto) 0.0 TH/MM3 0.0 TH/MM3 CBC Comment AUTO DIFF AUTO DIFF Differential Total Cells Counted 100 100 Neutrophils % (Manual) 74 % 84 % Band Neutrophils % 17 % 9 % Lymphocytes % 1 % 3 % Monocytes % 2 % 2 % Neutrophils # (Manual) 4.8 TH/MM3 4.1 TH/MM3 Metamyelocytes 2 % 1 % Myelocytes 4 % 1 % Nucleated Red Blood Cells 1 /100 WBC Differential Comment FINAL DIFF MANUAL FINAL DIFF MANUAL Toxic Granulation 1+ 1+ Platelet Estimate NORMAL NORMAL Platelet Morphology Comment NORMAL NORMAL Laboratory Tests Test 01/16/18 06:00 01/17/18 06:00 Blood Urea Nitrogen 4 MG/DL 3 MG/DL Creatinine 0.49 MG/DL 0.54 MG/DL Random Glucose 106 MG/DL 98 MG/DL Albumin 1.8 GM/DL 1.8 GM/DL Calcium Level 7.9 MG/DL 8.2 MG/DL Phosphorus Level 3.3 MG/DL 3.7 MG/DL Magnesium Level 1.9 MG/DL 2.0 MG/DL Sodium Level 139 MEQ/L 138 MEQ/L Potassium Level 3.8 MEQ/L 3.8 MEQ/L Chloride Level 103 MEQ/L 103 MEQ/L Carbon Dioxide Level 27.0 MEQ/L 26.5 MEQ/L Anion Gap 9 MEQ/L 9 MEQ/L Estimat Glomerular Filtration Rate 135 ML/MIN 120 ML/MIN Microbiology Date/Time Source Procedure Growth Status 01/15/18 01:30 Blood Other Aerobic Blood Culture - Preliminary NO GROWTH IN 2 DAYS Resulted 01/15/18 01:30 Blood Other Anaerobic Blood Culture - Preliminary NO GROWTH IN 2 DAYS Resulted 01/15/18 01:20 Blood Peripheral Aerobic Blood Culture - Preliminary NO GROWTH IN 2 DAYS Resulted 01/15/18 01:20 Blood Peripheral Anaerobic Blood Culture - Preliminary NO GROWTH IN 2 DAYS Resulted Imaging Last Impressions Chest X-Ray 01/12/18 0000 Signed Impressions: Service Date/Time: Friday, January 12, 2018 09:17 - CONCLUSION: Mild left base atelectasis Prieto Weeks MD Abdomen X-Ray 01/09/18 0000 Signed Impressions: Service Date/Time: Tuesday, January 09, 2018 15:09 - CONCLUSION: 1. Gaseous distention of bowel, probable ileus. Right colon distended up to 11 cm. Asad Mccann MD Abdomen/Pelvis CT 01/06/18 1126 Signed Impressions: Service Date/Time: Saturday, January 06, 2018 13:54 - CONCLUSION: Hepatic steatosis. No acute findings in the abdomen and pelvis. Tomas Ross MD Physical Exam CONSTITUTIONAL/GENERAL: This is an overweight female patient, in no apparent distress. TUBES/LINES/DRAINS: PORT in place R chest - site OK SKIN: No jaundice, rashes, or lesions. Skin temperature appropriate. Not diaphoretic. EYES: Pupils equal and round and reactive. Extraocular motions intact. No scleral icterus. No injection or drainage. Fundi not examined. ENT: Hearing grossly normal. Nose without bleeding or purulent drainage. Throat without visible erythema, exudates, masses, Multiple clusteres crustered lesions lower lip L aspect and L nostril - improving CARDIOVASCULAR: Regular rate and rhythm without murmurs, gallops, or rubs. No JVD. Peripheral pulses symmetric. RESPIRATORY/CHEST: Symmetric, unlabored respirations. Clear to auscultation. Breath sounds equal bilaterally. No wheezes, rales, or rhonchi. GASTROINTESTINAL: Abdomen soft, remains quite tender in LLQ , + moderatelyy distended. Colostomy in place with brown semi formed stool No hepato-splenomegaly, or palpable masses. No guarding. Bowel sounds present. GENITOURINARY: Without palpable bladder distension. MUSCULOSKELETAL: Extremities without clubbing, cyanosis, or edema. NEUROLOGICAL: Awake and alert. Motor and sensory grossly within normal limits. Follows commands. Cognitively sharp. Moves all extremities. PSYCHIATRIC: calm, cooperateive Assessment & Plan Remarks Fever - persistent bandemia - resolved - all clx remain negative Immunosuppressed Anal ca with rectovag fistula Sp colostomy 1 week ago - cont to co LLQ pain Herpes labialis - per pt ist improving mikesyfrank gabriel vanco will micafungin if neg blood clx @ 3 days acyclovir if new lesions sill consider CT A/P if persistemnt/worsenong pain and/ore ow unexplained fever Meenakshi Wellington MD January 17, 2018 12:54
[2018-01-17] MEDS ORDERED: HYDROmorphone HCL PF 0.5 MG/0.5 ML SYRINGE IV PUSH ONE (15:30)
--- NOTE | 2018-01-17 17:59 | PD.WCN.NOT ---
Ostomy Type: Colostomy Surgeon: Ashish Newberry MD Date of Surgery: January 07, 2018 Complete: Starter kit (Starter kit sent out ), Education materials (in patient room), Rx (patient requests moldable wafer size 2 1/4" with closed ended pouches ), Other (appliance changed today) Additional information Patient seen for reinforcement of Colostomy teaching around 1550. Patient was seen yesterday for pouch system change with Betty MCFARLANE. Patient wanted to sleep , but allowed junior copywriter to assess stoma and release gas from ostomy pouch. While releasing gas from ostomy pouch patient became upset complaining of Abdominal pain. Dilaudid Pain medication had been given at 1530 by RN. Patient wanted not to be touched at this time. Resealed ostomy pouch to wafer with attached adaptor. Not able to completely assess stoma due to patient tolerance, Stoma presents with stool, mucous and is bennett and pink in color. Will follow up with patient tomorrow. Giana Hayden [facility] January 17, 2018 17:59
--- NOTE | 2018-01-17 18:23 | HHI.PR ---
Subjective Remarks Patient complaining of severe pain in her abdomen and vaginal area She requested to increase her narcotic No fever or chills Ostomy working and functioning well Objective Vitals Vital Signs Date Time Temp Pulse Resp B/P (MAP) Pulse Ox O2 Delivery O2 Flow Rate FiO2 01/17/18 17:01 98.1 86 20 117/76 (90) 94 01/17/18 17:00 15 01/17/18 16:01 90 01/17/18 12:04 97.5 85 22 123/65 (84) 94 01/17/18 12:00 90 01/17/18 11:00 Nasal Cannula 3.00 01/17/18 08:45 98 Nasal Cannula 2.00 01/17/18 08:02 97.8 82 16 111/75 (87) 95 01/17/18 08:00 84 01/17/18 08:00 16 01/17/18 06:00 15 01/17/18 04:00 85 01/17/18 04:00 98.3 87 15 116/77 (90) 95 01/17/18 02:28 16 01/17/18 00:00 98.1 93 16 115/65 (82) 93 01/17/18 00:00 92 01/16/18 22:00 14 01/16/18 20:00 98.3 88 16 119/76 (90) 94 01/16/18 20:00 97 01/16/18 20:00 Nasal Cannula 2.00 21 01/16/18 19:48 94 Nasal Cannula 2.00 01/16/18 19:42 16 I/O 01/16/18 01/16/18 01/16/18 01/17/18 01/17/18 01/17/18 07:00 15:00 23:00 07:00 15:00 23:00 Intake Total 240 ml 3040 ml 390 ml 462.5 ml 1100 ml Output Total 1200 ml 1650 ml 2025 ml 1275 ml Balance -960 ml 1390 ml -1635 ml 462.5 ml -175 ml Intake Oral 240 ml 3040 ml 390 ml 1000 ml IV Total 462.5 ml 100 ml Output Urine Total 1200 ml 1250 ml 1900 ml 850 ml Stool Total 400 ml 125 ml 425 ml Result Diagram: 01/17/18 0601/17/18 06 Objective Remarks GENERAL: This is a well-nourished, well-developed patient, in no apparent distress. CARDIOVASCULAR: RRR, no gallops, or rubs. RESPIRATORY: Fair air entry bilaterally. No W, R, or R GASTROINTESTINAL: Abdomen soft, non-tender, nondistended. Positive bowel sounds , ostomy in place functioning well MUSCULOSKELETAL: Extremities without clubbing, cyanosis, or edema. Pedal pulses appreciated NEUROLOGICAL: Awake and alert. Moves all extremity. Normal speech.no focal neurological deficit Procedures By Dr Newberry colorectal surgery : EUA / Laparoscopic assisted loop sigmoid colostomy 01/08/18 Colostomy revision 01/11 A/P Problem List: (1) Rectal or anal pain ICD Code: K62.89 - Other specified diseases of anus and rectum (2) Fistula of vagina ICD Code: N82.8 - Other female genital tract fistulae Status: Acute (3) Anal cancer ICD Code: C21.0 - Malignant neoplasm of anus, unspecified Assessment and Plan 01/17: Still complaining of severe uncontrolled pain, she was weaned off of the HUMANITIES AND LANGUAGES PROFESSOR and started on oxycodone 10 mg every 4 hours, D/W the nurse who was at the bedside will give extra dose of Dilaudid once only now. 47-year-old female with past medical history significant for COPD, breast cancer , and rectal cancer who presents to the emergency department with complaints of stool coming out of her vagina. 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 Ordaz for medical oncology and Dr. Mejia for radiation oncology. //Rectovaginal fistula //Fecal incontinence //Ileus postsurgical CT of the abdomen and pelvis reviewed, hepatic stenosis with no acute findings in the abdomen or pelvis. + Stool from the vagina Patient afebrile, no tachycardia, stable blood pressure and O2 saturation. Leukopenia, WBCs 2.4, neutrophil count 80.4. BC x2 pending, lactic acid 1.8, UA with small amount of leukocyte esterase, culture not indicated. Consult colorectal surgery, patient known to Dr. Newberry, greatly appreciate assistance and recommendations. S/P diverting colostomy by Dr Newberry on 01/07/18. On HUMANITIES AND LANGUAGES PROFESSOR pump patient says she is still with significant pain. KUB reviewed with poss ileus postsurgical Simethicone Add tums S/P colostomy revision by Dr Newberry 01/11 //Stage II anal cancer //Rectal pain Patient recently finished chemotherapy, still pending several treatments of radiation. Consult medical oncology, Dr. Ordaz for followup while patient is here, appreciate further recommendations. P.o. Roxicodone for pain, IV Dilaudid for breakthrough. Now on HUMANITIES AND LANGUAGES PROFESSOR pump wean off per surgeon As needed medications for constipation, currently having loose stools. //Cellulitis right posterior thigh Patient was recently discharged on 01/05 after being treated for cellulitis. Initially treated with IV antibiotics and then transitioned to p.o. Culture at that time was positive for MSSA with campa sensitivity Continue Levaquin 500 mg daily 10 days Prednisone taper, DC steroids = Continue with Levaquin at least until 01/17 or until required by surgical service. //Hypokalemia- replaced. Monitor and replace as need. //Hyperglycemia related to stress and prednisone use. No history of diabetes A1c. Patient with elevated blood sugar hold he is feeling this time as patient is not able to have p.o. //DVT prophylaxis-SCDs Discharge Planning Patient has been cleared by colorectal surgery Will need clearance from infectious disease PT recommends home with hh. Ita Tomlin MD January 17, 2018 18:23
[2018-01-17] MEDS: MICAFUNGIN INJ 150 MG in SODIUM CHLORIDE 0.9% INJ 100 ML IV SCH (19:40)
[2018-01-17] MEDS ORDERED: HYDROmorphone HCL PF 0.5 MG/0.5 ML SYRINGE IV ONE (22:30)
[2018-01-17] MEDS: SIMETHICONE 125 MG CHEWABLE TAB PO PRN (22:34)
[2018-01-18] VITALS (7 sets, daily range): BP systolic 109–137; BP diastolic 74–92; PULSE 84–94; RESP 16–24; TEMP 97.6–98.2; O2SAT 90–95
[2018-01-18] MEDS ORDERED: HYDROmorphone HCL PF 0.5 MG/0.5 ML SYRINGE IV PUSH ONE ×2 (01:15→06:00)
[2018-01-18] MEDS: PIPERACIL-TAZO 4.5 GM PREMIX 100 ML IV SCH ×4 (03:18→22:11)
[2018-01-18] MEDS: LORazepam 0.5 MG TAB PO PRN ×3 (03:18→22:09)
[2018-01-18] MEDS: SIMETHICONE 125 MG CHEWABLE TAB PO PRN (06:01)
[2018-01-18] MEDS: NYSTAT/DIPHENHY/LIDO MOUTHWASH (Adult) 120ML SWISH-SWAL SCH ×4 (07:35→21:00)
--- NOTE | 2018-01-18 08:25 | HHI.PR ---
Subjective Remarks Tolerating diet. C/O more pain since [employer] stopped. Passing gas. Stooling. No fevers. Objective Vital Signs Date Time Temp Pulse Resp B/P (MAP) Pulse Ox O2 Delivery O2 Flow Rate FiO2 01/18/18 07:00 86 01/18/18 04:00 86 01/18/18 04:00 98.0 85 17 137/92 (107) 95 01/18/18 00:00 86 01/18/18 00:00 98.2 90 16 132/86 (101) 92 01/17/18 20:00 91 01/17/18 20:00 Room Air 01/17/18 20:00 98.0 95 14 140/92 (108) 90 01/17/18 17:01 98.1 86 20 117/76 (90) 94 01/17/18 17:00 15 01/17/18 16:01 90 01/17/18 12:04 97.5 85 22 123/65 (84) 94 01/17/18 12:00 90 01/17/18 11:00 Nasal Cannula 3.00 01/17/18 08:45 98 Nasal Cannula 2.00 I/O 01/17/18 01/17/18 01/17/18 01/18/18 01/18/18 01/18/18 07:00 15:00 23:00 07:00 15:00 23:00 Intake Total 390 ml 462.5 ml 1100 ml 960 ml Output Total 2025 ml 2275 ml 1575 ml Balance -1635 ml 462.5 ml -1175 ml -615 ml Intake Oral 390 ml 1000 ml 960 ml IV Total 462.5 ml 100 ml Output Urine Total 1900 ml 1850 ml 1500 ml Stool Total 125 ml 425 ml 75 ml Result Diagram: 01/17/18 0600 01/17/18 0600 Objective Remarks VS-S Temps down. Abd: obese,not distended, voices tenderness only to right of umbilicus. Otherwise soft and not tender. Soft brown stool. I&O-OK Assessment and Plan Assessment and Plan Stable. Narcotic dependence Plan: Taper off narcotics with oral meds.OK to stop antibiotics from CRS standpoint. D/C anytime OK with me. F/U Dr Newberry 1 week. Will need [facility] for stoma teaching,care and supplies. Dr Sandrine Espitia will follow tomorrow Prieto Cantu MD January 18, 2018 08:25
[2018-01-18] MEDS: PANTOPRAZOLE SOD 40 MG DELAYED RELEASE TAB PO SCH (08:47)
[2018-01-18] MEDS: MAGNESIUM OXIDE 400 MG TAB PO SCH (08:47)
[2018-01-18] MEDS: METOCLOPRAMIDE HCL 10 MG/2 ML VIAL IVS SCH ×2 (08:47→22:11)
[2018-01-18] MEDS: SODIUM CHLORIDE 0.9% FLUSH 10 ML FLUSH IV FLUSH SCH ×2 (08:47→22:11)
[2018-01-18] MEDS: AQUAPHOR OINT 50 GM TUBE TOPICAL SCH ×2 (08:48→21:00)
[2018-01-18] MEDS: PANTOPRAZOLE SODIUM 40 MG VIAL IVP SCH (08:51)
[2018-01-18] MEDS: INSULIN ASPART SUPPLEMENTAL SCALE SQ SCH ×4 (08:51→21:00)
[2018-01-18] MEDS ORDERED: HYDROmorphone HCL PF 2 MG/ML VIAL IV ONE (09:00)
--- NOTE | 2018-01-18 09:04 | PD.ONC.PN ---
Subjective Subjective Remarks Afebrile overnight. Patient resting in bed. reports she had a difficult time sleeping overnight due to night sweats and pain. she continues to have breakthrough pain and is having a difficult time transitioning off pain pump to oral pain medications. the pain continues to be located in the abdomen around her colostomy site. Objective Data Date Time Temp Pulse Resp B/P (MAP) Pulse Ox O2 Delivery O2 Flow Rate FiO2 01/18/18 08:42 97.6 90 18 109/74 (86) 90 01/18/18 07:00 86 01/18/18 04:00 86 01/18/18 04:00 98.0 85 17 137/92 (107) 95 01/18/18 00:00 86 01/18/18 00:00 98.2 90 16 132/86 (101) 92 01/17/18 20:00 91 01/17/18 20:00 Room Air 01/17/18 20:00 98.0 95 14 140/92 (108) 90 01/17/18 17:01 98.1 86 20 117/76 (90) 94 01/17/18 17:00 15 01/17/18 16:01 90 01/17/18 12:04 97.5 85 22 123/65 (84) 94 01/17/18 12:00 90 01/17/18 11:00 Nasal Cannula 3.00 01/18/18 01/18/18 01/18/18 07:00 15:00 23:00 Intake Total 960 ml Output Total 1575 ml Balance -615 ml Result Diagram: 01/17/18 0600 01/17/18 0600 Administered Medications Medications (Trade) Dose Ordered Sig/David Route PRN Reason Start Time Stop Time Status Last Admin Dose Admin Sodium Chloride (NS Flush) 2 ml UNSCH PRN IV FLUSH FLUSH AFTER USING IV ACCESS 01/06/18 11:30 01/06/18 12:10 Sodium Chloride (NS Flush) 2 ml BID IV FLUSH 01/06/18 21:00 01/18/18 08:47 Multi-Ingredient Mouthwash/Gargle (Magic Mouthwash Adult Liq) 10 ml QID SWISH-SWAL 01/06/18 18:00 01/12/18 21:30 Acetaminophen/ Butalbital/ Caffeine (Fioricet 325-50-40) 1 tab Q6H PRN PO HEADACHE 01/06/18 17:45 01/17/18 06:13 Acetaminophen (Tylenol) 650 mg Q4H PRN PO TEMPERATURE > 100F 01/07/18 12:00 01/14/18 23:20 Pantoprazole Sodium (Protonix Inj) 40 mg DAILY IVP 01/08/18 09:00 01/17/18 09:04 Pantoprazole Sodium (Protonix) 40 mg DAILY PO 01/08/18 09:00 01/18/18 08:47 Metoclopramide HCl (Reglan Inj) 10 mg Q12HR IVS 01/07/18 21:00 01/18/18 08:47 Ondansetron HCl (Zofran Inj) 4 mg Q6H PRN IV PUSH NAUSEA 01/07/18 12:00 01/16/18 05:50 Insulin Aspart (NovoLOG SUPPLEMENTAL SCALE) 1 ACHS SLIDING SCALE SQ 01/08/18 12:00 01/16/18 17:05 Emollient Ointment (Aquaphor Oint) 1 applic Q12HR TOPICAL 01/09/18 09:00 01/18/18 08:48 Simethicone (Phazyme Chew) 125 mg Q8HR PRN PO gas 01/09/18 12:15 01/18/18 06:01 Calcium Carbonate (Tums Chew) 500 mg Q2H PRN CHEW dyspepsia 01/10/18 15:45 01/13/18 15:31 Sodium Chloride 1,000 ml @ 42 mls/hr [id number] IV 01/14/18 11:00 01/17/18 10:27 Magnesium Oxide (Mag-Ox) 400 mg DAILY PO 01/16/18 09:00 01/18/18 08:47 Piperacillin Sod/ Tazobactam Sod 100 ml @ 200 mls/hr Q6H IV 01/15/18 21:00 01/18/18 08:47 Micafungin Sodium 150 mg/Sodium Chloride 100 ml @ 100 mls/hr Q24H IV 01/15/18 20:00 01/17/18 19:40 Lorazepam (Ativan) 0.5 mg Q8H PRN PO anxiety 01/17/18 15:30 01/18/18 03:18 Hydromorphone HCl (Dilaudid Pf Inj) 1 mg STAT ONCE IV 01/18/18 09:00 01/18/18 09:01 01/18/18 08:51 Objective Remarks GENERAL: Middle aged female, upright in bed. SKIN: Warm and dry. HEAD: Normocephalic. EYES: no injection or drainage. NECK: Supple, trachea midline. CARDIOVASCULAR: Regular rate and rhythm RESPIRATORY: Breath sounds equal bilaterally. No accessory muscle use. GASTROINTESTINAL: Abdomen soft, mildly tender around ostomy site. no erythema EXTREMITIES: No cyanosis NEUROLOGICAL: awake and alert. normal speech. no obvious focal deficit. 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 Plan 1. last day of radiation today 2. stop Oxycodone start PO dilaudid for pain control. 3. ok to d/c from oncology standpoint when pain controlled and cleared by all specialities. Attending Statement The exam, history, and the medical decision-making described in the above note were completed with the assistance of the mid-level provider. I reviewed and agree with the findings presented. I attest that I had a [id number] encounter with the patient on the same day, and personally performed and documented my assessment and findings in the medical record. Still has pain around the stoma. Tolerating XRT. Continue to titrate pain meds. F/u oncology clinic after d/c. Chela Greer January 18, 2018 09:04 Maicol Ordaz MD January 18, 2018 11:06
[2018-01-18] MEDS: SODIUM CHLOR 0.9% 1000 ML INJ 1,000 ML IV SCH (09:31)
[2018-01-18] MEDS: HYDROmorphone HCL 4 MG TAB PO PRN ×5 (09:32→22:10)
--- NOTE | 2018-01-18 11:22 | PD.WCN.NOT ---
Wound Consult Description: Consult for NEW STOMA TEACHING per Dr Newberry Communicated with: Dr Tomlin Patient [place], CHAZ Recommendation: Continue to encourage patient to empty pouch when 1/3-1/2 full Change wafer every 5-7 days and PRN for leaks. Possible psych consult. Additional Information: Patient seen on [facility] for ostomy assessment and pouching system change. Ostomy Type: Colostomy Surgeon: Ashish Newberry MD Date of Surgery: January 07, 2018 Complete: Starter kit (Starter kit sent out ), Education materials (in patient room), Rx (patient requests moldable wafer size 2 1/4" with closed ended pouches ; script left on chart), Other (appliance changed today using 2 3/4" oval appliance with transparent pouch and filter) Educated patient on: The need to change pouching system due to breakdown of wafer @ 3 and 9 o'clock without leaks, yet. Patient began to cry saying that it's only supposed to be changed once a week. It was explained to the patient that every one is different and we have to protect the skin from the stool that is apparently leaking from underneath the barrier. The patient went on to say that she cannot do this anymore, she would rather just than have to take care of this. Patient was given some time to process the information given. She also called in CHAZ Mccormack to tell her to cancel her radiation for today and that she wasn't doing it anymore. When patient was asked what she would like tech writer to do, she says well if it needs to be changed then do it. Additional information Patient was provided adhesive remover wipes to remove her wafer after a mirror was given to her so she could see that the wafer was breaking down almost to the very edge of the wafer @ 3 and 9 o'clock. It was explained to her that we would just keep trying different strategies until we figure out what works for her. Patient removed her wafer and pouch and handed to tech writer for disposal. Patient then used the soft cloths that tech writer obtained from the floor SPD and cleansed the peristomal skin that is noted to be macerated @0900. Stoma is oval , moist with mucus, ~90% salguero/white and ~10% pink, moderately protruding, sutures in tact circumferentially, functioning from lumen with brown liquid effluent. peristomal skin was skin prepped using Cavilon spray. Hudson seal was warmed and applied from 1 to 11 o'clock on the peristomal skin with size 2 3/4" wafer used and a transparent pouch with charcoal filter being attached to the low pressure adaptor. Betty Rodriguez [facility] January 18, 2018 11:22
--- NOTE | 2018-01-18 18:05 | HHI.PR ---
Subjective Remarks Patient stated the pain is still there however it slightly better than yesterday No fever or chills Discussed with ID regarding her situation recommended monitor and possible CT tomorrow if continue to have pain Objective Vitals Vital Signs Date Time Temp Pulse Resp B/P (MAP) Pulse Ox O2 Delivery O2 Flow Rate FiO2 01/18/18 15:01 97.6 85 18 111/74 (86) 91 01/18/18 12:31 98.1 84 18 115/76 (89) 91 01/18/18 08:45 90 Room Air 01/18/18 08:42 97.6 90 18 109/74 (86) 90 01/18/18 07:00 86 01/18/18 04:00 86 01/18/18 04:00 98.0 85 17 137/92 (107) 95 01/18/18 00:00 86 01/18/18 00:00 98.2 90 16 132/86 (101) 92 01/17/18 20:00 91 01/17/18 20:00 Room Air 01/17/18 20:00 98.0 95 14 140/92 (108) 90 I/O 01/17/18 01/17/18 01/17/18 01/18/18 01/18/18 01/18/18 07:00 15:00 23:00 07:00 15:00 23:00 Intake Total 390 ml 462.5 ml 1100 ml 960 ml Output Total 2025 ml 2275 ml 1575 ml Balance -1635 ml 462.5 ml -1175 ml -615 ml Intake Oral 390 ml 1000 ml 960 ml IV Total 462.5 ml 100 ml Output Urine Total 1900 ml 1850 ml 1500 ml Stool Total 125 ml 425 ml 75 ml Result Diagram: 01/17/18 0600 01/17/18 0600 Objective Remarks GENERAL: This is a well-nourished, well-developed patient, in no apparent distress. CARDIOVASCULAR: RRR, no gallops, or rubs. RESPIRATORY: Fair air entry bilaterally. No W, R, or R GASTROINTESTINAL: Abdomen soft, non-tender, nondistended. Positive bowel sounds , ostomy in place functioning well MUSCULOSKELETAL: Extremities without clubbing, cyanosis, or edema. Pedal pulses appreciated NEUROLOGICAL: Awake and alert. Moves all extremity. Normal speech.no focal neurological deficit Procedures By Dr Newberry colorectal surgery : EUA / Laparoscopic assisted loop sigmoid colostomy 01/08/18 Colostomy revision 01/11 A/P Problem List: (1) Rectal or anal pain ICD Code: K62.89 - Other specified diseases of anus and rectum (2) Fistula of vagina ICD Code: N82.8 - Other female genital tract fistulae Status: Acute (3) Anal cancer ICD Code: C21.0 - Malignant neoplasm of anus, unspecified Assessment and Plan 01/17: Still complaining of severe uncontrolled pain, she was weaned off of the HIGHWAY PAINTER HELPER and started on oxycodone 10 mg every 4 hours, D/W the nurse who was at the bedside will give extra dose of Dilaudid once only now. 01/18: Discussed with ID patient continued to have pain we will do CT abdomen tomorrow, continue antibiotic for now A/P: 47-year-old female with past medical history significant for COPD, breast cancer , and rectal cancer who presents to the emergency department with complaints of stool coming out of her vagina. 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 Ordaz for medical oncology and Dr. Mejia for radiation oncology. //Rectovaginal fistula //Fecal incontinence //Ileus postsurgical CT of the abdomen and pelvis reviewed, hepatic stenosis with no acute findings in the abdomen or pelvis. + Stool from the vagina Patient afebrile, no tachycardia, stable blood pressure and O2 saturation. Leukopenia, WBCs 2.4, neutrophil count 80.4. BC x2 pending, lactic acid 1.8, UA with small amount of leukocyte esterase, culture not indicated. Consult colorectal surgery, patient known to Dr. Newberry, greatly appreciate assistance and recommendations. S/P diverting colostomy by Dr Newberry on 01/07/18. On HIGHWAY PAINTER HELPER pump patient says she is still with significant pain. KUB reviewed with poss ileus postsurgical Simethicone Add tums S/P colostomy revision by Dr Newberry 01/11 //Stage II anal cancer //Rectal pain Patient recently finished chemotherapy, still pending several treatments of radiation. Consult medical oncology, Dr. Ordaz for followup while patient is here, appreciate further recommendations. P.o. Roxicodone for pain, IV Dilaudid for breakthrough. Now on HIGHWAY PAINTER HELPER pump wean off per surgeon As needed medications for constipation, currently having loose stools. //Cellulitis right posterior thigh Patient was recently discharged on 01/05 after being treated for cellulitis. Initially treated with IV antibiotics and then transitioned to p.o. Culture at that time was positive for MSSA with campa sensitivity Continue Levaquin 500 mg daily 10 days Prednisone taper, DC steroids = Continue with Levaquin at least until 01/17 or until required by surgical service. //Hypokalemia- replaced. Monitor and replace as need. //Hyperglycemia related to stress and prednisone use. No history of diabetes A1c. Patient with elevated blood sugar hold he is feeling this time as patient is not able to have p.o. //DVT prophylaxis-SCDs Discharge Planning Patient has been cleared by colorectal surgery Will need clearance from infectious disease PT recommends home with hh. Ita Tomlin MD January 18, 2018 18:05
[2018-01-19] VITALS (7 sets, daily range): BP systolic 113–131; BP diastolic 80–87; PULSE 79–86; RESP 18–22; TEMP 97.9–98.5; O2SAT 90–93
[2018-01-19] MEDS: HYDROmorphone HCL 4 MG TAB PO PRN ×7 (01:20→23:35)
[2018-01-19] MEDS: LORazepam 0.5 MG TAB PO PRN ×2 (04:11→21:41)
[2018-01-19] MEDS: PIPERACIL-TAZO 4.5 GM PREMIX 100 ML IV SCH ×4 (04:12→21:40)
[2018-01-19] MEDS ORDERED: PHARMACY ORDERED LAB ONE (05:45)
[2018-01-19] MEDS: INSULIN ASPART SUPPLEMENTAL SCALE SQ SCH ×4 (08:00→21:00)
[2018-01-19] MEDS: SODIUM CHLORIDE 0.9% FLUSH 10 ML FLUSH IV FLUSH SCH ×2 (08:16→21:41)
[2018-01-19] MEDS: METOCLOPRAMIDE HCL 10 MG/2 ML VIAL IVS SCH ×2 (08:16→21:41)
[2018-01-19] MEDS: MAGNESIUM OXIDE 400 MG TAB PO SCH ×2 (08:19→09:00)
[2018-01-19] MEDS: PANTOPRAZOLE SOD 40 MG DELAYED RELEASE TAB PO SCH (08:19)
[2018-01-19] MEDS: PANTOPRAZOLE SODIUM 40 MG VIAL IVP SCH (08:22)
[2018-01-19] MEDS: NYSTAT/DIPHENHY/LIDO MOUTHWASH (Adult) 120ML SWISH-SWAL SCH ×4 (08:23→21:00)
[2018-01-19] MEDS: AQUAPHOR OINT 50 GM TUBE TOPICAL SCH ×2 (08:33→21:40)
[2018-01-19] MEDS: oxyCODONE HCL 40 MG CONTROLLED RELEASE TAB PO SCH (10:41)
--- NOTE | 2018-01-19 10:41 | PD.ONC.PN ---
Subjective Subjective Remarks Afebrile overnight. Patient continues to complain of severe pain in abdomen. she states the PO dilaudid is not working effectively. was taking oxycontin 40mg PO BID at home. wants to take a shower. Objective Data Date Time Temp Pulse Resp B/P (MAP) Pulse Ox O2 Delivery O2 Flow Rate FiO2 01/19/18 04:00 97.9 86 22 131/86 (101) 91 01/19/18 00:00 98.5 86 20 126/83 (97) 90 01/18/18 20:00 93 01/18/18 20:00 93 01/18/18 20:00 Room Air 01/18/18 20:00 97.9 94 24 126/84 (98) 91 01/18/18 15:01 97.6 85 18 111/74 (86) 91 01/18/18 12:31 98.1 84 18 115/76 (89) 91 01/19/18 01/19/18 01/19/18 07:00 15:00 23:00 Intake Total 480 ml Output Total 2000 ml Balance -1520 ml Result Diagram: 01/17/18 0600 01/17/18 0600 Administered Medications Medications (Trade) Dose Ordered Sig/Advid Route PRN Reason Start Time Stop Time Status Last Admin Dose Admin Sodium Chloride (NS Flush) 2 ml UNSCH PRN IV FLUSH FLUSH AFTER USING IV ACCESS 01/06/18 11:30 01/06/18 12:10 Sodium Chloride (NS Flush) 2 ml BID IV FLUSH 01/06/18 21:00 01/18/18 22:11 Multi-Ingredient Mouthwash/Gargle (Magic Mouthwash Adult Liq) 10 ml QID SWISH-SWAL 01/06/18 18:00 01/12/18 21:30 Acetaminophen/ Butalbital/ Caffeine (Fioricet 325-50-40) 1 tab Q6H PRN PO HEADACHE 01/06/18 17:45 01/17/18 06:13 Acetaminophen (Tylenol) 650 mg Q4H PRN PO TEMPERATURE > 100F 01/07/18 12:00 01/14/18 23:20 Pantoprazole Sodium (Protonix Inj) 40 mg DAILY IVP 01/08/18 09:00 01/17/18 09:04 Pantoprazole Sodium (Protonix) 40 mg DAILY PO 01/08/18 09:00 01/19/18 08:19 Metoclopramide HCl (Reglan Inj) 10 mg Q12HR IVS 01/07/18 21:00 01/19/18 08:16 Ondansetron HCl (Zofran Inj) 4 mg Q6H PRN IV PUSH NAUSEA 01/07/18 12:00 01/16/18 05:50 Insulin Aspart (NovoLOG SUPPLEMENTAL SCALE) 1 ACHS SLIDING SCALE SQ 01/08/18 12:00 01/16/18 17:05 Emollient Ointment (Aquaphor Oint) 1 applic Q12HR TOPICAL 01/09/18 09:00 01/19/18 08:33 Simethicone (Phazyme Chew) 125 mg Q8HR PRN PO gas 01/09/18 12:15 01/18/18 06:01 Calcium Carbonate (Tums Chew) 500 mg Q2H PRN CHEW dyspepsia 01/10/18 15:45 01/13/18 15:31 Magnesium Oxide (Mag-Ox) 400 mg DAILY PO 01/16/18 09:00 01/19/18 08:19 Piperacillin Sod/ Tazobactam Sod 100 ml @ 200 mls/hr Q6H IV 01/15/18 21:00 01/19/18 08:27 Lorazepam (Ativan) 0.5 mg Q8H PRN PO anxiety 01/17/18 15:30 01/19/18 04:11 Hydromorphone HCl (Dilaudid) 4 mg Q3H PRN PO PAIN SCALE 1 TO 10 01/18/18 07:45 01/19/18 08:19 Objective Remarks GENERAL: Middle aged female, lying in bed resting. SKIN: Warm and dry. HEAD: Normocephalic. EYES: No injection or drainage. NECK: Supple, trachea midline. CARDIOVASCULAR: Regular rate and rhythm RESPIRATORY: Breath sounds equal bilaterally. No accessory muscle use. GASTROINTESTINAL: Abdomen soft, non-tender, nondistended. ostomy bag in place with soft brown stool. tenderness noted throughout abdomen. EXTREMITIES: No cyanosis NEUROLOGICAL: No obvious focal deficit. Awake, alert, and oriented x3. 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 Plan 1. resume home Oxycontin 40mg PO q 12 hours 2. continue PRN dilaudid for breakthrough pain. 3. continue antibiotics per infectious disease. Attending Statement The exam, history, and the medical decision-making described in the above note were completed with the assistance of the mid-level provider. I reviewed and agree with the findings presented. I attest that I had a [id number] encounter with the patient on the same day, and personally performed and documented my assessment and findings in the medical record. Still has abdominal pain. Completed XRT. Restart oxycontin and titrate pain meds. D/c when clear by ID and pain controlled. Chela Greer January 19, 2018 10:41 Maicol Ordaz MD January 19, 2018 16:56
--- NOTE | 2018-01-19 11:51 | HHI.PR ---
Subjective Remarks Patient resting in bed Still having pain in her lower abdomen, discussed with ID, she will assist the patient soon today may repeat CAT scan of the abdomen Objective Vitals Vital Signs Date Time Temp Pulse Resp B/P (MAP) Pulse Ox O2 Delivery O2 Flow Rate FiO2 01/19/18 04:00 97.9 86 22 131/86 (101) 91 01/19/18 00:00 98.5 86 20 126/83 (97) 90 01/18/18 20:00 93 01/18/18 20:00 93 01/18/18 20:00 Room Air 01/18/18 20:00 97.9 94 24 126/84 (98) 91 01/18/18 15:01 97.6 85 18 111/74 (86) 91 01/18/18 12:31 98.1 84 18 115/76 (89) 91 I/O 01/18/18 01/18/18 01/18/18 01/19/18 01/19/18 01/19/18 07:00 15:00 23:00 07:00 15:00 23:00 Intake Total 960 ml 2400 ml 480 ml Output Total 1575 ml 5000 ml 2000 ml Balance -615 ml -2600 ml -1520 ml Intake Oral 960 ml 2400 ml 480 ml Output Urine Total 1500 ml 5000 ml 2000 ml Stool Total 75 ml # Bowel Movements 1 Result Diagram: 01/17/18 0600 01/17/18 0600 Objective Remarks GENERAL: This is a well-nourished, well-developed patient, in no apparent distress. CARDIOVASCULAR: RRR, no gallops, or rubs. RESPIRATORY: Fair air entry bilaterally. No W, R, or R GASTROINTESTINAL: Abdomen soft, non-tender, nondistended. Positive bowel sounds , ostomy in place functioning well MUSCULOSKELETAL: Extremities without clubbing, cyanosis, or edema. Pedal pulses appreciated NEUROLOGICAL: Awake and alert. Moves all extremity. Normal speech.no focal neurological deficit Procedures By Dr Newberry colorectal surgery : EUA / Laparoscopic assisted loop sigmoid colostomy 01/08/18 Colostomy revision 01/11 A/P Problem List: (1) Rectal or anal pain ICD Code: K62.89 - Other specified diseases of anus and rectum (2) Fistula of vagina ICD Code: N82.8 - Other female genital tract fistulae Status: Acute (3) Anal cancer ICD Code: C21.0 - Malignant neoplasm of anus, unspecified Assessment and Plan 01/17: Still complaining of severe uncontrolled pain, she was weaned off of the MANAGER MERCHANDISE and started on oxycodone 10 mg every 4 hours, D/W the nurse who was at the bedside will give extra dose of Dilaudid once only now. 01/18: Discussed with ID patient continued to have pain we will do CT abdomen tomorrow, continue antibiotic for now 01/19:Still having pain in her lower abdomen, discussed with ID, she will assist the patient soon today may repeat CAT scan of the abdomen A/P: 47-year-old female with past medical history significant for COPD, breast cancer , and rectal cancer who presents to the emergency department with complaints of stool coming out of her vagina. 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 Ordaz for medical oncology and Dr. Mejia for radiation oncology. //Rectovaginal fistula //Fecal incontinence //Ileus postsurgical CT of the abdomen and pelvis reviewed, hepatic stenosis with no acute findings in the abdomen or pelvis. + Stool from the vagina Patient afebrile, no tachycardia, stable blood pressure and O2 saturation. Leukopenia, WBCs 2.4, neutrophil count 80.4. BC x2 pending, lactic acid 1.8, UA with small amount of leukocyte esterase, culture not indicated. Consult colorectal surgery, patient known to Dr. Newberry, greatly appreciate assistance and recommendations. S/P diverting colostomy by Dr Newberry on 01/07/18. On MANAGER MERCHANDISE pump patient says she is still with significant pain. KUB reviewed with poss ileus postsurgical Simethicone Add tums S/P colostomy revision by Dr Newberry 01/11 //Stage II anal cancer //Rectal pain Patient recently finished chemotherapy, still pending several treatments of radiation. Consult medical oncology, Dr. Ordaz for followup while patient is here, appreciate further recommendations. P.o. Roxicodone for pain, IV Dilaudid for breakthrough. Now on MANAGER MERCHANDISE pump wean off per surgeon As needed medications for constipation, currently having loose stools. //Cellulitis right posterior thigh Patient was recently discharged on 01/05 after being treated for cellulitis. Initially treated with IV antibiotics and then transitioned to p.o. Culture at that time was positive for MSSA with campa sensitivity Continue Levaquin 500 mg daily 10 days Prednisone taper, DC steroids = Continue with Levaquin at least until 01/17 or until required by surgical service. //Hypokalemia- replaced. Monitor and replace as need. //Hyperglycemia related to stress and prednisone use. No history of diabetes A1c. Patient with elevated blood sugar hold he is feeling this time as patient is not able to have p.o. //DVT prophylaxis-SCDs Discharge Planning Patient has been cleared by colorectal surgery Will need clearance from infectious disease PT recommends home with hh. Ita Tmolin MD January 19, 2018 11:51
--- NOTE | 2018-01-19 12:03 | PD.WCN.NOT ---
Wound Consult Description: Consult for NEW STOMA TEACHING per Dr Newberry Communicated with: CHAZ Ryan Recommendation: Call when patient wakes up Betty Rodriguez [facility] January 19, 2018 12:03
--- NOTE | 2018-01-19 12:29 | HHI.IDPN ---
Subjective Subjective Remarks co abdominal pain LLQ, rates as severe no fever taking po stooling improving mouth sores Antibiotics zosyn Allergies: Coded Allergies: No Known Allergies (Unverified , 01/06/18) Objective . Vital Signs Date Time Temp Pulse Resp B/P (MAP) Pulse Ox O2 Delivery O2 Flow Rate FiO2 01/19/18 04:00 97.9 86 22 131/86 (101) 91 01/19/18 00:00 98.5 86 20 126/83 (97) 90 01/18/18 20:00 93 01/18/18 20:00 93 01/18/18 20:00 Room Air 01/18/18 20:00 97.9 94 24 126/84 (98) 91 01/18/18 15:01 97.6 85 18 111/74 (86) 91 01/18/18 12:31 98.1 84 18 115/76 (89) 91 Imaging Last Impressions Chest X-Ray 01/12/18 0000 Signed Impressions: Service Date/Time: Friday, January 12, 2018 09:17 - CONCLUSION: Mild left base atelectasis Prieto Weeks MD Abdomen X-Ray 01/09/18 0000 Signed Impressions: Service Date/Time: Tuesday, January 09, 2018 15:09 - CONCLUSION: 1. Gaseous distention of bowel, probable ileus. Right colon distended up to 11 cm. Asad Mccann MD Abdomen/Pelvis CT 01/06/18 1126 Signed Impressions: Service Date/Time: Saturday, January 06, 2018 13:54 - CONCLUSION: Hepatic steatosis. No acute findings in the abdomen and pelvis. Tomas Ross MD Physical Exam CONSTITUTIONAL/GENERAL: This is an overweight female patient, in no apparent distress. TUBES/LINES/DRAINS: PORT in place R chest - site OK SKIN: No jaundice, rashes, or lesions. Skin temperature appropriate. Not diaphoretic. ENT: Hearing grossly normal. Nose without bleeding or purulent drainage. Throat without visible erythema, exudates, masses, Multiple clusteres crustered lesions lower lip L aspect and L nostril - improving CARDIOVASCULAR: Regular rate and rhythm without murmurs, gallops, or rubs. No JVD. Peripheral pulses symmetric. RESPIRATORY/CHEST: Symmetric, unlabored respirations. Clear to auscultation. Breath sounds equal bilaterally. No wheezes, rales, or rhonchi. GASTROINTESTINAL: Abdomen soft, remains very tender in LLQ , + moderatelyy distended. \Colostomy in place with brown semi formed stool No hepato-splenomegaly, or palpable masses. + guarding. Localised rebound in LLQ present Bowel sounds present. MUSCULOSKELETAL: Extremities without clubbing, cyanosis, or edema. NEUROLOGICAL: Awake and alert. Motor and sensory grossly within normal limits. Follows commands. Cognitively sharp. Moves all extremities. PSYCHIATRIC: calm, cooperateive Assessment & Plan Remarks Fever - resolved - all clx remain negative Immunosuppressed Anal ca with rectovag fistula Sp colostomy 11 days ago - cont to co LLQ pain Herpes labialis - per pt ist improving cont zosyn CT A/P w IV and oral contrast dw Meenakshi Gomez MD January 19, 2018 12:29
[2018-01-19 14:13] LABS: AUTOMATED NEUTROPHIL # 2.5 TH/MM3 (1.8-7.7); BASOPHIL % 0.5 % (0.0-2.0); EOSINOPHIL % 1.1 % (0.0-4.0); HEMOGLOBIN 11.7 GM/DL (11.6-15.3); LYMPH % 10.6 % (9.0-44.0); LYMPHOCYTE # 0.3 TH/MM3 (1.0-4.8); MEAN CELL VOLUME 92.3 FL (80.0-100.0); MEAN CORPUSCULAR HEMOGLOBIN 32.9 PG (27.0-34.0); MEAN CORPUSCULAR HGB CONC 35.6 % (32.0-36.0); MEAN PLATELET VOLUME 7.2 FL (7.0-11.0); MONO % 8.4 % (0.0-8.0); MONOCYTE # 0.3 TH/MM3 (0-0.9); NEUT % 79.4 % (16.0-70.0); PLATELET COUNT 369 TH/MM3 (150-450); RED BLOOD COUNT 3.57 MIL/MM3 (4.00-5.30); RED CELL DISTRIBUTION WIDTH 18.2 % (11.6-17.2); WHITE BLOOD COUNT 3.2 TH/MM3 (4.0-11.0)
[2018-01-19] MEDS ORDERED: DIATRIZOATE MEGLUM/DIATRIZOATE SOD 9 ML CUP PO ONE (14:15)
[2018-01-19] MEDS: ONDANSETRON HCL 4 MG/2 ML VIAL IV PUSH PRN (16:45)
[2018-01-19] MEDS ORDERED: IOHEXOL 350 MG/ML 10 ML VIAL (for RAD DIAG) IVCONTRAST ONE (22:58)
--- NOTE | 2018-01-19 23:22 | RADRPT ---
EXAM DATE/TIME: 01/19/2018 22:50 [facility] COMPARISON: CT ABDOMEN & PELVIS W CONTRAST, January 06, 2018, 13:54. INDICATIONS : Abdominal pain, status post colostomy. Pain around surgerical site. IV CONTRAST: 80 cc Omnipaque 350 (iohexol) IV ORAL CONTRAST: Prescribed oral contrast ingested. RADIATION DOSE: 8.51 CTDIvol (mGy) MEDICAL HISTORY : Hernia, inguinal. Rectal mass. SURGICAL HISTORY : Colostomy. ENCOUNTER: Initial ACUITY: 2 weeks PAIN SCALE: 7/10 LOCATION: abdomen TECHNIQUE: Volumetric scanning of the abdomen and pelvis was performed. Using automated exposure control and ad justment of the mA and/or kV according to patient size, radiation dose was kept as low as reasonably achievable to obtain optimal diagnostic quality images. DICOM format image data is available electro nically for review and comparison. FINDINGS: Minimal basilar scarring or subsegmental atelectasis. Diffuse fatty liver. Spleen, adrenals, kidneys and pancreas unremarkable. No calcified gallstones or biliary ductal dilatation. There is no bowel obstruction. No free air or free fluid. Lower quadrant colostomy is present. There is some stranding of fat around the colostomy but no focal fluid collection to suggest abscess. CONCLUSION: 1. Mild stranding of fat around the colostomy in the left lower quadrant abdominal wall which could r epresent some edema or mild inflammatory change. No discrete abscess. 2. Diffuse fatty liver. No other acute findings within the abdomen and pelvis. Asad Mccann MD on January 19, 2018 at 23:16 Board Certified Radiologist. This report was verified electronically.
[2018-01-20] VITALS: BP 118/78; PULSE 80; RESP 20; TEMP 97.4; O2SAT 91
[2018-01-20] MEDS: LORazepam 0.5 MG TAB PO PRN (03:00)
[2018-01-20] MEDS: HYDROmorphone HCL 4 MG TAB PO PRN (03:01)
[2018-01-20] MEDS: PIPERACIL-TAZO 4.5 GM PREMIX 100 ML IV SCH ×2 (03:02→09:37)
[2018-01-20 04:00] VITALS: BP 123/79; PULSE 85; RESP 22; TEMP 97.8; O2SAT 93
[2018-01-20] MEDS: INSULIN ASPART SUPPLEMENTAL SCALE SQ SCH ×2 (08:00→12:00)
[2018-01-20 08:04] VITALS: BP 134/83; PULSE 81; RESP 20; TEMP 98.5; O2SAT 95
--- NOTE | 2018-01-20 08:55 | PD.ONC.PN ---
Subjective Subjective Remarks Afebrile Patient reports her pain is still uncontrolled despite adding oxycodone to regimen yesterday Objective Data Date Time Temp Pulse Resp B/P (MAP) Pulse Ox O2 Delivery O2 Flow Rate FiO2 01/20/18 08:04 98.5 81 20 134/83 (100) 95 01/20/18 04:00 97.8 85 22 123/79 (94) 93 01/20/18 00:00 97.4 80 20 118/78 (91) 91 01/19/18 20:00 92 Room Air 01/19/18 20:00 98.0 79 20 128/80 (96) 92 01/19/18 17:00 92 21 01/19/18 16:40 97.9 86 18 113/80 (91) 92 01/19/18 12:45 98.0 82 20 119/87 (98) 93 01/20/18 01/20/18 01/20/18 07:00 15:00 23:00 Intake Total 800 ml Output Total 1350 ml Balance -550 ml Result Diagram: 01/19/18 1404 01/17/18 0600 Laboratory Results Laboratory Tests Test 01/19/18 14:04 White Blood Count 3.2 TH/MM3 Red Blood Count 3.57 MIL/MM3 Hemoglobin 11.7 GM/DL Hematocrit 33.0 % Mean Corpuscular Volume 92.3 FL Mean Corpuscular Hemoglobin 32.9 PG Mean Corpuscular Hemoglobin Concent 35.6 % Red Cell Distribution Width 18.2 % Platelet Count 369 TH/MM3 Mean Platelet Volume 7.2 FL Neutrophils (%) (Auto) 79.4 % Lymphocytes (%) (Auto) 10.6 % Monocytes (%) (Auto) 8.4 % Eosinophils (%) (Auto) 1.1 % Basophils (%) (Auto) 0.5 % Neutrophils # (Auto) 2.5 TH/MM3 Lymphocytes # (Auto) 0.3 TH/MM3 Monocytes # (Auto) 0.3 TH/MM3 Eosinophils # (Auto) 0.0 TH/MM3 Basophils # (Auto) 0.0 TH/MM3 CBC Comment AUTO DIFF Differential Comment AUTO DIFF CONFIRMED Platelet Estimate NORMAL Platelet Morphology Comment NORMAL Administered Medications Medications (Trade) Dose Ordered Sig/David Route PRN Reason Start Time Stop Time Status Last Admin Dose Admin Sodium Chloride (NS Flush) 2 ml UNSCH PRN IV FLUSH FLUSH AFTER USING IV ACCESS 01/06/18 11:30 01/06/18 12:10 Sodium Chloride (NS Flush) 2 ml BID IV FLUSH 01/06/18 21:00 01/19/18 21:41 Multi-Ingredient Mouthwash/Gargle (Magic Mouthwash Adult Liq) 10 ml QID SWISH-SWAL 01/06/18 18:00 01/12/18 21:30 Acetaminophen/ Butalbital/ Caffeine (Fioricet 325-50-40) 1 tab Q6H PRN PO HEADACHE 01/06/18 17:45 01/17/18 06:13 Acetaminophen (Tylenol) 650 mg Q4H PRN PO TEMPERATURE > 100F 01/07/18 12:00 01/14/18 23:20 Pantoprazole Sodium (Protonix Inj) 40 mg DAILY IVP 01/08/18 09:00 01/17/18 09:04 Pantoprazole Sodium (Protonix) 40 mg DAILY PO 01/08/18 09:00 01/19/18 08:19 Metoclopramide HCl (Reglan Inj) 10 mg Q12HR IVS 01/07/18 21:00 01/19/18 21:41 Ondansetron HCl (Zofran Inj) 4 mg Q6H PRN IV PUSH NAUSEA 01/07/18 12:00 01/19/18 16:45 Insulin Aspart (NovoLOG SUPPLEMENTAL SCALE) 1 ACHS SLIDING SCALE SQ 01/08/18 12:00 01/16/18 17:05 Emollient Ointment (Aquaphor Oint) 1 applic Q12HR TOPICAL 01/09/18 09:00 01/19/18 21:40 Simethicone (Phazyme Chew) 125 mg Q8HR PRN PO gas 01/09/18 12:15 01/18/18 06:01 Calcium Carbonate (Tums Chew) 500 mg Q2H PRN CHEW dyspepsia 01/10/18 15:45 01/13/18 15:31 Magnesium Oxide (Mag-Ox) 400 mg DAILY PO 01/16/18 09:00 01/18/18 08:47 Piperacillin Sod/ Tazobactam Sod 100 ml @ 200 mls/hr Q6H IV 01/15/18 21:00 01/20/18 03:02 Lorazepam (Ativan) 0.5 mg Q8H PRN PO anxiety 01/17/18 15:30 01/20/18 03:00 Hydromorphone HCl (Dilaudid) 4 mg Q3H PRN PO PAIN SCALE 1 TO 10 01/18/18 07:45 01/20/18 03:01 Oxycodone HCl (OxyCONTIN CR) 40 mg Q12HR PO 01/19/18 09:00 Future Hold 01/19/18 10:41 Objective Remarks GENERAL: Middle aged female resting in bed in no obvious distress SKIN: Warm and dry. HEAD: Normocephalic. EYES: No injection or drainage. NECK: Supple, trachea midline. CARDIOVASCULAR: Regular rate and rhythm RESPIRATORY: Breath sounds equal bilaterally. No accessory muscle use. GASTROINTESTINAL: Abdomen soft, non-tender, nondistended. Ostomy bag in place with soft brown stool. Tender to touch around ostomy site EXTREMITIES: No cyanosis NEUROLOGICAL: No obvious focal deficit. Awake, alert, and oriented x3. 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 Plan 1. Continue OxyContin 40 mg p.o. every 12 hours with Dilaudid as breakthrough pain. 2. Reviewed CT abdomen; no obvious abscess or acute finding. 3. Supportive care Attending Statement The exam, history, and the medical decision-making described in the above note were completed with the assistance of the mid-level provider. I reviewed and agree with the findings presented. I attest that I had a [id number] encounter with the patient on the same day, and personally performed and documented my assessment and findings in the medical record. Has abdominal pain. Started back on Oxycontin. CT abd/pelvis showed inflammatory changes but no abscess. F/u oncology clinic after d/c. Mona Saba January 20, 2018 08:55 Maicol Ordaz MD January 20, 2018 13:20
--- NOTE | 2018-01-20 08:55 | HHI.FF ---
Face to Face Verification Diagnosis: (1) Fistula of vagina (2) Rectal or anal pain (3) Cancer of anal canal (4) Colostomy status Home Health Nursing Order: Medical education Wound care and dressing changes I have seen patient Kasey Hatch on 01/20/18. My clinical findings support the need for the requested home health care services because: Ltd mobility - disease progression Limited ability to care for self I certify that my clinical findings support that this patient is homebound because: Post-op weakness Kate Espitia MD January 20, 2018 08:55
[2018-01-20] MEDS: PANTOPRAZOLE SODIUM 40 MG VIAL IVP SCH (09:00)
[2018-01-20] MEDS: AQUAPHOR OINT 50 GM TUBE TOPICAL SCH (09:00)
[2018-01-20] MEDS: NYSTAT/DIPHENHY/LIDO MOUTHWASH (Adult) 120ML SWISH-SWAL SCH ×2 (09:00→13:00)
--- NOTE | 2018-01-20 09:02 | HHI.PR ---
Subjective Remarks POD#13 s/p diverting colostomy tearful, dizzy Objective Vital Signs Date Time Temp Pulse Resp B/P (MAP) Pulse Ox O2 Delivery O2 Flow Rate FiO2 01/20/18 08:04 98.5 81 20 134/83 (100) 95 01/20/18 04:00 97.8 85 22 123/79 (94) 93 01/20/18 00:00 97.4 80 20 118/78 (91) 91 01/19/18 20:00 92 Room Air 01/19/18 20:00 98.0 79 20 128/80 (96) 92 01/19/18 17:00 92 21 01/19/18 16:40 97.9 86 18 113/80 (91) 92 01/19/18 12:45 98.0 82 20 119/87 (98) 93 I/O 01/19/18 01/19/18 01/19/18 01/20/18 01/20/18 01/20/18 07:00 15:00 23:00 07:00 15:00 23:00 Intake Total 480 ml 816 ml 800 ml Output Total 2000 ml 100 ml 1050 ml 1350 ml Balance -1520 ml -100 ml -234 ml -550 ml Intake Oral 480 ml 716 ml 700 ml IV Total 100 ml 100 ml Output Urine Total 2000 ml 1000 ml 1000 ml Stool Total 100 ml 50 ml 350 ml # Bowel Movements 1 Result Diagram: 01/19/18 1404 01/17/18 0600 Objective Remarks Stoma dusky, functional Assessment and Plan Assessment and Plan Awaiting discharge Kate Espitia MD January 20, 2018 09:02
[2018-01-20] MEDS: oxyCODONE HCL 40 MG CONTROLLED RELEASE TAB PO SCH (09:36)
[2018-01-20] MEDS: PANTOPRAZOLE SOD 40 MG DELAYED RELEASE TAB PO SCH (09:36)
[2018-01-20] MEDS: MAGNESIUM OXIDE 400 MG TAB PO SCH (09:36)
[2018-01-20] MEDS: METOCLOPRAMIDE HCL 10 MG/2 ML VIAL IVS SCH (09:36)
[2018-01-20] MEDS ORDERED: OXYC40TA20 PO (11:16)
[2018-01-20] MEDS ORDERED: DILA4TAB10 PO (11:16)
[2018-01-20] MEDS ORDERED: BEDSIDE COMMODE1 MI1 (12:47)
[2018-01-20] MEDS ORDERED: WALKER WHEELS/F1 MIS (12:47)
--- NOTE | 2018-01-20 15:21 | HHI.DS ---
Discharge Summary Admission Date January 06, 2018 at 17:00 Admitting Diagnosis Colovaginal fistula, anal cancer (1) Rectal or anal pain ICD Code: K62.89 - Other specified diseases of anus and rectum (2) Fistula of vagina ICD Code: N82.8 - Other female genital tract fistulae Status: Acute (3) Anal cancer ICD Code: C21.0 - Malignant neoplasm of anus, unspecified Procedures By Dr Newberry colorectal surgery : EUA / Laparoscopic assisted loop sigmoid colostomy 01/08/18 Colostomy revision 01/11 Brief History - From Admission 47-year-old female with past medical history significant for COPD, breast cancer , and rectal cancer who presents to the emergency department with complaints of stool coming out of her vagina. 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 Ordaz for medical oncology and Dr. Mejia for radiation oncology. Patient states that she has recently finished chemotherapy but has several more sessions left of radiation. She tells me that she was just discharged yesterday after she came in with complaints of a spot on her right buttocks. She reports that today she got up to use the bathroom and noticed that there was stool coming out of her vagina. She denies any fevers, chills, nausea, vomiting, abdominal pain, dysuria, hematuria, shortness of breath, cough, dizziness, lightheadedness, or chest pain. She states that she has been unable to eat due to the fact that her mouth is extremely sore, has been eating pudding as well as drinking ensure shakes. She tells me that she is scared that she may get a urinary tract infection as she knows that the chemotherapy decreases her immune system. Patient was recently admitted on 01/01 with complaints of right posterior thigh/ buttocks pain and swelling as well as drainage. Initially patient was treated with IV antibiotics, culture of wound was positive for Staphylococcus aureus with campa sensitivity. Patient was discharged on 01/05 with 10 day course of oral Levaquin, Medrol Dosepak, and mupirocin ointment. CBC/BMP: 01/19/18 1404 01/17/18 0600 Significant Findings Laboratory Tests Test 01/19/18 14:04 White Blood Count 3.2 TH/MM3 (4.0-11.0) Red Blood Count 3.57 MIL/MM3 (4.00-5.30) Hematocrit 33.0 % (35.0-46.0) Red Cell Distribution Width 18.2 % (11.6-17.2) Neutrophils (%) (Auto) 79.4 % (16.0-70.0) Monocytes (%) (Auto) 8.4 % (0.0-8.0) Lymphocytes # (Auto) 0.3 TH/MM3 (1.0-4.8) PE at Discharge GENERAL: This is a well-nourished, well-developed patient, in no apparent distress. CARDIOVASCULAR: RRR, no gallops, or rubs. RESPIRATORY: Fair air entry bilaterally. No W, R, or R GASTROINTESTINAL: Abdomen soft, non-tender, nondistended. Positive bowel sounds , ostomy in place functioning well MUSCULOSKELETAL: Extremities without clubbing, cyanosis, or edema. Pedal pulses appreciated NEUROLOGICAL: Awake and alert. Moves all extremity. Normal speech.no focal neurological deficit Hospital Course 47 years old female rectal cancer with history of breast cancer COPD diagnosed with stage II adenocarcinoma in October [address] Michele for medical oncology and Dr. Mejia for radiation oncology, patient underwent surgery for rectovaginal fistula fecal incontinence and ileus, imaging has been done, colorectal surgeon Dr. 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 D/W nurse D/W case management rn. Discharge medications reviewed and printed and signed as well as DME for bedside commode and walker,, post discharge follow up visit with PCP and other specialist as well as Brief hospital course and discharge summary has been placed. Pt Condition on Discharge: Fair Discharge Disposition: Disch w/ Home Health Serv Discharge Time: > 30 minutes Discharge Instructions DIET: Follow Instructions for: Heart Healthy Diet Activities you can perform: Weight Bearing as Rogelio Follow up Referrals: Appointment for Follow Up - [address] Newberry New Medications: Bedside Commode (Bedside Commode) 1 Mis Mis EA .XX DIRECTED for post op , #1 Walker with Front Wheels (Walker with Front Wheels) 1 Mis Mis EA .XX DIRECTED, #1 0 Refills Hydromorphone (Dilaudid) 4 Mg Tab 4 MG PO Q3H PRN for PAIN SCALE 1 TO 10, #25 TAB Oxycodone HCl (Oxycontin) 40 Mg Tab.er.12h 40 MG PO Q12HR for Pain Management, #15 TAB Continued Medications: Albuterol 18 GM Inh (Ventolin Hfa 18 GM Inh) 90 Mcg/Act Aer 2 PUFF INH Q4-6H PRN for SHORTNESS OF BREATH, #1 INHALER 0 Refills Albuterol Neb (Albuterol Neb) 0.63 Mg/3 Ml Neb 0.63 MG NEB Q6HR NEB PRN for SHORTNESS OF BREATH, #25 NEBULE 0 Refills Mupirocin Topical (Bactroban Topical) 22 Gm Cream 1 APPLIC TOPICAL BID for Mgmt Bacterial Infection for 7 Days, #1 TUBE 0 Refills Hznytjom-Oxhtflvhrbzbbdb-Veyovnbtf Liq (Magic Mouthwash Adult Liq) 120 Ml Susp 10 ML SWISH-SWAL ACHS for Mouth sores, #120 ML 0 Refills Each 5mL contains: Nystatin 200,000units, Diphenhydramine 4.25mg, Viscous Lidocaine 10mg, Bello syrup 0.8 mL Ondansetron (Zofran) 4 Mg Tab 4 MG PO Q6HR PRN for NAUSEA OR VOMITING, TAB 0 Refills [Ispn-Qntvo-Dtvf 325-50-40 Mg] () 1 TAB TAB 1 TAB PO Q6H PRN for HEADACHE for 5 Days, #15 Ita Tomlin MD January 20, 2018 15:21
--- NOTE | 2018-01-20 15:42 | HHI.IDPN ---
Subjective Subjective Remarks co abdominal pain LLQ, CT showed mild inflam changes, no abscess no fever taking po stooling improving mouth sores c/o some itching Antibiotics zosyn Allergies: Coded Allergies: No Known Allergies (Unverified , 01/06/18) Objective . Vital Signs Date Time Temp Pulse Resp B/P (MAP) Pulse Ox O2 Delivery O2 Flow Rate FiO2 01/20/18 08:04 98.5 81 20 134/83 (100) 95 01/20/18 04:00 97.8 85 22 123/79 (94) 93 01/20/18 00:00 97.4 80 20 118/78 (91) 91 01/19/18 20:00 92 Room Air 01/19/18 20:00 98.0 79 20 128/80 (96) 92 01/19/18 17:00 92 21 01/19/18 16:40 97.9 86 18 113/80 (91) 92 . Laboratory Tests Test 01/19/18 14:04 White Blood Count 3.2 TH/MM3 Red Blood Count 3.57 MIL/MM3 Hemoglobin 11.7 GM/DL Hematocrit 33.0 % Mean Corpuscular Volume 92.3 FL Mean Corpuscular Hemoglobin 32.9 PG Mean Corpuscular Hemoglobin Concent 35.6 % Red Cell Distribution Width 18.2 % Platelet Count 369 TH/MM3 Mean Platelet Volume 7.2 FL Neutrophils (%) (Auto) 79.4 % Lymphocytes (%) (Auto) 10.6 % Monocytes (%) (Auto) 8.4 % Eosinophils (%) (Auto) 1.1 % Basophils (%) (Auto) 0.5 % Neutrophils # (Auto) 2.5 TH/MM3 Lymphocytes # (Auto) 0.3 TH/MM3 Monocytes # (Auto) 0.3 TH/MM3 Eosinophils # (Auto) 0.0 TH/MM3 Basophils # (Auto) 0.0 TH/MM3 CBC Comment AUTO DIFF Differential Comment AUTO DIFF CONFIRMED Platelet Estimate NORMAL Platelet Morphology Comment NORMAL Imaging Last Impressions Abdomen/Pelvis CT 01/19/18 0000 Signed Impressions: Service Date/Time: Friday, January 19, 2018 22:50 - CONCLUSION: 1. Mild stranding of fat around the colostomy in the left lower quadrant abdominal wall which could represent some edema or mild inflammatory change. No discrete abscess. 2. Diffuse fatty liver. No other acute findings within the abdomen and pelvis. Asad Mccann MD Chest X-Ray 01/12/18 0000 Signed Impressions: Service Date/Time: Friday, January 12, 2018 09:17 - CONCLUSION: Mild left base atelectasis Prieto Weeks MD Abdomen X-Ray 01/09/18 0000 Signed Impressions: Service Date/Time: Tuesday, January 09, 2018 15:09 - CONCLUSION: 1. Gaseous distention of bowel, probable ileus. Right colon distended up to 11 cm. Asad Mccann MD Physical Exam CONSTITUTIONAL/GENERAL: This is an overweight female patient, in no apparent distress. TUBES/LINES/DRAINS: PORT in place R chest - site OK SKIN: ? very faint rash on arms, shoulders ENT: Hearing grossly normal. Nose without bleeding or purulent drainage. Throat without visible erythema, exudates, masses, Multiple clusteres crustered lesions lower lip L aspect and L nostril - improving CARDIOVASCULAR: Regular rate and rhythm without murmurs, gallops, or rubs. No JVD. Peripheral pulses symmetric. RESPIRATORY/CHEST: Symmetric, unlabored respirations. Clear to auscultation. Breath sounds equal bilaterally. No wheezes, rales, or rhonchi. GASTROINTESTINAL: Abdomen soft, remains very tender in LLQ , + moderatelyy distended. \Colostomy in place with brown semi formed stool No hepato-splenomegaly, or palpable masses. + guarding. Localised rebound in LLQ present Bowel sounds present. MUSCULOSKELETAL: Extremities without clubbing, cyanosis, or edema. NEUROLOGICAL: Awake and alert. Motor and sensory grossly within normal limits. Follows commands. Cognitively sharp. Moves all extremities. PSYCHIATRIC: calm, cooperateive Assessment & Plan Remarks Fever - resolved - all clx remain negative - on abx x 9 days Immunosuppressed Leukopenia, primarily lymphopenia Anal ca with rectovag fistula Sp colostomy 11 days ago - cont to co LLQ pain - CT findings dw Dr Espitia: within expected post-op changes Herpes labialis - improving New pruritic rash : allergic reaction dc zosyn monitor off abx rechk CBC with diff if CBC Ok will OK to dc her home No abx @ home dw Radha Hoskins,Meenakshi Perdomo MD January 20, 2018 15:42
== END 2018-01-20 15:55 | disposition home health service (06) | DRG 330 ==
LOC: NEPE 10:41 → NEDA 17:00 → HCIN 20:07
PROVIDERS: ADMIT Hospitalist; ATTEND Hospitalist
PROC: 0D1N0Z4 Bypass Sigmoid Colon to Cutaneous, Open Approach (ICD-10-PCS; principal; 2018-01-07 10:24)
PROC: 0D9F8ZZ Drainage of Right Large Intestine, Via Natural or Artificial Opening Endoscopic (ICD-10-PCS; 2018-01-11)
DX: C21.1 Malignant neoplasm of anal canal (principal); N82.3 Fistula of vagina to large intestine; K76.0 Fatty (change of) liver, not elsewhere classified; L03.115 Cellulitis of right lower limb; F11.20 Opioid dependence, uncomplicated; K56.7 Ileus, unspecified; J98.11 Atelectasis; K94.03 Colostomy malfunction; K62.7 Radiation proctitis; J44.9 Chronic obstructive pulmonary disease, unspecified; R53.1 Weakness; Y84.2 Radiological procedure and radiotherapy as the cause of abnormal reaction of the patient, or of later complication, without mention of misadventure at the time of the procedure; E87.6 Hypokalemia; K12.31 Oral mucositis (ulcerative) due to antineoplastic therapy; T45.1X5A Adverse effect of antineoplastic and immunosuppressive drugs, initial encounter; B00.1 Herpesviral vesicular dermatitis; D72.810 Lymphocytopenia; F41.9 Anxiety disorder, unspecified; Y83.3 Surgical operation with formation of external stoma as the cause of abnormal reaction of the patient, or of later complication, without mention of misadventure at the time of the procedure; L29.9 Pruritus, unspecified; R21 Rash and other nonspecific skin eruption; R73.9 Hyperglycemia, unspecified; Z85.3 Personal history of malignant neoplasm of breast; Z87.891 Personal history of nicotine dependence
CPT/HCPCS: 71045; 74019; 74177; 77014; 77386; 80048; 80053; 80069; 80202; 81001; 82948; 83036; 83605; 83615; 83690; 83735; 85007; 85025; 85027; 85610; 85730; 87040; 87255; 93005; 94150; 94640; 94664; 94667; 94668; 96361; 96374; 96375; C9113; J0131; J0690; J1100; J1170; J1442; J1815; J1885; J1956; J2248; J2250; J2270; J2405; J2543; J2710; J2765; J3010; J3370; J3475; J3480; J7030; J7040; J7050; J7613; Q9963; Q9967